=== PATIENT | female | born 1945 | race Caucasian/White ===

== ENCOUNTER → 2018-03-17 13:16 | Outpatient (CLI) | payer MEDICARE, SELFPAY ==
[2018-03-17 13:38] LABS: Add Manual Diff / Slide Review NO; Basophils Percent Auto 0.8 % (0-2); Eosinophils Percent Auto 1.5 % (2-4); Hematocrit 30.3 % (36-46); Hemoglobin 10.9 g/dL (12.0-16.0); Lymphocytes Percent Auto 19.7 % (25-40); Mean Corpuscular HGB Conc 35.9 % (30-36); Mean Corpuscular Hemoglobin 35.4 PG (26-34); Mean Corpuscular Volume 98.7 fL (80-100); Neutrophils Absolute Auto 3300 /uL (3000-5900); Platelet Count 453 X10^3/uL (150-400); Red Blood Cell Count 3.07 X10^6/uL (4.0-5.2); Red Cell Distribution Width 13.2 % (11.6-14.8); White Blood Cell Count 4.9 X10^3/uL (4.5-11.0)
[2018-03-17 13:53] LABS: Alanine Aminotransferase 30 IU/L (9-52); Albumin 4.1 g/dL (3.5-5.0); Albumin Globulin Ratio 1.7 (1.0-2.8); Alkaline Phosphatase 68 U/L (38-126); Aspartate Aminotransferase 33 IU/L (14-36); Bilirubin Total 0.3 mg/dL (0.2-1.3); Estimated Glomerular Filt Rate > 60.0 mL/min (>60); Globulin 2.4 g/dL (1.7-4.1); Glucose 75 mg/dL (80-110); HEMOLYSIS < 15 (0-50); Potassium 5.1 mmol/L (3.4-5.1); Sodium 120 mmol/L (137-145); Total Protein 6.5 g/dL (6.3-8.2)
== END ==
PROVIDERS: Family Provider Family Medicine; PCP Family Medicine; Visit Provider Nurse Practitioner Gerontology
DX: D47.3 Essential (hemorrhagic) thrombocythemia (principal)
CPT/HCPCS: 36415; 80053; 85025

== ENCOUNTER → 2018-04-14 12:32 | Outpatient (CLI) | payer MEDICARE, SELFPAY ==
[2018-04-14 12:54] LABS: Add Manual Diff / Slide Review NO; Basophils Percent Auto 0.6 % (0-2); Eosinophils Percent Auto 1.1 % (2-4); Hematocrit 31.7 % (36-46); Hemoglobin 11.3 g/dL (12.0-16.0); Lymphocytes Percent Auto 23.6 % (25-40); Mean Corpuscular HGB Conc 35.7 % (30-36); Neutrophils Absolute Auto 2500 /uL (3000-5900); Neutrophils Percent Auto 62.7 % (50-75); Platelet Count 426 X10^3/uL (150-400); Red Blood Cell Count 3.14 X10^6/uL (4.0-5.2); Red Cell Distribution Width 13.7 % (11.6-14.8)
[2018-04-14 13:02] LABS: Alanine Aminotransferase 36 IU/L (9-52); Albumin 4.3 g/dL (3.5-5.0); Albumin Globulin Ratio 1.8 (1.0-2.8); Alkaline Phosphatase 60 U/L (38-126); Aspartate Aminotransferase 31 IU/L (14-36); Bilirubin Total 0.4 mg/dL (0.2-1.3); Blood Urea Nitrogen 12 mg/dL (7-17); Calcium 9.1 mg/dL (8.4-10.2); Carbon Dioxide 26 mmol/L (22-32); Chloride 89 mmol/L (98-107); Estimated Glomerular Filt Rate > 60.0 mL/min (>60); Globulin 2.4 g/dL (1.7-4.1); Glucose 66 mg/dL (80-110); HEMOLYSIS < 15 (0-50); Potassium 4.9 mmol/L (3.4-5.1); Sodium 124 mmol/L (137-145); Total Protein 6.7 g/dL (6.3-8.2)
== END ==
PROVIDERS: Family Provider Family Medicine; PCP Family Medicine; Visit Provider Nurse Practitioner Gerontology
DX: D47.3 Essential (hemorrhagic) thrombocythemia (principal)
CPT/HCPCS: 36415; 80053; 85025

== ENCOUNTER → 2018-06-04 14:31 | Outpatient (CLI) | payer MEDICARE, SELFPAY ==
[2018-06-04 14:56] LABS: Add Manual Diff / Slide Review NO; Basophils Percent Auto 0.5 % (0-2); Eosinophils Percent Auto 0.8 % (2-4); Hematocrit 31.5 % (36-46); Mean Corpuscular HGB Conc 34.9 % (30-36); Mean Corpuscular Hemoglobin 35.5 PG (26-34); Mean Corpuscular Volume 101.7 fL (80-100); Monocytes Percent Auto 9.3 % (3-14); Neutrophils Absolute Auto 3700 /uL (3000-5900); Neutrophils Percent Auto 70.4 % (50-75); Platelet Count 367 X10^3/uL (150-400); Red Cell Distribution Width 13.2 % (11.6-14.8); White Blood Cell Count 5.2 X10^3/uL (4.5-11.0)
[2018-06-04 15:31] LABS: Alanine Aminotransferase 35 IU/L (9-52); Albumin 4.1 g/dL (3.5-5.0); Albumin Globulin Ratio 1.8 (1.0-2.8); Alkaline Phosphatase 62 U/L (38-126); Aspartate Aminotransferase 33 IU/L (14-36); Bilirubin Total 0.3 mg/dL (0.2-1.3); Blood Urea Nitrogen 15 mg/dL (7-17); Calcium 8.9 mg/dL (8.4-10.2); Carbon Dioxide 28 mmol/L (22-32); Chloride 86 mmol/L (98-107); Estimated Glomerular Filt Rate > 60.0 mL/min (>60); Globulin 2.3 g/dL (1.7-4.1); Glucose 80 mg/dL (80-110); HEMOLYSIS < 15 (0-50); Potassium 4.9 mmol/L (3.4-5.1); Sodium 123 mmol/L (137-145); Total Protein 6.4 g/dL (6.3-8.2)
== END ==
PROVIDERS: Family Provider Family Medicine; PCP Family Medicine; Visit Provider Nurse Practitioner Gerontology
DX: D47.3 Essential (hemorrhagic) thrombocythemia (principal)
CPT/HCPCS: 36415; 80053; 85025

== ENCOUNTER → 2018-07-01 10:58 | Outpatient (CLI) | payer MEDICARE, SELFPAY ==
[2018-07-01 11:19] LABS: Add Manual Diff / Slide Review NO; Basophils Percent Auto 0.3 % (0-2); Eosinophils Percent Auto 0.7 % (2-4); Hematocrit 31.7 % (36-46); Hemoglobin 11.1 g/dL (12.0-16.0); Lymphocytes Percent Auto 18.6 % (25-40); Mean Corpuscular Hemoglobin 35.2 PG (26-34); Mean Corpuscular Volume 100.7 fL (80-100); Monocytes Percent Auto 9.6 % (3-14); Neutrophils Absolute Auto 4100 /uL (3000-5900); Neutrophils Percent Auto 70.8 % (50-75); Platelet Count 430 X10^3/uL (150-400); Red Blood Cell Count 3.15 X10^6/uL (4.0-5.2); Red Cell Distribution Width 13.2 % (11.6-14.8); White Blood Cell Count 5.8 X10^3/uL (4.5-11.0)
--- NOTE | 2018-07-01 15:16 | PC.NURSE ---
Called pt with todays CBC results. All values are stable with the exception of her platelets which are 430. Pt is on hydrea 500mg QD for 6 days. This is being managed by Dr Cummings at this point due to the recent loss of Dr Campuzano. She said that her passed on Friday and that stress can cause a rise in her platelets. Dr Cummings will receive results and adjust accordingly.
== END ==
PROVIDERS: Family Provider Family Medicine; PCP Family Medicine; Visit Provider Nurse Practitioner Gerontology
DX: D47.3 Essential (hemorrhagic) thrombocythemia (principal)
CPT/HCPCS: 36415; 85025

== ENCOUNTER → 2018-07-03 08:34 | Outpatient (CLI) | payer MEDICARE, SELFPAY ==
[2018-07-03 08:41] LABS: Bacteria Urine None Seen; RBC Urine None Seen (0-5/HPF); WBC Urine None Seen (0-5/HPF)
[2018-07-03 09:19] LABS: Appearance Urine UA CLEAR; Bilirubin Urine UA NEGATIVE (NEGATIVE); Color Urine UA YELLOW; Glucose Urine UA NEGATIVE (Normal); Ketones Urine UA NEGATIVE (NEGATIVE); Leukocyte Esterase Urine UA NEGATIVE (NEGATIVE); Nitrite Urine UA Negative (Negative); Occult Blood Urine UA NEGATIVE (Negative); Protein Urine UA 1+ (Negative); Urobilinogen Urine UA 0.2 E.U./dL (0.2)
[2018-07-03 09:31] LABS: Reticulocyte Count, Percent 1.4 % (1.06-2.63)
[2018-07-03 09:32] LABS: Add Manual Diff / Slide Review NO; Amorphous Sediment Urine 1+; Basophils Percent Auto 0.4 % (0-2); Culture Indicated Urine Cult Not Indicated; Eosinophils Percent Auto 1.6 % (2-4); Hematocrit 32.1 % (36-46); Hemoglobin 11.2 g/dL (12.0-16.0); Lymphocytes Percent Auto 21.5 % (25-40); Mean Corpuscular HGB Conc 34.9 % (30-36); Mean Corpuscular Hemoglobin 35.2 PG (26-34); Mean Corpuscular Volume 100.9 fL (80-100); Monocytes Percent Auto 9.8 % (3-14); Neutrophils Absolute Auto 2700 /uL (3000-5900); Neutrophils Percent Auto 66.7 % (50-75); Platelet Count 441 X10^3/uL (150-400); Red Blood Cell Count 3.18 X10^6/uL (4.0-5.2); Red Cell Distribution Width 12.7 % (11.6-14.8)
[2018-07-03 10:09] LABS: HEMOLYSIS < 15 (0-50); Iron 76 ug/dL (37-170)
[2018-07-03 10:12] LABS: B Type Natriuretic Peptide 97.5 (<100)
[2018-07-03 10:15] LABS: Creatinine Urine Random 84.1 mg/dL
[2018-07-03 10:19] LABS: Alanine Aminotransferase 38 IU/L (9-52); Albumin 4.2 g/dL (3.5-5.0); Albumin Globulin Ratio 1.9 (1.0-2.8); Alkaline Phosphatase 67 U/L (38-126); Aspartate Aminotransferase 41 IU/L (14-36); Bilirubin Total 0.4 mg/dL (0.2-1.3); Blood Urea Nitrogen 12 mg/dL (7-17); Calcium 9.1 mg/dL (8.4-10.2); Carbon Dioxide 30 mmol/L (22-32); Chloride 93 mmol/L (98-107); Estimated Glomerular Filt Rate > 60.0 mL/min (>60); Globulin 2.2 g/dL (1.7-4.1); Glucose 91 mg/dL (80-110); HEMOLYSIS < 15 (0-50); Potassium 4.3 mmol/L (3.4-5.1); Sodium 130 mmol/L (137-145); Total Protein 6.4 g/dL (6.3-8.2)
[2018-07-03 10:25] LABS: Percent Iron Saturation 25 % (15-50); Total Iron Binding Capacity 304 ug/dL (265-497); Transferrin 253 mg/dL (206-381)
[2018-07-03 10:33] LABS: Microalbumi Creatinin Ratio Ur 425.6 ug/mg CR (<30); Microalbumin Urine Random 35.8 mg/dL (0-1.6)
[2018-07-03 10:44] LABS: Cortisol AM (Before 10AM) 15.7 ug/dL (4.46-22.7)
[2018-07-03 11:18] LABS: Folate > 20.0 ng/mL (2.76-20.0); Vitamin B12 889 pg/mL (239-931)
[2018-07-06 16:52] LABS: Osmolality, Serum 269 mosm/kg (260-310)
[2018-07-06 16:53] LABS: Osmolality Urine 443 mosm/kg (220-1300)
== END ==
PROVIDERS: PCP Family Medicine; Visit Provider Internal Medicine
DX: E87.1 Hypo-osmolality and hyponatremia (principal); R60.0 Localized edema; R03.0 Elevated blood-pressure reading, without diagnosis of hypertension; D47.3 Essential (hemorrhagic) thrombocythemia
CPT/HCPCS: 36415; 80053; 81001; 82043; 82533; 82570; 82607; 82746; 83540; 83550; 83880; 83930; 83935; 84443; 85025; 85045

== ENCOUNTER → 2018-07-30 15:01 | Outpatient (CLI) | payer MEDICARE, SELFPAY ==
[2018-07-30 15:16] LABS: Add Manual Diff / Slide Review NO; Basophils Percent Auto 0.3 % (0-2); Eosinophils Percent Auto 0.5 % (2-4); Hematocrit 32.2 % (36-46); Hemoglobin 11.2 g/dL (12.0-16.0); Lymphocytes Percent Auto 17.1 % (25-40); Mean Corpuscular HGB Conc 34.8 % (30-36); Mean Corpuscular Volume 100.6 fL (80-100); Monocytes Percent Auto 7.1 % (3-14); Neutrophils Absolute Auto 4500 /uL (3000-5900); Platelet Count 403 X10^3/uL (150-400); Red Cell Distribution Width 13.1 % (11.6-14.8)
== END ==
PROVIDERS: Nurse Practitioner Gerontology; Family Provider Family Medicine; PCP Family Medicine
DX: D47.3 Essential (hemorrhagic) thrombocythemia (principal)
CPT/HCPCS: 36415; 85025

== ENCOUNTER 2018-08-04 14:00 | Oncology outpatient (ONC) | payer MEDICARE, SELFPAY ==
--- NOTE | 2018-04-16 08:57 | ONC.APRN.PN ---
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 She has been well managed on Hydrea 500 mg x6 days/3000mg per week. On exam today she has no signs or symptoms of thrombus. Additionally, CBC demonstrates stability with a platelet count of 426,000. Continue Hydrea 3000 mg per week. CMP demonstrates hyponatremia with a sodium of 124. She carries a diagnosis of chronic hypontremia for which her PCP manages. No clear etiology. I have reviewed her medication list no obvious offenders. at 124 I am somewhat concerned for cardiac arrhythmia surprisingly she is not symptomatic with result of 124 and she is adamant this is normal and Dr Cummings follows closely. I reviewed her last several results and they were 124, 125, 126, 124. Also she has chronic bradycardia quite alarming today her rate is 38 however in review of records upper 30's low 40's seems to be normal for her. Either way this is concerning however, again, Megha is adamant this is also normal for her. She absolutely denies any CP, lightheadedness, dizziness. In review of these records as well she is correct her last several visits her heart rate has been in the upper 30s to low 40s. RTC in 2 months for provider visit cbc cmp On exam today 04/16/18 12:37 - Time Spent with Patient 35 mins PN -Subjective Interval history: Darron is a 73-year-old female who is being seen in the clinic April 16, 2018 for JAK2 positive essential thrombocytosis currently taking Hydrea 500 mg x6 days/3000mg per week. She presents today for 6 month clinical evaluation. Past Medical History The patient's past medical history is significant for: 2. History of a TIA with hospitalization for aphasia and ataxia, largely resolved; that was in 04/2014. 3. history of hypothyroidism 4. Partial seizure. Evaluated by Dr. Ramos. 5. chronic hyponatremia Results - Imaging Additional studies: Procedures CATARAC PHACOEMULS/ASPIR (05/08/10) Colonoscopy (09/02/12) INSERT LENS AT CATAR EXT (05/08/10) Other and open repair of indirect inguinal hernia with graft or prosthesis (03/28/15) Other unilateral femoral herniorrhaphy (05/19/15) Home Medications and Allergies Home Medications Medication Instructions Recorded Confirmed Type B.ANI/L.ACI/L.SCARLET/L.PLAN/L.TRISHA 1 cap PO Q DAY #0 09/02/11 History (Probiotic Formula Capsule) CA PANTOTHENATE/FOLIC ACID/VIT 1 tab PO QDAY #0 09/02/11 History (MULTIVITAMIN) VITAMIN E (#E400) 400 iu PO Q DAY #0 09/02/11 History levothyroxine [Synthroid] 0.075 mg PO QAM #90 tab 09/02/17 Rx alendronate 70 mg PO QWEEK #12 tab 09/09/17 Rx hydroxyurea [Hydrea] 500 mg PO QDAY #100 tab 09/18/17 Rx cholecalciferol (vitamin D3) 1,000 iu PO QDAY #0 11/20/17 History [Vitamin D3] [TURBINAFINE] #0 02/13/18 History gabapentin [Neurontin] 0 PO BID #180 tab 02/25/18 Rx Allergies Allergy/AdvReac Type Severity Reaction Status Date / Time codeine Allergy Mild NAUSEA Unverified 02/18/18 11:48 Sulfa (Sulfonamide Allergy Mild NAUSEA Unverified 02/18/18 11:48 Antibiotics) morphine AdvReac Mild NAUSEA Unverified 02/18/18 11:48
[2018-04-16 12:49] VITALS: BP 199/76; PULSE 39; RESP 16; TEMP 36.4
[2018-06-05 13:24] VITALS: BP 174/70; PULSE 36; RESP 20; TEMP 36.8; O2SAT 100
--- NOTE | 2018-06-05 13:45 | ONC.APRN.PN ---
Assessment and Plan (1) Thrombocythemia Onset Date: 06/07/14 Current visit: No Status: None 06/05/18 13:51 Darron is a 73-year-old female who is being seen in the clinic 06/05/2018 for JAK2 positive essential thrombocytosis currently taking Hydrea 500 mg x6 days/3000mg per week. She presents today for 6 month clinical evaluation. Platelets are very good today at 367,000. Patient is overall feeling quite well. We will continue Hydrea 500 mg x6 days. I am going to refer the patient to Cardiology for further evaluation of chronic asymptomatic bradycardia. In review of the patient's previous visits dating back at least 2 years she has chronic bradycardia with heart rate in the 30s to 40s. Additionally, she seems to have chronic hyponatremia with sodiums generally in the low 120. Patient is adamant she remains asymptomatic to both which is rather surprising. Patient is agreeable to meeting with Cardiology. We will go ahead and schedule for her. Return to clinic in 1 months time for CBC. Two months for provider visit, CBC. - Time Spent with Patient 35 mins PN -Subjective Interval history: Darron is a 73-year-old female who is being seen in the clinic 06/05/2018 for JAK2 positive essential thrombocytosis currently taking Hydrea 500 mg x6 days/3000mg per week. She presents today for 6 month clinical evaluation. She has nothing new to report on exam today. Overall feeling ?excellent?. She and her are enjoying the summer season. Specifically no unexplained bleeding or bruising. She remains quite active, activity tolerance remains very good. No chest pain, shortness of breath. No headaches. She does have chronic swelling of her lower extremities. Appetite is stable, weight is stable. Bowel movements are normal. At time of intake the patient has a heart rate of 36 with a blood pressure of 174/70. I am quite familiar with this patient she does have chronic bradycardia previous visit April 16 heart rate was 39, visit February 13 heart rate was 45, visit January 02 heart rate was 36. Patient reports ?it has always been like this, Dr Cummings is not alarmed. She takes her blood pressure at home reports systolic pressures generally in the 120s. She also has chronic severe hyponatremia today her sodium is 123. Specifically the patient denies any dizziness, lightheadedness. No nausea. As noted above activity tolerance is very good. Past Medical History The patient's past medical history is significant for: 2. History of a TIA with hospitalization for aphasia and ataxia, largely resolved; that was in 04/2014. 3. history of hypothyroidism 4. Partial seizure. Evaluated by Dr. Ramos. 5. chronic hyponatremia Results - Imaging Additional studies: Procedures CATARAC PHACOEMULS/ASPIR (05/08/10) Colonoscopy (09/02/12) INSERT LENS AT CATAR EXT (05/08/10) Other and open repair of indirect inguinal hernia with graft or prosthesis (03/28/15) Other unilateral femoral herniorrhaphy (03/28/15) Home Medications and Allergies Home Medications Medication Instructions Recorded Confirmed Type B.ANI/L.ACI/L.SCARLET/L.PLAN/L.TRISHA 1 cap PO Q DAY #0 09/02/11 History (Probiotic Formula Capsule) CA PANTOTHENATE/FOLIC ACID/VIT 1 tab PO QDAY #0 09/02/11 History (MULTIVITAMIN) VITAMIN E (#E400) 400 iu PO Q DAY #0 09/02/11 History levothyroxine [Synthroid] 0.075 mg PO QAM #90 tab 09/02/17 Rx alendronate 70 mg PO QWEEK #12 tab 09/09/17 Rx hydroxyurea [Hydrea] 500 mg PO QDAY #100 tab 09/18/17 Rx cholecalciferol (vitamin D3) 1,000 iu PO QDAY #0 11/20/17 History [Vitamin D3] gabapentin [Neurontin] 0 PO BID #180 tab 02/25/18 Rx Allergies Allergy/AdvReac Type Severity Reaction Status Date / Time codeine Allergy Mild NAUSEA Unverified 02/18/18 11:48 Sulfa (Sulfonamide Allergy Mild NAUSEA Unverified 02/18/18 11:48 Antibiotics) morphine AdvReac Mild NAUSEA Unverified 02/18/18 11:48 Exam Vital signs: Last Vital Signs Temp 98.2 F 06/05/18 13:24 Pulse 36 L 06/05/18 13:24 Resp 20 06/05/18 13:24 BP 174/70 H 06/05/18 13:24 Pulse Ox 100 06/05/18 13:24 Narrative: Nontoxic-appearing - Constitutional positive no acute distress, positive thin - Routine HEENT Exam Eye: Present: conjunctivae pink. Absent: conjunctival icterus, scleral injection ENT: Present: mucous membranes moist, oropharynx clear - Routine Neck Exam Present: supple. Absent: lymphadenopathy - Routine Respiratory Exam Present: Clear to auscultation bilaterally. Absent: rales, rhonchi, wheezes - Routine Cardiovascular Exam Present: S1, S2, bradycardia. Absent: murmur, gallop, rubs, JVD Comments: Heart rate today in the upper 30s. Per patient report this is chronic. In review of her chart she does in fact have documented heart rate in the 30s and 40s her previous visits going back the last few years. - Routine Abdominal Exam Present: soft, normoactive bowel sounds. Absent: tenderness, distended, organomegaly, mass - Routine Extremities Exam Present: edema. Absent: calf tenderness Comments: 2+ symmetric bilateral pretibial edema - Routine Skin Exam Present: intact, normal turgor. Absent: petechiae, rash - Routine Neurological Exam Present: alert, oriented X3, CN II-XII intact - Routine Psychiatric Exam Present: normal affect
--- NOTE | 2018-08-04 14:32 | ONC.PN ---
PN -Subjective Interval history: Darron is a 73-year-old female who is being seen in the clinic for JAK2 positive essential thrombocytosis currently taking Hydrea 500 mg x6 days/3000mg per week. Since her last visit here, she has been feeling generally well. She denies any bleeding or but blood clotting complications. No fevers chills or sweats. Her appetite and energy level have been stable. She has not had any GI complaints. She continues to tolerate her Hydrea without any significant difficulty. She was referred to Cardiology for bradycardia and has an appointment coming up but has not seen them yet. She is not having any chest pain or dizziness or lightheadedness. Past Medical History The patient's past medical history is significant for: 2. History of a TIA with hospitalization for aphasia and ataxia, largely resolved; that was in 04/2014. 3. history of hypothyroidism 4. Partial seizure. Evaluated by Dr. Ramos. 5. chronic hyponatremia Social history: She was recently . Her about a month ago. She does not smoke. She has occasional alcohol use. Home Medications and Allergies Home Medications Medication Instructions Recorded Confirmed Type B.ANI/L.ACI/L.SCARLET/L.PLAN/L.TRISHA 1 cap PO Q DAY #0 09/02/11 07/02/18 History (Probiotic Formula Capsule) CA PANTOTHENATE/FOLIC ACID/VIT 1 tab PO QDAY #0 09/02/11 07/02/18 History (MULTIVITAMIN) VITAMIN E (#E400) 400 iu PO Q DAY #0 09/02/11 07/02/18 History levothyroxine [Synthroid] 0.075 mg PO QAM #90 tab 09/02/17 07/02/18 Rx alendronate 70 mg PO QWEEK #12 tab 09/09/17 07/02/18 Rx hydroxyurea [Hydrea] 500 mg PO QDAY #100 tab 09/18/17 07/02/18 Rx cholecalciferol (vitamin D3) 1,000 iu PO QDAY #0 11/20/17 07/02/18 History [Vitamin D3] gabapentin [Neurontin] 0 PO BID #180 tab 02/25/18 07/02/18 Rx Allergies Allergy/AdvReac Type Severity Reaction Status Date / Time codeine Allergy Mild NAUSEA Unverified 07/02/18 14:04 Sulfa (Sulfonamide Allergy Mild NAUSEA Unverified 07/02/18 14:04 Antibiotics) morphine AdvReac Mild NAUSEA Unverified 07/02/18 14:04 Exam Vital signs: Last Vital Signs Temp 98.2 F 06/05/18 13:24 Pulse 36 L 06/05/18 13:24 Resp 20 06/05/18 13:24 BP 174/70 H 06/05/18 13:24 Pulse Ox 100 06/05/18 13:24 - Constitutional positive no acute distress, positive average body habitus - Routine HEENT Exam Head: Present: normocephalic, atraumatic Eye: Present: EOMI, PERRL. Absent: conjunctival icterus, scleral injection ENT: Present: mucous membranes moist, oropharynx clear - Routine Neck Exam Present: supple. Absent: lymphadenopathy, thyromegaly - Routine Respiratory Exam Present: Clear to auscultation bilaterally. Absent: rales, wheezes - Routine Cardiovascular Exam Present: RRR, S1, S2. Absent: murmur - Routine Abdominal Exam Present: soft, normoactive bowel sounds. Absent: tenderness, organomegaly Palpation/Percussion: Absent: splenomegaly - Routine Extremities Exam Absent: cyanosis, clubbing, edema - Routine Back/Spine Exam Back/Spine: Absent: paraspinal tenderness, vertebral tenderness - Routine Skin Exam Present: intact. Absent: petechiae, rash - Routine Neurological Exam Present: alert, oriented X3 - Routine Psychiatric Exam Present: normal affect, normal thought process Results - Labs On July 30 her white count was 6000 hemoglobin 11.2 hematocrit 32.2 platelets [id number]. - Imaging Additional studies: Procedures CATARAC PHACOEMULS/ASPIR (05/08/10) INSERT LENS AT CATAR EXT (05/08/10) Other and open repair of indirect inguinal hernia with graft or prosthesis (03/28/15) Other unilateral femoral herniorrhaphy (03/28/15) Assessment and Plan (1) Thrombocythemia Onset Date: 06/07/14 Problem details: A 73-year-old woman with a history of essential thrombocytosis. She has had good control of her platelet count. She is tolerating Hydrea well. She will continue on her current regimen. She will check a monthly CBC and return to clinic in about 4 months for follow-up. Current visit: No Status: None
[2018-08-04 16:10] VITALS: BP 153/76; PULSE 45; RESP 18; TEMP 36.4
== END 2018-08-05 12:00 ==
PROVIDERS: Family Provider Family Medicine; PCP Family Medicine; Visit Provider Nurse Practitioner Gerontology
DX: D47.3 Essential (hemorrhagic) thrombocythemia (principal)
CPT/HCPCS: 99214

== ENCOUNTER → 2018-08-19 09:41 | Outpatient (CLI) | payer MEDICARE, SELFPAY ==
[2018-08-19 10:54] LABS: Add Manual Diff / Slide Review NO; Basophils Percent Auto 0.5 % (0-2); Eosinophils Percent Auto 1.1 % (2-4); Hematocrit 34.6 % (36-46); Lymphocytes Percent Auto 22.1 % (25-40); Mean Corpuscular HGB Conc 34.8 % (30-36); Mean Corpuscular Hemoglobin 35.7 PG (26-34); Mean Corpuscular Volume 102.5 fL (80-100); Monocytes Percent Auto 10.1 % (3-14); Neutrophils Absolute Auto 2800 /uL (3000-5900); Neutrophils Percent Auto 66.2 % (50-75); Platelet Count 425 X10^3/uL (150-400); Red Blood Cell Count 3.37 X10^6/uL (4.0-5.2); Red Cell Distribution Width 13.4 % (11.6-14.8); White Blood Cell Count 4.3 X10^3/uL (4.5-11.0)
[2018-08-19 11:04] LABS: Alanine Aminotransferase 30 IU/L (9-52); Albumin 4.5 g/dL (3.5-5.0); Albumin Globulin Ratio 1.8 (1.0-2.8); Alkaline Phosphatase 67 U/L (38-126); Aspartate Aminotransferase 33 IU/L (14-36); BUN Creatinine Ratio 21.4 (6-22); Bilirubin Total 0.5 mg/dL (0.2-1.3); Blood Urea Nitrogen 15 mg/dL (7-17); Calcium 9.4 mg/dL (8.4-10.2); Carbon Dioxide 31 mmol/L (22-32); Chloride 93 mmol/L (98-107); Cholesterol 195 mg/dL (140-199); Estimated Glomerular Filt Rate > 60.0 mL/min (>60); Globulin 2.5 g/dL (1.7-4.1); Glucose 93 mg/dL (80-110); HEMOLYSIS < 15 (0-50); Potassium 4.4 mmol/L (3.4-5.1); Sodium 133 mmol/L (137-145); Triglycerides 74 mg/dL (35-150)
[2018-08-19 11:26] LABS: HDL Cholesterol 124 mg/dL (40-60); LDL Cholesterol Calculated 56 mg/dL (<100)
[2018-08-19 12:21] LABS: Thyroid Stimulating Hormone 2.12 uIU/mL (0.47-4.68)
== END ==
PROVIDERS: Family Provider Family Medicine; PCP Family Medicine; Visit Provider Hospitalist
DX: D47.3 Essential (hemorrhagic) thrombocythemia (principal); E03.9 Hypothyroidism, unspecified; R60.0 Localized edema; D64.9 Anemia, unspecified; E87.1 Hypo-osmolality and hyponatremia; G62.9 Polyneuropathy, unspecified
CPT/HCPCS: 36415; 80053; 80061; 84156; 84166; 84443; 85025

== ENCOUNTER → 2018-08-21 12:41 | Outpatient (CLI) | payer MEDICARE, SELFPAY ==
--- NOTE | 2018-08-21 13:05 | DI.ECHO.S_ITS ---
Echocardiogram Report + + :Name: GABRIELA MARINA Date: 08/21/2018 Height: 64 in : :[employer] Weight: 106 lb : : Gender: Female BSA: 1.5 m2 : :: 1945 Age: 73 yrs BP: 150/74 mmHg: :Reason For Study: Edema : :Ordering Physician: Faheem : :Mesfin Edwards Performed By: Idania Shahid : :Referring: Dr. Felipe Cummings : + + Interpretation Summary The left ventricle is normal in size, wall thickness, and systolic function without any focal wall motion abnormalities. There is pseudonormalization of the E/A, indicating normal filling pressures. However the tissue velocities of the septal and lateral mitral annulus are severely reduced and the left atrial is significantly dilated. The right ventricle grossly appears normal in size with probable normal systolic function. The left atrium is severely dilated. The right ventricular systolic pressure is estimated to be at least 35 mmHg based on an estimated right atrial pressure of 3 mm Hg. The IVC is of normal diameter and collapses greater than 50% with a sniff. This suggests a low right atrial pressure of 3 mm Hg. Procedure: A two-dimensional transthoracic echocardiogram with color flow and Doppler was performed. The study quality was technically good. Comparison is made with the echocardiogram of 03-15-14. The patient was in normal sinus rhythm during the exam. Left Ventricle: The left ventricle is normal in size, wall thickness, and systolic function without any focal wall motion abnormalities. The ejection fraction is estimated to be 60-65%. Diastolic function could not be accurately assessed due to contradictory data. There is pseudonormalization of the E/A, indicating normal filling pressures. However the tissue velocities of the septal and lateral mitral annulus are severely reduced and the left atrial is significantly dilated. Right Ventricle: The right ventricle grossly appears normal in size with probable normal systolic function. Atria: The left atrium is severely dilated. The right atrium is mildly dilated. The interatrial septum is intact with no evidence for an atrial septal defect. Mitral Valve: The mitral valve is grossly normal. There is mild to moderate mitral regurgitation. Aortic Valve: The aortic valve is trileaflet. The aortic valve opens well. There is mild aortic valve sclerosis. There is no aortic valve stenosis. There is trace aortic regurgitation. Tricuspid Valve: The tricuspid valve is normal in structure and function. There is trace tricuspid regurgitation. The right ventricular systolic pressure is estimated to be at least 35 mmHg based on an estimated right atrial pressure of 3 mm Hg. Pulmonic Valve: The pulmonic valve is normal in structure and function. There is trace pulmonic regurgitation. Great Vessels: The aortic root is normal size. The dimensions of the ascending aorta are normal. The IVC is of normal diameter and collapses greater than 50% with a sniff. This suggests a low right atrial pressure of 3 mm Hg. Pericardium/ Pleura There is no pericardial effusion. There is no pleural effusion. MMode/2D Measurements & Calculations LVIDd: 4.8 cm Ao root diam: 3.2 cm LVIDs: 2.7 cm Aortic Jxn: 2.6 cm FS: 43.0 % asc Aorta Diam: 2.4 cm IVSd: 0.76 cm Ao Arch Diam (Prox Trans): 2.5 cm LVPWd: 0.91 cm LV yanes. diameter/BSA (cm/m^2): 3.2 LV sys. diameter/BSA (cm/m^2): 1.8 LA A2 area: 26.5 cm2 RA long axis: 5.1 cm LA A4 area: 27.2 cm2 RA area: 18.7 cm2 LA length (vol): 5.9 cm RA vol: 58.7 ml LA vol: 103.7 ml RA : 39.3 ml/m2 LA vol index: 69.5 ml/m2 IVC diam: 1.5 cm RVDd major: 6.0 cm RVD1 (basal): 4.0 cm RVD2 (mid): 2.6 cm Doppler Measurements & Calculations Ao V2 max: 128.4 cm/sec MV E max carlos: 60.0 cm/sec Ao V2 mean: 79.0 cm/sec MV A max carlos: 56.5 cm/sec Ao max P.6 mmHg MV E/A: 1.1 Ao mean P.0 mmHg Med Peak E' Carlos: 4.5 cm/sec Ao V2 VTI: 34.6 cm E/E' med: 13.4 Lat Peak E' Carlos: 5.5 cm/sec E/E' lat: 11.0 E/e' average: 12.2 MV dec time: 0.56 sec MV P1/2t: 163.8 msec MR ERO: 0.12 cm2 TR max carlos: 283.5 cm/sec MV P1/2t max carlos: 59.6 cm/sec TR max P.2 mmHg MVA(P1/2t): 1.3 cm2 PA V2 max: 81.2 cm/sec PA V2 mean: 53.7 cm/sec PA mean P.3 mmHg PA Accel Time: 0.19 sec MR flow rate: 76.5 cm3/sec MR PISA radius: 0.57 cm _ Electronically signed by: Faheem Toure M.D. on Reading Physician:08/21/2018 07:32 PM
== END ==
PROVIDERS: Family Provider Family Medicine; PCP Family Medicine; Visit Provider Hospitalist
DX: I34.0 Nonrheumatic mitral (valve) insufficiency (principal); R60.9 Edema, unspecified
CPT/HCPCS: 93306

== ENCOUNTER → 2018-08-31 14:30 | Outpatient (CLI) | payer MEDICARE, SELFPAY ==
[2018-08-31 14:53] LABS: Add Manual Diff / Slide Review NO; Basophils Percent Auto 0.8 % (0-2); Eosinophils Percent Auto 0.6 % (2-4); Hematocrit 31.8 % (36-46); Lymphocytes Percent Auto 22.2 % (25-40); Mean Corpuscular HGB Conc 34.6 % (30-36); Mean Corpuscular Hemoglobin 35.1 PG (26-34); Mean Corpuscular Volume 101.4 fL (80-100); Neutrophils Absolute Auto 3200 /uL (3000-5900); Neutrophils Percent Auto 67.4 % (50-75); Platelet Count 436 X10^3/uL (150-400); Red Blood Cell Count 3.14 X10^6/uL (4.0-5.2); Red Cell Distribution Width 13.4 % (11.6-14.8); White Blood Cell Count 4.8 X10^3/uL (4.5-11.0)
--- NOTE | 2018-09-01 11:51 | PC.NURSE ---
Spoke with pt regarding recent lab results. Platelets are elevated but outside the 500 range given by provider. Pt is on hydrea and no dose adjust is currently needed.
== END ==
PROVIDERS: Family Provider Family Medicine; PCP Family Medicine
DX: R60.9 Edema, unspecified (principal); D47.3 Essential (hemorrhagic) thrombocythemia
CPT/HCPCS: 36415; 81003; 84156; 84166; 85025

== ENCOUNTER → 2018-08-31 14:46 | Outpatient (CLI) | payer MEDICARE, SELFPAY ==
[2018-08-31 15:55] LABS: Appearance Urine UA CLEAR; Bilirubin Urine UA NEGATIVE (NEGATIVE); Color Urine UA YELLOW; Glucose Urine UA NEGATIVE (Normal); Ketones Urine UA NEGATIVE (NEGATIVE); Leukocyte Esterase Urine UA NEGATIVE (NEGATIVE); Nitrite Urine UA NEGATIVE (Negative); Occult Blood Urine UA NEGATIVE (Negative); Protein Urine UA TRACE (Negative); Urobilinogen Urine UA 0.2 E.U./dL (0.2); pH Urine UA 7.5 (4.5-8.0)
== END ==
PROVIDERS: Family Provider Family Medicine; PCP Family Medicine; Visit Provider Hospitalist
DX: R60.9 Edema, unspecified (principal)
CPT/HCPCS: 81003; 84156; 84166

== ENCOUNTER → 2018-09-15 15:17 | Outpatient (CLI) | payer MEDICARE, SELFPAY ==
--- NOTE | 2018-09-15 | DI.MG.S_ITS ---
BILATERAL DIGITAL SCREENING MAMMOGRAM 3D/2D WITH CAD: 09/15/2018 CLINICAL: Routine screening. Family history of breast cancer. Comparison is made to exams dated: 08/13/2017 mammogram, 08/12/2016 mammogram, and 08/10/2015 mammogram - [facility]. The tissue of both breasts is heterogeneously dense. This may lower the sensitivity of mammography. Current study was also evaluated with a Computer Aided Detection (CAD) system. No significant masses, calcifications, or other findings are seen in either breast. There has been no significant interval change. IMPRESSION: NEGATIVE There is no mammographic evidence of malignancy. A 1 year screening mammogram is recommended. This exam was interpreted at Station ID: [id number]. NOTE: For mammograms, a report in lay terms will be sent to the patient. Approximately 15% of breast malignancies will not be visualized mammographically. In the management of a palpable breast mass, a negative mammogram must not discourage biopsy of a clinically suspicious lesion. Electronically Signed By: Lencho palmer/alfonso:09/16/2018 07:20:03 letter sent: Normal Exam ACR BI-RADS Category 1: Negative [id number]
== END ==
PROVIDERS: PCP Family Medicine; Visit Provider Family Medicine
DX: Z12.31 Encounter for screening mammogram for malignant neoplasm of breast (principal); Z80.3 Family history of malignant neoplasm of breast
CPT/HCPCS: 77063; 77067

== ENCOUNTER → 2018-10-13 15:08 | Outpatient (CLI) | payer MEDICARE, SELFPAY ==
[2018-10-13 15:49] LABS: Add Manual Diff / Slide Review NO; Basophils Percent Auto 0.3 % (0-2); Eosinophils Percent Auto 0.5 % (2-4); Hematocrit 32.4 % (36-46); Hemoglobin 11.3 g/dL (12.0-16.0); Lymphocytes Percent Auto 14.8 % (25-40); Mean Corpuscular HGB Conc 34.8 % (30-36); Mean Corpuscular Hemoglobin 35.6 PG (26-34); Mean Corpuscular Volume 102.3 fL (80-100); Monocytes Percent Auto 7.5 % (3-14); Neutrophils Absolute Auto 3600 /uL (3000-5900); Neutrophils Percent Auto 76.9 % (50-75); Platelet Count 399 X10^3/uL (150-400); Red Blood Cell Count 3.16 X10^6/uL (4.0-5.2); Red Cell Distribution Width 12.8 % (11.6-14.8); White Blood Cell Count 4.7 X10^3/uL (4.5-11.0)
== END ==
PROVIDERS: Family Provider Family Medicine; PCP Family Medicine
DX: D47.3 Essential (hemorrhagic) thrombocythemia (principal)
CPT/HCPCS: 36415; 85025

== ENCOUNTER → 2018-11-11 12:56 | Outpatient (CLI) | payer MEDICARE, SELFPAY ==
[2018-11-11 13:15] LABS: Add Manual Diff / Slide Review NO; Basophils Percent Auto 0.6 % (0-2); Eosinophils Percent Auto 0.5 % (2-4); Hematocrit 33.7 % (36-46); Hemoglobin 11.6 g/dL (12.0-16.0); Lymphocytes Percent Auto 15.5 % (25-40); Mean Corpuscular HGB Conc 34.4 % (30-36); Mean Corpuscular Hemoglobin 35.3 PG (26-34); Mean Corpuscular Volume 102.7 fL (80-100); Monocytes Percent Auto 9.5 % (3-14); Neutrophils Absolute Auto 3600 /uL (1500-7000); Neutrophils Percent Auto 73.9 % (50-75); Platelet Count 407 X10^3/uL (150-400); Red Blood Cell Count 3.28 X10^6/uL (4.0-5.2); Red Cell Distribution Width 12.4 % (11.6-14.8); White Blood Cell Count 4.9 X10^3/uL (4.5-11.0)
== END ==
PROVIDERS: Family Provider Family Medicine; PCP Family Medicine
DX: D47.3 Essential (hemorrhagic) thrombocythemia (principal)
CPT/HCPCS: 36415; 85025

== ENCOUNTER → 2019-03-18 14:41 | Outpatient (CLI) | payer MEDICARE, SELFPAY ==
[2019-03-18 15:05] LABS: Bacteria Urine None Seen; RBC Urine None Seen (0-5/HPF); WBC Urine None Seen (0-5/HPF)
[2019-03-18 15:52] LABS: Add Manual Diff / Slide Review NO; Basophils Absolute Auto 0 /uL (0-100); Basophils Percent Auto 0.3 % (0-2); Eosinophils Absolute Auto 0 /uL (0-450); Eosinophils Percent Auto 0.6 % (2-4); Hematocrit 29.6 % (36-46); Hemoglobin 9.9 g/dL (12.0-16.0); Lymphocytes Absolute Auto 600 /uL (1100-4500); Lymphocytes Percent Auto 17.3 % (25-40); Mean Corpuscular HGB Conc 33.5 % (30-36); Mean Corpuscular Hemoglobin 34.6 PG (26-34); Mean Corpuscular Volume 103.4 fL (80-100); Monocytes Absolute Auto 400 /uL (0-900); Neutrophils Absolute Auto 2600 /uL (1500-7000); Neutrophils Percent Auto 71.8 % (50-75); Platelet Count 319 X10^3/uL (150-400); Red Blood Cell Count 2.87 X10^6/uL (4.0-5.2); Red Cell Distribution Width 13.8 % (11.6-14.8); White Blood Cell Count 3.6 X10^3/uL (4.5-11.0)
[2019-03-18 15:59] LABS: Appearance Urine UA CLEAR; Bilirubin Urine UA NEGATIVE (NEGATIVE); Color Urine UA YELLOW; Glucose Urine UA NEGATIVE (Negative); Ketones Urine UA NEGATIVE (NEGATIVE); Leukocyte Esterase Urine UA NEGATIVE (NEGATIVE); Nitrite Urine UA NEGATIVE (Negative); Occult Blood Urine UA NEGATIVE (Negative); Protein Urine UA 2+ (Negative); Specific Gravity Urine UA 1.015 (1.000-1.035); Urobilinogen Urine UA 0.2 E.U./dL (0.2); pH Urine UA 7.5 (4.5-8.0)
== END ==
PROVIDERS: Family Provider Family Medicine; PCP Family Medicine; Visit Provider Internal Medicine Cardiovascular Disease
DX: R60.9 Edema, unspecified (principal); D47.3 Essential (hemorrhagic) thrombocythemia
CPT/HCPCS: 36415; 81001; 84156; 84166; 85025

== ENCOUNTER → 2019-03-29 15:24 | Outpatient (CLI) | payer MEDICARE, SELFPAY ==
[2019-04-04 02:36] LABS: Albumin 69 %; Protein/ Creatinine Ratio 1914 mg/g creat (21-161); Total Urine Protein 71 mg/dL (5-24); Urine Creatinine, Random 37 mg/dL (20-275)
== END ==
PROVIDERS: Family Provider Family Medicine; PCP Family Medicine
DX: D47.3 Essential (hemorrhagic) thrombocythemia (principal)
CPT/HCPCS: 84156; 84166; 86335

== ENCOUNTER → 2019-05-19 14:31 | Outpatient (CLI) | payer MEDICARE, SELFPAY ==
[2019-05-19 15:13] LABS: Add Manual Diff / Slide Review NO; Basophils Absolute Auto 0 /uL (0-100); Basophils Percent Auto 0.3 % (0-2); Eosinophils Absolute Auto 0 /uL (0-450); Eosinophils Percent Auto 0.3 % (2-4); Hematocrit 30.4 % (36-46); Hemoglobin 10.6 g/dL (12.0-16.0); Lymphocytes Absolute Auto 600 /uL (1100-4500); Lymphocytes Percent Auto 13.4 % (25-40); Mean Corpuscular Hemoglobin 35.6 PG (26-34); Monocytes Absolute Auto 300 /uL (0-900); Monocytes Percent Auto 6.8 % (3-14); Neutrophils Absolute Auto 3700 /uL (1500-7000); Neutrophils Percent Auto 79.2 % (50-75); Platelet Count 275 X10^3/uL (150-400); Red Blood Cell Count 2.98 X10^6/uL (4.0-5.2); Red Cell Distribution Width 13.6 % (11.6-14.8); White Blood Cell Count 4.7 X10^3/uL (4.5-11.0)
== END ==
PROVIDERS: PCP Family Medicine
DX: D47.3 Essential (hemorrhagic) thrombocythemia (principal)
CPT/HCPCS: 36415; 85025

== ENCOUNTER → 2019-06-02 15:13 | Outpatient (CLI) | payer MEDICARE, SELFPAY ==
[2019-06-02 15:54] LABS: Add Manual Diff / Slide Review NO; Basophils Absolute Auto 0 /uL (0-100); Basophils Percent Auto 0.1 % (0-2); Eosinophils Absolute Auto 0 /uL (0-450); Eosinophils Percent Auto 0.3 % (2-4); Hematocrit 28.8 % (36-46); Lymphocytes Absolute Auto 600 /uL (1100-4500); Lymphocytes Percent Auto 9.1 % (25-40); Mean Corpuscular HGB Conc 34.8 % (30-36); Mean Corpuscular Hemoglobin 35.5 PG (26-34); Mean Corpuscular Volume 101.9 fL (80-100); Monocytes Absolute Auto 400 /uL (0-900); Monocytes Percent Auto 5.3 % (3-14); Neutrophils Absolute Auto 5800 /uL (1500-7000); Neutrophils Percent Auto 85.2 % (50-75); Platelet Count 317 X10^3/uL (150-400); Red Blood Cell Count 2.83 X10^6/uL (4.0-5.2); Red Cell Distribution Width 13.7 % (11.6-14.8); White Blood Cell Count 6.8 X10^3/uL (4.5-11.0)
[2019-06-02 16:36] LABS: Erythrocyte Sedimentation Rate 19 MM/HR (0-20)
[2019-06-02 17:42] LABS: Alanine Aminotransferase 32 IU/L (9-52); Albumin 4.1 g/dL (3.5-5.0); Albumin Globulin Ratio 1.7 (1.0-2.8); Alkaline Phosphatase 80 U/L (38-126); Aspartate Aminotransferase 30 IU/L (14-36); Bilirubin Total 0.3 mg/dL (0.2-1.3); Blood Urea Nitrogen 12 mg/dL (7-17); C-Reactive Protein Quant 0.6 mg/dL (<1.0); Calcium 8.9 mg/dL (8.4-10.2); Carbon Dioxide 28 mmol/L (22-32); Chloride 85 mmol/L (98-107); Estimated Glomerular Filt Rate > 60.0 mL/min (>60); Globulin 2.4 g/dL (1.7-4.1); Glucose 69 mg/dL (80-110); HEMOLYSIS < 15 (0-50); Potassium 4.7 mmol/L (3.4-5.1); Sodium 123 mmol/L (137-145); Total Protein 6.5 g/dL (6.3-8.2)
[2019-06-02 18:41] LABS: Thyroid Stimulating Hormone 1.47 uIU/mL (0.47-4.68)
== END ==
PROVIDERS: PCP Family Medicine; Visit Provider Family Medicine
DX: G62.9 Polyneuropathy, unspecified (principal)
CPT/HCPCS: 36415; 80053; 84443; 85025; 85651; 86140

== ENCOUNTER → 2019-06-11 09:47 | Outpatient (CLI) | payer MEDICARE, SELFPAY ==
--- NOTE | 2019-06-11 09:51 | DI.MRI.S_ITS ---
PROCEDURE: MR HEAD/BRAIN WO CON INDICATIONS: Memory impairment TECHNIQUE: Non-contrast axial T1 spin echo, axial T2 fast spin echo, sagittal and axial FLAIR, coronal T2 fast spin echo, axial gradient echo, axial diffusion and ADC through the brain. COMPARISON: [facility], MR, BRAIN WITHOUT CONTRAST, 05/04/2014, 8:43. FINDINGS: Image quality: Excellent. CSF spaces: Ventricles appear symmetric in size and shape. Basal cisterns are patent. No extra-axial fluid collections. Brain: No intracranial bleeds or mass effects. There is cerebral volume loss for age. There are periventricular and deep white matter chronic small vessel ischemic changes. Brainstem appears normal. Diffusion-weighted images show no acute ischemic insults. No chronic ischemic insults. Normal intravascular flow voids are present. Skull and face: Calvarial bone marrow is normal in signal. Orbits are normal. Sinuses: Small left maxillary sinus retention cyst. Sinuses and mastoids are otherwise clear. IMPRESSION: 1. Volume loss and small vessel ischemic disease. 2. No acute process. No recent infarct. Dictated by: Nydia Anderson M.D. on 06/11/2019 at 13:42 Approved by: Nydia Anderson M.D. on 06/11/2019 at 13:43
== END ==
PROVIDERS: PCP Family Medicine; Visit Provider Family Medicine
DX: R41.3 Other amnesia (principal); J34.1 Cyst and mucocele of nose and nasal sinus; M85.852 Other specified disorders of bone density and structure, left thigh; Z78.0 Asymptomatic menopausal state; E07.9 Disorder of thyroid, unspecified; Z90.722 Acquired absence of ovaries, bilateral; Z87.891 Personal history of nicotine dependence
CPT/HCPCS: 70551; 77080

== ENCOUNTER 2019-09-08 15:19 | Emergency (ER) | payer MEDICARE, SELFPAY ==
[2019-09-08 15:28] VITALS: BP 168/70; PULSE 45; RESP 18; TEMP 36.1; O2SAT 99
--- NOTE | 2019-09-08 15:32 | DI.RAD.S_ITS ---
PROCEDURE: XR ELBOW LT MIN 3V INDICATIONS: glf, lt elbow pain/abrasions TECHNIQUE: 4 views of the elbow were acquired. COMPARISON: None. FINDINGS: Bones: No definite acute fracture or dislocation is appreciated involving the osseous structures of the left elbow. No significant degenerative changes are appreciated. Soft tissues: No definite elbow joint effusion. No suspicious soft tissue calcifications. IMPRESSION: No acute osseous abnormality of the left elbow is appreciated. Dictated by: August Thomas M.D. on 09/08/2019 at 14:56 Approved by: August Thomas M.D. on 09/08/2019 at 14:58
--- NOTE | 2019-09-08 15:40 | ED_ITS ---
HPI - Wound/Laceration <PARRIS Luevano - Last Filed: 09/08/19 21:24> General Chief Complaint: Wound/Laceration Stated Complaint: fall, multiple abrasions Time Seen by Provider: 09/08/19 15:36 Source: patient Mode of arrival: Ambulatory Limitations: no limitations History of Present Illness HPI narrative: The patient is a 74-year-old female former smoker with history of thrombocytosis who presents with a chief complaint of elbow pain after ground level fall. She states she tripped and fell, landed on her hands. She denies hitting her head, does signs any neck or back pain. She states that she was evaluated by EMS and was sent to the emergency department for an x-ray of her elbow. She complains of abrasions on bilateral upper extremities. She does not know when her last tetanus was. She denies any loss of consciousness. She denies any other pain. She states she washed out her cuts with Neosporin. Related Data Home Medications Medication Instructions Recorded Confirmed bacillus coagulans-inulin 1 cap PO DAILY #0 09/02/11 09/10/19 [Probiotic Formula (inulin)] multivitamin 1 tab PO DAILY #0 09/02/11 09/10/19 vitamin E 400 unit PO DAILY #0 09/02/11 09/10/19 cholecalciferol (vitamin D3) 1,000 iu PO DAILY #0 11/20/17 09/10/19 [Vitamin D3] hydroxyurea 500 mg capsule 500 mg PO 5XW tab 06/02/19 09/10/19 Previous Rx's Medication Instructions Recorded alendronate 70 mg tablet 70 mg PO QWEEK #12 tab 05/24/19 gabapentin 600 mg tablet 600 mg PO BID #180 tab 05/24/19 levothyroxine 75 mcg tablet 75 mcg PO QAM #90 tab 05/24/19 losartan 25 mg tablet 25 mg PO DAILY #30 tab 09/10/19 Allergies Allergy/AdvReac Type Severity Reaction Status Date / Time codeine Allergy Mild NAUSEA Verified 09/10/19 15:31 Sulfa (Sulfonamide Allergy Mild NAUSEA Verified 09/10/19 15:31 Antibiotics) morphine AdvReac Mild NAUSEA Verified 09/10/19 15:31 Review of Systems <PARRIS Luevano - Last Filed: 09/08/19 21:24> Review of Systems Narrative: GENERAL: Denies chills, fatigue, malaise, fever, sweats. HEENT: Denies sinus pain, ear pain, sore throat, difficulty swallowing, dizziness. RESPIRATORY: Denies dyspnea, cough, wheezing, hemoptysis, sputum. CARDIOVASCULAR: Denies chest pain, palpitations, orthopnea, edema, GASTROINTESTINAL: Denies nausea, vomiting, abdominal pain, diarrhea, const ipation, melena. : Denies dysuria, frequency, incontinence, hematuria, urinary retention. MUSCULOSKELETAL: See HPI SKIN: See HPI NEUROLOGIC: Denies weakness, headache, numbness, change in speech, confusion, seizures, incoordination. PSYCHIATRIC: No concerning psychosocial issues. 12 point review of systems is negative except for those stated above Patient History <PARRIS Luevano - Last Filed: 09/08/19 21:24> Medical History Actinic keratosis (Resolved) Anemia (Chronic) BCC (basal cell carcinoma of skin) (Resolved) Bilateral cataracts (Resolved) Chicken pox (Resolved ~1946) Epilepsy (Chronic 1959) Essential thrombocytosis (Chronic) Fibroids (Resolved ~1989) History of heavy periods (Resolved ~1989) History of SCC (squamous cell carcinoma) of skin (Resolved) Hypothyroidism (Chronic) Measles (Resolved ~1946) Mumps (Resolved 1946) Ovarian cyst (Resolved ~1987) Peripheral neuropathy (Chronic 2012) Rosacea (Chronic ~1999) Seizures (Chronic 2013) Skin cancer (Resolved ~1989) TIA (transient ischemic attack) (Chronic) Surgical History Anesthesia (Resolved) History of cataract removal with insertion of prosthetic lens (Resolved 2009) Status post hernia repair (Resolved 2014) Status post hysterectomy (Resolved 1988) Family History Father Heart disease High cholesterol Brother Drug overdose Family/Other Gunshot wound Drug overdose Grandfather Asthma Emphysema of lung Grandmother No problems noted. Mother Lung cancer Bone cancer Grandfather No problems noted. Grandmother No problems noted. Social History Smoking Status: Former smoker alcohol intake frequency: 0-2 drinks per day Exam <PARRIS Luevano - Last Filed: 09/08/19 21:24> Narrative Exam Narrative: GENERAL: This is a well-nourished, well-developed patient, in no acute distress HEAD: Atraumatic. Normocephalic. No temporal or scalp tenderness. EYES: Pupils equal round and reactive. Extraocular motions intact. No scleral icterus. No injection or drainage. ENT: Nose without bleeding, purulent drainage or septal hematoma. Throat without erythema, tonsillar hypertrophy or exudate. Uvula midline. Airway patent. NECK: Trachea midline. No JVD or lymphadenopathy. Supple, nontender, no meningeal signs. CARDIOVASCULAR: Regular rate and rhythm without murmurs, gallops, or rubs. RESPIRATORY: Clear to auscultation. Breath sounds equal bilaterally. No wheezes, rales, or rhonchi. GASTROINTESTINAL: Abdomen soft, non-tender, nondistended. No hepato- splenomegaly, or palpable masses. No guarding. EXTREMITIES: Full range of motion noted bilateral upper extremities. Able to flex and extend bilateral elbows. Positive radial pulses bilaterally. BACK: Nontender without deformity or crepitance. No flank tenderness. No pain to CT or L-spine palpation. NEURO: AOx3. Stable gait. Strength is equal upper lower extremities bilaterally. Clear speech. Cranial nerves grossly intact. SKIN: 6 x 6 cm abrasion/skin tear noted on left elbow with missing tissue noted. Through dermis. No obvious muscle or tendon involvement. No active bleeding. 3 0.25 cm abrasions noted on left hand palm, 0.2 abrasion noted on right hand palm Initial Vital Signs Initial Vital Signs: Vital Signs Temperature 96.9 F L 09/08/19 15:28 Pulse Rate 45 L 09/08/19 15:28 Respiratory Rate 18 09/08/19 15:28 Blood Pressure 168/70 H 09/08/19 15:28 Pulse Oximetry 99 09/08/19 15:28 <Mae Palm MD - Last Filed: 09/12/19 07:15> Initial Vital Signs Initial Vital Signs: Vital Signs Temperature 96.9 F L 09/08/19 15:28 Pulse Rate 45 L 09/08/19 15:28 Respiratory Rate 18 10/30/19 15:28 Blood Pressure 168/70 H 09/08/19 15:28 Pulse Oximetry 99 09/08/19 15:28 Scores <PARRIS Luevano - Last Filed: 09/08/19 21:24> GCS Serena coma scale eye opening: Spontaneous [place] coma scale verbal response: Orientated [place] coma scale motor response: Obey commands Serena coma scale total score: 15 Nexus Score for C-Spine Focal Neurologic deficit present: No Midline spinal tenderness present: No Altered level of conciousness present: No Intoxication present: No Distracting Injury Present: No Nexus Criteria for C-spine: 0 Course <PARRIS Luevano - Last Filed: 09/08/19 21:24> Orders Ordered: Discontinued Medications Bacitracin (Bacitracin) 1 applic TOP NOW ONE Stop: 09/08/19 16:19 Last Admin: 09/08/19 16:26 Dose: 1 applic Documented by: JUANA Diphtheria/Tetanus/Acell Pertussis (Adacel) 0.5 ml IM .ONCE ONE Stop: 09/08/19 16:00 Last Admin: 09/08/19 16:26 Dose: 0.5 ml Documented by: JUANA Vital Signs Vital signs: Vital Signs - 8 hr 09/08/19 15:28 09/08/19 17:35 Temperature 96.9 F L Pulse Rate 45 L 80 Respiratory Rate 18 18 Blood Pressure 168/70 H Blood Pressure [Right Arm] 150/78 H Pulse Oximetry 99 98 <Mae Palm MD - Last Filed: 09/12/19 07:15> Orders Ordered: Discontinued Medications Bacitracin (Bacitracin) 1 applic TOP NOW ONE Stop: 09/08/19 16:19 Last Admin: 09/08/19 16:26 Dose: 1 applic Documented by: JUANA Diphtheria/Tetanus/Acell Pertussis (Adacel) 0.5 ml IM .ONCE ONE Stop: 09/08/19 16:00 Last Admin: 09/08/19 16:26 Dose: 0.5 ml Documented by: JUANA Vital Signs Vital signs: Vital Signs - 8 hr 09/08/19 15:28 09/08/19 17:35 Temperature 96.9 F L Pulse Rate 45 L 80 Respiratory Rate 18 18 Blood Pressure 168/70 H Blood Pressure [Right Arm] 150/78 H Pulse Oximetry 99 98 [facility] - Wound/Laceration <ANA LUISA LuevanoBC - Last Filed: 09/08/19 21:24> Imaging Data Elbow x-ray: Radiologist's impression: Megha Parks 74 F [address] [address] XRay Report Signed Patient: Megha Parks [facility]#: [id number] : [id number] Age/Sex: 74 / FDate of Service: 09/08/19 Loc: ED Accession Number: [id number] Procedure: XR elbow LT min 3V Ordering Provider: Mae Palm MD PROCEDURE: XR ELBOW LT MIN 3V INDICATIONS: glf, lt elbow pain/abrasions TECHNIQUE: 4 views of the elbow were acquired. COMPARISON: None. FINDINGS: Bones: No definite acute fracture or dislocation is appreciated involving the osseous structures of the left elbow. No significant degenerative changes are appreciated. Soft tissues: No definite elbow joint effusion. No suspicious soft tissue calcifications. IMPRESSION: No acute osseous abnormality of the left elbow is appreciated. Dictated by: August Thomas M.D. on 09/08/2019 at 14:56 Approved by: August Thomas M.D. on 09/08/2019 at 14:58 [facility] Narrative Medical decision making narrative: The patient is a 74-year-old female who presents after ground level fall not on blood thinners without hitting her head and denies any neck or back pain. She presents for chief complaint of elbow pain as she was told to, get an x-ray of it. She has skin tears noted on her exam. Her x-ray comes back with no acute fracture and she has full range of motion. Her GCS was 15, her neck was cleared by nexus criteria. I discussed at length the importance of monitoring her abrasions for signs and symptoms of infection such as redness pus and fever. Discussed following up with PCP in a few days. Patient has no questions or concerns upon discharge and states understanding of return precautions as well as follow-up care. Discharge Plan Departure Patient Disposition: Home Clinical Impression: Fall from ground level, Abrasion, Skin tear Elbow pain Qualifiers: Laterality: left Qualified Code(s): M25.522 - Pain in left elbow Discharge Date/Time: 09/08/19 17:37 Instructions: How To Perform RICE (Rest, Ice, Compress, Elevate), DI for Abrasion, DI for Elbow Pain Activity Restrictions/Additional Instructions: As I discussed, your x-ray shows no acute fracture. This does not rule out a soft tissue injury such as a ligament or tendon injury. I highly doubt that you have a ligament or tendon injury given that you have good range of motion. It is important that you follow up with primary care provider, especially if worsening or no improvement. There can be fractures that did not show up on initial x-ray. Please monitor your abrasions for signs and symptoms of infection such as redness pus and swelling. Please follow up with these occur. Please come back to the emergency department for any acute concerns. Please follow up with your primary care provider in the next few days. Prescriptions: No Action multivitamin Tablet 1 tab PO DAILY Qty: 0 RF: 0 Probiotic Formula (inulin) 1 billion-250 cell-mg Capsule 1 cap PO DAILY Qty: 0 RF: 0 vitamin E 400 unit Capsule 400 unit PO DAILY Qty: 0 RF: 0 cholecalciferol (vitamin D3) [Vitamin D3] 1,000 UNIT tablet 1,000 iu PO DAILY Qty: 0 RF: 0 gabapentin [Neurontin] 600 mg tablet 600 mg PO BID Qty: 180 RF: 2 levothyroxine [Synthroid] 75 mcg tablet 75 mcg PO QAM Qty: 90 RF: 3 alendronate 70 mg tablet 70 mg PO QWEEK Qty: 12 RF: 1 hydroxyurea [Hydrea] 500 mg capsule 500 mg PO 5XW RF: 0 losartan 25 mg tablet 25 mg PO DAILY Qty: 30 RF: 0 Referrals: Felipe Cummings MD [Primary Care Provider] -
[2019-09-08] MEDS: BACITRACIN OINT 0.9 GM PCKT 1 APPLIC TOP (16:26)
[2019-09-08] MEDS: TET,DIPH,PERTUSS(ACELL),VAC/PF 0.5 ML SYRINGE IM (16:26)
[2019-09-08 17:35] VITALS: BP 150/78; PULSE 80; RESP 18; O2SAT 98
== END 2019-09-08 17:37 | disposition home or self-care (01) ==
PROVIDERS: Emergency Provider Nurse Practitioner Family; PCP Family Medicine
DX: S50.312A Abrasion of left elbow, initial encounter (principal); S60.512A Abrasion of left hand, initial encounter; S60.511A Abrasion of right hand, initial encounter; M25.522 Pain in left elbow; W01.0XXA Fall on same level from slipping, tripping and stumbling without subsequent striking against object, initial encounter; Z23 Encounter for immunization
CPT/HCPCS: 73080; 90471; 99283; 90715

== ENCOUNTER 2019-09-13 20:57 | Observation (INO) | payer MEDICARE, SELFPAY ==
[2019-09-13 20:59] VITALS: BP 156/66; PULSE 65; RESP 14; TEMP 36.4; O2SAT 100; BMI 18.3
--- NOTE | 2019-09-13 21:01 | DI.CT.S_ITS ---
PROCEDURE: CT HEAD/BRAIN WO CON INDICATIONS: Right-sided numbness TECHNIQUE: Noncontrast 4.5 mm thick angled axial sections acquired from the foramen magnum to the vertex, with coronal and sagittal reformats. For radiation dose reduction, the following was used: automated exposure control, adjustment of mA and/or kV according to patient size. COMPARISON: [facility], CR, XR ELBOW LT MIN 3V, 09/08/2019, 15:33. [facility], CT, HEAD WITHOUT CONTRAST, 07/18/2014, 8:24. FINDINGS: Image quality: Excellent. CSF spaces: Basal cisterns are patent. No extra-axial fluid collections. The ventricles are symmetric in size and shape. Brain: No intracranial bleeds or masses. There is cerebral volume loss for age, with resultant ventricular and sulcal prominence. There are periventricular and deep white matter chronic small vessel ischemic changes. There is intracranial internal carotid artery atherosclerosis. Skull and face: Calvarium and visualized facial bones appear intact, without suspicious lesions. Sinuses: Visualized sinuses and mastoids are clear. IMPRESSION: 1. No acute intracranial findings. Dictated by: Antonia Whalen M.D. on 09/13/2019 at 21:36 Approved by: Antonia Whalen M.D. on 09/13/2019 at 21:37
[2019-09-13 21:08] VITALS: BP 204/61; PULSE 67; RESP 12; O2SAT 100
--- NOTE | 2019-09-13 21:08 | PC.NURSE ---
Pressure increased to on scene levels, she reports she is now having a hard time swallowing, provider notified and went directly to bedside.
--- NOTE | 2019-09-13 21:15 | ED.NEUROSD ---
HPI - Neuro Symptoms/Deficit General Chief Complaint: Neuro Symptoms/Deficit Stated Complaint: Tingling in the left side Time Seen by Provider: 09/13/19 21:00 Source: patient Mode of arrival: EMS Limitations: no limitations History of Present Illness HPI Narrative: 74-year-old female brought in by EMS for concerns of left-sided weakness and tingling. Patient states she was at her normal state health when she was standing at the sink washing dishes when she had a sudden onset of tingling/weakness/paresthesias in her left upper extremity and left lower extremity. She is unsure exactly how long the symptoms lasted but she thought it was approximately 15 minutes or so. She states that the symptoms then completely resolved. She then had flashes in her left eye/visual field. These lasted seconds and then resolved. She had no chest pain or palpitations or headache during that time. She called EMS for the symptoms concerned about a stroke or a TIA. She has had a TIA in the past this was several years ago. At the time my evaluation patient was symptom free. On Anticoagulants: No Related Data Home Medications Medication Instructions Recorded Confirmed bacillus coagulans-inulin 1 cap PO DAILY #0 09/02/11 09/13/19 [Probiotic Formula (inulin)] multivitamin 1 tab PO DAILY #0 09/02/11 09/13/19 vitamin E 400 unit PO DAILY #0 09/02/11 09/13/19 cholecalciferol (vitamin D3) 1,000 iu PO DAILY #0 11/20/17 09/13/19 [Vitamin D3] hydroxyurea 500 mg capsule 500 mg PO 5XW tab 06/02/19 09/13/19 Previous Rx's Medication Instructions Recorded alendronate 70 mg tablet 70 mg PO QWEEK #12 tab 05/24/19 gabapentin 600 mg tablet 600 mg PO BID #180 tab 05/24/19 levothyroxine 75 mcg tablet 75 mcg PO QAM #90 tab 05/24/19 losartan 25 mg tablet 25 mg PO DAILY #30 tab 09/10/19 Allergies Allergy/AdvReac Type Severity Reaction Status Date / Time codeine Allergy Mild NAUSEA Verified 09/13/19 21:07 Sulfa (Sulfonamide Allergy Mild NAUSEA Verified 09/13/19 21:07 Antibiotics) morphine AdvReac Mild NAUSEA Verified 09/13/19 21:07 Review of Systems Constitutional Constitutional: Denies fever(s), Denies frequent falls, Denies headache(s) and Denies weakness Eyes Comments: Flashes the left eye ENT Ears, Nose, Mouth, and Throat: Denies vertigo, Denies dizziness, Denies headache(s), Denies tinnitus and Denies sinus pressure Cardiovascular Cardiovascular: Denies chest pain, Denies palpitations and Denies dyspnea Respiratory Respiratory: Denies cough and Denies dyspnea Gastrointestinal Gastrointestinal: Denies abdominal pain, Denies nausea and Denies vomiting Musculoskeletal Musculoskeletal: Denies myalgias, Denies arthralgias and Reports tingling Integumentary/Breasts Comments: Skin tear to the left elbow from a fall within the past week Neurologic Neurologic: Denies behavioral changes, Denies vertigo, Denies dizziness, Denies frequent falls, Denies headache(s), Reports tingling, Reports paresthesias and Denies weakness Psychiatric Psychiatric: Denies behavioral changes Endocrine Endocrine: Denies palpitations Hematologic/Lymphatic Hematologic/Lymphatic: Denies easy bleeding and Denies easy bruising Patient History Medical History Actinic keratosis (Resolved) Anemia (Chronic) BCC (basal cell carcinoma of skin) (Resolved) Bilateral cataracts (Resolved) Chicken pox (Resolved ~1946) Epilepsy (Chronic 1959) Essential thrombocytosis (Chronic) Fibroids (Resolved ~1989) History of heavy periods (Resolved ~1989) History of SCC (squamous cell carcinoma) of skin (Resolved) Hypothyroidism (Chronic) Measles (Resolved ~1946) Mumps (Resolved 1946) Ovarian cyst (Resolved ~1987) Peripheral neuropathy (Chronic 2012) Rosacea (Chronic ~1999) Seizures (Chronic 2013) Skin cancer (Resolved ~1989) TIA (transient ischemic attack) (Chronic) Surgical History Anesthesia (Resolved) History of cataract removal with insertion of prosthetic lens (Resolved 2009) Status post hernia repair (Resolved 2014) Status post hysterectomy (Resolved 1988) Family History Father Heart disease High cholesterol Brother Drug overdose Family/Other Gunshot wound Drug overdose Grandfather Asthma Emphysema of lung Grandmother No problems noted. Mother Lung cancer Bone cancer Grandfather No problems noted. Grandmother No problems noted. Social History household members: none Smoking Status: Former smoker alcohol intake: current alcohol intake frequency: 0-2 drinks per day Exam Initial Vital Signs Initial Vital Signs: Vital Signs Temperature 97.6 F 09/13/19 20:59 Pulse Rate 65 09/13/19 20:59 Respiratory Rate 14 09/13/19 20:59 Blood Pressure 156/66 H 09/13/19 20:59 Pulse Oximetry 100 09/13/19 20:59 Const General: cooperative, comfortable, well developed and well groomed Orientation: alert, awake and oriented x3 HENMT Head: normal to inspection and normocephalic Ears: TM's normal bilaterally Nose: external nose normal Face and sinus: normal facial exam Mouth: oral mucosae normal Eyes Pupils: PERRL EOM: EOM intact bilaterally Chest Chest: normal inspection of the chest Resp Effort & Inspection: normal respiratory effort Auscultation: clear to auscultation bilaterally Cardio Rate: regular rate Rhythm: regular rhythm Pulses: radial pulses present GI Inspection: non-distended Palpation: soft Skin Other: Skin tear to the left elbow consistent with her prior history of fall Hyper erythema of the hands and the feet Neuro General: alert, awake and oriented x3 Cranial Nerves: CN's II-XI intact bilaterally Cognition: normal cognition Speech: speech normal Sensory Exam: no sensory deficits noted Extrem General: normal to inspection and capillary refill normal Psych Appearance: grossly normal and well kempt Scores GCS Mulberry coma scale eye opening: Spontaneous Serena coma scale verbal response: Orientated Serena coma scale motor response: Obey commands Mulberry coma scale total score: 15 NIH Stroke Scale Level of Conciousness: Alert, keenly responsive Ask month/age: Answers both questions correctly. Open/close eyes, close hand: Performs both tasks correctly Best gaze horizontal: Normal Visual baugh: No visual loss Facial palsy: Normal symetrical movement Left arm drift: No drift for full 10 sec Right arm drift: No drift for full 10 sec Left leg drift: No drift for full 10 sec Right leg drift: No drift for full 10 sec Limb ataxia: Absent Sensory on face/arms/legs: Normal, no sensory loss Best language: No aphasia, normal Dysarthria: Normal Extinction or inattention: No abnormality Total NIH Stroke scale score: 0 Course Orders Ordered: ED Orders 09/13/19 21:01 CT head/brain wo con Stat 09/13/19 21:05 EKG-12 Lead Stat 09/13/19 21:09 Basic Metabolic Panel Stat Complete Blood Count AUTO DIFF Stat Partial Thromboplastin Time Stat Prothrombin Time INR Stat Thyroid Stimulating Hormone Stat Troponin I Stat 09/13/19 23:30 Consult to Physician Routine 09/14/19 06:00 EC echo doppler complete Stat MR stroke Stat US carotid doppler BI Stat Basic Metabolic Panel Stat Complete Blood Count AUTO DIFF Stat Discontinued Medications Aspirin (Aspirin Chew) 324 mg PO NOW ONE Stop: 09/13/19 23:31 Last Admin: 09/13/19 23:37 Dose: 324 mg Documented by: HUANG Vital Signs Vital signs: Vital Signs - 8 hr 09/13/19 20:59 09/13/19 21:08 09/13/19 22:36 Temperature 97.6 F Pulse Rate 65 67 61 Respiratory Rate 14 12 13 Blood Pressure 156/66 H Blood Pressure [Left Arm] 204/61 H 168/71 H Pulse Oximetry 100 100 100 09/13/19 23:34 Temperature Pulse Rate 66 Respiratory Rate 10 L Blood Pressure Blood Pressure [Left Arm] 189/73 H Pulse Oximetry 100 MDM - Neuro Symptoms/Deficit Medical Records Attestation: I reviewed the patient's medical records. Lab Data Attestation: I reviewed the patient's lab results. Result diagrams: 09/13/19 21:09 09/13/19 21:09 Labs: Lab Results 09/13/19 09/13/19 09/13/19 Range/Units 21:09 21:09 21:09 WBC 5.8 (4.5-11.0) X10^3/uL RBC 3.12 L (4.0-5.2) X10^6/uL Hgb 11.0 L (12.0-16.0) g/dL Hct 31.9 L (36-46) % MCV 102.2 H (80-100) fL MCH 35.3 H (26-34) PG MCHC 34.5 (30-36) % RDW 12.8 (11.6-14.8) % Plt Count 417 H (150-400) X10^3/uL Neut % (Auto) 68.9 (50-75) % Lymph % (Auto) 20.3 L (25-40) % [place] % (Auto) 9.1 (3-14) % Eos % (Auto) 1.3 L (2-4) % Baso % (Auto) 0.4 (0-2) % Neut # (Auto) 4000 (2467-1580) /uL Lymph # (Auto) 1200 (5156-6963) /uL [place] # (Auto) 500 (0-900) /uL Eos # (Auto) 100 (0-450) /uL Baso # (Auto) 0 (0-100) /uL PT 10.6 (10.1-12.7) SECONDS INR 0.9 (0.9-1.3) APTT 35 (26.4-36.2) SECONDS Sodium 129 L (137-145) mmol/L Potassium 4.6 (3.4-5.1) mmol/L Chloride 91 L (98-107) mmol/L Carbon Dioxide 32 (22-32) mmol/L BUN 16 (7-17) mg/dL Creatinine 0.60 (0.52-1.04) mg/dL Estimated GFR > 60.0 (>60) mL/min BUN/Creatinine Ratio 26.7 H (6-22) Glucose 106 (80-110) mg/dL Calcium 9.4 (8.4-10.2) mg/dL Troponin I (0.01-0.034) ng/mL TSH (0.47-4.68) uIU/mL 09/13/19 09/13/19 Range/Units 21:09 21:09 WBC (4.5-11.0) X10^3/uL RBC (4.0-5.2) X10^6/uL Hgb (12.0-16.0) g/dL Hct (36-46) % MCV (80-100) fL MCH (26-34) PG MCHC (30-36) % RDW (11.6-14.8) % Plt Count (150-400) X10^3/uL Neut % (Auto) (50-75) % Lymph % (Auto) (25-40) % Mer[place] % (Auto) (3-14) % Eos % (Auto) (2-4) % Baso % (Auto) (0-2) % Neut # (Auto) (8938-6884) /uL Lymph # (Auto) (0303-1473) /uL Mer[place] # (Auto) (0-900) /uL Eos # (Auto) (0-450) /uL Baso # (Auto) (0-100) /uL PT (10.1-12.7) SECONDS INR (0.9-1.3) APTT (26.4-36.2) SECONDS Sodium (137-145) mmol/L Potassium (3.4-5.1) mmol/L Chloride (98-107) mmol/L Carbon Dioxide (22-32) mmol/L BUN (7-17) mg/dL Creatinine (0.52-1.04) mg/dL Estimated GFR (>60) mL/min BUN/Creatinine Ratio (6-22) Glucose (80-110) mg/dL Calcium (8.4-10.2) mg/dL Troponin I < 0.012 (0.01-0.034) ng/mL TSH 0.80 (0.47-4.68) uIU/mL Imaging Data CT scan - head: Radiologist's impression: [place] [address] CT Scan Report Signed Patient: Megha Parks [facility]#: [id number] : 3Acct:[id number] Age/Sex: 74 / FDate of Service: 09/13/19 Loc: ED Accession Number: [id number] Procedure: CT head/brain wo con Ordering Provider: Silvino Covarrubias D.O. PROCEDURE: CT HEAD/BRAIN WO CON INDICATIONS: Right-sided numbness TECHNIQUE: Noncontrast 4.5 mm thick angled axial sections acquired from the foramen magnum to the vertex, with coronal and sagittal reformats. For radiation dose reduction, the following was used: automated exposure control, adjustment of mA and/or kV according to patient size. COMPARISON: [facility], CR, XR ELBOW LT MIN 3V, 09/08/2019, 15:33. [facility], CT, HEAD WITHOUT CONTRAST, 07/18/2014, 8:24. FINDINGS: Image quality: Excellent. CSF spaces: Basal cisterns are patent. No extra-axial fluid collections. The ventricles are symmetric in size and shape. Brain: No intracranial bleeds or masses. There is cerebral volume loss for age, with resultant ventricular and sulcal prominence. There are periventricular and deep white matter chronic small vessel ischemic changes. There is intracranial internal carotid artery atherosclerosis. Skull and face: Calvarium and visualized facial bones appear intact, without suspicious lesions. Sinuses: Visualized sinuses and mastoids are clear. IMPRESSION: 1. No acute intracranial findings. Dictated by: Antonia Whalen M.D. on 09/13/2019 at 21:36 Approved by: Antonia Whalen M.D. on 09/13/2019 at 21:37 ECG Data Attestation: I personally reviewed and interpreted this ECG as follows: Prior ECG tracings: not available for review Interpretation: Sinus rhythm Ventricular rate is 65 Normal axis Normal QRS Normal QTC No ST T wave changes MDM Narrative Medical decision making narrative: Patient did have left-sided weakness/tingling and flashes in her left eye/left visual field. All the symptoms have resolved by the time she arrived here in the ER. Head CT is unremarkable. NIH score 0. EKG is unremarkable. Patient has had a TIA in the past. States this was back in 2013. Initially patient's blood pressure was elevated however this improved with no particular intervention other than rest and calm and quiet here in the emergency department. Do have concern about a TIA given her symptoms. I did discuss the case with Dr. Cummings who is the patient's primary doctor is also on-call who will admit the patient for further evaluation and treatment. Discussed the admission with the patient who expressed understanding and agreement. Discharge Plan Departure Patient Disposition: Admitted as Observation Clinical Impression: Transient cerebral ischemia Qualifiers: Transient cerebral ischemia type: unspecified Qualified Code(s): G45.9 - Transient cerebral ischemic attack, unspecified Discharge Date/Time: 09/14/19 00:45 Admit Date/Time: 09/13/19 23:38 Admit Provider: Felipe Cummings
[2019-09-13 21:19] LABS: Hematocrit 31.9 % (36-46)
[2019-09-13 21:26] LABS: INR 0.9 (0.9-1.3); Prothrombin Time 10.6 SECONDS (10.1-12.7)
[2019-09-13 21:28] LABS: PTT Partial Thromboplastin Tim 35 SECONDS (26.4-36.2)
[2019-09-13 21:37] LABS: Mean Corpuscular HGB Conc 34.5 % (30-36); Mean Corpuscular Hemoglobin 35.3 PG (26-34); Mean Corpuscular Volume 102.2 fL (80-100); Platelet Count 417 X10^3/uL (150-400); Red Blood Cell Count 3.12 X10^6/uL (4.0-5.2); Red Cell Distribution Width 12.8 % (11.6-14.8); White Blood Cell Count 5.8 X10^3/uL (4.5-11.0)
[2019-09-13 21:38] LABS: Add Manual Diff / Slide Review NO; Basophils Absolute Auto 0 /uL (0-100); Basophils Percent Auto 0.4 % (0-2); Eosinophils Absolute Auto 100 /uL (0-450); Eosinophils Percent Auto 1.3 % (2-4); Lymphocytes Absolute Auto 1200 /uL (1100-4500); Lymphocytes Percent Auto 20.3 % (25-40); Monocytes Absolute Auto 500 /uL (0-900); Monocytes Percent Auto 9.1 % (3-14); Neutrophils Absolute Auto 4000 /uL (1500-7000); Neutrophils Percent Auto 68.9 % (50-75)
[2019-09-13 21:57] LABS: BUN Creatinine Ratio 26.7 (6-22); Blood Urea Nitrogen 16 mg/dL (7-17); Calcium 9.4 mg/dL (8.4-10.2); Carbon Dioxide 32 mmol/L (22-32); Chloride 91 mmol/L (98-107); Estimated Glomerular Filt Rate > 60.0 mL/min (>60); Glucose 106 mg/dL (80-110); HEMOLYSIS < 15 (0-50); Potassium 4.6 mmol/L (3.4-5.1); Sodium 129 mmol/L (137-145)
[2019-09-13 22:22] LABS: Troponin I < 0.012 ng/mL (0.01-0.034)
[2019-09-13 22:36] VITALS: BP 168/71; PULSE 61; RESP 13; O2SAT 100
[2019-09-13 23:34] VITALS: BP 189/73; PULSE 66; RESP 10; O2SAT 100
[2019-09-13] MEDS: ASPIRIN 81 MG CHEW TAB 324 MG PO (23:37)
[2019-09-14] VITALS (10 sets, daily range): BP systolic 100–198; BP diastolic 71–96; PULSE 46–92; RESP 11–20; TEMP 36.1–36.6; O2SAT 98–100; BMI 18.3
--- NOTE | 2019-09-14 02:31 | PC.NURSE ---
0057 Admitted from ER, diagnosed with TIA, per pt. report my left arm, shoulder, side & left leg & toe feels numb & tingly, but when I got to the ER it was resolved. Denies any headache, CP & other discomfort. Oriented to her room showed how to use her call light, TV & bed controls. Encouraged to call for assistance if she needed to get OOB, Call light with in reach, had a fall recently, bed alarm activated. All her valuables are secured in hospital safe & given to coordinator Kaila Pratt RN. Will cont. POC & monitor.
[2019-09-14 05:46] LABS: Add Manual Diff / Slide Review NO; Basophils Absolute Auto 0 /uL (0-100); Basophils Percent Auto 0.3 % (0-2); Eosinophils Absolute Auto 100 /uL (0-450); Eosinophils Percent Auto 1.3 % (2-4); Hematocrit 27.7 % (36-46); Hemoglobin 9.7 g/dL (12.0-16.0); Lymphocytes Absolute Auto 1100 /uL (1100-4500); Lymphocytes Percent Auto 20.3 % (25-40); Mean Corpuscular HGB Conc 34.9 % (30-36); Mean Corpuscular Hemoglobin 35.6 PG (26-34); Mean Corpuscular Volume 101.9 fL (80-100); Monocytes Absolute Auto 500 /uL (0-900); Monocytes Percent Auto 9.2 % (3-14); Neutrophils Absolute Auto 3800 /uL (1500-7000); Neutrophils Percent Auto 68.9 % (50-75); Platelet Count 356 X10^3/uL (150-400); Red Blood Cell Count 2.72 X10^6/uL (4.0-5.2); Red Cell Distribution Width 12.6 % (11.6-14.8); White Blood Cell Count 5.4 X10^3/uL (4.5-11.0)
[2019-09-14 05:47] LABS: Blood Urea Nitrogen 16 mg/dL (7-17); Calcium 8.7 mg/dL (8.4-10.2); Carbon Dioxide 27 mmol/L (22-32); Chloride 96 mmol/L (98-107); Estimated Glomerular Filt Rate > 60.0 mL/min (>60); Glucose 80 mg/dL (80-110); HEMOLYSIS < 15 (0-50); Potassium 4.2 mmol/L (3.4-5.1); Sodium 129 mmol/L (137-145)
--- NOTE | 2019-09-14 06:00 | DI.ECHO.S_ITS ---
[facility] +---------+ [facility] +---------+ : : [address] : : : : [id number] : : : : Phone: [phone] Echocardiogram Report + + :Name: GABRIELA MARINA Study Date: 09/14/2019 Height: 64 in : :[facility] Weight: 107 lb : : Gender: Female BSA: 1.5 m2 : :: 1945 Age: 74 yrs BP: 162/71 mmHg: :Reason For Study: TIA : :Ordering Physician: Micheal : :Hospitalist Performed By: Erika Gutierrez : :Referring: SHYAM PHAM : + + Interpretation Summary The left ventricle is normal in size. Left ventricular systolic function is normal without focal wall motion abnormalities. The ejection fraction is estimated to be 60-65%. There has been no significant change since the previous study. Diastolic parameters suggest a pseudonormalization pattern, consistent with probable elevated filling pressures. The right ventricle is normal in size and function. The right ventricular systolic pressure is estimated to be at least 36 mmHg based on an estimated right atrial pressure of 3 mm Hg. The left atrium is severely dilated. The right atrium is mild to moderately dilated. There is mild mitral regurgitation. There is no other significant valvular heart disease. The aortic root is normal size. Procedure: A two-dimensional transthoracic echocardiogram with color flow and Doppler was performed. The study quality was technically good. Comparison is made with the echocardiogram of 08/21/2018. The patient was in normal sinus rhythm during the exam. The heart rate ranged between 46-69 bpm during the study. Left Ventricle: The left ventricle is normal in size. Left ventricular wall thickness is mildly increased. There is no ventricular septal defect visualized. Left ventricular systolic function is normal without focal wall motion abnormalities. The ejection fraction is estimated to be 60-65%. There has been no significant change since the previous study. Diastolic parameters suggest a pseudonormalization pattern, consistent with probable elevated filling pressures. Right Ventricle: The right ventricle is normal in size and function. Atria: The left atrium is severely dilated. The right atrium is mild to moderately dilated. There is no Doppler evidence for an interatrial shunt. Mitral Valve: The mitral valve is normal in structure and function. There is mild mitral regurgitation. Aortic Valve: The aortic valve is trileaflet. The aortic valve opens well. There is mild aortic valve sclerosis. There is trace aortic regurgitation. Tricuspid Valve: The tricuspid valve is normal in structure and function. There is mild tricuspid regurgitation. The right ventricular systolic pressure is estimated to be at least 36 mmHg based on an estimated right atrial pressure of 3 mm Hg. Pulmonic Valve: The pulmonic valve is not well visualized. There is a trace or physiologic amount of pulmonic regurgitation. There is no other significant valvular heart disease. Great Vessels: The aortic root is normal size. The ascending aorta is normal in size. The aortic arch could not be visualized. The IVC is of normal diameter and collapses greater than 50% with a sniff. This suggests a low right atrial pressure of 3 mm Hg. Pericardium/ Pleura There is no pericardial effusion. MMode/2D Measurements & Calculations LVIDd: 4.2 cm LVOT diam: 1.8 cm LVIDs: 2.7 cm Ao root diam: 2.7 cm FS: 36.3 % Aortic Jxn: 2.2 cm EPSS: 0.45 cm asc Aorta Diam: 2.9 cm IVSd: 1.1 cm LVPWd: 1.2 cm LV yanes. diameter/BSA (cm/m^2): 2.8 LV sys. diameter/BSA (cm/m^2): 1.8 LA A2 area: 21.1 cm2 RA long axis: 5.3 cm LA A4 area: 24.9 cm2 RA area: 19.0 cm2 LA length (vol): 5.4 cm RA vol: 58.0 ml LA vol: 83.2 ml RA : 38.7 ml/m2 LA vol index: 55.5 ml/m2 IVC diam: 1.6 cm RVD1 (basal): 3.5 cm RVD2 (mid): 2.7 cm TAPSE: 3.0 cm Doppler Measurements & Calculations Ao V2 max: 125.3 cm/sec LVOT Max Carlos: 104.7 cm/sec Ao V2 mean: 84.9 cm/sec LV V1 max P.4 mmHg Ao max P.3 mmHg LV V1 VTI: 26.5 cm Ao mean P.3 mmHg CHIOMA(I,D): 2.1 cm2 Ao V2 VTI: 32.6 cm CHIOMA(V,D): 2.1 cm2 sev ratio: 0.81 CHIOMA indexed to BSA (cm^2/m^2): 1.4 AI P1/2t: 772.3 msec AI dec slope: 132.2 cm/sec2 MV E max carlos: 86.8 cm/sec TR max carlos: 285.5 cm/sec MV A max carlos: 51.4 cm/sec TR max P.6 mmHg MV E/A: 1.7 PA V2 max: 78.6 cm/sec Med Peak E' Carlos: 5.3 cm/sec PA V2 mean: 48.5 cm/sec E/E' med: 16.5 PA mean P.1 mmHg Lat Peak E' Carlos: 5.3 cm/sec PA Accel Time: 0.10 sec E/E' lat: 16.5 E/e' average: 16.5 MV dec time: 0.17 sec MV P1/2t: 51.1 msec MV P1/2t max carlos: 86.8 cm/sec SV(LVOT): 67.6 ml MVA(P1/2t): 4.3 cm2 Reading Physician:02:02 PM
--- NOTE | 2019-09-14 06:00 | DI.US.S_ITS ---
PROCEDURE: US CAROTID DOPPLER BI INDICATIONS: TIA TECHNIQUE: Color and pulse Doppler interrogation was performed of both carotid systems, with image documentation and velocity measurements. COMPARISON: [facility], , CAROTID ARTERY DOPPLER BILAT, 03/31/2014, 13:31. FINDINGS: Stenosis calculations are based on SRU (Society of Radiologists in Ultrasound) criteria. Right side: Brachial blood pressure: 187/70 mm Hg. Common carotid artery peak systolic velocity: 83 cm/sec. Internal carotid artery peak systolic velocity: 66 cm/sec. Internal carotid artery end diastolic velocity: 15 cm/sec. External carotid artery peak systolic velocity: 56 cm/sec. ICA/CCA peak systolic ratio: 0.8. Cade scale imaging description: Calcified plaque Percent internal carotid artery stenosis: Less than 50%. Vertebral artery: Flow direction is antegrade. Left side: Brachial blood pressure: 189/70 mm Hg. Common carotid artery peak systolic velocity: 95 cm/sec. Internal carotid artery peak systolic velocity: 55 cm/sec. Internal carotid artery end diastolic velocity: 12 cm/sec. External carotid artery peak systolic velocity: 81 cm/sec. ICA/CCA peak systolic ratio: 0.7. Cade scale imaging description: Calcified plaque Percent internal carotid artery stenosis: Less than 50%. Vertebral artery: Flow direction is antegrade. IMPRESSION: 1. Less than 50% stenosis of the origins of the internal carotid arteries bilaterally. 2. Hypertension at the time of imaging. Dictated by: Jocelyn Armstrong MD, PhD on 09/14/2019 at 11:41 Approved by: Jocelyn Armstrong MD, PhD on 09/14/2019 at 11:43
--- NOTE | 2019-09-14 06:00 | DI.MRI.S_ITS ---
PROCEDURE: MR STROKE Pre- and post-contrast brain MRI, non-contrast brain MR angiogram, pre- and postcontrast neck MR angiogram INDICATIONS: TIA work up TECHNIQUE: Brain: Noncontrast axial T1 spin echo, axial T2 fast spin echo, sagittal and axial FLAIR, coronal T2 fast spin echo, axial gradient echo, axial diffusion and ADC through the brain. After the administration of contrast, axial 3D VIBE of the cranial vasculature and brain. Brain MRA: Non-contrast 3-D time of flight MR angiogram, with multiple krpjrsx-ceqidiirc-dnkxjvswma (MIP) reformats performed. Neck MRA: Axial and sagittal TruFISP through the neck. Coronal dynamic MR angiogram during administration of contrast in the arterial and venous phases, with 3-dimenstional qduaahi-deynjegju-btsxywufbp (MIP) reformats constructed from subtraction images. COMPARISON: [facility], , STROKE PROTOCOL, 05/03/2014, 11:29. FINDINGS: Image quality: Excellent. BRAIN: CSF spaces: Ventricles are normal in size and shape. Basal cisterns are patent. No extra-axial fluid collections. Brain: No intracranial bleeds or mass effects. Mild diffuse cerebral volume loss is present. There is a mild degree of patchy high FLAIR signal within the periventricular and subcortical white matter, consistent with small vessel ischemic disease. Cade-white matter interface is normal. Diffusion weighted images show no acute ischemic insults. Brainstem appears normal. Normal intravascular flow voids are present. No abnormal intracranial enhancement. Skull and face: Calvarial marrow signal is normal. Orbits appear normal. Sinuses: Sinuses and mastoids are clear. BRAIN MR ANGIOGRAM: Anterior circulation: Intracranial internal carotid arteries are normal in size and enhancement. The flow within the paired anterior cerebral arteries is normal and symmetric. The flow within the middle cerebral arteries is normal and symmetric. The anterior communicating artery is seen. No stenoses, occlusions, or aneurysms. Posterior circulation: The visualized portions of the vertebral arteries demonstrate normal caliber, and join to form a normal appearing basilar artery. The flow within the posterior cerebral arteries is normal and symmetric. No stenoses, occlusions, or aneurysms. NECK MR ANGIOGRAM: Carotids: Great vessels demonstrate a conventional anatomy as they arise from the aortic arch. The origins of the common carotid arteries appear patent. The calibers and courses of both common carotid arteries are normal. The bifurcation regions appear normal bilaterally. The internal carotid arteries demonstrate normal course and caliber. Posterior circulation: The origins of the vertebral arteries appear patent. More superior portions of both vertebral arteries demonstrate normal course and caliber, and join to form a normal appearing basilar artery. Miscellaneous: Subclavian arteries appear patent. Pre-contrast images through the neck show no soft tissue abnormalities. Small bilateral pleural effusions. IMPRESSION: BRAIN MRI: 1. No acute process. No recent infarct. 2. Mild volume loss and small vessel ischemic disease. BRAIN MR ANGIOGRAM: Negative cerebral MR angiography. NECK MR ANGIOGRAM: 1. No internal carotid artery stenosis bilaterally. 2. Patent bilateral vertebral arteries. Dictated by: Nydia Anderson M.D. on 09/14/2019 at 11:23 Approved by: Nydia Anderson M.D. on 09/14/2019 at 11:27
--- NOTE | 2019-09-14 08:32 | P.HP_ITS ---
History of Present Illness History of Present Illness Date Patient Seen: 09/14/19 Time Patient Seen: 08:32 Chief complaint: Tingling in the left side Narrative: TIA. Patient with a admitted with diagnosis of TIA. Patient was standing by the sink doing some dishes and she noticed done numbness and tingling of her left hand the numbness and tingling seemed to progress upper arm up to her shoulder. Soon thereafter she developed numbness and tingling down the left side of her body down to her hip and that eventuality down her left leg down to her toes. She got concerned about having a stroke and paramedics were called. She has had no headache no visual changes no neurologic effects on her face no drooling no speech disorder and no confusion or any mental FX. She has not had anything like this in the past She has a recent diagnosis of hypertension and has been recently started on losartan 25 mg daily. She fell approximately a week ago as she stumbled on a irregular part of the concrete. He scraped her left elbow had a CT of head and neck done that was unremarkable. Her other medical problems include thrombocytosis being monitored by Hematology. Additionally has persistent hyponatremia and is currently being evaluated by sheet layer in [place]. Patient History Medical History Actinic keratosis (Resolved) Anemia (Chronic) BCC (basal cell carcinoma of skin) (Resolved) Bilateral cataracts (Resolved) Chicken pox (Resolved ~1946) Epilepsy (Chronic 1959) Essential thrombocytosis (Chronic) Fibroids (Resolved ~1989) History of heavy periods (Resolved ~1989) History of SCC (squamous cell carcinoma) of skin (Resolved) Hypothyroidism (Chronic) Measles (Resolved ~1946) Mumps (Resolved 194) Ovarian cyst (Resolved ~1987) Peripheral neuropathy (Chronic 2012) Rosacea (Chronic ~1999) Seizures (Chronic 2013) Skin cancer (Resolved ~1989) TIA (transient ischemic attack) (Chronic) Surgical History Anesthesia (Resolved) History of cataract removal with insertion of prosthetic lens (Resolved 2009) Status post hernia repair (Resolved 2014) Status post hysterectomy (Resolved 1988) Family & Social History Family History Father Heart disease High cholesterol Brother Drug overdose Family/Other Gunshot wound Drug overdose Grandfather Asthma Emphysema of lung Grandmother No problems noted. Mother Lung cancer Bone cancer Grandfather No problems noted. Grandmother No problems noted. Social History: household members none Prior Living Arrangements Apartment/Condo Safety & Behavioral: Feels Safe in Current Yes Environment Been Physically Hurt or No Threatened By a Person Suicidal Ideation Description None Suicide Plan Description No Plan Tobacco & Substance use: Smoking Status Former smoker alcohol intake current alcohol intake frequency 0-2 drinks per day Substance Use Type does not use Meds Home Medications and Allergies Home Medications Medication Instructions Recorded Confirmed Type bacillus coagulans-inulin 1 cap PO DAILY #0 09/02/11 09/14/19 History [Probiotic Formula (inulin)] multivitamin 1 tab PO DAILY #0 09/02/11 09/14/19 History vitamin E 400 unit PO DAILY #0 09/02/11 09/14/19 History cholecalciferol (vitamin D3) 1,000 iu PO DAILY #0 11/20/17 09/14/19 History [Vitamin D3] alendronate 70 mg tablet 70 mg PO QWEEK #12 tab 05/24/19 09/14/19 Rx gabapentin 600 mg tablet 600 mg PO BID #180 tab 05/24/19 09/14/19 Rx levothyroxine 75 mcg tablet 75 mcg PO QAM #90 tab 05/24/19 09/14/19 Rx hydroxyurea 500 mg capsule 500 mg PO 5XW tab 06/02/19 09/14/19 History losartan 25 mg tablet 25 mg PO DAILY #30 tab 09/10/19 09/14/19 Rx gabapentin 300 mg PO DAILY 09/14/19 09/14/19 History Allergies Allergy/AdvReac Type Severity Reaction Status Date / Time codeine Allergy Mild NAUSEA Verified 09/13/19 21:07 Sulfa (Sulfonamide Allergy Mild NAUSEA Verified 09/13/19 21:07 Antibiotics) morphine AdvReac Mild NAUSEA Verified 09/13/19 21:07 Review of Systems Review of Systems ROS Unobtainable: All systems reviewed & are unremarkable except as noted in HPI and below Exam Vital Signs (past 8 hours): - 09/14/19 01:02 09/14/19 08:00 Temperature 97.6 F 97.6 F Pulse Rate 61 51 L Respiratory Rate 20 16 Blood Pressure 165/92 H 162/71 H Pulse Oximetry 100 99 Oxygen Delivery Method Room Air Oxygen Flow Rate 0 Narrative Exam Narrative: Gen.: [] Patient examined hospital bed she is resting quietly appears in no distress Skin: [Warm well perfused. No prominent lesions. Nonicteric]. HEENT: PERRL., [normal EOM, external ears canals TMs normal, nasal mucosa normal and midline septum, oropharynx without lesions.] Neck: [Trachea midline. Thyroid nontender and not enlarged. Carotids without bruits. No lymphadenopathy] Back: [No obvious deformity or tenderness]. Chest: [Clear to P&A. Symmetric]. CV: [RRR no murmur or gallop. No JVD]. Abdomen: [No masses bruits tenderness or visceromegaly]. Neuro: [Cranial nerves II through XII grossly intact. Sensory and motor exams intact. Gait normal.] Mental status: [Intact for screening] Extremities: [No cyanosis clubbing or edema] Musculoskeletal: [No gross deformities] Lymphatics: [Negative for lymphadenopathy, supraclavicular axillary or inguinal]. Left elbow round the lateral at epicondyle she has a dressing on for her prior abrasion. Her neurologic exam is otherwise normal equal strength equal sensation of upper lower extremities cranial nerves intact Objective Labs Result Diagrams: 09/14/19 05:17 09/14/19 05:17 Labs: Laboratory Results - last 24 hr 09/13/19 09/13/19 09/13/19 21:09 21:09 21:09 WBC 5.8 RBC 3.12 L Hgb 11.0 L Hct 31.9 L MCV 102.2 H MCH 35.3 H MCHC 34.5 RDW 12.8 Plt Count 417 H Neut % (Auto) 68.9 Lymph % (Auto) 20.3 L [place] % (Auto) 9.1 Eos % (Auto) 1.3 L Baso % (Auto) 0.4 Neut # (Auto) 4000 Lymph # (Auto) 1200 [place] # (Auto) 500 Eos # (Auto) 100 Baso # (Auto) 0 PT 10.6 INR 0.9 APTT 35 Sodium 129 L Potassium 4.6 Chloride 91 L Carbon Dioxide 32 BUN 16 Creatinine 0.60 Estimated GFR > 60.0 BUN/Creatinine Ratio 26.7 H Glucose 106 Calcium 9.4 Troponin I TSH 11/02/2609/13/19 09/14/19 21:09 21:09 05:17 WBC 5.4 RBC 2.72 L Hgb 9.7 L Hct 27.7 L MCV 101.9 H MCH 35.6 H MCHC 34.9 RDW 12.6 Plt Count 356 Neut % (Auto) 68.9 Lymph % (Auto) 20.3 L [place] % (Auto) 9.2 Eos % (Auto) 1.3 L Baso % (Auto) 0.3 Neut # (Auto) 3800 Lymph # (Auto) 1100 [place] # (Auto) 500 Eos # (Auto) 100 Baso # (Auto) 0 PT INR APTT Sodium Potassium Chloride Carbon Dioxide BUN Creatinine Estimated GFR BUN/Creatinine Ratio Glucose Calcium Troponin I < 0.012 TSH 0.80 09/14/19 05:17 WBC RBC Hgb Hct MCV MCH MCHC RDW Plt Count Neut % (Auto) Lymph % (Auto) [place] % (Auto) Eos % (Auto) Baso % (Auto) Neut # (Auto) Lymph # (Auto) Scre[place] # (Auto) Eos # (Auto) Baso # (Auto) PT INR APTT Sodium 129 L Potassium 4.2 Chloride 96 L Carbon Dioxide 27 BUN 16 Creatinine 0.50 L Estimated GFR > 60.0 BUN/Creatinine Ratio 32.0 H Glucose 80 Calcium 8.7 Troponin I TSH labs reviewed from the emergency room. Of significance she had hyponatremia sodium 129 which is typical over. A new issue is a decrease in her hemoglobin down to 9.7 Assessment & Plan Assessment & Plan narrative: 1. Patient with a neurologic event numbness and tingling of left arm and leg totally resolved emergency room. Consistent with a ?TIA?. May well be related to hypertension. We are doing a a stroke workup with MRI carotids and echo. Of all these are normal then will assume is from her blood pressure and be more aggressive in treating her blood pressure meanwhile will keep on current dose pending the above studies if she has some sort of hemorrhaged diathesis B1 lot. 2. Hyponatremia is being evaluated and is stable. 3. New diagnosis is is her decrease in hemoglobin this may well be related to her hydroxy urea as it has decreased her white count in the past. Nothing about this will be done at this hospitalization well we may want to get some updated anemia workup. 4. Other medical problems were stable which include peripheral neuropathy hypothyroidism. Anticipate patient being here probably 2 days Quality VTE Deep Vein Thrombosis/Pulmonary Embolism Present on Admission: No
--- NOTE | 2019-09-14 08:59 | CM.DANOTE ---
DCP: Case received, EMR reviewed and met with patient. Introduced self and role. Was able to meet with patient in her room and obtain baseline health and activity information. DCP assessment/template completed with information currently available. Patient is a 74 year old female who admitted yesterday evening to the care of the hospitalist team. PCP: Dr. Cummings. Payer[facility] Patient came to the hospital via ambulance secondary to symptoms of tingling and weakness in her left upper extremities. She was also having some flashes in her left eye. According to note, patient had been in her kitchen washing dishes when these symptoms occurred. At this time, current diagnosis is TIA', but she is having further testing here in the hospital. Met with patient in her room. She is alert and oriented, independent. She is a , her in June of 2018. Patient has a daughter, Yenifer, who lives in [place], and a step-daughter, Megha, who resides in [place]. She mentioned that she also has a supportive neighbor who has been out of town, but should be back any day. P: DCP to continue to follow closely for any needs. She will undergo testing here in hospital. She should be able to return home when she is medically stable. Sophie Bragg RN/Post Acute Care Nurse
[2019-09-14] MEDS: LEVOTHYROXINE 75 MCG TABLET PO (10:02)
[2019-09-14] MEDS: ENOXAPARIN 40 MG/0.4 ML SYRINGE SUBCUT (10:02)
[2019-09-14] MEDS: HYDROXYUREA 500 MG CAPSULE PO (10:03)
[2019-09-14] MEDS: SODIUM CHLORIDE 0.9% FLUSH 10 ML IV ×2 (10:03→20:54)
[2019-09-14] MEDS: GABAPENTIN 300 MG CAPSULE PO (10:03)
[2019-09-14] MEDS: LOSARTAN 25 MG TABLET PO ×2 (10:03→20:52)
--- NOTE | 2019-09-14 13:50 | PC.NURSE ---
Addendum entered by Ramonita Barker R.N. 09/14/19 14:38: CARDIAC - informed pt had recent HR 44-45 per tele, no new orders. Original Note: AM NOTE - pt easily awakens, speech is clear, responses appropriate, nih o, reports numbness that started l shoulder, extended to feet resolved approx midnight and no numbness or tingling now, denies discomfort, pt fell on uneven concrete last week and has scattered abraisons and bruising, skin tear to l elbow, dsg removed, skin tear w/shallow pink wound bed, some slight serosang drainage when cleaned with normal saline, replaced with allevyn dsg, mri, carotid US and echo completed this am.
[2019-09-14] MEDS: GABAPENTIN 600 MG TABLET PO (20:53)
--- NOTE | 2019-09-14 23:37 | PC.NURSE ---
A&OX3. NIH: 0. no numbness or tingling. denied pain, nausea or sob. SBA to the BR. call light in reach. bed alarm active.
[2019-09-15 06:01] VITALS: BP 155/67; PULSE 86; RESP 16; TEMP 36.5; O2SAT 98
[2019-09-15] MEDS: LEVOTHYROXINE 75 MCG TABLET PO (06:55)
[2019-09-15 07:40] VITALS: BP 146/68; PULSE 50; RESP 16; O2SAT 96
--- NOTE | 2019-09-15 08:03 | PM.DS.1 ---
History of Present Illness History of Present Illness Chief complaint: Tingling in the left side Narrative: TIA. Patient with a admitted with diagnosis of TIA. Patient was standing by the sink doing some dishes and she noticed done numbness and tingling of her left hand the numbness and tingling seemed to progress upper arm up to her shoulder. Soon thereafter she developed numbness and tingling down the left side of her body down to her hip and that eventuality down her left leg down to her toes. She got concerned about having a stroke and paramedics were called. She has had no headache no visual changes no neurologic effects on her face no drooling no speech disorder and no confusion or any mental FX. She has not had anything like this in the past She has a recent diagnosis of hypertension and has been recently started on losartan 25 mg daily. She fell approximately a week ago as she stumbled on a irregular part of the concrete. He scraped her left elbow had a CT of head and neck done that was unremarkable. Her other medical problems include thrombocytosis being monitored by Hematology. Additionally has persistent hyponatremia and is currently being evaluated by patient transition specialist in [place]. Discharge Providers Provider Date of admission: 09/13/19 23:38 Discharge Date: 09/15/19 Primary care physician: Felipe Cummings MD Consults: 09/13/19 23:30 Consult to Physician Routine Comment: Consulting Provider: Felipe Cummings Reason for consultation: admission Has provider been notified: Yes Discharge provider: Felipe Cummings MD Summary Hospital Course Discharge Diagnosis: Transient ischemic attack. Hypertension. Pre-existing thrombocytosis stable. Pre-existing hypothyroidism stable. Hospital Course: Patient admitted with symptoms of of transient ischemic attack with numbness tingling of the left arm and leg. The symptoms resolved over several minutes. He 0 8 evaluation emergency room was unremarkable she had a persistent hyponatremia which is chronic. Head CT was unremarkable. Following day she had further workup including echocardiogram, carotid Doppler, and MRI stroke protocol all of which were normal. Patient developed hypertension during stay here and required increasing dose of her losartan to 25 mg twice a day discharge blood pressure was approximately 155/70. Additionally she had persistent bradycardia that was monitored overnight was but was basic sinus bradycardia of no concern. Patient's left elbow abrasion was daily dressed it improved significantly over time she states she with will be followed up as an outpatient. Status at Discharge Cognitive/behavioral status at discharge: oriented and at baseline, oriented Functional status at discharge: independent ambulation Overall status at discharge: patient is back to baseline Exam Vital Signs (past 8 hours): - 09/15/19 06:01 Temperature 97.7 F Pulse Rate 86 Respiratory Rate 16 Blood Pressure 155/67 H Pulse Oximetry 98 Oxygen Delivery Method Room Air Oxygen Flow Rate 0 Objective Labs Result Diagrams: 09/14/19 05:17 09/14/19 05:17 Discharge Plan Discharge Plan Patient Disposition: Home Discharge comment: appt w ritesh already made cbc, bmp moRNING OF APPT Discharge Med Rec/Prescriptions Prescriptions: New losartan 25 mg Tablet 25 mg PO BID Qty: 180 RF: 0 Continued multivitamin Tablet 1 tab PO DAILY Qty: 0 RF: 0 Probiotic Formula (inulin) 1 billion-250 cell-mg Capsule 1 cap PO DAILY Qty: 0 RF: 0 vitamin E 400 unit Capsule 400 unit PO DAILY Qty: 0 RF: 0 cholecalciferol (vitamin D3) [Vitamin D3] 1,000 UNIT tablet 1,000 iu PO DAILY Qty: 0 RF: 0 gabapentin [Neurontin] 600 mg tablet 600 mg PO BID Qty: 180 RF: 2 levothyroxine [Synthroid] 75 mcg tablet 75 mcg PO QAM Qty: 90 RF: 3 alendronate 70 mg tablet 70 mg PO QWEEK Qty: 12 RF: 1 hydroxyurea [Hydrea] 500 mg capsule 500 mg PO 5XW RF: 0 gabapentin 300 mg Capsule 300 mg PO DAILY RF: 0 Discontinued losartan 25 mg tablet 25 mg PO DAILY Qty: 30 RF: 0 Follow up/Referrals: Felipe Cummings MD [Primary Care Provider] - Provider Discharge Instructions Diet: Diet as Tolerated Discharge Data Primary Care Provider: Felipe Cummings Attending Provider: Felipe Cummings Admit Date/Time: 09/13/19 23:38 Quality VTE Deep Vein Thrombosis/Pulmonary Embolism Present on Admission: No
[2019-09-15 10:50] VITALS: O2SAT 96
[2019-09-15] MEDS: GABAPENTIN 300 MG CAPSULE PO (11:00)
[2019-09-15] MEDS: LOSARTAN 25 MG TABLET PO (11:00)
[2019-09-15] MEDS: HYDROXYUREA 500 MG CAPSULE PO (11:00)
--- NOTE | 2019-09-15 11:30 | PC.NURSE ---
Discharge PIV and tele removed prior to d/c. D/c instructions provided to pt Aware of f/u apt with MD and to contact him with any additional questions or concerns. Pt received belongings from [facility], stated all was present. Left in w/c with [employer] escort. Cab called to take pt home per her request.
== END 2019-09-15 11:32 | disposition home or self-care (01) ==
LOC: ED 21:42 → AC 23:39
PROVIDERS: Admitting Provider Family Medicine; Emergency Provider Emergency Medicine; PCP Family Medicine; Visit Provider Family Medicine
DX: R29.818 Other symptoms and signs involving the nervous system (principal); R53.1 Weakness; G45.9 Transient cerebral ischemic attack, unspecified; I10 Essential (primary) hypertension; D47.3 Essential (hemorrhagic) thrombocythemia; E03.9 Hypothyroidism, unspecified
CPT/HCPCS: 36415; 70450; 70548; 70553; 80048; 84443; 84484; 85025; 85610; 85730; 93005; 93010; 93306; 93880; 99217; 99220; 99283; 99285; G0378; J1650

== ENCOUNTER → 2019-09-20 11:00 | Outpatient (CLI) | payer MEDICARE, SELFPAY ==
[2019-09-14 01:02] VITALS: BMI 18.3
[2019-09-20 11:23] LABS: Add Manual Diff / Slide Review NO; Basophils Absolute Auto 0 /uL (0-100); Basophils Percent Auto 0.6 % (0-2); Eosinophils Absolute Auto 100 /uL (0-450); Eosinophils Percent Auto 0.9 % (2-4); Hematocrit 29.8 % (36-46); Hemoglobin 10.4 g/dL (12.0-16.0); Lymphocytes Absolute Auto 1000 /uL (1100-4500); Lymphocytes Percent Auto 16.7 % (25-40); Mean Corpuscular Hemoglobin 35.4 PG (26-34); Monocytes Absolute Auto 500 /uL (0-900); Monocytes Percent Auto 9.3 % (3-14); Neutrophils Absolute Auto 4300 /uL (1500-7000); Neutrophils Percent Auto 72.5 % (50-75); Platelet Count 388 X10^3/uL (150-400); Red Blood Cell Count 2.95 X10^6/uL (4.0-5.2); Red Cell Distribution Width 12.6 % (11.6-14.8); White Blood Cell Count 5.9 X10^3/uL (4.5-11.0)
[2019-09-20 11:34] LABS: BUN Creatinine Ratio 27.1 (6-22); Blood Urea Nitrogen 19 mg/dL (7-17); Calcium 9.5 mg/dL (8.4-10.2); Carbon Dioxide 28 mmol/L (22-32); Chloride 88 mmol/L (98-107); Estimated Glomerular Filt Rate > 60.0 mL/min (>60); Glucose 57 mg/dL (80-110); HEMOLYSIS < 15 (0-50); Potassium 5.2 mmol/L (3.4-5.1); Sodium 127 mmol/L (137-145)
== END ==
PROVIDERS: PCP Family Medicine; Visit Provider Family Medicine
DX: D47.3 Essential (hemorrhagic) thrombocythemia (principal)
CPT/HCPCS: 36415; 80048; 85025

== ENCOUNTER → 2019-09-30 13:58 | Outpatient (CLI) | payer MEDICARE, SELFPAY ==
[2019-09-14 01:02] VITALS: BMI 18.3
--- NOTE | 2019-10-22 16:07 | P.HOLT.S_ITS ---
[employer] Pipe [employer]der Report Referral & Results Date Patient Seen: 09/30/19 Requesting provider: Felipe Cummings Indication: Bradycardia Duration of monitoring (days): 13 Diary information: There was 1 patient diary entry and 3 patient triggered events These events were associated with sinus rhythm, supraventricular ectopic beats and junctional rhythm Data: Minimum heart rate identified was 27 beats per minute at 15:00 on 10/13/2019 Maximum sinus heart rate was 90 beats per minute at 20:42 on 10/06/2019 Maximum overall heart rate was 167 beats per minute at 18:56 on 09/30/2019 during a 16 beat run of SVT/atrial tachycardia Less than 1% of identified beats rather ventricular supraventricular ectopic in origin Patient 45 different runs of a supraventricular tachycardia/atrial tachycardia Patient had 2 pauses of 3 seconds or longer the longest being 3.8 seconds. Junctional rhythm was present as well. Impression: Patient with significant pauses as above as well as evidence of some junctional rhythm and overall quite bradycardic. These findings were discussed with Dr. Cummings in person
== END ==
PROVIDERS: PCP Family Medicine; Visit Provider Family Medicine
DX: R00.1 Bradycardia, unspecified (principal)
CPT/HCPCS: 0296T; 0298T

== ENCOUNTER → 2019-10-01 09:16 | Outpatient (CLI) | payer MEDICARE, SELFPAY ==
[2019-09-14 01:02] VITALS: BMI 18.3
== END ==
PROVIDERS: PCP Family Medicine; Visit Provider Family Medicine
DX: S51.002A Unspecified open wound of left elbow, initial encounter (principal); Z79.899 Other long term (current) drug therapy
CPT/HCPCS: 11042; 99203; 99212

== ENCOUNTER → 2019-10-14 14:27 | Outpatient (CLI) | payer MEDICARE, SELFPAY ==
[2019-09-14 01:02] VITALS: BMI 18.3
== END ==
PROVIDERS: PCP Family Medicine; Visit Provider Family Medicine
DX: S51.002D Unspecified open wound of left elbow, subsequent encounter (principal); Z79.899 Other long term (current) drug therapy
CPT/HCPCS: 99212; 99213

== ENCOUNTER 2019-10-18 12:45 | Outpatient (RCR) | payer MEDICARE, SELFPAY ==
[2019-09-14 01:02] VITALS: BMI 18.3
--- NOTE | 2019-09-21 16:38 | PT.OIE ---
Current Diagnoses Other abnormalities of gait and mobility (09/21/19) Fall on same level, unspecified, initial encounter (09/21/19) Past Medical History (Last Reviewed 09/14/19 @ 08:34 by Felipe Cummings MD) Actinic keratosis (Resolved) Anemia (Chronic) BCC (basal cell carcinoma of skin) (Resolved) Bilateral cataracts (Resolved) Chicken pox (Resolved ~1946) Epilepsy (Chronic 1959) Essential thrombocytosis (Chronic) Fibroids (Resolved ~1989) History of heavy periods (Resolved ~1989) History of SCC (squamous cell carcinoma) of skin (Resolved) Hypothyroidism (Chronic) Measles (Resolved ~1946) Mumps (Resolved 1946) Ovarian cyst (Resolved ~1987) Peripheral neuropathy (Chronic 2012) Rosacea (Chronic ~1999) Seizures (Chronic 2013) Skin cancer (Resolved ~1989) TIA (transient ischemic attack) (Chronic) Past Surgical History (Last Reviewed 09/14/19 @ 08:34 by Felipe Cummings MD) Anesthesia (Resolved) History of cataract removal with insertion of prosthetic lens (Resolved 2009) Status post hernia repair (Resolved 2014) Status post hysterectomy (Resolved 1988) Visit Care Team Role Provider Type Felipe Cummings MD Attending Provider Physician Primary Care Provider Specialty: [facility] Address: [address] [place] [address] Email: [email or web address] Physical Therapy Initial Evaluation PT-OP-A Visit Information Start: 09/20/19 18:14 Freq: Status: Active Protocol: Document 09/21/19 15:04 LRN (Rec: 09/21/19 16:34 LRN [id number]) Out-Patient Physical Therapy Visit Information Visit Information Visit Type Initial Evaluation Visit Start Time 15:04 Visit Stop Time 15:47 Total Visit Minutes 43 Visit Number 1 Number of BLUE PRINTS TRIMMER Visits 0 Evaluation Information Evaluation Date 09/21/19 Precautions Precautions Peripheral neuropathy Transient crebral ischemia Elevated BP w/o diagnosis of HTN TIA last week, thinks 09/13/19 Osteoporosis PT-OP-B Current Condition Start: 09/20/19 18:14 Freq: Status: Active Protocol: Document 09/21/19 15:04 LRN (Rec: 09/21/19 16:34 LRN [id number]) Current Condition History of Current Condition Onset Date 09/13/19 Current Complaints Don't have balance used to, but not all the time. History of Current Condition Week before TIA had fallen while stepping up onto a curb. L hand, arm, and hip to feet went numb and tingled. Went to ER Friday night and was kept for observation overnight . Did CT and MRI in ER and when admitted under observation. Discharged on Fri. Doesn't feel use of an assistive device would help with her confidence. Since being home has had episodes of LOB without fall, but typically no. Lives home alone with daughter in [place], [place]. Future Testing and Treatments Planned Denies need of Occupational therapy for hands and no trouble swallowing. Treatment Goals Patient/Caregiver Goals Pt goal is to strengthen the balance and hopefully make her more confident with transfers , standing and walking. Prior Functional Status Baseline Function- ADL's Independent Baseline Function- Mobility Independent Baseline Function- Gait Fast walker, when she did she walked 2-3x/week for 45 minutes 2 miles. 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 Current Functional Impairments (Reported) Functional Limitations- ADL's Slow and cautious with transfers, standing, walking. No assistive device. Functional Limitations- Recreation/ Volunteering 2x/month. Hobbies Functional Limitations- Other Drives self, no loss of confidence in driving. Personal Factors Other Personal Factors That May Effect Lives alone. Therapy/Recovery PT-OP-C Subjective Start: 09/20/19 18:14 Freq: Status: Active Protocol: Document 09/21/19 15:04 LRN (Rec: 09/21/19 16:34 LRN [id number]) Patient Questionnaires ABC- Activity Specific Balance Confidence Scale ABC Score 58.75 ABC Functional Impairment 40 to <60% Impaired (Score 41- 60) PT-OP-D Balance Start: 09/20/19 18:14 Freq: Status: Active Protocol: Document 09/21/19 15:04 LRN (Rec: 09/21/19 16:34 LRN [id number]) Balance Tests Lovell Balance Test Lovell Balance Test Score 49 Lovell Impairment Rating 1 to 19% Impaired (Score 45-55 ) Single Limb Standing Single Limb- Right 10 Single Limb- Left 11 Tandem Tandem Standing 1 Lovell Balance Assessment Evaluation Sitting to Standing Ability Independent w/out Hands Unsupported Stance Safely- 2 minutes Sitting Unsupported, Feet on Floor Safely- 2 minutes Standing to Sitting Ability Safely, Minimal Hand Use Transfer Ability Safely, Minimal Hand Use Unsupported Stance- Eyes Closed Safely, 10 seconds Unsupported Stance- Eyes Open Supervision to maintain Reaching Forward Standing Confidently, 10 inches Pick- Up Object From Floor Independent/Safe Look Behind Shoulder - Standing Shifts Weight Well Turning 360 Degrees Turns , < 4 secs Unsupported Stance, Alternating Feet on 4 Steps w/Supervision Stair Unsupported Tandem Stance Balance Lost- Step/Stand Unilateral Leg Stance Lifts Leg/Holds 10 secs Total Score Lovell Total Score (out of 56 points) 48 Tinetti Balance Assessment Sitting Balance Sitting Balance Steady, safe Arising from Chair Ability to Arise Able, w/o using arms Turning Step Pattern Turning 360 Degrees Continuous steps Sitting Down Sitting Down Safe, steady Scoring and Interpretation Tinetti Composite Score (points) 6 PT-OP-E Functional Tests Start: 09/20/19 18:14 Freq: Status: Active Protocol: Document 09/21/19 15:04 LRN (Rec: 09/21/19 16:34 LRN [id number]) Functional Tests Timed Up and Go (TUG) Score 12 TUG Impairment Rating 20 to <40% Impaired (Score 12- 13) PT-OP-J Posture/Palpation/Skin Start: 09/20/19 18:14 Freq: Status: Active Protocol: Document 09/21/19 15:04 LRN (Rec: 09/21/19 16:34 LRN [id number]) Posture Evaluation Comments Posture Comments Stands forward bent at hips 10 deg's PT-OP-K Range of Motion Start: 09/20/19 18:14 Freq: Status: Active Protocol: Document 09/21/19 15:04 LRN (Rec: 09/21/19 16:34 LRN [id number]) Hip Goniometric Range of Motion Hip Right Active Hip ROM WFL Yes Left Active Hip ROM WFL Yes Knee Goniometric Range of Motion Knee Right Knee ROM WFL Yes Left Knee ROM WFL Yes Ankle and Foot Goniometric Range of Motion Ankle and Foot Right Active Ankle/Foot ROM WFL Yes Left Active Ankle/Foot ROM WFL Yes PT-OP-M Strength Start: 09/20/19 18:14 Freq: Status: Active Protocol: Document 09/21/19 15:04 LRN (Rec: 09/21/19 16:34 LRN [id number]) Hip Strength Hip Manual Muscle Testing Right Reason Not Measured WFL Left Reason Not Measured WFL Knee Strength Knee Manual Muscle Testing Right Reason Not Measured WFL Left Reason Not Measured WFL Ankle/Foot Strength Ankle and Foot Manual Muscle Testing Right Reason Not Measured WFL Left Reason Not Measured WFL PT-OP-Q Treatments Start: 09/20/19 18:14 Freq: Status: Active Protocol: Document 09/21/19 15:04 LRN (Rec: 09/21/19 16:34 LRN [id number]) Neuro Re-Education Treatment Balance Activities Step touch Details Alternate step touches Comments Increased sway posteriorly during step touches, requires supervision. Stepping over hurdles Details Stepping over green hurdles Surface level Reps/Duration 2' Tandem stance Details Tandem stance Surface level Reps/Duration 4' Comments Arms by side and across chest with both left behind and right behind SLS Details SLS Surface level Reps/Duration 3' Comments Arms by side and arms across the chest PT-OP-T Assessment and Plan Start: 09/20/19 18:14 Freq: Status: Active Protocol: Document 09/21/19 15:04 LRN (Rec: 09/21/19 16:34 LRN [id number]) Physical Therapy Assessment Rehab Potential Rehabilitation Potential Excellent Evaluation Complexity Number of Personal Factors/Comorbidities 1-2 Number of Body Systems Impaired 3 Clinical Presentation at Evaluation Stable Impairments Impairments Activity Tolerance,Balance, Posture Other Concerns Fall Risk Minimal Barriers to Rehabilitation Lives alone Recent TIA, mild difficulty following directions Goals Three Impairment Decreased confidence in walking ability with pt walking 1/2 mile walks Long-Term Goal (LTG) Pt will improve her aerobic endurance in order to improve her confidence in walking up to 1.5 miles. LTG Duration 12/10/19 Two Impairment Decreased balance (tandem 1-3 secs & supervision needed for step taps) Long-Term Goal (LTG) Pt will be able to improve her confidence in balance with tandem stance 30 sec's or greater and ability to step touch without increased sway. One Impairment Lacks a self care HEP Ointment Mill Tender Goal (LTG) Pt will be independent on a self care HEP. LTG Duration 12/10/19 Assessment Summary Assessment Pt presents with mild standing balance deficits, most notable with single leg stance activities (walking, stair ambulation, stepping over objects). She appeared to have the most trouble with stair stepping. She tends to walk very fast to prevent having to stand single leg for very long. She had some difficulty following 2 step commands or greater, and in the future may benefit from speech therapy for cognitive training if she continues to have difficulty. the pt will benefit from skilled physical therapy for dynamic standing balance training and general conditioning to help progress the pt to her prior level of walking ability. Physical Therapy Plan Frequency and Duration Frequency of Treatment 2x/Week Plan of Care Start Date 09/21/19 Plan of Care End Date 12/10/19 Therapeutic Interventions Therapeutic Interventions Balance Training,Gait Training ,Home Exercise Program,Patient /Caregiver Education,Self-Care /Home Management,Therapeutic Exercises Next Visit Focus/Plan Next Note Type Treatment Note Next Visit Plan Aerobic conditioning, Balance training for SLS activities.
--- NOTE | 2019-09-27 11:33 | PT.OTN ---
Current Diagnoses Other abnormalities of gait and mobility (09/27/19) Fall on same level, unspecified, initial encounter (09/27/19) Physical Therapy Treatment Note PT-OP-A Visit Information Start: 09/20/19 18:14 Freq: Status: Active Protocol: Document 09/27/19 10:35 LRN (Rec: 09/27/19 11:33 LRN [id number]) Out-Patient Physical Therapy Visit Information Visit Information Visit Type Treatment Note Visit Start Time 10:35 Visit Stop Time 11:22 Total Visit Minutes 47 Visit Number 2 Number of NET PROGRAMMER Visits 0 Evaluation Information Evaluation Date 09/21/19 Precautions Precautions Peripheral neuropathy Transient crebral ischemia Elevated BP w/o diagnosis of HTN TIA last week, thinks 09/13/19 Osteoporosis PT-OP-B Current Condition Start: 09/20/19 18:14 Freq: Status: Active Protocol: Document 09/21/19 15:04 LRN (Rec: 09/21/19 16:34 LRN [id number]) Current Condition History of Current Condition Onset Date 09/13/19 Current Complaints Don't have balance used to, but not all the time. History of Current Condition Week before TIA had fallen while stepping up onto a curb. L hand, arm, and hip to feet went numb and tingled. Went to ER Friday night and was kept for observation overnight . Did CT and MRI in ER and when admitted under observation. Discharged on Fri. Doesn't feel use of an assistive device would help with her confidence. Since being home has had episodes of LOB without fall, but typically no. Lives home alone with daughter in [place], [place]. Future Testing and Treatments Planned Denies need of Occupational therapy for hands and no trouble swallowing. Treatment Goals Patient/Caregiver Goals Pt goal is to strengthen the balance and hopefully make her more confident with transfers , standing and walking. Prior Functional Status Baseline Function- ADL's Independent Baseline Function- Mobility Independent Baseline Function- Gait Fast walker, when she did she walked 2-3x/week for 45 minutes 2 miles. 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 Current Functional Impairments (Reported) Functional Limitations- ADL's Slow and cautious with transfers, standing, walking. No assistive device. Functional Limitations- Recreation/ Volunteering 2x/month. Hobbies Functional Limitations- Other Drives self, no loss of confidence in driving. Personal Factors Other Personal Factors That May Effect Lives alone. Therapy/Recovery PT-OP-C Subjective Start: 09/20/19 18:14 Freq: Status: Active Protocol: Document 09/21/19 15:04 LRN (Rec: 09/21/19 16:34 LRN [id number]) Patient Questionnaires ABC- Activity Specific Balance Confidence Scale ABC Score 58.75 ABC Functional Impairment 40 to <60% Impaired (Score 41- 60) PT-OP-D Balance Start: 09/20/19 18:14 Freq: Status: Active Protocol: Document 09/21/19 15:04 LRN (Rec: 09/21/19 16:34 LRN [id number]) Balance Tests Lovell Balance Test Lovell Balance Test Score 49 Lovell Impairment Rating 1 to 19% Impaired (Score 45-55 ) Single Limb Standing Single Limb- Right 10 Single Limb- Left 11 Tandem Tandem Standing 1 Lovell Balance Assessment Evaluation Sitting to Standing Ability Independent w/out Hands Unsupported Stance Safely- 2 minutes Sitting Unsupported, Feet on Floor Safely- 2 minutes Standing to Sitting Ability Safely, Minimal Hand Use Transfer Ability Safely, Minimal Hand Use Unsupported Stance- Eyes Closed Safely, 10 seconds Unsupported Stance- Eyes Open Supervision to maintain Reaching Forward Standing Confidently, 10 inches Pick- Up Object From Floor Independent/Safe Look Behind Shoulder - Standing Shifts Weight Well Turning 360 Degrees Turns , < 4 secs Unsupported Stance, Alternating Feet on 4 Steps w/Supervision Stair Unsupported Tandem Stance Balance Lost- Step/Stand Unilateral Leg Stance Lifts Leg/Holds 10 secs Total Score Lovell Total Score (out of 56 points) 48 Tinetti Balance Assessment Sitting Balance Sitting Balance Steady, safe Arising from Chair Ability to Arise Able, w/o using arms Turning Step Pattern Turning 360 Degrees Continuous steps Sitting Down Sitting Down Safe, steady Scoring and Interpretation Tinetti Composite Score (points) 6 PT-OP-E Functional Tests Start: 09/20/19 18:14 Freq: Status: Active Protocol: Document 09/21/19 15:04 LRN (Rec: 09/21/19 16:34 LRN [id number]) Functional Tests Timed Up and Go (TUG) Score 12 TUG Impairment Rating 20 to <40% Impaired (Score 12- 13) PT-OP-J Posture/Palpation/Skin Start: 09/20/19 18:14 Freq: Status: Active Protocol: Document 09/21/19 15:04 LRN (Rec: 09/21/19 16:34 LRN [id number]) Posture Evaluation Comments Posture Comments Stands forward bent at hips 10 deg's PT-OP-K Range of Motion Start: 09/20/19 18:14 Freq: Status: Active Protocol: Document 09/21/19 15:04 LRN (Rec: 09/21/19 16:34 LRN [id number]) Hip Goniometric Range of Motion Hip Right Active Hip ROM WFL Yes Left Active Hip ROM WFL Yes Knee Goniometric Range of Motion Knee Right Knee ROM WFL Yes Left Knee ROM WFL Yes Ankle and Foot Goniometric Range of Motion Ankle and Foot Right Active Ankle/Foot ROM WFL Yes Left Active Ankle/Foot ROM WFL Yes PT-OP-M Strength Start: 09/20/19 18:14 Freq: Status: Active Protocol: Document 09/21/19 15:04 LRN (Rec: 09/21/19 16:34 LRN [id number]) Hip Strength Hip Manual Muscle Testing Right Reason Not Measured WFL Left Reason Not Measured WFL Knee Strength Knee Manual Muscle Testing Right Reason Not Measured WFL Left Reason Not Measured WFL Ankle/Foot Strength Ankle and Foot Manual Muscle Testing Right Reason Not Measured WFL Left Reason Not Measured WFL PT-OP-Q Treatments Start: 09/20/19 18:14 Freq: Status: Active Protocol: Document 09/27/19 10:35 LRN (Rec: 09/27/19 11:33 LRN [id number]) Cardio Equipment Bicycle (Upright) Duration (Minutes) 5 Resistance 4 Seat Position 4 Other 55-60 rpm Therapeutic Exercises Sitting Exercises Ankle IV Sitting Exercise Name Ankle IV strengthening Side bilateral Resistance Lev 1 T-Band Reps/Minutes 15x 1 Ankle EV Sitting Exercise Name Ankle EV strengthening Side bilateral Resistance Lev 1 T-Band Reps/Minutes 15x 1 Standing Exercises Ankle PF Standing Exercise Name Ankle PF Reps/Minutes 15x 2 Ankle DF Standing Exercise Name Ankle DF stretch f/b active strengthening Equipment Used BENJI Reps/Minutes 10x 3 Comments 10x Isometric on BENJI, 10x2 freestand w/SBA Neuro Re-Education Treatment Balance Activities Tandem stance Details Tandem stance Surface level Reps/Duration 4' Comments Arms across chest with both left behind and right behind. Cuing for core stab & upright posture SLS Details SLS Surface level Reps/Duration 3' Comments Arms by side and arms across the chest Self-Care/Home Management Treatment Education Patient Education Home Exercise Program Activities Self-Care/Home Management Activities Issued & reviewed HEP: Ankle PF/DF & IV/EV, issued Lev 2 T- Band. PT-OP-T Assessment and Plan Start: 09/20/19 18:14 Freq: Status: Active Protocol: Document 09/27/19 10:35 LRN (Rec: 09/27/19 11:33 LRN [id number]) Physical Therapy Assessment Goals Three Impairment Decreased confidence in walking ability with pt walking 1/2 mile walks Planetarium Technician Goal (LTG) Pt will improve her aerobic endurance in order to improve her confidence in walking up to 1.5 miles. LTG Duration 12/10/19 Two Impairment Decreased balance (tandem 1-3 secs & supervision needed for step taps) Planetarium Technician Goal (LTG) Pt will be able to improve her confidence in balance with tandem stance 30 sec's or greater and ability to step touch without increased sway. One Impairment Lacks a self care HEP Planetarium Technician Goal (LTG) Pt will be independent on a self care HEP. LTG Duration 12/10/19 Assessment Summary Assessment Pt weak with ankle DF/PF with very little lift of heel or forefoot. Fair understanding of ankle IV/EV ex. Physical Therapy Plan Frequency and Duration Frequency of Treatment 2x/Week Plan of Care Start Date 09/21/19 Plan of Care End Date 12/10/19 Next Visit Focus/Plan Next Note Type Treatment Note Next Visit Plan Progress Aerobic conditioning, Balance training for SLS activities.
--- NOTE | 2019-10-12 13:45 | PT.OTN ---
Current Diagnoses Other abnormalities of gait and mobility (10/12/19) Fall on same level, unspecified, initial encounter (10/12/19) Physical Therapy Treatment Note PT-OP-A Visit Information Start: 09/20/19 18:14 Freq: Status: Active Protocol: Document 10/12/19 13:00 SP (Rec: 10/12/19 13:49 SP [id number]) Out-Patient Physical Therapy Visit Information Visit Information Visit Type Treatment Note Visit Start Time 13:00 Visit Stop Time 13:45 Total Visit Minutes 45 Visit Number 3 Number of PROCESS CONTROL PROGRAMMER Visits 1 PT-OP-B Current Condition Start: 09/20/19 18:14 Freq: Status: Active Protocol: Document 09/21/19 15:04 LRN (Rec: 09/21/19 16:34 LRN [id number]) Current Condition History of Current Condition Onset Date 09/13/19 Current Complaints Don't have balance used to, but not all the time. History of Current Condition Week before TIA had fallen while stepping up onto a curb. L hand, arm, and hip to feet went numb and tingled. Went to ER Friday night and was kept for observation overnight . Did CT and MRI in ER and when admitted under observation. Discharged on Fri. Doesn't feel use of an assistive device would help with her confidence. Since being home has had episodes of LOB without fall, but typically no. Lives home alone with daughter in [place], [place]. Future Testing and Treatments Planned Denies need of Occupational therapy for hands and no trouble swallowing. Treatment Goals Patient/Caregiver Goals Pt goal is to strengthen the balance and hopefully make her more confident with transfers , standing and walking. Prior Functional Status Baseline Function- ADL's Independent Baseline Function- Mobility Independent Baseline Function- Gait Fast walker, when she did she walked 2-3x/week for 45 minutes 2 miles. 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 Current Functional Impairments (Reported) Functional Limitations- ADL's Slow and cautious with transfers, standing, walking. No assistive device. Functional Limitations- Recreation/ Volunteering 2x/month. Hobbies Functional Limitations- Other Drives self, no loss of confidence in driving. Personal Factors Other Personal Factors That May Effect Lives alone. Therapy/Recovery PT-OP-C Subjective Start: 09/20/19 18:14 Freq: Status: Active Protocol: Document 10/12/19 13:00 SP (Rec: 10/12/19 13:49 SP [id number]) OP-PT Subjective Patient Comments Patient Comments Pt stated no changes or concerns since last tx. She reported didn't try any of the exercises since last tx that practiced due to out of town over the holiday but would like to review today. PT-OP-D Balance Start: 09/20/19 18:14 Freq: Status: Active Protocol: Document 09/21/19 15:04 LRN (Rec: 09/21/19 16:34 LRN [id number]) Balance Tests Lovell Balance Test Lovell Balance Test Score 49 Lovell Impairment Rating 1 to 19% Impaired (Score 45-55 ) Single Limb Standing Single Limb- Right 10 Single Limb- Left 11 Tandem Tandem Standing 1 Lovell Balance Assessment Evaluation Sitting to Standing Ability Independent w/out Hands Unsupported Stance Safely- 2 minutes Sitting Unsupported, Feet on Floor Safely- 2 minutes Standing to Sitting Ability Safely, Minimal Hand Use Transfer Ability Safely, Minimal Hand Use Unsupported Stance- Eyes Closed Safely, 10 seconds Unsupported Stance- Eyes Open Supervision to maintain Reaching Forward Standing Confidently, 10 inches Pick- Up Object From Floor Independent/Safe Look Behind Shoulder - Standing Shifts Weight Well Turning 360 Degrees Turns , < 4 secs Unsupported Stance, Alternating Feet on 4 Steps w/Supervision Stair Unsupported Tandem Stance Balance Lost- Step/Stand Unilateral Leg Stance Lifts Leg/Holds 10 secs Total Score Lovell Total Score (out of 56 points) 48 Tinetti Balance Assessment Sitting Balance Sitting Balance Steady, safe Arising from Chair Ability to Arise Able, w/o using arms Turning Step Pattern Turning 360 Degrees Continuous steps Sitting Down Sitting Down Safe, steady Scoring and Interpretation Tinetti Composite Score (points) 6 PT-OP-E Functional Tests Start: 09/20/19 18:14 Freq: Status: Active Protocol: Document 09/21/19 15:04 LRN (Rec: 09/21/19 16:34 LRN [id number]) Functional Tests Timed Up and Go (TUG) Score 12 TUG Impairment Rating 20 to <40% Impaired (Score 12- 13) PT-OP-J Posture/Palpation/Skin Start: 09/20/19 18:14 Freq: Status: Active Protocol: Document 09/21/19 15:04 LRN (Rec: 09/21/19 16:34 LRN [id number]) Posture Evaluation Comments Posture Comments Stands forward bent at hips 10 deg's PT-OP-K Range of Motion Start: 09/20/19 18:14 Freq: Status: Active Protocol: Document 09/21/19 15:04 LRN (Rec: 09/21/19 16:34 LRN [id number]) Hip Goniometric Range of Motion Hip Right Active Hip ROM WFL Yes Left Active Hip ROM WFL Yes Knee Goniometric Range of Motion Knee Right Knee ROM WFL Yes Left Knee ROM WFL Yes Ankle and Foot Goniometric Range of Motion Ankle and Foot Right Active Ankle/Foot ROM WFL Yes Left Active Ankle/Foot ROM WFL Yes PT-OP-M Strength Start: 09/20/19 18:14 Freq: Status: Active Protocol: Document 09/21/19 15:04 LRN (Rec: 09/21/19 16:34 LRN [id number]) Hip Strength Hip Manual Muscle Testing Right Reason Not Measured WFL Left Reason Not Measured WFL Knee Strength Knee Manual Muscle Testing Right Reason Not Measured WFL Left Reason Not Measured WFL Ankle/Foot Strength Ankle and Foot Manual Muscle Testing Right Reason Not Measured WFL Left Reason Not Measured WFL PT-OP-Q Treatments Start: 09/20/19 18:14 Freq: Status: Active Protocol: Document 10/12/19 13:00 SP (Rec: 10/12/19 13:49 SP [id number]) Cardio Equipment Bicycle (Upright) Duration (Minutes) 8 Resistance 6 Seat Position 4 Other 48-60 rpm Therapeutic Exercises Sitting Exercises ankle DF/PF Resistance TB L1 Reps/Minutes 15 each Ankle IV Sitting Exercise Name Ankle IV strengthening Side bilateral Resistance Lev 1 T-Band Reps/Minutes 10x3 Ankle EV Sitting Exercise Name Ankle EV strengthening Side bilateral Resistance Lev 1 T-Band Reps/Minutes 10x3 Neuro Re-Education Treatment Balance Activities Step touch Details Alternate step touches Reps/Duration 2x10 Comments Initially sway posteriorly during step touches but improved as reps progressed, requires supervision. Stepping over hurdles Details Stepping over green hurdles Surface level Reps/Duration 2' Comments 5 x2 laps SLS Details SLS Surface level Reps/Duration 3' Comments Arms by side and arms across the chest PT-OP-T Assessment and Plan Start: 09/20/19 18:14 Freq: Status: Active Protocol: Document 10/12/19 13:00 SP (Rec: 10/12/19 13:49 SP [id number]) Physical Therapy Assessment Goals Three Impairment Decreased confidence in walking ability with pt walking 1/2 mile walks Correction Goal (LTG) Pt will improve her aerobic endurance in order to improve her confidence in walking up to 1.5 miles. LTG Duration 12/10/19 Two Impairment Decreased balance (tandem 1-3 secs & supervision needed for step taps) Element Winding Machine Tender Goal (LTG) Pt will be able to improve her confidence in balance with tandem stance 30 sec's or greater and ability to step touch without increased sway. One Impairment Lacks a self care HEP Element Winding Machine Tender Goal (LTG) Pt will be independent on a self care HEP. LTG Duration 12/10/19 Assessment Summary Assessment Pt demonstrated retro lean initially during standing step taps requiring SBA and karin stepping, LOB x1 but self recovery, cued slower pacing. Reviewed HEP ankle TB, required hand outs and cuing for proper form. Added sit to stands today without arms across chest with cuing for parallel knees to decrease adduction compensations. Pt was able to tolerate increase time and resistance of warm up on bike today. Physical Therapy Plan Frequency and Duration Frequency of Treatment 2x/Week Plan of Care Start Date 09/21/19 Plan of Care End Date 12/10/19 Therapeutic Interventions Therapeutic Interventions Balance Training,Gait Training ,Home Exercise Program,Patient /Caregiver Education,Self-Care /Home Management,Therapeutic Exercises Next Visit Focus/Plan Next Note Type Treatment Note Next Visit Plan Assess HEP ankle with TB again , progress balance. Progress Aerobic conditioning, Balance training for SLS activities.
--- NOTE | 2019-10-15 12:47 | PT.OTN ---
Current Diagnoses Other abnormalities of gait and mobility (10/15/19) Fall on same level, unspecified, initial encounter (10/15/19) Physical Therapy Treatment Note PT-OP-A Visit Information Start: 09/20/19 18:14 Freq: Status: Active Protocol: Document 10/15/19 10:27 LRN (Rec: 10/15/19 11:20 LRN [id number]) Out-Patient Physical Therapy Visit Information Visit Information Visit Type Treatment Note Visit Start Time 10:30 Visit Stop Time 11:18 Total Visit Minutes 48 Visit Number 4 Number of CUSTOMER SUCCESS INTERN Visits 0 Evaluation Information Evaluation Date 09/21/19 Precautions Precautions Peripheral neuropathy Transient crebral ischemia Elevated BP w/o diagnosis of HTN TIA last week, thinks 09/13/19 Osteoporosis PT-OP-B Current Condition Start: 09/20/19 18:14 Freq: Status: Active Protocol: Document 09/21/19 15:04 LRN (Rec: 09/21/19 16:34 LRN [id number]) Current Condition History of Current Condition Onset Date 09/13/19 Current Complaints Don't have balance used to, but not all the time. History of Current Condition Week before TIA had fallen while stepping up onto a curb. L hand, arm, and hip to feet went numb and tingled. Went to ER Friday night and was kept for observation overnight . Did CT and MRI in ER and when admitted under observation. Discharged on Fri. Doesn't feel use of an assistive device would help with her confidence. Since being home has had episodes of LOB without fall, but typically no. Lives home alone with daughter in [place], [place]. Future Testing and Treatments Planned Denies need of Occupational therapy for hands and no trouble swallowing. Treatment Goals Patient/Caregiver Goals Pt goal is to strengthen the balance and hopefully make her more confident with transfers , standing and walking. Prior Functional Status Baseline Function- ADL's Independent Baseline Function- Mobility Independent Baseline Function- Gait Fast walker, when she did she walked 2-3x/week for 45 minutes 2 miles. 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 Current Functional Impairments (Reported) Functional Limitations- ADL's Slow and cautious with transfers, standing, walking. No assistive device. Functional Limitations- Recreation/ Volunteering 2x/month. Hobbies Functional Limitations- Other Drives self, no loss of confidence in driving. Personal Factors Other Personal Factors That May Effect Lives alone. Therapy/Recovery PT-OP-C Subjective Start: 09/20/19 18:14 Freq: Status: Active Protocol: Document 10/15/19 10:27 LRN (Rec: 10/15/19 11:20 LRN [id number]) OP-PT Subjective Patient Comments Patient Comments Feels like she is walking better. PT-OP-D Balance Start: 09/20/19 18:14 Freq: Status: Active Protocol: Document 09/21/19 15:04 LRN (Rec: 09/21/19 16:34 LRN [id number]) Balance Tests Lovell Balance Test Lovell Balance Test Score 49 Lovell Impairment Rating 1 to 19% Impaired (Score 45-55 ) Single Limb Standing Single Limb- Right 10 Single Limb- Left 11 Tandem Tandem Standing 1 Lovell Balance Assessment Evaluation Sitting to Standing Ability Independent w/out Hands Unsupported Stance Safely- 2 minutes Sitting Unsupported, Feet on Floor Safely- 2 minutes Standing to Sitting Ability Safely, Minimal Hand Use Transfer Ability Safely, Minimal Hand Use Unsupported Stance- Eyes Closed Safely, 10 seconds Unsupported Stance- Eyes Open Supervision to maintain Reaching Forward Standing Confidently, 10 inches Pick- Up Object From Floor Independent/Safe Look Behind Shoulder - Standing Shifts Weight Well Turning 360 Degrees Turns , < 4 secs Unsupported Stance, Alternating Feet on 4 Steps w/Supervision Stair Unsupported Tandem Stance Balance Lost- Step/Stand Unilateral Leg Stance Lifts Leg/Holds 10 secs Total Score Lovell Total Score (out of 56 points) 48 Tinetti Balance Assessment Sitting Balance Sitting Balance Steady, safe Arising from Chair Ability to Arise Able, w/o using arms Turning Step Pattern Turning 360 Degrees Continuous steps Sitting Down Sitting Down Safe, steady Scoring and Interpretation Tinetti Composite Score (points) 6 PT-OP-E Functional Tests Start: 09/20/19 18:14 Freq: Status: Active Protocol: Document 09/21/19 15:04 LRN (Rec: 09/21/19 16:34 LRN [id number]) Functional Tests Timed Up and Go (TUG) Score 12 TUG Impairment Rating 20 to <40% Impaired (Score 12- 13) PT-OP-J Posture/Palpation/Skin Start: 09/20/19 18:14 Freq: Status: Active Protocol: Document 09/21/19 15:04 LRN (Rec: 09/21/19 16:34 LRN [id number]) Posture Evaluation Comments Posture Comments Stands forward bent at hips 10 deg's PT-OP-K Range of Motion Start: 09/20/19 18:14 Freq: Status: Active Protocol: Document 09/21/19 15:04 LRN (Rec: 09/21/19 16:34 LRN [id number]) Hip Goniometric Range of Motion Hip Right Active Hip ROM WFL Yes Left Active Hip ROM WFL Yes Knee Goniometric Range of Motion Knee Right Knee ROM WFL Yes Left Knee ROM WFL Yes Ankle and Foot Goniometric Range of Motion Ankle and Foot Right Active Ankle/Foot ROM WFL Yes Left Active Ankle/Foot ROM WFL Yes PT-OP-M Strength Start: 09/20/19 18:14 Freq: Status: Active Protocol: Document 09/21/19 15:04 LRN (Rec: 09/21/19 16:34 LRN [id number]) Hip Strength Hip Manual Muscle Testing Right Reason Not Measured WFL Left Reason Not Measured WFL Knee Strength Knee Manual Muscle Testing Right Reason Not Measured WFL Left Reason Not Measured WFL Ankle/Foot Strength Ankle and Foot Manual Muscle Testing Right Reason Not Measured WFL Left Reason Not Measured WFL PT-OP-Q Treatments Start: 09/20/19 18:14 Freq: Status: Active Protocol: Document 10/15/19 10:27 LRN (Rec: 10/15/19 11:20 LRN [id number]) Cardio Equipment Bicycle (Upright) Duration (Minutes) 10 Resistance 4 Seat Position 3 Other 40-67 rpm Therapeutic Exercises Sitting Exercises Ankle IV Sitting Exercise Name Ankle IV strengthening Side bilateral Resistance Lev 2 T-Band Reps/Minutes 15x2 Ankle EV Sitting Exercise Name Ankle EV strengthening Side bilateral Resistance Lev 2 T-Band Reps/Minutes 15x2 Standing Exercises Sit to Stand Standing Exercise Name Sit to Stand w/sm ball & T- Band @ knees Reps/Minutes 12x Ankle PF Standing Exercise Name Ankle PF Reps/Minutes 15x 2 Ankle DF Standing Exercise Name Ankle DF stretch f/b active strengthening Equipment Used BENJI Reps/Minutes 10x 2 Comments 10x Isometric on BENJI, 10x2 freestand w/SBA Neuro Re-Education Treatment Balance Activities Wide stepping Details Walking with 1' wide MAYKEL gait Surface level Reps/Duration 5' Stepping over hurdles Details Stepping over green hurdles Surface level Reps/Duration 5' PT-OP-T Assessment and Plan Start: 09/20/19 18:14 Freq: Status: Active Protocol: Document 10/15/19 10:27 LRN (Rec: 10/15/19 11:20 LRN [id number]) Physical Therapy Assessment Goals Three Impairment Decreased confidence in walking ability with pt walking 1/2 mile walks Traveling Sales Representative Goal (LTG) Pt will improve her aerobic endurance in order to improve her confidence in walking up to 1.5 miles. LTG Duration 12/10/19 Two Impairment Decreased balance (tandem 1-3 secs & supervision needed for step taps) Traveling Sales Representative Goal (LTG) Pt will be able to improve her confidence in balance with tandem stance 30 sec's or greater and ability to step touch without increased sway. LTG Duration 12/10/19 One Impairment Lacks a self care HEP Traveling Sales Representative Goal (LTG) Pt will be independent on a self care HEP. LTG Duration 12/10/19 Assessment Summary Assessment Tolerated increased time on bike without SOB. Pt appears to have some confusion with T- Band ankle ex's; therefore further review is needed. No LOB noted, pt balance appears improved, especially with a greater MAYKEL. Weak hip AB's. Physical Therapy Plan Frequency and Duration Frequency of Treatment 2x/Week Plan of Care Start Date 09/21/19 Plan of Care End Date 12/10/19 Next Visit Focus/Plan Next Note Type Treatment Note Next Visit Plan Review T-Band Ankle ex's. Add hip AB, Glut med ex's. Progress balance. Progress Aerobic conditioning, Balance training for SLS activities.
--- NOTE | 2019-10-18 14:45 | PT.OTN ---
Current Diagnoses Other abnormalities of gait and mobility (10/18/19) Fall on same level, unspecified, initial encounter (10/18/19) Physical Therapy Treatment Note PT-OP-A Visit Information Start: 09/20/19 18:14 Freq: Status: Active Protocol: Document 10/18/19 12:47 LRN (Rec: 10/18/19 13:30 LRN [id number]) Out-Patient Physical Therapy Visit Information Visit Information Visit Type Treatment Note Visit Start Time 12:47 Visit Stop Time 13:30 Total Visit Minutes 43 Visit Number 5 Number of SAND FILLER Visits 0 Evaluation Information Evaluation Date 09/21/19 Precautions Precautions Peripheral neuropathy Transient crebral ischemia Elevated BP w/o diagnosis of HTN TIA last week, thinks 09/13/19 Osteoporosis PT-OP-B Current Condition Start: 09/20/19 18:14 Freq: Status: Active Protocol: Document 09/21/19 15:04 LRN (Rec: 09/21/19 16:34 LRN [id number]) Current Condition History of Current Condition Onset Date 09/13/19 Current Complaints Don't have balance used to, but not all the time. History of Current Condition Week before TIA had fallen while stepping up onto a curb. L hand, arm, and hip to feet went numb and tingled. Went to ER Friday night and was kept for observation overnight . Did CT and MRI in ER and when admitted under observation. Discharged on Fri. Doesn't feel use of an assistive device would help with her confidence. Since being home has had episodes of LOB without fall, but typically no. Lives home alone with daughter in [place], [place]. Future Testing and Treatments Planned Denies need of Occupational therapy for hands and no trouble swallowing. Treatment Goals Patient/Caregiver Goals Pt goal is to strengthen the balance and hopefully make her more confident with transfers , standing and walking. Prior Functional Status Baseline Function- ADL's Independent Baseline Function- Mobility Independent Baseline Function- Gait Fast walker, when she did she walked 2-3x/week for 45 minutes 2 miles. 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 Current Functional Impairments (Reported) Functional Limitations- ADL's Slow and cautious with transfers, standing, walking. No assistive device. Functional Limitations- Recreation/ Volunteering 2x/month. Hobbies Functional Limitations- Other Drives self, no loss of confidence in driving. Personal Factors Other Personal Factors That May Effect Lives alone. Therapy/Recovery PT-OP-C Subjective Start: 09/20/19 18:14 Freq: Status: Active Protocol: Document 10/18/19 12:47 LRN (Rec: 10/18/19 13:30 LRN [id number]) OP-PT Subjective Patient Comments Patient Comments Has done a little exercise Not as much as should PT-OP-D Balance Start: 09/20/19 18:14 Freq: Status: Active Protocol: Document 09/21/19 15:04 LRN (Rec: 09/21/19 16:34 LRN [id number]) Balance Tests Lovell Balance Test Lovell Balance Test Score 49 Lovell Impairment Rating 1 to 19% Impaired (Score 45-55 ) Single Limb Standing Single Limb- Right 10 Single Limb- Left 11 Tandem Tandem Standing 1 Lovell Balance Assessment Evaluation Sitting to Standing Ability Independent w/out Hands Unsupported Stance Safely- 2 minutes Sitting Unsupported, Feet on Floor Safely- 2 minutes Standing to Sitting Ability Safely, Minimal Hand Use Transfer Ability Safely, Minimal Hand Use Unsupported Stance- Eyes Closed Safely, 10 seconds Unsupported Stance- Eyes Open Supervision to maintain Reaching Forward Standing Confidently, 10 inches Pick- Up Object From Floor Independent/Safe Look Behind Shoulder - Standing Shifts Weight Well Turning 360 Degrees Turns , < 4 secs Unsupported Stance, Alternating Feet on 4 Steps w/Supervision Stair Unsupported Tandem Stance Balance Lost- Step/Stand Unilateral Leg Stance Lifts Leg/Holds 10 secs Total Score Lovell Total Score (out of 56 points) 48 Tinetti Balance Assessment Sitting Balance Sitting Balance Steady, safe Arising from Chair Ability to Arise Able, w/o using arms Turning Step Pattern Turning 360 Degrees Continuous steps Sitting Down Sitting Down Safe, steady Scoring and Interpretation Tinetti Composite Score (points) 6 PT-OP-E Functional Tests Start: 09/20/19 18:14 Freq: Status: Active Protocol: Document 09/21/19 15:04 LRN (Rec: 09/21/19 16:34 LRN [id number]) Functional Tests Timed Up and Go (TUG) Score 12 TUG Impairment Rating 20 to <40% Impaired (Score 12- 13) PT-OP-J Posture/Palpation/Skin Start: 09/20/19 18:14 Freq: Status: Active Protocol: Document 09/21/19 15:04 LRN (Rec: 09/21/19 16:34 LRN [id number]) Posture Evaluation Comments Posture Comments Stands forward bent at hips 10 deg's PT-OP-K Range of Motion Start: 09/20/19 18:14 Freq: Status: Active Protocol: Document 09/21/19 15:04 LRN (Rec: 09/21/19 16:34 LRN [id number]) Hip Goniometric Range of Motion Hip Right Active Hip ROM WFL Yes Left Active Hip ROM WFL Yes Knee Goniometric Range of Motion Knee Right Knee ROM WFL Yes Left Knee ROM WFL Yes Ankle and Foot Goniometric Range of Motion Ankle and Foot Right Active Ankle/Foot ROM WFL Yes Left Active Ankle/Foot ROM WFL Yes PT-OP-M Strength Start: 09/20/19 18:14 Freq: Status: Active Protocol: Document 09/21/19 15:04 LRN (Rec: 09/21/19 16:34 LRN [id number]) Hip Strength Hip Manual Muscle Testing Right Reason Not Measured WFL Left Reason Not Measured WFL Knee Strength Knee Manual Muscle Testing Right Reason Not Measured WFL Left Reason Not Measured WFL Ankle/Foot Strength Ankle and Foot Manual Muscle Testing Right Reason Not Measured WFL Left Reason Not Measured WFL PT-OP-Q Treatments Start: 09/20/19 18:14 Freq: Status: Active Protocol: Document 10/18/19 12:47 LRN (Rec: 10/18/19 13:30 LRN [id number]) Cardio Equipment Bicycle (Upright) Duration (Minutes) 10 Resistance 4 Seat Position 3 Other 57-70 rpm Therapeutic Exercises Sitting Exercises Ankle IV Sitting Exercise Name Ankle IV strengthening Side bilateral Resistance Lev 2 T-Band Reps/Minutes 15x3 Ankle EV Sitting Exercise Name Ankle EV strengthening Side bilateral Resistance Lev 2 T-Band Reps/Minutes 15x3 Standing Exercises Glut Med strengthening Standing Exercise Name Squat Walk Comments One pass Hip AB Standing Exercise Name Straight leg Hip AB Reps/Minutes 10x Sit to Stand Standing Exercise Name Sit to Stand w/sm ball & T- Band @ knees Resistance Lev 2 T-Band, towel layed across T-Band Reps/Minutes 12x Ankle PF Standing Exercise Name Ankle PF Reps/Minutes 15x 2 Comments Off step, 10 sec gastroc stretch between sets. Ankle DF Standing Exercise Name Ankle DF stretch f/b active strengthening Equipment Used BENJI Reps/Minutes 15x 3 Comments 10x Isometric on BENJI, 15x2 freestand w/SBA PT-OP-T Assessment and Plan Start: 09/20/19 18:14 Freq: Status: Active Protocol: Document 10/18/19 12:47 LRN (Rec: 10/18/19 13:30 LRN [id number]) Physical Therapy Assessment Goals Three Impairment Decreased confidence in walking ability with pt walking 1/2 mile walks Fdc Goal (LTG) Pt will improve her aerobic endurance in order to improve her confidence in walking up to 1.5 miles. LTG Duration 12/10/19 Two Impairment Decreased balance (tandem 1-3 secs & supervision needed for step taps) Strip Catcher Goal (LTG) Pt will be able to improve her confidence in balance with tandem stance 30 sec's or greater and ability to step touch without increased sway. LTG Duration 12/10/19 One Impairment Lacks a self care HEP Strip Catcher Goal (LTG) Pt will be independent on a self care HEP. LTG Duration 12/10/19 Assessment Summary Assessment Pt had fair recall of ankle ex 's, needs more review. Pt able to bike @ 70 rpm for ~ 5- 6', and stopped due to fatigue with 2 left of her 10' aerobic exercise. Pt gets frustrated because of repositioning on the seat of ex bike. Physical Therapy Plan Frequency and Duration Frequency of Treatment 2x/Week Plan of Care Start Date 09/21/19 Plan of Care End Date 12/10/19 Next Visit Focus/Plan Next Note Type Treatment Note Next Visit Plan Review again T-Band Ankle ex's , and hip AB, Glut med ex's. Progress balance. Progress tolerance to aerobic ex @ 70 rpm, Balance training for SLS activities.
--- NOTE | 2019-11-04 14:22 | PT-OP ANOTE ---
Pt cancelled 10/26/19 and all remaining appointments due to pacemaker being replaced. Pt will need new referral to return for rehabilitation.
--- NOTE | 2019-11-04 14:30 | PT.OPDS ---
Current Diagnoses Other abnormalities of gait and mobility (10/18/19) Fall on same level, unspecified, initial encounter (10/18/19) Visit Care Team Role Provider Type Felipe Cummings MD Attending Provider Physician Primary Care Provider Specialty: [facility] Address: [address] [place] [address], [id number] Email: [email or web address] Visit Number Visit Number 5 Discharge Summary PT-OP-B Current Condition Start: 09/20/19 18:14 Freq: Status: Active Protocol: Document 09/21/19 15:04 LRN (Rec: 09/21/19 16:34 LRN [id number]) Current Condition History of Current Condition Onset Date 09/13/19 Current Complaints Don't have balance used to, but not all the time. History of Current Condition Week before TIA had fallen while stepping up onto a curb. L hand, arm, and hip to feet went numb and tingled. Went to ER Friday night and was kept for observation overnight . Did CT and MRI in ER and when admitted under observation. Discharged on Fri. Doesn't feel use of an assistive device would help with her confidence. Since being home has had episodes of LOB without fall, but typically no. Lives home alone with daughter in [place], [place]. Future Testing and Treatments Planned Denies need of Occupational therapy for hands and no trouble swallowing. Treatment Goals Patient/Caregiver Goals Pt goal is to strengthen the balance and hopefully make her more confident with transfers , standing and walking. Prior Functional Status Baseline Function- ADL's Independent Baseline Function- Mobility Independent Baseline Function- Gait Fast walker, when she did she walked 2-3x/week for 45 minutes 2 miles. 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 Current Functional Impairments (Reported) Functional Limitations- ADL's Slow and cautious with transfers, standing, walking. No assistive device. Functional Limitations- Recreation/ Volunteering 2x/month. Hobbies Functional Limitations- Other Drives self, no loss of confidence in driving. Personal Factors Other Personal Factors That May Effect Lives alone. Therapy/Recovery PT-OP-C Subjective Start: 09/20/19 18:14 Freq: Status: Active Protocol: Document 10/18/19 12:47 LRN (Rec: 10/18/19 13:30 LRN [id number]) OP-PT Subjective Patient Comments Patient Comments Has done a little exercise Not as much as should PT-OP-D Balance Start: 09/20/19 18:14 Freq: Status: Active Protocol: Document 09/21/19 15:04 LRN (Rec: 09/21/19 16:34 LRN [id number]) Balance Tests Lovell Balance Test Lovell Balance Test Score 49 Lovell Impairment Rating 1 to 19% Impaired (Score 45-55 ) Single Limb Standing Single Limb- Right 10 Single Limb- Left 11 Tandem Tandem Standing 1 Lovell Balance Assessment Evaluation Sitting to Standing Ability Independent w/out Hands Unsupported Stance Safely- 2 minutes Sitting Unsupported, Feet on Floor Safely- 2 minutes Standing to Sitting Ability Safely, Minimal Hand Use Transfer Ability Safely, Minimal Hand Use Unsupported Stance- Eyes Closed Safely, 10 seconds Unsupported Stance- Eyes Open Supervision to maintain Reaching Forward Standing Confidently, 10 inches Pick- Up Object From Floor Independent/Safe Look Behind Shoulder - Standing Shifts Weight Well Turning 360 Degrees Turns , < 4 secs Unsupported Stance, Alternating Feet on 4 Steps w/Supervision Stair Unsupported Tandem Stance Balance Lost- Step/Stand Unilateral Leg Stance Lifts Leg/Holds 10 secs Total Score Lovell Total Score (out of 56 points) 48 Tinetti Balance Assessment Sitting Balance Sitting Balance Steady, safe Arising from Chair Ability to Arise Able, w/o using arms Turning Step Pattern Turning 360 Degrees Continuous steps Sitting Down Sitting Down Safe, steady Scoring and Interpretation Tinetti Composite Score (points) 6 PT-OP-E Functional Tests Start: 09/20/19 18:14 Freq: Status: Active Protocol: Document 09/21/19 15:04 LRN (Rec: 09/21/19 16:34 LRN [id number]) Functional Tests Timed Up and Go (TUG) Score 12 TUG Impairment Rating 20 to <40% Impaired (Score 12- 13) PT-OP-J Posture/Palpation/Skin Start: 09/20/19 18:14 Freq: Status: Active Protocol: Document 09/21/19 15:04 LRN (Rec: 09/21/19 16:34 LRN [id number]) Posture Evaluation Comments Posture Comments Stands forward bent at hips 10 deg's PT-OP-K Range of Motion Start: 09/20/19 18:14 Freq: Status: Active Protocol: Document 09/21/19 15:04 LRN (Rec: 09/21/19 16:34 LRN [id number]) Hip Goniometric Range of Motion Hip Right Active Hip ROM WFL Yes Left Active Hip ROM WFL Yes Knee Goniometric Range of Motion Knee Right Knee ROM WFL Yes Left Knee ROM WFL Yes Ankle and Foot Goniometric Range of Motion Ankle and Foot Right Active Ankle/Foot ROM WFL Yes Left Active Ankle/Foot ROM WFL Yes PT-OP-M Strength Start: 09/20/19 18:14 Freq: Status: Active Protocol: Document 09/21/19 15:04 LRN (Rec: 09/21/19 16:34 LRN [id number]) Hip Strength Hip Manual Muscle Testing Right Reason Not Measured WFL Left Reason Not Measured WFL Knee Strength Knee Manual Muscle Testing Right Reason Not Measured WFL Left Reason Not Measured WFL Ankle/Foot Strength Ankle and Foot Manual Muscle Testing Right Reason Not Measured WFL Left Reason Not Measured WFL PT-OP-T Assessment and Plan Start: 09/20/19 18:14 Freq: Status: Active Protocol: Document 11/04/19 14:24 LRN (Rec: 11/04/19 14:29 LRN [id number]) Physical Therapy Assessment Goals Three Impairment Decreased confidence in walking ability with pt walking 1/2 mile walks Senior Clinical Research Scientist Goal (LTG) Pt will improve her aerobic endurance in order to improve her confidence in walking up to 1.5 miles. LTG Duration 12/10/19 (:GOAL NOT MET, CHANGE IN PT MEDICAL STATUS) Two Impairment Decreased balance (tandem 1-3 secs & supervision needed for step taps) Senior Clinical Research Scientist Goal (LTG) Pt will be able to improve her confidence in balance with tandem stance 30 sec's or greater and ability to step touch without increased sway. LTG Duration 12/10/19 (:GOAL NOT MET, CHANGE IN PT MEDICAL STATUS) One Impairment Lacks a self care HEP Intermediate Goal (LTG) Pt will be independent on a self care HEP. LTG Duration 12/10/19 (:GOAL NOT MET, CHANGE IN PT MEDICAL STATUS) Assessment Summary Assessment Pt was last seen 10/18/19. She called to cancel 10/26/19 appt and all remaining appts due to to having her pacemaker replaced. Pt will need a new referral upon return to therapy. Pt goals not met due to early discharge from her other medical condition. The pt would benefit from physical therapy in the future when she is appropriate for therapy . Physical Therapy Plan Discharge Physical Therapy Discharge Reasons Change in Medical Status Discharge Comments Further therapy would be appropriate in the future when the pt is medically stable and if therapy is still needed . Thank you for your referral .
== END 2019-10-18 13:45 ==
LOC: PHYS 12:45
PROVIDERS: PCP Family Medicine; Visit Provider Family Medicine
DX: R26.89 Other abnormalities of gait and mobility (principal); W18.30XA Fall on same level, unspecified, initial encounter
CPT/HCPCS: 97110; 97112; 97161

== ENCOUNTER → 2019-11-29 13:12 | Outpatient (CLI) | payer MEDICARE, SELFPAY ==
[2019-09-14 01:02] VITALS: BMI 18.3
[2019-11-29 14:24] LABS: Add Manual Diff / Slide Review NO; Basophils Absolute Auto 0 /uL (0-100); Basophils Percent Auto 0.3 % (0-2); Eosinophils Absolute Auto 0 /uL (0-450); Eosinophils Percent Auto 0.9 % (2-4); Hematocrit 30.3 % (36-46); Hemoglobin 10.7 g/dL (12.0-16.0); Lymphocytes Absolute Auto 800 /uL (1100-4500); Lymphocytes Percent Auto 21.9 % (25-40); Mean Corpuscular HGB Conc 35.3 % (30-36); Mean Corpuscular Hemoglobin 35.6 PG (26-34); Mean Corpuscular Volume 100.9 fL (80-100); Monocytes Absolute Auto 500 /uL (0-900); Neutrophils Absolute Auto 2500 /uL (1500-7000); Neutrophils Percent Auto 64.9 % (50-75); Platelet Count 318 X10^3/uL (150-400); Red Cell Distribution Width 13.4 % (11.6-14.8); White Blood Cell Count 3.9 X10^3/uL (4.5-11.0)
== END ==
PROVIDERS: PCP Family Medicine
DX: D47.3 Essential (hemorrhagic) thrombocythemia (principal)
CPT/HCPCS: 36415; 85025

== ENCOUNTER → 2020-03-15 13:10 | Outpatient (CLI) | payer MEDICARE, SELFPAY ==
[2019-09-14 01:02] VITALS: BMI 18.3
[2020-03-15 13:25] LABS: Bacteria Urine None Seen; RBC Urine None Seen (0-5/HPF)
[2020-03-15 14:00] LABS: Appearance Urine UA CLEAR; Bilirubin Urine UA NEGATIVE (NEGATIVE); Color Urine UA YELLOW; Glucose Urine UA NEGATIVE (Negative); Ketones Urine UA NEGATIVE (NEGATIVE); Leukocyte Esterase Urine UA NEGATIVE (NEGATIVE); Nitrite Urine UA NEGATIVE (Negative); Occult Blood Urine UA NEGATIVE (Negative); Protein Urine UA NEGATIVE (Negative); Urobilinogen Urine UA 0.2 E.U./dL (0.2)
[2020-03-15 14:15] LABS: Culture Indicated Urine Cult Not Indicated; Squamous Epithelial Cell Urine 0-1 /HPF (0-5/HPF); WBC Urine 0-1/HPF (0-5/HPF)
[2020-03-15 15:34] LABS: Albumin 4.2 g/dL (3.5-5.0); BUN Creatinine Ratio 24.1 (6-22); Blood Urea Nitrogen 13 mg/dL (7-17); Calcium 9.5 mg/dL (8.4-10.2); Carbon Dioxide 28 mmol/L (22-32); Chloride 92 mmol/L (98-107); Estimated Glomerular Filt Rate > 60.0 mL/min (>60); Glucose 60 mg/dL (80-110); HEMOLYSIS < 15 (0-50); Phosphorous 4.3 mg/dL (2.8-4.1); Sodium 125 mmol/L (137-145)
[2020-03-15 15:36] LABS: Creatinine Urine Random 18.1 mg/dL; Protein (Total) Urine Random 19 mg/dL (0-12); Protein Creatinine Ratio Urine 1.04 GRAM/24H; Sodium Urine Random 12 mmol/L (30-90)
[2020-03-15 15:37] LABS: Potassium 5.5 mmol/L (3.4-5.1)
[2020-03-16 13:10] LABS: Osmolality Urine 225 mOsmol/kg (.)
[2020-05-21 13:55] LABS: Free Kappa Lt Chains, Serum 16.2; Free Lambda Lt Chains,Serum 12.1
== END ==
PROVIDERS: PCP Family Medicine; Referring Provider Internal Medicine Nephrology; Visit Provider Internal Medicine Nephrology
DX: R80.1 Persistent proteinuria, unspecified (principal); E87.1 Hypo-osmolality and hyponatremia
CPT/HCPCS: 36415; 80069; 81001; 82570; 83883; 83935; 84156; 84300

== ENCOUNTER 2020-06-28 14:03 | Emergency (ER) | payer MEDICARE, SELFPAY ==
[2019-09-14 01:02] VITALS: BMI 18.3
[2020-06-28 14:18] VITALS: BP 198/80; PULSE 60; RESP 18; O2SAT 100
--- NOTE | 2020-06-28 15:35 | DI.CT.S_ITS ---
PROCEDURE: CT PEL WO CON INDICATIONS: right groin pain, hx of osteoporosis TECHNIQUE: Noncontrast 3 mm axial sections acquired through the bony pelvis, with coronal and sagittal reformatting. COMPARISON: None. FINDINGS: Image quality: Suboptimal due to diffuse osteopenia. Bones: No fracture. Degenerative sclerosis and spurring at the sacroiliac joints. Sacroiliac joint alignment appears anatomic. Alignment at the hip joints and pubis symphysis appears anatomic. Mild bilateral hip joint degeneration. Lowers lumbar spondylosis lateral curvature of the spine. Soft tissues: Intrapelvic contents grossly unremarkable. Large amount of stool present in the colon. IMPRESSION: No definite or displaced fracture identified. Chronic degenerative changes in the lower lumbar spine and hip joints as above. If the patient's pain or other symptoms persist, consider further evaluation with MRI Diffuse osteopenia. Dictated by: Akshat Morales M.D. on 06/28/2020 at 15:56 Approved by: Akshat Morales M.D. on 06/28/2020 at 16:01
[2020-06-28 16:28] VITALS: BP 121/80; PULSE 77; RESP 16; O2SAT 99
--- NOTE | 2020-06-28 16:32 | ED.LOWEXIN ---
HPI - Extremity Injury (Lower) <CORIE Saab - Last Filed: 06/28/20 16:43> General Chief Complaint: Extremity Injury, Lower Stated Complaint: Right hip and groin pain since last night Time Seen by Provider: 06/28/20 14:54 Source: patient Mode of arrival: Ambulatory Limitations: no limitations History of Present Illness HPI Narrative: This is a 75-year-old female, former smoker, who has history of osteoporosis, pacemaker and takes warfarin daily presents to ED with nontraumatic right groin/pelvis pain since yesterday evening. Patient reports she was late on couch and stood up to get a glass of water at 8:30 p.m. last night when she 1st noticed discomfort. Patient states she is able to ambulate but slow to move due to pain. Reports pain increases with sitting motion. Patient reports intact sensation. She had an appointment with Dr. Cummings office today at 4:30 a.m. with [employer] but was recommended to come to ED for an evaluation due to my medical conditions. Patient reports drove herself here without difficulty. Related Data Home Medications Medication Instructions Recorded Confirmed Probiotic Formula (inulin) 1 cap PO DAILY #0 09/02/11 04/13/20 multivitamin 1 tab PO DAILY #0 09/02/11 04/13/20 vitamin E 400 unit PO DAILY #0 09/02/11 04/13/20 cholecalciferol (vitamin D3) 1,000 iu PO DAILY #0 11/20/17 04/13/20 [Vitamin D3] gabapentin 300 mg PO DAILY 09/14/19 04/13/20 metoprolol tartrate 25 mg tablet 12.5 mg PO DAILY tab 04/05/20 04/05/20 Previous Rx's Medication Instructions Recorded gabapentin 600 mg tablet 600 mg PO BID #180 tab 05/24/19 losartan 25 mg tablet See Rx Instructions .ROUTE 01/04/20 .COMPLEX #180 tablet hydroxyurea [Hydrea] 500 mg PO 3XW #40 cap 04/13/20 warfarin 7.5 mg tablet 7.5 mg PO DAILY #90 tab 04/26/20 levothyroxine 75 mcg tablet 75 mcg PO QAM #90 tab 06/27/20 Allergies Allergy/AdvReac Type Severity Reaction Status Date / Time codeine Allergy Mild NAUSEA Verified 04/05/20 15:29 Sulfa (Sulfonamide Allergy Mild NAUSEA Verified 04/05/20 15:29 Antibiotics) morphine AdvReac Mild NAUSEA Verified 04/05/20 15:29 Review of Systems <CORIE Saab - Last Filed: 06/28/20 16:43> Review of Systems Narrative: General: Denies fever, chills, fatigue, malaise, sweats. HEENT: Denies sinus pain, ear pain, sore throat, difficulty swallowing, dizziness. Respiratory: Denies dyspnea, cough, wheezing, hemoptysis, sputum. Cardiovascular: Denies chest pain, palpitations, orthopnea, edema. Gastrointestinal: Denies nausea, vomiting, abdominal pain, diarrhea, constipation, melena. : Denies dysuria, frequency, incontinence, hematuria, urinary retention. Musculoskeletal: See HPI Skin: Denies rash, skin lesions, or other. Neurologic: Denies weakness, headache, numbness, change in speech, confusion, seizures, incoordination. Psychiatric: No concerning psychosocial issues. 12-point review of systems is negative except for those stated above. Patient History <CORIE Saab - Last Filed: 06/28/20 16:43> Medical History Actinic keratosis (Resolved) Anemia (Chronic) Atrial fibrillation (Acute) BCC (basal cell carcinoma of skin) (Resolved) Bilateral cataracts (Resolved) Chicken pox (Resolved ~1946) Epilepsy (Chronic 1959) Essential thrombocytosis (Chronic) Fibroids (Resolved ~1989) History of heavy periods (Resolved ~1989) History of SCC (squamous cell carcinoma) of skin (Resolved) Hypothyroidism (Chronic) Measles (Resolved ~1946) Mumps (Resolved 194) Ovarian cyst (Resolved ~1987) Peripheral neuropathy (Chronic 2012) Rosacea (Chronic ~1999) Seizures (Chronic 2013) Skin cancer (Resolved ~1989) TIA (transient ischemic attack) (Chronic) Surgical History Anesthesia (Resolved) History of cataract removal with insertion of prosthetic lens (Resolved 2009) Status post hernia repair (Resolved 2014) Status post hysterectomy (Resolved 1988) Family History Father Heart disease High cholesterol Brother Drug overdose Family/Other Gunshot wound Drug overdose Grandfather Asthma Emphysema of lung Grandmother No problems noted. Mother Lung cancer Bone cancer Grandfather No problems noted. Grandmother No problems noted. Social History household members: none Smoking Status: Former smoker alcohol intake: current Smoking Status: Former smoker alcohol intake frequency: 0-2 drinks per day Substance Use Type: does not use Exam <CORIE Saab - Last Filed: 06/28/20 16:43> Narrative Exam Narrative: GEN: Alert, oriented x 3, well appearing and nourished, and in no acute distress. Head: Normal cephalic, atraumatic. No scalp or temporal tenderness, palpable mass or rash. EYES: Pupils are equal, round, and reactive to light and accommodation. Extraocular muscles are intact bilaterally. There is no subconjunctival hemorrhage, exudate and sclera non-icteric. ENT: Hearing grossly intact. Nose without bleeding, purulent discharge or deviation. Mucous membrane moist, no mucosal lesion. Throat without erythema, tonsillar hypertrophy or exudate. Uvula in midline, airway patent. Neck: Trachea in midline. No JVD, non-tender without lymphadenopathy. No masses or thyroid megaly. Supple, non-tender and no meningeal signs. CARDIAC: Normal regular rate and rhythm without murmurs, gallops, or rubs. No chest wall tenderness. No peripheral edema, cyanosis or pallor. Capillary refill is less than 2 seconds. RESPIRATORY: Lungs are clear to auscultate bilaterally. No cough, wheezes, rales, or rhonchi. No stridor, respiratory distress, increase work of breathing, or accessary muscle used. ABD: Abdomen soft, nontender and non-distended. No guarding or rebound tenderness to palpate. Bowel sounds are normal in all 4 quadrants. There is no palpable masses or organomegaly. SKIN: Warm, dry, normal color for patient. No erythema, lesions or rash over visible areas. BACK: Nontender without deformity or crepitance. No flank tenderness. NEUROLOGICAL: Alert and oriented to place, time and person. Sensation and motor function intact bilaterally. No facial droops, dysphasia. PSYCHIATRIC: Good judgement and reason, without hallucinations, abnormal affect or abnormal behaviors during the examination. Patient is not suicidal. Initial Vital Signs Initial Vital Signs: Vital Signs Pulse Rate 60 06/28/20 14:18 Respiratory Rate 18 06/28/20 14:18 Blood Pressure 198/80 H 06/28/20 14:18 Pulse Oximetry 100 06/28/20 14:18 Extrem Right lower extremity: normal to inspection, full ROM, no joint enlargement, hip/thigh Details: normal to inspection, tenderness (right groin pain) and abnormal ROM Details: pain with passive ROM during Details: to internal rotation; no swelling, no crepitus, no deformity and no unusual warmth, knee Details: normal to inspection; no tenderness, lower leg Details: normal to inspection; no erythema and no tenderness and foot Details: normal capillary refill, toes with normal ROM and vascular exam Details: dorsalis pedis pulse present; no unusual warmth; no cyanosis and no edema Left lower extremity: hip/thigh Details: normal ROM; no tenderness and no swelling <Darrick Washburn MD - Last Filed: 06/28/20 17:43> Initial Vital Signs Initial Vital Signs: Vital Signs Pulse Rate 60 06/28/20 14:18 Respiratory Rate 18 06/28/20 14:18 Blood Pressure 198/80 H 06/28/20 14:18 Pulse Oximetry 100 06/28/20 14:18 Scores <CORIE Saab - Last Filed: 06/28/20 16:43> GCS Timbo coma scale eye opening: Spontaneous Serena coma scale verbal response: Orientated Timbo coma scale motor response: Obey commands Timbo coma scale total score: 15 Course <CORIE Saab - Last Filed: 06/28/20 16:43> Orders Ordered: ED Orders 06/28/20 15:35 CT pelvis wo con Stat Vital Signs Vital signs: Vital Signs - 8 hr 06/28/20 14:18 06/28/20 16:28 Pulse Rate 60 77 Respiratory Rate 18 16 Blood Pressure 198/80 H 121/80 Pulse Oximetry 100 99 <Darrick Washburn MD - Last Filed: 06/28/20 17:43> Orders Ordered: ED Orders 06/28/20 15:35 CT pelvis wo con Stat Vital Signs Vital signs: Vital Signs - 8 hr 06/28/20 14:18 06/28/20 16:28 Pulse Rate 60 77 Respiratory Rate 18 16 Blood Pressure 198/80 H 121/80 Pulse Oximetry 100 99 [facility] - Extremity Injury (Lower) <CORIE Saab - Last Filed: 06/28/20 16:43> Differential Diagnosis Differential diagnosis: Likely fracture of hip and other (fracture of pelvis, strain of groin muscle) Medical Records Attestation: I reviewed the patient's medical records. Imaging Data CT-Pelvis: Radiologist's Impression: Megha Parks 75 F [address] [address] [address] Scan Report Signed Patient: Megha Parks [facility]#: [id number] : [id number] Age/Sex: 75 / FDate of Service: 06/28/20 Loc: ED Accession Number: [id number] Procedure: CT pelvis wo con Ordering Provider: Omar Amado PROCEDURE: CT PEL WO CON INDICATIONS: right groin pain, hx of osteoporosis TECHNIQUE: Noncontrast 3 mm axial sections acquired through the bony pelvis, with coronal and sagittal reformatting. COMPARISON: None. FINDINGS: Image quality: Suboptimal due to diffuse osteopenia. Bones: No fracture. Degenerative sclerosis and spurring at the sacroiliac joints. Sacroiliac joint alignment appears anatomic. Alignment at the hip joints and pubis symphysis appears anatomic. Mild bilateral hip joint degeneration. Lowers lumbar spondylosis lateral curvature of the spine. Soft tissues: Intrapelvic contents grossly unremarkable. Large amount of stool present in the colon. IMPRESSION: No definite or displaced fracture identified. Chronic degenerative changes in the lower lumbar spine and hip joints as above. If the patient's pain or other symptoms persist, consider further evaluation with MRI Diffuse osteopenia. Dictated by: Akshat Morales M.D. on 06/28/2020 at 15:56 Approved by: Akshat Morales M.D. on 06/28/2020 at 16:01 [facility] Narrative Medical decision making narrative: This is 75-year-old female presents to ED with nontraumatic right groin pain since yesterday evening. Patient strength bilaterally intact. Distal pulse is intact on right lower extremity with intact sensation. Patient was able to ambulate in stable gait but slowly. Patient has history of osteoporosis and takes daily calcium/magnesium/vitamin-D supplements. CT test was obtained to find fine abnoralities and it shows no definite or displaced fracture. There was bilateral chronic degenerate changes in bilateral hip joint with lower lumbar spondylosis lateral culture of the spine. Patient declined Tylenol or other pain medications while in ED. findings were discussed with patient and she was able to dress herself before leaving ED. patient advised to take [id number] Tylenol and avoid strenuous exercises or prolonged walking if pain persists. 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 Return precautions were discussed with patient and patient verbalized understanding and agreement with the treatment plan. Discharge Plan Departure Patient Disposition: Home Clinical Impression: Left groin pain Discharge Date/Time: 06/28/20 16:51 Instructions: DI for Hip Pain Activity Restrictions/Additional Instructions: You have been diagnosed with [nontraumatic right groin and pelvic pain. CT test of pelvis without evidence of definite or displaced fracture. There is degenerative changes in hip joints bilaterally.]. What to do: *Take your medications as directed. Please take Tylenol/acetaminophen for pain. You can take 650-1000 mg up to 3 to 4 times a day as needed for pain. You have declined walker or cane at this time for ambulation. *Follow up with your primary care provider in 2-3 days, call for an appointment. Let them know you were seen in the ED and that we asked you to be seen in follow up. *Return to ED if you have any new, worsening, or concerning symptoms, such as [chest pain, breathing difficulty, unable to tolerate fluids, worsening pain, weakness/numbness/tingling to affected leg, swelling to lower extremities, fever or any acute concerns]. Prescriptions: No Action multivitamin Tablet 1 tab PO DAILY Qty: 0 RF: 0 Probiotic Formula (inulin) 1 billion-250 cell-mg Capsule 1 cap PO DAILY Qty: 0 RF: 0 vitamin E 400 unit Capsule 400 unit PO DAILY Qty: 0 RF: 0 cholecalciferol (vitamin D3) [Vitamin D3] 1,000 UNIT tablet 1,000 iu PO DAILY Qty: 0 RF: 0 gabapentin [Neurontin] 600 mg tablet 600 mg PO BID Qty: 180 RF: 2 losartan 25 mg tablet See Rx Instructions .ROUTE .COMPLEX Qty: 180 RF: 1 levothyroxine [Synthroid] 75 mcg tablet 75 mcg PO QAM Qty: 90 RF: 2 metoprolol tartrate 25 mg tablet 12.5 mg PO DAILY RF: 0 warfarin 7.5 mg tablet 7.5 mg PO DAILY Qty: 90 RF: 0 gabapentin 300 mg Capsule 300 mg PO DAILY RF: 0 hydroxyurea [Hydrea] 500 mg capsule 500 mg PO 3XW Qty: 40 RF: 3 Referrals: Felipe Cummings MD [Primary Care Provider] - <Darrick Washburn MD - Last Filed: 06/28/20 17:43> Cosign ED Attending Cosignature Attestation: I was immediately available in the department for consultation. This documentation has been reviewed and I agree with assessment and plan. Supervised by Darrick Washburn MD
== END 2020-06-28 16:51 | disposition home or self-care (01) ==
PROVIDERS: Emergency Provider Nurse Practitioner Family; PCP Family Medicine
DX: R10.32 Left lower quadrant pain (principal); M25.551 Pain in right hip; Z79.01 Long term (current) use of anticoagulants; Z95.0 Presence of cardiac pacemaker
CPT/HCPCS: 72192; 99281; 99284

== ENCOUNTER → 2020-07-18 14:23 | Outpatient (CLI) | payer MEDICARE, SELFPAY ==
[2019-09-14 01:02] VITALS: BMI 18.3
[2020-07-18 19:57] LABS: Occult Blood 1 Positive (Negative); Occult Blood 2 Negative (Negative); Occult Blood 3 Negative (Negative)
== END ==
PROVIDERS: PCP Family Medicine; Referring Provider Family Medicine; Visit Provider Family Medicine
DX: K92.1 Melena (principal)
CPT/HCPCS: 82270

== ENCOUNTER → 2020-09-01 15:40 | Outpatient (CLI) | payer MEDICARE, SELFPAY ==
[2019-09-14 01:02] VITALS: BMI 18.3
--- NOTE | 2020-09-01 | DI.MG.S_ITS ---
BILATERAL DIGITAL SCREENING MAMMOGRAM 3D/2D WITH CAD: 09/01/2020 CLINICAL: Routine screening. Family history of breast cancer. Comparison is made to exams dated: 09/15/2018 mammogram, 08/13/2017 mammogram, and 08/12/2016 mammogram - [facility]. The tissue of both breasts is heterogeneously dense. This may lower the sensitivity of mammography. Current study was also evaluated with a Computer Aided Detection (CAD) system. No significant masses, calcifications, or other findings are seen in either breast. There has been no significant interval change. IMPRESSION: NEGATIVE There is no mammographic evidence of malignancy. A 1 year screening mammogram is recommended. This exam was interpreted at Station ID: [id number]. NOTE: For mammograms, a report in lay terms will be sent to the patient. Approximately 15% of breast malignancies will not be visualized mammographically. In the management of a palpable breast mass, a negative mammogram must not discourage biopsy of a clinically suspicious lesion. Electronically Signed By: Alvarez vanessa/alfonso:09/01/2020 16:10:47 letter sent: Normal Exam ACR BI-RADS Category 1: Negative [id number]
== END ==
PROVIDERS: PCP Family Medicine; Referring Provider Family Medicine; Visit Provider Family Medicine
DX: Z12.31 Encounter for screening mammogram for malignant neoplasm of breast (principal); Z80.3 Family history of malignant neoplasm of breast
CPT/HCPCS: 77063; 77067

== ENCOUNTER → 2021-01-18 15:04 | Outpatient (CLI) | payer MEDICARE, SELFPAY ==
[2020-10-17 14:24] VITALS: BMI 18.3
[2021-01-18 18:40] LABS: Appearance Urine UA CLEAR; Bilirubin Urine UA NEGATIVE (NEGATIVE); Color Urine UA YELLOW; Glucose Urine UA NEGATIVE (Negative); Ketones Urine UA NEGATIVE (NEGATIVE); Leukocyte Esterase Urine UA NEGATIVE (NEGATIVE); Nitrite Urine UA NEGATIVE (Negative); Occult Blood Urine UA NEGATIVE (Negative); Protein Urine UA NEGATIVE (Negative); Urobilinogen Urine UA 0.2 E.U./dL (0.2)
[2021-01-18 18:45] LABS: Bacteria Urine Few (2-10); Culture Indicated Urine Cult Not Indicated; RBC Urine 0-1/HPF (0-5/HPF); Squamous Epithelial Cell Urine 1-5 /HPF (0-5/HPF); WBC Urine 0-1/HPF (0-5/HPF)
== END ==
PROVIDERS: PCP Family Medicine; Visit Provider Nurse Practitioner Family
DX: R30.0 Dysuria (principal); R10.9 Unspecified abdominal pain
CPT/HCPCS: 81001

== ENCOUNTER → 2021-01-18 15:36 | Outpatient (CLI) | payer MEDICARE, SELFPAY ==
[2020-10-17 14:24] VITALS: BMI 18.3
[2021-01-18 16:02] LABS: Hematocrit 31.4 % (36-46); Hemoglobin 10.6 g/dL (12.0-16.0); Mean Corpuscular HGB Conc 33.7 % (30-36); Mean Corpuscular Hemoglobin 32.9 PG (26-34); Mean Corpuscular Volume 97.6 fL (80-100); Platelet Count 480 X10^3/uL (150-400); Red Blood Cell Count 3.22 X10^6/uL (4.0-5.2); White Blood Cell Count 6.9 X10^3/uL (4.5-11.0)
[2021-01-18 16:26] LABS: BUN Creatinine Ratio 31.8 (6-22); Blood Urea Nitrogen 21 mg/dL (7-17); Calcium 9.5 mg/dL (8.4-10.2); Carbon Dioxide 29 mmol/L (22-32); Chloride 94 mmol/L (98-107); Estimated Glomerular Filt Rate > 60.0 mL/min (>60); Glucose 87 mg/dL (80-110); HEMOLYSIS < 15 (0-50); Potassium 5.1 mmol/L (3.4-5.1); Sodium 126 mmol/L (137-145)
== END ==
PROVIDERS: PCP Family Medicine; Referring Provider Nurse Practitioner Family; Visit Provider Nurse Practitioner Family
DX: R10.9 Unspecified abdominal pain (principal); R30.0 Dysuria
CPT/HCPCS: 36415; 80048; 81001; 85027

== ENCOUNTER → 2021-01-26 09:00 | Outpatient (CLI) | payer MEDICARE, SELFPAY ==
[2020-10-17 14:24] VITALS: BMI 18.3
--- NOTE | 2021-01-26 09:02 | DI.US.S_ITS ---
PROCEDURE: US ABDOMEN COMPLETE INDICATIONS: GROSS HEMATURIA AND ABDOMIAL DISCOMFORT. EVALUATE BLADDER. TECHNIQUE: Real-time scanning was performed of the abdominal and retroperitoneal organs, with image documentation. COMPARISON: [facility], CT, ABDOMEN/PELVIS WITH CONTRAST, 02/25/2012, 11:46. [facility], CT, CT PEL WO CON, 06/28/2020, 15:39. FINDINGS: Liver: Liver is normal in size and homogeneous in echotexture. Gallbladder: Gallbladder is unremarkable. Wall thickness is within normal limits measuring 1.8 mm. Biliary ducts: Intrahepatic bile ducts are non-dilated. Extrahepatic bile duct caliber measures 5.6 mm. Normal is 6-7 mm or less in diameter, or 10 mm or less post-cholecystectomy. Pancreas: Visualized portions of the pancreas are sonographically normal. Spleen: Spleen is normal in size and homogeneous in echotexture. Kidneys: Kidneys are normal in size and echotexture. Right kidney measures 9.1 cm long; left kidney measures 11.8 cm long. . No solid masses. The proximal right ureter is prominent. There is a poorly visualized echogenic focus measuring approximately 6 mm. Left kidney demonstrates trace pill via caliectasis. Aorta: Visualized aorta is normal in caliber at less than 3 cm. Iliacs: Proximal common iliac arteries are normal in caliber at less than 2.5 cm. IVC: Intrahepatic inferior vena cava is patent. Miscellaneous: No free abdominal fluid. IMPRESSION: 1. Mild prominence of the right proximal ureter with ill-defined focus of increased echogenicity suggestive of stone. Dictated by: Agnes Nixon M.D. on 01/26/2021 at 10:38 Approved by: Agnes Nixon M.D. on 01/26/2021 at 10:41
== END ==
PROVIDERS: PCP Family Medicine; Referring Provider Nurse Practitioner Family; Visit Provider Nurse Practitioner Family
DX: R31.0 Gross hematuria (principal); R10.9 Unspecified abdominal pain
CPT/HCPCS: 76700

== ENCOUNTER → 2021-02-09 14:00 | Outpatient (CLI) | payer MEDICARE, SELFPAY ==
[2020-10-17 14:24] VITALS: BMI 18.3
--- NOTE | 2021-02-09 14:04 | DI.CT.S_ITS ---
PROCEDURE: CT KIDNEY URETER BLADDER (KUB) INDICATIONS: Calculus of kidney TECHNIQUE: Noncontrast 5 mm thick sections acquired from the diaphragms to the symphysis. 5 mm thick coronal and sagittal reformats were then performed. For radiation dose reduction, the following was used: automated exposure control, adjustment of mA and/or kV according to patient size. COMPARISON: None. FINDINGS: Image quality: Excellent. Lung bases: Lung bases are clear. Heart size is normal. Solid organs: Liver: The liver has no mass or intrahepatic biliary ductal dilatation. Biliary: The gallbladder has no gallstones, pericholecystic fluid, gallbladder wall thickening, or surrounding inflammatory change. Pancreas: The pancreas is not well visualized. There is no surrounding inflammation. No pancreatic mass is identified. Spleen: Normal size. There are no masses. Adrenals: No hypertrophy or nodules. Kidneys: No obstructive calculus or hydronephrosis. No solid mass. No cystic mass. Peritoneum and bowel: The distal esophagus and stomach are normal. The small bowel has a normal caliber and appearance. The terminal ileum is normal. The large bowel has increased stool throughout consistent with constipation.. The appendix is not definitively visualized; however there are no secondary CT findings to suggest acute appendicitis. No free fluid or air. Nodes and vessels: No retroperitoneal or mesenteric adenopathy by size criteria. Aorta and inferior vena cava are normal in size. Miscellaneous: No abdominal wall mass or hernia. PELVIS: Genitourinary: The bladder has no wall thickening or mass. No bladder calcifications. Miscellaneous: No inguinal hernias or adenopathy. Bones: No suspicious bony lesions. No vertebral body compression fractures. Degenerative disc disease at L2-3, L3-4, and L5-S1. There is dextroscoliosis of the lumbar spine. IMPRESSION: 1. No acute abdominal or pelvic abnormality. 2. No kidney stones identified. Dictated by: Armando Finnegan M.D. on 02/09/2021 at 15:00 Approved by: Armando Finnegan M.D. on 02/09/2021 at 15:08
== END ==
PROVIDERS: PCP Family Medicine; Referring Provider Internal Medicine Nephrology; Visit Provider Internal Medicine Nephrology
DX: N20.0 Calculus of kidney (principal)
CPT/HCPCS: 74176

== ENCOUNTER → 2021-03-30 13:47 | Outpatient (CLI) | payer MEDICARE, SELFPAY ==
[2021-02-22 14:13] VITALS: BMI 18.3
[2021-03-30 14:33] LABS: BUN Creatinine Ratio 40.4 (6-22); Blood Urea Nitrogen 23 mg/dL (7-17); Calcium 9.3 mg/dL (8.4-10.2); Carbon Dioxide 25 mmol/L (22-32); Chloride 96 mmol/L (98-107); Estimated Glomerular Filt Rate > 60.0 mL/min (>60); Glucose 99 mg/dL (80-110); HEMOLYSIS 18 (0-50); Potassium 5.6 mmol/L (3.4-5.1); Sodium 126 mmol/L (137-145)
[2021-03-30 15:22] LABS: Thyroid Stimulating Hormone 0.028 uIU/mL (0.47-4.68)
== END ==
PROVIDERS: PCP Family Medicine; Referring Provider Internal Medicine Nephrology; Visit Provider Internal Medicine Nephrology
DX: E03.9 Hypothyroidism, unspecified (principal); R80.1 Persistent proteinuria, unspecified
CPT/HCPCS: 36415; 80048; 84439; 84443

== ENCOUNTER → 2021-05-03 13:00 | Outpatient (CLI) | payer MEDICARE, SELFPAY ==
[2021-02-22 14:13] VITALS: BMI 18.3
[2021-05-03 13:50] LABS: Alanine Aminotransferase 22 IU/L (<35); Albumin 4.5 g/dL (3.5-5.0); Albumin Globulin Ratio 1.7 (1.0-2.8); Alkaline Phosphatase 68 U/L (38-126); Aspartate Aminotransferase 31 IU/L (14-36); BUN Creatinine Ratio 36.4 (6-22); Bilirubin Total 0.3 mg/dL (0.2-1.3); Blood Urea Nitrogen 20 mg/dL (7-17); Calcium 9.4 mg/dL (8.4-10.2); Carbon Dioxide 27 mmol/L (22-32); Chloride 95 mmol/L (98-107); Estimated Glomerular Filt Rate > 60.0 mL/min (>60); Globulin 2.7 g/dL (1.7-4.1); Glucose 106 mg/dL (80-110); HEMOLYSIS < 15 (0-50); Potassium 5.1 mmol/L (3.4-5.1); Sodium 129 mmol/L (137-145); Total Protein 7.2 g/dL (6.3-8.2)
[2021-05-03 14:28] LABS: TSH w/ Reflex to FT4 0.02 uIU/mL (0.47-4.68)
[2021-05-03 14:56] LABS: Free T4, Direct Thyroxine 1.33 ng/dL (0.78-2.19)
[2021-05-04 06:08] LABS: Triiodothyronine T3 Total 65 ng/dL (71-180)
== END ==
PROVIDERS: PCP Family Medicine; Referring Provider Internal Medicine Nephrology; Visit Provider Internal Medicine Nephrology
DX: E03.9 Hypothyroidism, unspecified (principal); R80.1 Persistent proteinuria, unspecified
CPT/HCPCS: 36415; 80053; 84439; 84443; 84480

== ENCOUNTER → 2021-05-21 14:35 | Outpatient (CLI) | payer MEDICARE, SELFPAY ==
[2021-02-22 14:13] VITALS: BMI 18.3
[2021-05-21 15:54] LABS: INR 3.1 (0.9-1.3); Prothrombin Time 36.1 SECONDS (10.1-12.7)
== END ==
PROVIDERS: PCP Family Medicine; Referring Provider Family Medicine; Visit Provider Family Medicine
DX: Z79.01 Long term (current) use of anticoagulants (principal)
CPT/HCPCS: 36415; 85610

== ENCOUNTER → 2021-07-04 14:17 | Outpatient (CLI) | payer MEDICARE, SELFPAY ==
[2021-05-22 12:04] VITALS: BMI 18.3
[2021-07-04 18:14] LABS: Free T3, Triiodothyronine Free 9.13 pg/mL (2.77-5.27); Free T4, Direct Thyroxine 4.92 ng/dL (0.78-2.19)
[2021-07-04 18:38] LABS: Thyroid Stimulating Hormone < 0.015 uIU/mL (0.47-4.68)
== END ==
PROVIDERS: PCP Family Medicine; Referring Provider Family Medicine; Visit Provider Family Medicine
DX: E03.9 Hypothyroidism, unspecified (principal)
CPT/HCPCS: 36415; 84439; 84443; 84481

== ENCOUNTER → 2021-08-15 11:41 | Outpatient (CLI) | payer MEDICARE, SELFPAY ==
[2021-05-22 12:04] VITALS: BMI 18.3
[2021-08-15 13:28] LABS: Free T3, Triiodothyronine Free 4.59 pg/mL (2.77-5.27); Free T4, Direct Thyroxine 2.96 ng/dL (0.78-2.19)
[2021-08-15 13:44] LABS: Thyroid Stimulating Hormone < 0.015 uIU/mL (0.47-4.68)
== END ==
PROVIDERS: PCP Family Medicine; Referring Provider Family Medicine; Visit Provider Family Medicine
DX: E03.9 Hypothyroidism, unspecified (principal)
CPT/HCPCS: 36415; 84439; 84443; 84481

== ENCOUNTER → 2021-10-12 10:40 | Outpatient (CLI) | payer MEDICARE, SELFPAY ==
[2021-09-24 14:48] VITALS: BMI 18.3
[2021-10-12 12:19] LABS: Free T3, Triiodothyronine Free 3.76 pg/mL (2.77-5.27); Free T4, Direct Thyroxine 2.43 ng/dL (0.78-2.19)
[2021-10-12 12:35] LABS: Thyroid Stimulating Hormone < 0.015 uIU/mL (0.47-4.68)
== END ==
PROVIDERS: PCP Family Medicine; Referring Provider Family Medicine; Visit Provider Family Medicine
DX: E03.9 Hypothyroidism, unspecified (principal)
CPT/HCPCS: 36415; 84439; 84443; 84481

== ENCOUNTER → 2021-10-23 12:42 | Outpatient (CLI) | payer MEDICARE, SELFPAY ==
[2021-09-24 14:48] VITALS: BMI 18.3
[2021-10-23 13:43] LABS: Add Manual Diff / Slide Review NO; Basophils Absolute Auto 0 /uL (0-100); Basophils Percent Auto 0.3 % (0-2); Eosinophils Absolute Auto 100 /uL (0-450); Eosinophils Percent Auto 1.1 % (2-4); Hematocrit 32.7 % (36-46); Hemoglobin 11.1 g/dL (12.0-16.0); Lymphocytes Absolute Auto 800 /uL (1100-4500); Lymphocytes Percent Auto 12.6 % (25-40); Mean Corpuscular Volume 94.2 fL (80-100); Monocytes Absolute Auto 500 /uL (0-900); Monocytes Percent Auto 7.4 % (3-14); Neutrophils Absolute Auto 4800 /uL (1500-7000); Neutrophils Percent Auto 78.6 % (50-75); Platelet Count 417 X10^3/uL (150-400); Red Blood Cell Count 3.48 X10^6/uL (4.0-5.2); Red Cell Distribution Width 14.1 % (11.6-14.8); White Blood Cell Count 6.1 X10^3/uL (4.5-11.0)
[2021-10-23 13:52] LABS: Albumin 4.3 g/dL (3.5-5.0); BUN Creatinine Ratio 34.6 (6-22); Blood Urea Nitrogen 18 mg/dL (7-17); Calcium 9.5 mg/dL (8.4-10.2); Carbon Dioxide 27 mmol/L (22-32); Chloride 95 mmol/L (98-107); Estimated Glomerular Filt Rate > 60.0 mL/min (>60); Glucose 94 mg/dL (80-110); HEMOLYSIS < 15 (0-50); Phosphorous 4.5 mg/dL (2.8-4.1); Sodium 127 mmol/L (137-145)
[2021-10-23 14:16] LABS: Potassium 5.6 mmol/L (3.4-5.1)
[2021-10-23 15:26] LABS: Protein (Total) Urine Random 16 mg/dL (0-12); Protein Creatinine Ratio Urine 0.64 GRAM/24H
[2021-10-23 17:01] LABS: Microalbumin Urine Random 3.1 mg/dL (0-1.6)
== END ==
PROVIDERS: PCP Family Medicine; Referring Provider Internal Medicine Nephrology; Visit Provider Internal Medicine Nephrology
DX: R80.1 Persistent proteinuria, unspecified (principal); E87.1 Hypo-osmolality and hyponatremia; N20.0 Calculus of kidney
CPT/HCPCS: 36415; 80069; 82043; 82570; 84156; 85025

== ENCOUNTER → 2021-10-29 14:46 | Outpatient (CLI) | payer MEDICARE, SELFPAY ==
[2021-09-24 14:48] VITALS: BMI 18.3
[2021-10-29 15:35] LABS: INR 3.2 (0.9-1.3); Prothrombin Time 37.7 SECONDS (10.1-12.7)
== END ==
PROVIDERS: PCP Family Medicine; Referring Provider Family Medicine; Visit Provider Family Medicine
DX: Z79.01 Long term (current) use of anticoagulants (principal)
CPT/HCPCS: 36415; 85610

== ENCOUNTER → 2021-11-28 14:29 | Outpatient (CLI) | payer MEDICARE, SELFPAY ==
[2021-09-24 14:48] VITALS: BMI 18.3
[2021-11-28 15:17] LABS: Add Manual Diff / Slide Review NO; Basophils Absolute Auto 0 /uL (0-100); Basophils Percent Auto 0.4 % (0-2); Eosinophils Absolute Auto 100 /uL (0-450); Eosinophils Percent Auto 1.6 % (2-4); Hematocrit 33.7 % (36-46); Lymphocytes Absolute Auto 1100 /uL (1100-4500); Lymphocytes Percent Auto 19.7 % (25-40); Mean Corpuscular HGB Conc 32.7 % (30-36); Mean Corpuscular Hemoglobin 31.2 PG (26-34); Mean Corpuscular Volume 95.2 fL (80-100); Monocytes Absolute Auto 500 /uL (0-900); Monocytes Percent Auto 8.7 % (3-14); Neutrophils Absolute Auto 4000 /uL (1500-7000); Neutrophils Percent Auto 69.6 % (50-75); Platelet Count 390 X10^3/uL (150-400); Red Blood Cell Count 3.54 X10^6/uL (4.0-5.2); Red Cell Distribution Width 13.8 % (11.6-14.8); White Blood Cell Count 5.7 X10^3/uL (4.5-11.0)
[2021-11-28 15:49] LABS: Albumin 4.2 g/dL (3.5-5.0); BUN Creatinine Ratio 34.5 (6-22); Blood Urea Nitrogen 20 mg/dL (7-17); Calcium 9.1 mg/dL (8.4-10.2); Carbon Dioxide 28 mmol/L (22-32); Chloride 96 mmol/L (98-107); Estimated Glomerular Filt Rate > 60.0 mL/min (>60); Glucose 77 mg/dL (80-110); HEMOLYSIS < 15 (0-50); Phosphorous 4.4 mg/dL (2.8-4.1); Sodium 130 mmol/L (137-145)
[2021-11-28 16:33] LABS: Creatinine Urine Random 23.1 mg/dL; Protein (Total) Urine Random 10 mg/dL (0-12); Protein Creatinine Ratio Urine 0.43 GRAM/24H
[2021-11-28 16:38] LABS: Microalbumi Creatinin Ratio Ur 64.9 ug/mg CR (<30); Microalbumin Urine Random 1.5 mg/dL (0-1.6)
== END ==
PROVIDERS: PCP Family Medicine; Referring Provider Internal Medicine Nephrology; Visit Provider Internal Medicine Nephrology
DX: R80.1 Persistent proteinuria, unspecified (principal); E87.1 Hypo-osmolality and hyponatremia; N20.0 Calculus of kidney
CPT/HCPCS: 80069; 82043; 82570; 84156; 85025

== ENCOUNTER → 2021-12-17 13:05 | Outpatient (CLI) | payer MEDICARE, SELFPAY ==
[2021-09-24 14:48] VITALS: BMI 18.3
[2021-12-17 13:59] LABS: INR 1.6 (0.9-1.3); Prothrombin Time 17.9 SECONDS (10.1-12.7)
== END ==
PROVIDERS: PCP Family Medicine; Referring Provider Family Medicine; Visit Provider Family Medicine
DX: Z79.01 Long term (current) use of anticoagulants (principal)
CPT/HCPCS: 36415; 85610

== ENCOUNTER → 2022-04-30 14:38 | Outpatient (CLI) | payer MEDICARE, SELFPAY ==
[2021-09-24 14:48] VITALS: BMI 18.3
[2022-04-30 15:37] LABS: BUN Creatinine Ratio 33.3 (6-22); Blood Urea Nitrogen 20 mg/dL (7-17); Calcium 9.3 mg/dL (8.4-10.2); Carbon Dioxide 30 mmol/L (22-32); Chloride 92 mmol/L (98-107); Estimated Glomerular Filt Rate > 60 mL/min (>60); Glucose 106 mg/dL (80-110); HEMOLYSIS < 15 (0-50); Sodium 127 mmol/L (137-145)
[2022-04-30 15:47] LABS: Potassium 5.4 mmol/L (3.4-5.1)
== END ==
PROVIDERS: PCP Family Medicine; Referring Provider Internal Medicine Nephrology; Visit Provider Internal Medicine Nephrology
DX: E87.1 Hypo-osmolality and hyponatremia (principal)
CPT/HCPCS: 36415; 80048

== ENCOUNTER → 2022-06-03 13:50 | Outpatient (CLI) | payer MEDICARE, SELFPAY ==
[2021-09-24 14:48] VITALS: BMI 18.3
[2022-06-03 15:08] LABS: Blood Urea Nitrogen 24 mg/dL (7-17); Carbon Dioxide 29 mmol/L (22-32); Chloride 94 mmol/L (98-107); Estimated Glomerular Filt Rate > 60 mL/min (>60); Glucose 91 mg/dL (80-110); HEMOLYSIS < 15 (0-50); Potassium 5.2 mmol/L (3.4-5.1); Sodium 128 mmol/L (137-145)
== END ==
PROVIDERS: PCP Family Medicine; Referring Provider Internal Medicine Nephrology; Visit Provider Internal Medicine Nephrology
DX: E87.1 Hypo-osmolality and hyponatremia (principal)
CPT/HCPCS: 36415; 80048

== ENCOUNTER → 2022-06-10 15:39 | Outpatient (CLI) | payer MEDICARE, SELFPAY ==
[2021-09-24 14:48] VITALS: BMI 18.3
[2022-06-10 16:45] LABS: INR 2.8 (0.9-1.3); Prothrombin Time 32.1 SECONDS (10.1-12.7)
== END ==
PROVIDERS: PCP Family Medicine; Referring Provider Family Medicine; Visit Provider Family Medicine
DX: Z79.01 Long term (current) use of anticoagulants (principal)
CPT/HCPCS: 36415; 85610

== ENCOUNTER → 2022-08-27 08:58 | Outpatient (CLI) | payer MEDICARE, SELFPAY ==
[2021-09-24 14:48] VITALS: BMI 18.3
== END ==
PROVIDERS: PCP Family Medicine; Referring Provider Family Medicine; Visit Provider Family Medicine
DX: I48.0 Paroxysmal atrial fibrillation (principal); Z79.01 Long term (current) use of anticoagulants
CPT/HCPCS: 36415; 85610

== ENCOUNTER → 2022-10-11 10:56 | Outpatient (CLI) | payer MEDICARE, SELFPAY ==
[2021-09-24 14:48] VITALS: BMI 18.3
[2022-10-11 12:10] LABS: INR 2.3 (0.9-1.3); Prothrombin Time 27.1 SECONDS (10.1-12.7)
== END ==
PROVIDERS: PCP Family Medicine; Referring Provider Family Medicine; Visit Provider Family Medicine
DX: I48.0 Paroxysmal atrial fibrillation (principal); Z79.01 Long term (current) use of anticoagulants
CPT/HCPCS: 36415; 85610

== ENCOUNTER → 2022-10-23 10:44 | Outpatient (CLI) | payer MEDICARE, SELFPAY ==
[2021-09-24 14:48] VITALS: BMI 18.3
[2022-10-29 17:11] LABS: Fecal Immunochemical Test Negative (Negative)
== END ==
PROVIDERS: PCP Family Medicine; Referring Provider Family Medicine; Visit Provider Family Medicine
DX: Z12.11 Encounter for screening for malignant neoplasm of colon (principal)
CPT/HCPCS: 82274

== ENCOUNTER → 2022-11-06 16:00 | Outpatient (CLI) | payer MEDICARE, SELFPAY ==
[2021-09-24 14:48] VITALS: BMI 18.3
[2022-11-06 16:46] LABS: BUN Creatinine Ratio 34.5 (6-22); Blood Urea Nitrogen 19 mg/dL (7-17); Calcium 8.9 mg/dL (8.4-10.2); Carbon Dioxide 28 mmol/L (22-32); Chloride 91 mmol/L (98-107); Estimated Glomerular Filt Rate > 60 mL/min (>60); Glucose 91 mg/dL (80-110); HEMOLYSIS < 15 (0-50); Potassium 5.1 mmol/L (3.4-5.1); Sodium 127 mmol/L (137-145)
== END ==
PROVIDERS: PCP Family Medicine; Referring Provider Internal Medicine Nephrology; Visit Provider Internal Medicine Nephrology
DX: E87.1 Hypo-osmolality and hyponatremia (principal)
CPT/HCPCS: 36415; 80048

== ENCOUNTER → 2023-03-11 13:40 | Outpatient (CLI) | payer MEDICARE, SELFPAY ==
[2021-09-24 14:48] VITALS: BMI 18.3
--- NOTE | 2023-03-11 13:43 | DI.CT.S_ITS ---
PROCEDURE: CT SINUS SCREEN WO CON INDICATIONS: Chronic maxillary sinusitis TECHNIQUE: Noncontrast 3.0 mm axial images acquired from the frontal sinuses to the mid-sella, with coronal and sagittal reformats. For radiation dose reduction, the following was used: automated exposure control, adjustment of mA and/or kV according to patient size. COMPARISON: [facility], CT, CT HEAD/BRAIN WO CON, 09/13/2019, 21:15. Outside Film, CT, CT FACIAL BONES WITHOUT CONTRAST, 12/03/2022, 14:50. (Images only, no report). FINDINGS: Image quality: Excellent. Maxillary Sinuses: There is again seen near complete opacification of the left maxillary sinus. There is demineralization of portions of the medial aaron of the left maxillary sinus. Ethmoid Air Cells: There is moderate to prominent mucosal thickening within the anterior left ethmoid air cells. The right ethmoid air cells appear clear. There is demineralization of several of the left ethmoid air cell septations Sphenoid Sinuses: No bony remodeling or destruction. Sinuses are clear. Frontal Sinuses: Moderate mucosal thickening is seen within the left frontal sinus. No significant bony changes are seen. Ostiomeatal Complexes: The left ostiomeatal complex is completely opacified and demineralized. The right ostiomeatal complex is constitutionally narrowed, with a Flores cell seen. Miscellaneous: Visualized intra-orbital contents are normal. 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 There is opacification seen within the left violeta bullosa. Mild rightward nasal septal deviation can be seen. IMPRESSION: Left maxillary sinus disease is seen, which is centered along the left ostiomeatal complex. The left ostiomeatal complex is completely opacified and demineralized. There is again seen near complete opacification of the left maxillary sinus. Areas of bony demineralization are seen, which are consistent with chronic sinusitis. Dictated by: Kang Che M.D. on 03/11/2023 at 14:42 Approved by: Kang Che M.D. on 03/11/2023 at 14:46
== END ==
PROVIDERS: PCP Family Medicine; Referring Provider Otolaryngology; Visit Provider Otolaryngology
DX: J32.0 Chronic maxillary sinusitis (principal)
CPT/HCPCS: 70486

== ENCOUNTER → 2023-05-22 15:27 | Outpatient (CLI) | payer MEDICARE, SELFPAY ==
[2021-09-24 14:48] VITALS: BMI 18.3
[2023-05-22 17:44] LABS: TSH w/ Reflex to FT4 < 0.02 uIU/mL (0.47-4.68)
[2023-05-22 18:16] LABS: Free T4, Direct Thyroxine 2.14 ng/dL (0.78-2.19)
== END ==
PROVIDERS: PCP Family Medicine; Referring Provider Family Medicine; Visit Provider Family Medicine
DX: E03.9 Hypothyroidism, unspecified (principal)
CPT/HCPCS: 36415; 84439; 84443

== ENCOUNTER → 2023-06-25 14:44 | Outpatient (CLI) | payer MEDICARE, SELFPAY ==
[2021-09-24 14:48] VITALS: BMI 18.3
[2023-06-25 16:49] LABS: TSH w/ Reflex to FT4 < 0.02 uIU/mL (0.47-4.68)
[2023-06-25 17:19] LABS: Free T4, Direct Thyroxine 2.12 ng/dL (0.78-2.19)
== END ==
PROVIDERS: PCP Family Medicine; Referring Provider Family Medicine; Visit Provider Family Medicine
DX: E03.9 Hypothyroidism, unspecified (principal)
CPT/HCPCS: 36415; 84439; 84443

== ENCOUNTER → 2023-08-04 13:38 | Outpatient (CLI) | payer MEDICARE, SELFPAY ==
[2021-09-24 14:48] VITALS: BMI 18.3
--- NOTE | 2023-08-04 | DI.ECHO.S_ITS ---
[facility] +---------+ : : [address] : [address] [address] : : : : [id number] : : : : Phone: [phone]---------+ Echocardiogram Report + + :Name: GABRIELA MARINA Study Date: 08/04/2023 Height: 65 in : :[facility] ReadingLocation: Weight: 107 lb : : Gender: Female BSA: 1.5 m2 : :: 1945 Age: 78 yrs BP: 199/83 mmHg: :Reason For Study: Other Forms of Dyspnea : :Ordering Physician: ROGER, : :SERENE Performed By: Wen Thomas : :Referring: SERENE DURAN : + + Interpretation Summary The left ventricle is normal in size. The left ventricular ejection fraction is normal. The ejection fraction is estimated to be 60-65%. There has been no significant change in LVEF since the previous exam. Diastolic parameters suggest a relaxation abnormality of the left ventricle, consistent with probable normal filling pressures. Previously pseudonormalization type of diastolic dysfunction. The right ventricle is normal in size and function. There is a pacemaker lead in the right ventricle. Pacemaker lead is new finding. Mild MR, AI and mild TR without any significant change. The IVC is of normal diameter and collapses greater than 50% with a sniff. This suggests a low right atrial pressure of 3 mm Hg. BP: 199/83 mmHg Procedure: A two-dimensional transthoracic echocardiogram with color flow and Doppler was performed. The study quality was technically adequate. Comparison is made with the echocardiogram of 09/14/2019. The patient was in normal sinus rhythm during the exam. The patient was in first degree heart block during the exam. Left Ventricle: The left ventricle is normal in size. Proximal septal thickening is noted. There is no echo evidence for significant left ventricular outflow tract obstruction. There is no thrombus. A false chord is noted (normal variant). The ejection fraction is estimated to be 60-65%. The left ventricular ejection fraction is normal. There has been no significant change since the previous exam. Septal motion is consistent with conduction abnormality. Diastolic parameters suggest a relaxation abnormality of the left ventricle, consistent with probable normal filling pressures. Right Ventricle: The right ventricle is normal in size and function. There is a pacemaker lead in the right ventricle. Atria: The left atrial size is normal. The left atrium has significantly decreased in size since the prior echo exam. Right atrial size is normal. There is no Doppler evidence for an interatrial shunt. Mitral Valve: There is mild mitral annular calcification. The mitral valve leaflets are mildly calcified. There is no mitral valve stenosis. There is mild mitral regurgitation. Compared to the prior echo study, there has been no change in the severity of mitral regurgitation. Aortic Valve: The aortic valve is trileaflet. The aortic valve opens well. There is mild aortic valve sclerosis. There is no aortic valve stenosis. There is mild aortic regurgitation. Tricuspid Valve: The tricuspid valve is normal. There is no tricuspid stenosis. There is mild tricuspid regurgitation. Compared to the prior echo exam, there has been no change in TR severity. Pulmonary artery pressures cannot be estimated because of the lack of a measurable TR jet velocity. Pulmonic Valve: The pulmonic valve is not well visualized. There is no pulmonic valvular stenosis. There is no pulmonic valvular regurgitation. Great Vessels: The aortic root is normal size. The ascending aorta is normal in size. The pulmonary artery is normal size. The IVC is of normal diameter and collapses greater than 50% with a sniff. This suggests a low right atrial pressure of 3 mm Hg. Pericardium/ Pleura There is no pericardial effusion. There is no pleural effusion. MMode/2D Measurements & Calculations LVIDd: 4.0 cm LVOT diam: 1.8 cm LVIDs: 2.6 cm Ao root diam: 2.9 cm FS: 35.0 % asc Aorta Diam: 2.6 cm EPSS: 0.40 cm IVSd: 1.0 cm LVPWd: 0.80 cm LV yanes. diameter/BSA (cm/m^2): 2.6 LV sys. diameter/BSA (cm/m^2): 1.7 LA A2 area: 15.2 cm2 RA long axis: 4.8 cm LA A4 area: 11.6 cm2 RA area: 11.8 cm2 RA vol: 24.7 ml RA : 16.3 ml/m2 RVD1 (basal): 3.1 cm LVLs ap4: 6.2 cm LVLd ap2: 6.7 cm TAPSE_phl: 2.7 cm LVLs ap2: 6.0 cm Doppler Measurements & Calculations Ao V2 max: 114.7 cm/sec LVOT Max Carlos: 93.2 cm/sec Ao V2 mean: 78.0 cm/sec LV V1 max P.5 mmHg Ao max P.0 mmHg LV V1 VTI: 22.9 cm Ao mean P.0 mmHg CHIOMA(I,D): 2.1 cm2 Ao V2 VTI: 28.1 cm CHIOMA(V,D): 2.1 cm2 sev ratio: 0.81 CHIOMA indexed to BSA (cm^2/m^2): 1.4 MV E max carlos: 60.3 cm/sec PA V2 max: 83.5 cm/sec MV A max carlos: 84.3 cm/sec PA V2 mean: 60.3 cm/sec MV E/A: 0.72 PA mean P.0 mmHg Med Peak E' Carlos: 5.7 cm/sec PA pr(Accel): 39.8 mmHg E/E' med: 10.6 Lat Peak E' Carlos: 6.5 cm/sec E/E' lat: 9.3 E/e' average: 9.9 MV dec time: 0.28 sec SV(LVOT): 58.2 ml AV VR_phl: 0.81 CHIOMA(VTI)/BSA_phl: 1.4 Reading Physician:10:48 AM
== END ==
PROVIDERS: PCP Family Medicine; Referring Provider Physician Assistant Medical; Visit Provider Physician Assistant Medical
DX: I08.3 Combined rheumatic disorders of mitral, aortic and tricuspid valves (principal); R06.09 Other forms of dyspnea
CPT/HCPCS: 93306

== ENCOUNTER 2023-08-16 17:07 | Emergency (ER) | payer MEDICARE, SELFPAY ==
[2021-09-24 14:48] VITALS: BMI 18.3
[2023-08-16] VITALS (27 sets, daily range): BP systolic 155–213; BP diastolic 67–129; PULSE 60–66; RESP 9–33; O2SAT 97–100; BMI 18.9
--- NOTE | 2023-08-16 17:08 | DI.CT.S_ITS ---
PROCEDURE: CT HEAD/BRAIN WO CON INDICATIONS: weakness TECHNIQUE: Noncontrast 4.5 mm thick angled axial sections acquired from the foramen magnum to the vertex, with coronal and sagittal reformats. For radiation dose reduction, the following was used: automated exposure control, adjustment of mA and/or kV according to patient size. COMPARISON: [facility], CT, CT FACIAL BONES WITHOUT CONTRAST, 12/03/2022, 14:50. [facility], CT, CT HEAD/BRAIN WO CON, 09/13/2019, 21:15. FINDINGS: CSF spaces: Basal cisterns are patent. No extra-axial fluid collections. The ventricles are symmetric in size and shape. Brain: No intracranial bleeds or masses. There is cerebral volume loss for age, with resultant ventricular and sulcal prominence. There are periventricular and deep white matter chronic small vessel ischemic changes. There is intracranial internal carotid artery atherosclerosis. Skull and face: Calvarium and visualized facial bones appear intact, without suspicious lesions. Sinuses: Opacification of the imaged left maxillary sinus as seen previously. Few IMPRESSION: No intracranial hemorrhage or other acute intracranial abnormality. Dictated by: Cesario Yanez M.D. on 08/16/2023 at 17:38 Approved by: Cesario Yanez M.D. on 08/16/2023 at 17:41
--- NOTE | 2023-08-16 17:09 | DI.CT.S_ITS ---
PROCEDURE: CT ANGIO HEAD AND NECK INDICATIONS: kleber, LKW [id number] TECHNIQUE: After the administration of intravenous contrast, 1 mm thick sections acquired from the aortic arch through the [place]. 3-dimensional hmxwobm-slajifqhn-jwzuyhzylq (MIP) and/or volume rendering reformats were acquired of the central intracranial vasculature and neck separately. For radiation dose reduction, the following was used: automated exposure control, adjustment of mA and/or kV according to patient size. COMPARISON: [facility], CT, CT HEAD/BRAIN WO [facility], 08/16/2023, 17:12. FINDINGS: Image quality: Diagnostic. BRAIN: CSF spaces: Ventricles are normal in size and shape. Basal cisterns are patent. No extra-axial fluid collections. Brain: No significant abnormality of the brain can be seen. Skull and face: Calvarium and facial bones appear intact, without suspicious lesions. Orbits appear normal. Sinuses: Left maxillary sinus opacification as before HEAD CT ANGIOGRAPHY: Anterior circulation: Intracranial internal carotid arteries are normal in size and flow. The flow within the paired anterior cerebral arteries is normal and symmetric. The flow within the middle cerebral arteries is normal and symmetric. The anterior communicating artery is seen. No aneurysms are seen. Posterior circulation: Visualized portions of the vertebral arteries demonstrate normal caliber, and join to form a normal appearing basilar artery. Flow within the posterior cerebral arteries is normal and symmetric. No aneurysms are seen. NECK CT ANGIOGRAPHY: Carotid system: The great vessels demonstrate a conventional anatomy as they arise from the aortic arch. The origins of the common carotid arteries appear patent. The common carotid arteries demonstrate normal caliber and courses. Approximately 50% narrowing of the proximal right internal carotid artery. The internal carotid arteries demonstrate normal calibers and courses. Posterior circulation: The origins of the vertebral arteries both appear widely patent. The more superior extracranial portions of both vertebral arteries also demonstrate normal courses and calibers. They join to form a normal appearing basilar artery. IMPRESSION: No large vessel occlusion or high-grade carotid stenosis identified. Any quantitative measurements of stenosis were performed using NASCET criteria. Dictated by: Cesario Yanez M.D. on 08/16/2023 at 17:41 Approved by: Cesario Yanez M.D. on 08/16/2023 at 17:48
[2023-08-16 17:26] LABS: Add Manual Diff / Slide Review NO; Basophils Absolute Auto 0 /uL (0-100); Basophils Percent Auto 0.4 % (0-2); Eosinophils Absolute Auto 100 /uL (0-450); Eosinophils Percent Auto 0.8 % (2-4); Hematocrit 32.9 % (36-46); Hemoglobin 11.6 g/dL (12.0-16.0); Lymphocytes Absolute Auto 1600 /uL (1100-4500); Lymphocytes Percent Auto 24.1 % (25-40); Mean Corpuscular HGB Conc 35.2 % (30-36); Mean Corpuscular Hemoglobin 32.5 PG (26-34); Mean Corpuscular Volume 92.4 fL (80-100); Monocytes Absolute Auto 700 /uL (0-900); Monocytes Percent Auto 10.1 % (3-14); Neutrophils Absolute Auto 4300 /uL (1500-7000); Neutrophils Percent Auto 64.6 % (50-75); Platelet Count 397 X10^3/uL (150-400); Red Blood Cell Count 3.56 X10^6/uL (4.0-5.2); Red Cell Distribution Width 13.9 % (11.6-14.8); White Blood Cell Count 6.6 X10^3/uL (4.5-11.0)
[2023-08-16 17:31] LABS: INR 3.8 (0.9-1.3); Prothrombin Time 44.4 SECONDS (10.1-12.7)
[2023-08-16 17:34] LABS: PTT Partial Thromboplastin Tim 48 SECONDS (26-36)
[2023-08-16 17:43] LABS: Alanine Aminotransferase 34 IU/L (<35); Albumin 4.1 g/dL (3.5-5.0); Albumin Globulin Ratio 1.6 (1.0-2.8); Alkaline Phosphatase 93 U/L (38-126); Aspartate Aminotransferase 38 IU/L (14-36); BUN Creatinine Ratio 37.7 (6-22); Bilirubin Total 0.5 mg/dL (0.2-1.3); Blood Urea Nitrogen 20 mg/dL (7-17); Calcium 9.5 mg/dL (8.4-10.2); Carbon Dioxide 23 mmol/L (22-32); Chloride 91 mmol/L (98-107); Creatine Kinase 137 U/L (30-135); Estimated Glomerular Filt Rate > 60 mL/min (>60); Ethanol (ETOH) < 10 mg/dL; Globulin 2.6 g/dL (1.7-4.1); Glucose 73 mg/dL (80-110); HEMOLYSIS < 15 (0-50); Potassium 4.7 mmol/L (3.4-5.1); Sodium 122 mmol/L (137-145); Total Protein 6.7 g/dL (6.3-8.2)
[2023-08-16 17:54] LABS: Troponin I < 0.012 ng/mL (0.01-0.034)
[2023-08-16 18:03] LABS: COVID19 -Nasal RAPID Negative (Negative)
--- NOTE | 2023-08-16 18:04 | ED_ITS ---
HPI - Neuro Symptoms/Deficit General Chief Complaint: Neuro Symptoms/Deficit Stated Complaint: Code Stroke Time Seen by Provider: 08/16/23 17:14 Source: patient and EMS Mode of arrival: EMS History of Present Illness HPI Narrative: She is an active 78-year-old female history of atrial fibrillation on warfarin with pacemaker for sick sinus syndrome, hypothyroid, history of CVA chronic hyponatremia presenting today with sudden onset of weakness and numbness left greater than right side. She reports that she was out on her daily walk she did not feel quite right she got home and collapsed. She felt like her left arm and left leg or numb and weak but then she started feeling it on her right side to. That is when she pushed her life Alert button. Last known well 1614 On Anticoagulants: Yes (Warfarin) Related Data Home Medications Medication Instructions Recorded Confirmed Bacillus coagulans-inulin 1 1 cap PO DAILY ##0 09/02/11 08/11/23 billion cell-250 mg capsule (Probiotic Formula (inulin)) cholecalciferol (vitamin D3) 25 1,000 iu PO DAILY ##0 11/20/17 08/11/23 mcg (1,000 unit) tablet (Vitamin D3) Calcium Magnesium Citrate 2 tbsp PO DAILY 11/22/20 08/11/23 Sodium 1 g PO BID 11/22/20 08/11/23 Previous Rx's Medication Instructions Recorded metoprolol tartrate 25 mg tablet 12.5 mg (1/2 x 25 mg) PO DAILY #90 11/02/20 tabs gabapentin 600 mg tablet 600 mg PO .PM #180 tabs 09/05/22 (Neurontin) hydroxyurea 500 mg capsule (Hydrea) 500 mg PO 4XW #53 caps 10/08/22 warfarin 6 mg tablet See Rx Instructions .Route 05/14/23 .COMPLEX #90 tabs warfarin 2 mg tablet See Rx Instructions PO DAILY #60 05/15/23 tabs levothyroxine 112 mcg tablet 112 mcg PO DAILY #30 tabs 08/01/23 losartan 50 mg tablet 50 mg PO BID #180 tabs 08/12/23 Allergies Allergy/AdvReac Type Severity Reaction Status Date / Time codeine Allergy Mild NAUSEA Verified 08/16/23 17:22 Sulfa (Sulfonamide Allergy Mild NAUSEA Verified 08/16/23 17:22 Antibiotics) morphine AdvReac Mild NAUSEA Verified 08/16/23 17:22 Review of Systems Review of Systems ROS Unobtainable: All systems reviewed & are unremarkable except as noted in HPI and below Hematologic/Lymphatic On Anticoagulants: Yes (Warfarin) Patient History Medical History External hemorrhoids Memory change Abnormal urine odor Rectal mass Raynauds syndrome Elevated blood pressure reading without diagnosis of hypertension Anxiety about health Blood pressure check Right leg paresthesias Atrial fibrillation Epilepsy (1959) TIA (transient ischemic attack) Seizures (2013) Peripheral neuropathy (2012) History of SCC (squamous cell carcinoma) of skin BCC (basal cell carcinoma of skin) Actinic keratosis Essential thrombocytosis Bilateral cataracts Fibroids (~1989) History of heavy periods (~1989) Ovarian cyst (~1987) Anemia Chicken pox (~1946) Measles (~1946) Mumps (1946) Rosacea (~1999) Hypothyroidism Skin cancer (~1989) Surgical History Anesthesia History of cataract removal with insertion of prosthetic lens (2009) Status post hernia repair (2014) Status post hysterectomy (1988) Family History Father Heart disease High cholesterol Brother Drug overdose Family/Other Gunshot wound Drug overdose Grandfather Asthma Emphysema of lung Grandmother No problems noted. Mother Lung cancer Bone cancer Grandfather No problems noted. Grandmother No problems noted. Social History marital status: household members: none occupational status: previously employed Smoking Status: Former smoker alcohol intake: current substance use type: does not use Smoking Status: Former smoker alcohol intake frequency: 0-2 drinks per day Substance Use Type: does not use Exam Initial Vital Signs Initial Vital Signs: Vital Signs Pulse Rate 62 08/16/23 17:22 Respiratory Rate 10 L 08/16/23 17:22 Blood Pressure 172/75 H 08/16/23 17:22 Pulse Oximetry 100 08/16/23 17:22 Oxygen Delivery Method Room Air 08/16/23 17:22 Scores NIH Stroke Scale Level of Conciousness: Alert, keenly responsive Ask month/age: Answers both questions correctly. Open/close eyes, close hand: Performs both tasks correctly Best gaze horizontal: Normal Visual baugh: No visual loss Facial palsy: Normal symetrical movement Left arm drift: Some effort against gravity, cannot maintain, drifts down to bed Right arm drift: Drifts down, not to bed Left leg drift: Some effort against gravity, cannot maintain, drifts down to bed Right leg drift: Drifts down, not to bed Limb ataxia: Absent Sensory on face/arms/legs: Mild to moderate sensory loss, can tell touch Best language: No aphasia, normal Dysarthria: Normal Extinction or inattention: No abnormality Total NIH Stroke scale score: 7 Course Orders Ordered: Discontinued Medications Aspirin (Aspirin 81 Mg Chew Tab) 324 mg PO NOW ONE Stop: 08/16/23 19:16 Last Admin: 08/16/23 20:26 Dose: 324 mg Documented By: CAITLYN Ceftriaxone Sodium 1,000 mg/ (Sodium Chloride) 100 mls @ 200 mls/hr IV NOW ONE Stop: 08/17/23 04:04 Last Admin: 08/17/23 04:20 Dose: 200 mls/hr Documented By: PAULIE Labetalol HCl (Labetalol 20 Mg/4 Ml Syringe) 5 mg IV NOW ONE Stop: 08/16/23 20:51 Last Admin: 08/16/23 20:54 Dose: 5 mg Documented By: CAITLYN Vital Signs Vital signs: Vital Signs - 8 hr 08/16/23 21:00 08/16/23 21:01 08/16/23 21:01 Pulse Rate 60 60 Respiratory Rate 20 27 H Blood Pressure 178/73 H Pulse Oximetry 98 97 Oxygen Delivery Method Room Air 08/16/23 21:30 08/16/23 21:31 08/16/23 21:31 Pulse Rate 60 60 Respiratory Rate 31 H 33 H Blood Pressure 161/71 H Pulse Oximetry 98 98 Oxygen Delivery Method 08/16/23 22:00 08/16/23 22:01 08/16/23 22:01 Pulse Rate 60 60 Respiratory Rate 18 20 Blood Pressure 164/129 H Pulse Oximetry 99 98 Oxygen Delivery Method 08/16/23 22:30 08/16/23 22:31 08/16/23 22:31 Pulse Rate 60 60 Respiratory Rate 14 11 L Blood Pressure 194/74 H Pulse Oximetry 98 98 Oxygen Delivery Method 08/16/23 23:00 08/16/23 23:01 08/16/23 23:01 Pulse Rate 60 60 Respiratory Rate 14 12 Blood Pressure 171/70 H Pulse Oximetry 98 98 Oxygen Delivery Method 08/16/23 23:30 08/16/23 23:31 08/16/23 23:31 Pulse Rate 60 60 Respiratory Rate 26 H 23 Blood Pressure 155/67 H Pulse Oximetry 98 98 Oxygen Delivery Method 08/17/23 00:00 08/17/23 00:01 08/17/23 00:01 Pulse Rate 60 60 Respiratory Rate 18 20 Blood Pressure 163/66 H Pulse Oximetry 98 98 Oxygen Delivery Method 08/17/23 00:30 08/17/23 00:31 08/17/23 00:31 Pulse Rate 60 60 Respiratory Rate 19 19 Blood Pressure 120/56 L Pulse Oximetry 97 97 Oxygen Delivery Method 08/17/23 01:04 08/17/23 01:07 08/17/23 01:07 Pulse Rate 60 60 Respiratory Rate 14 Blood Pressure 159/70 H Pulse Oximetry 100 100 Oxygen Delivery Method 08/17/23 01:13 08/17/23 01:30 08/17/23 02:00 Pulse Rate 62 60 Respiratory Rate 12 Blood Pressure 159/70 H 168/74 H Pulse Oximetry 100 Oxygen Delivery Method 08/17/23 02:00 08/17/23 02:30 08/17/23 03:00 Pulse Rate 59 L 59 L 60 Respiratory Rate 9 L 20 14 Blood Pressure Pulse Oximetry 98 97 98 Oxygen Delivery Method 08/17/23 03:30 08/17/23 04:00 08/17/23 04:00 Pulse Rate 60 60 Respiratory Rate 13 29 H Blood Pressure 163/73 H Pulse Oximetry 98 98 Oxygen Delivery Method MDM - Neuro Symptoms/Deficit Lab Data 08/16/23 17:11 08/16/23 17:11 Labs: Lab Results 08/16/23 08/16/23 08/16/23 Range/Units 17:11 17:40 19:17 WBC 6.6 (4.5-11.0) X10^3/uL RBC 3.56 L (4.0-5.2) X10^6/uL Hgb 11.6 L (12.0-16.0) g/dL Hct 32.9 L (36-46) % MCV 92.4 (80-100) fL MCH 32.5 (26-34) PG MCHC 35.2 (30-36) % RDW 13.9 (11.6-14.8) % Plt Count 397 (150-400) X10^3/uL Neut % (Auto) 64.6 (50-75) % Lymph % (Auto) 24.1 L (25-40) % [place] % (Auto) 10.1 (3-14) % Eos % (Auto) 0.8 L (2-4) % Baso % (Auto) 0.4 (0-2) % Neut # (Auto) 4300 (6700-2673) /uL Lymph # (Auto) 1600 (5711-9305) /uL [place] # (Auto) 700 (0-900) /uL Eos # (Auto) 100 (0-450) /uL Baso # (Auto) 0 (0-100) /uL PT 44.4 H (10.1-12.7) SECONDS INR 3.8 H (0.9-1.3) APTT 48 H (26-36) SECONDS Sodium 122 L (137-145) mmol/L Potassium 4.7 (3.4-5.1) mmol/L Chloride 91 L (98-107) mmol/L Carbon Dioxide 23 (22-32) mmol/L BUN 20 H (7-17) mg/dL Creatinine 0.53 (0.52-1.04) mg/dL Estimated GFR > 60 (>60) mL/min BUN/Creatinine Ratio 37.7 H (6-22) Glucose 73 L (80-110) mg/dL Calcium 9.5 (8.4-10.2) mg/dL Total Bilirubin 0.5 (0.2-1.3) mg/dL AST 38 H (14-36) IU/L ALT 34 (<35) IU/L Alkaline Phosphatase 93 (38-126) U/L Total Creatine Kinase 137 H (30-135) U/L Troponin I < 0.012 (0.01-0.034) ng/mL Total Protein 6.7 (6.3-8.2) g/dL Albumin 4.1 (3.5-5.0) g/dL Globulin 2.6 (1.7-4.1) g/dL Albumin/Globulin Ratio 1.6 (1.0-2.8) Urine Color Yellow Urine Appearance Clear Urine pH 7.5 (4.5-8.0) Ur Specific [place] 1.010 (1.000-1.035) Urine Protein Negative (Negative) Urine Glucose (UA) Negative (Negative) g/dL Urine Ketones Negative (NEGATIVE) Urine Occult Blood Negative (Negative) Urine Nitrate Positive H (Negative) Urine Bilirubin Negative (NEGATIVE) Urine Urobilinogen 0.2 (0.2) E.U./dL Ur Leukocyte Esterase 1+ H (NEGATIVE) Urine RBC None seen (0-5/HPF) Urine WBC 0-1/hpf (0-5/HPF) Ur Squamous Epith Cells None seen (0-5/HPF) Urine Bacteria Many (>30) H (None) Ur Culture Indicated? Specimen cultured U Opiates 300ng/mL cut Negative (Negative) Ur Oxycodone Screen Negative (Negative) Urine Methadone Screen Negative (Negative) Ur Barbiturates Screen Negative (Negative) U Tricyclic Antidepress Negative (Negative) Ur Phencyclidine Scrn Negative (Negative) Ur Amphetamines Screen Negative (Negative) U Methamphetamines Scrn Negative (Negative) Ur MDMA Scrn (Ecstasy) Negative (Negative) U Benzodiazepines Scrn Negative (Negative) Urine Cocaine Screen Negative (Negative) U Marijuana (THC) Screen Negative (Negative) Ethyl Alcohol < 10 ( - 10) mg/dL SARS-CoV-2 (PCR) Negative (Negative) Point of Care Testing Glucose POC [address] scan - head: Radiologist's Impression: PROCEDURE: CT HEAD/BRAIN WO CON INDICATIONS: weakness TECHNIQUE: Noncontrast 4.5 mm thick angled axial sections acquired from the foramen magnum to the vertex, with coronal and sagittal reformats. For radiation dose reduction, the following was used: automated exposure control, adjustment of mA and/or kV according to patient size. COMPARISON: [facility], CT, CT FACIAL BONES WITHOUT CONTRAST, 12/03/2022, 14:50. [facility], CT, CT HEAD/BRAIN WO CON, 09/13/2019, 21:15. FINDINGS: CSF spaces: Basal cisterns are patent. No extra-axial fluid collections. The ventricles are symmetric in size and shape. Brain: No intracranial bleeds or masses. There is cerebral volume loss for age, with resultant ventricular and sulcal prominence. There are periventricular and deep white matter chronic small vessel ischemic changes. There is intracranial internal carotid artery atherosclerosis. Skull and face: Calvarium and visualized facial bones appear intact, without suspicious lesions. Sinuses: Opacification of the imaged left maxillary sinus as seen previously. Few IMPRESSION: No intracranial hemorrhage or other acute intracranial abnormality. Dictated by: Cesario Yanez M.D. on 08/16/2023 at 17:38 CTA - brain/neck: Radiologist's Impression: PROCEDURE: CT ANGIO HEAD AND NECK INDICATIONS: weakness, LKW 1650 TECHNIQUE: After the administration of intravenous contrast, 1 mm thick sections acquired from the aortic arch through the [place]. 3-dimensional xmrlwdi-jlwaweyts-igsyytdfsa (MIP) and/or volume rendering reformats were acquired of the central intracranial vasculature and neck separately. For radiation dose reduction, the following was used: automated exposure control, adjustment of mA and/or kV according to patient size. COMPARISON: [facility], CT, CT HEAD/BRAIN WO CON, 08/16/2023, 17:12. FINDINGS: Image quality: Diagnostic. BRAIN: CSF spaces: Ventricles are normal in size and shape. Basal cisterns are patent. No extra-axial fluid collections. Brain: No significant abnormality of the brain can be seen. Skull and face: Calvarium and facial bones appear intact, without suspicious lesions. Orbits appear normal. Sinuses: Left maxillary sinus opacification as before HEAD CT ANGIOGRAPHY: Anterior circulation: Intracranial internal carotid arteries are normal in size and flow. The flow within the paired anterior cerebral arteries is normal and symmetric. The flow within the middle cerebral arteries is normal and symmetric. The anterior communicating artery is seen. No aneurysms are seen. Posterior circulation: Visualized portions of the vertebral arteries demonstrate normal caliber, and join to form a normal appearing basilar artery. Flow within the posterior cerebral arteries is normal and symmetric. No aneurysms are seen. NECK CT ANGIOGRAPHY: Carotid system: The great vessels demonstrate a conventional anatomy as they arise from the aortic arch. The origins of the common carotid arteries appear patent. The common carotid arteries demonstrate normal caliber and courses. Approximately 50% narrowing of the proximal right internal carotid artery. The internal carotid arteries demonstrate normal calibers and courses. Posterior circulation: The origins of the vertebral arteries both appear widely patent. The more superior extracranial portions of both vertebral arteries also demonstrate normal courses and calibers. They join to form a normal appearing basilar artery. IMPRESSION: No large vessel occlusion or high-grade carotid stenosis identified. Any quantitative measurements of stenosis were performed using NASCET criteria. Dictated by: Cesario Yanez M.D. on 08/16/2023 at 17:41 Approved by: Cesario Yanez M.D. on 08/16/2023 at 17:48 CT scan - chest: Radiologist's Impression: PROCEDURE: CT ANGIO CHEST ABDOMEN PELVIS INDICATIONS: HTN left >right sided weakness TECHNIQUE: Precontrast 5 mm thick sections acquired from the lung apices to the iliac crests. After the administration of intravenous contrast, 2.5 mm thick sections again acquired from the lung apices to the iliac crests. Maximum intensity projection (MIP) oblique sagittal and coronal reformats were then acquired. For radiation dose reduction, the following was used: automated exposure control. COMPARISON: [facility], CT, CT KIDNEY URETER BLADDER (KUB), 02/09/2021, 14:10. [facility], CT, ABDOMEN/PELVIS WITH CONTRAST, 02/25/2012, 11:46. [facility], CT, CT ANGIO HEAD AND NECK, 08/16/2023, 17:12. [facility], CT, CT HEAD/BRAIN WO CON, 08/16/2023, 17:12. FINDINGS: Image quality: Excellent. AORTA: On precontrast imaging, no hyperdense mural hematomas can be seen. On postcontrast imaging, the aorta demonstrates normal caliber, without findings of aneurysm or dissection. No aortic stenosis is seen. The visualized great vessels demonstrate an unremarkable appearance, without dissection or significant stenosis. Atherosclerotic calcification is noted. CHEST: Lungs and pleura: No acute airspace opacities. No pleural effusions or pneumothorax. Central and peripheral airways are patent and normal in caliber. Mediastinum: A pacer device is seen. Heart size is normal. No pericardial effusion. No mediastinal or hilar adenopathy by size criteria. Central pulmonary arteries are normal in size. Esophagus is normal in caliber. No hiatal hernias. Bones and chest wall: No axillary adenopathy by size criteria. Thyroid gland demonstrates no significant abnormality. No suspicious bony lesions. No vertebral body compression fractures. 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 However, normal appearing flow seen within the splenic artery and the up attic artery. The SMA is widely patent. The ANGEL is within normal limits. Renal arteries are also patent. Solid organs: Liver is normal in size and enhancement. Gallbladder wall is not thickened. Biliary system is non dilated. Pancreas enhances normally. Spleen is normal in size and enhancement. No adrenal nodules. Both kidneys are normal in size and enhancement, without hydronephrosis. Excreting contrast can be seen within the renal collecting systems, from the prior contrast administration. Peritoneum and bowel: No free fluid or air. Bowel loops are normal in caliber and wall thickness. Nodes and vessels: No retroperitoneal or mesenteric adenopathy by size criteria. Inferior vena cava is normal in morphology. Miscellaneous: No ventral hernias. PELVIS: Genitourinary: Bladder wall thickness is normal. There is contrast seen within the bladder from the prior contrast administration. This patient is status post hysterectomy. No adnexal masses are seen. Miscellaneous: No inguinal hernias or adenopathy. No ventral hernias. Bones: No suspicious bony lesions. No vertebral body compression fractures. Moderate dextroconvex lumbar scoliosis is seen. Degenerative changes are seen throughout, which are worst involving the lumbar spine. IMPRESSION: Normal aorta, without findings of aneurysm or dissection. 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 Contrast noted within the renal collecting systems and within the bladder from the prior contrast administration. Additional findings: Dextroconvex scoliotic curvature Lumbar spine degenerative change Hysterectomy Dictated by: Kang Che M.D. on 08/16/2023 at 17:40 ECG Data Interpretation: Paste rhythm rate 60 LA interval 180 QRS [address] changes MDM Narrative Medical decision making narrative: Patient 78-year-old female presents as a code stroke on warfarin history of stroke with sudden onset of left-sided weakness. Upon exam she has profound left upper and left lower extremity weakness however right side is also weak but stronger than the left. She was out on a walk when this happened. Head CT CT angio do Not show evidence of stroke. Unusual presentation with bilateral weakness. He is noted to be extremely hypertensive. She is absolutely no chest pain or back pain however with neuro deficits possible dissection. CT chest abdomen pelvis ordered a negative for dissection no evidence of significant bony deformity 18:19 [facility] stroke team consulted they have reviewed images dated on symptoms which are bilateral. She recommended giving aspirin 325 holding warfarin repeating head CT in 24 hours. He does not appreciate a basilar artery occlusion on the CT angio. She did recommend an MRI however with pacemaker she is aware we can not do that at this facility. At this time she is had no need to transfer Patient's symptoms actually started improving. She is able to lift her left arm is still weak she is able to move both lower extremities. Blood pressure noted to be extremely elevated, she is given 5 mg of labetalol. Blood pressure improve and remained stable throughout stay Dr. Casas, hospitalist on recommended transferring. Agreed that this is an atypical presentation we do not have Neurology MRI would be beneficial. Dr. Gregg, neurology at [facility] updated patient's symptoms test results agrees that patient definitely needs MRI agrees to transfer accept to Medicine Dr. Wiseman internal medicine [facility] updated patient's symptoms test results Neurology recommendations. He was able to find pacemaker within where it was inserted it is MRI compatible. He agrees to accept patient Patient very cooperative continues to improve. She is found to have nitrates in her urine this is unlikely the cause of any of her symptoms today she is given a dose of Rocephin. She is absolutely no evidence of sepsis. Discharge Plan Departure Patient Disposition: [facility] Clinical Impression: CVA (cerebral infarction) Prescriptions: No Action Probiotic Formula (inulin) 1 billion-250 cell-mg Capsule 1 cap PO DAILY Qty: 0 cholecalciferol (vitamin D3) [Vitamin D3] 1,000 UNIT tablet 1,000 iu PO DAILY Qty: 0 metoprolol tartrate 25 mg tablet 12.5 mg PO DAILY Qty: 90 0RF gabapentin [Neurontin] 600 mg tablet 600 mg PO .PM Qty: 180 2RF Patient Comments: PATIENT REPORTS TAKING 300MG IN THE A.M, 600MG IN THE PM hydroxyurea [Hydrea] 500 mg capsule 500 mg PO 4XW Qty: 53 3RF Rx Instructions: on Friday, Friday, Friday and Friday warfarin 6 mg tablet See Rx Instructions .ROUTE .COMPLEX Qty: 90 12RF Dose Instruction: TAKE 7MG DAILY, OR DIRECTED. Rx Instructions: TAKE 7MG DAILY, OR DIRECTED. warfarin 2 mg tablet See Rx Instructions PO DAILY Qty: 60 2RF Rx Instructions: Take 1/2 tablet (1mg) with 6mg tablet on , , , Fri, Sun. Take 1 tablet (2mg) with 6mg tablet on , or as directed. levothyroxine 112 mcg tablet 112 mcg PO DAILY Qty: 30 0RF losartan 50 mg tablet 50 mg PO BID Qty: 180 0RF Calcium Magnesium Citrate 2 tbsp PO DAILY Sodium 1 g PO BID Referrals: Rashid Brennan DO [Primary Care Provider] -
--- NOTE | 2023-08-16 18:07 | DI.CT.S_ITS ---
PROCEDURE: CT ANGIO CHEST ABDOMEN PELVIS INDICATIONS: HTN left >right sided weakness TECHNIQUE: Precontrast 5 mm thick sections acquired from the lung apices to the iliac crests. After the administration of intravenous contrast, 2.5 mm thick sections again acquired from the lung apices to the iliac crests. Maximum intensity projection (MIP) oblique sagittal and coronal reformats were then acquired. For radiation dose reduction, the following was used: automated exposure control. COMPARISON: [facility], CT, CT KIDNEY URETER BLADDER (KUB), 02/09/2021, 14:10. [facility], CT, ABDOMEN/PELVIS WITH CONTRAST, 02/25/2012, 11:46. [facility], CT, CT ANGIO HEAD AND NECK, 08/16/2023, 17:12. [facility], CT, CT HEAD/BRAIN WO CON, 08/16/2023, 17:12. FINDINGS: Image quality: Excellent. AORTA: On precontrast imaging, no hyperdense mural hematomas can be seen. On postcontrast imaging, the aorta demonstrates normal caliber, without findings of aneurysm or dissection. No aortic stenosis is seen. The visualized great vessels demonstrate an unremarkable appearance, without dissection or significant stenosis. Atherosclerotic calcification is noted. CHEST: Lungs and pleura: No acute airspace opacities. No pleural effusions or pneumothorax. Central and peripheral airways are patent and normal in caliber. Mediastinum: A pacer device is seen. Heart size is normal. No pericardial effusion. No mediastinal or hilar adenopathy by size criteria. Central pulmonary arteries are normal in size. Esophagus is normal in caliber. No hiatal hernias. Bones and chest wall: No axillary adenopathy by size criteria. Thyroid gland demonstrates no significant abnormality. No suspicious bony lesions. No vertebral body compression fractures. 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 However, normal appearing flow seen within the splenic artery and the up attic artery. The SMA is widely patent. The ANGEL is within normal limits. Renal arteries are also patent. Solid organs: Liver is normal in size and enhancement. Gallbladder wall is not thickened. Biliary system is non dilated. Pancreas enhances normally. Spleen is normal in size and enhancement. No adrenal nodules. Both kidneys are normal in size and enhancement, without hydronephrosis. Excreting contrast can be seen within the renal collecting systems, from the prior contrast administration. Peritoneum and bowel: No free fluid or air. Bowel loops are normal in caliber and wall thickness. Nodes and vessels: No retroperitoneal or mesenteric adenopathy by size criteria. Inferior vena cava is normal in morphology. Miscellaneous: No ventral hernias. PELVIS: Genitourinary: Bladder wall thickness is normal. There is contrast seen within the bladder from the prior contrast administration. This patient is status post hysterectomy. No adnexal masses are seen. Miscellaneous: No inguinal hernias or adenopathy. No ventral hernias. Bones: No suspicious bony lesions. No vertebral body compression fractures. Moderate dextroconvex lumbar scoliosis is seen. Degenerative changes are seen throughout, which are worst involving the lumbar spine. IMPRESSION: Normal aorta, without findings of aneurysm or dissection. 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 Contrast noted within the renal collecting systems and within the bladder from the prior contrast administration. Additional findings: Dextroconvex scoliotic curvature Lumbar spine degenerative change Hysterectomy Dictated by: Kang Che M.D. on 08/16/2023 at 17:40 Approved by: Kang Che M.D. on 08/16/2023 at 17:49
[2023-08-16 19:27] LABS: UR Morphine/Opiate cutoff 300 Negative (Negative); Ur Creatinine Normal (Normal); Ur Specific Gravity Normal (Normal); Urine Amphetamines Negative (Negative); Urine Barbiturates Negative (Negative); Urine Benzodiazepines Negative (Negative); Urine Cocaine Negative (Negative); Urine MDMA Negative (Negative); Urine Methadone Negative (Negative); Urine Methamphetamines Negative (Negative); Urine Oxycodone Negative (Negative); Urine Phencyclidine Negative (Negative); Urine Tetrahydrocannabinol Negative (Negative); Urine Tricyclic Antidepressant Negative (Negative); Urine pH Normal (Normal)
[2023-08-16 19:47] LABS: Appearance Urine UA CLEAR; Bilirubin Urine UA NEGATIVE (NEGATIVE); Color Urine UA YELLOW; Glucose Urine UA NEGATIVE (Negative); Ketones Urine UA NEGATIVE (NEGATIVE); Leukocyte Esterase Urine UA 1+ (NEGATIVE); Nitrite Urine UA POSITIVE (Negative); Occult Blood Urine UA NEGATIVE (Negative); Protein Urine UA NEGATIVE (Negative); Urobilinogen Urine UA 0.2 E.U./dL (0.2)
[2023-08-16 19:49] LABS: pH Urine UA 7.5 (4.5-8.0)
[2023-08-16 20:01] LABS: Bacteria Urine Many (>30); Culture Indicated Urine Specimen Cultured; RBC Urine None Seen (0-5/HPF); Squamous Epithelial Cell Urine None Seen (0-5/HPF); WBC Urine 0-1/HPF (0-5/HPF)
[2023-08-16] MEDS: ASPIRIN 81 MG CHEW TAB 324 MG PO (20:26)
[2023-08-16] MEDS: LABETALOL 20 MG/4 ML SYRINGE 5 MG IV (20:54)
--- NOTE | 2023-08-16 21:11 | PC.NURSE ---
ANESTHESIA TECH note: Patient's neighbor gave me number to call her if patient needs anything: [place]: [phone]
[2023-08-17] VITALS (14 sets, daily range): BP systolic 120–168; BP diastolic 56–74; PULSE 59–62; RESP 9–29; O2SAT 97–100
--- NOTE | 2023-08-17 03:13 | PC.NURSE ---
Pt 2hr neuro assessment deferred as pt is sleeping.
[2023-08-17] MEDS: cefTRIAXone 1,000 MG in SODIUM CHLORIDE 0.9% 100 ML 200 MG IV (04:20)
== END 2023-08-17 05:05 | disposition short-term general hospital (02) ==
PROVIDERS: Emergency Medicine; Emergency Provider Emergency Medicine; PCP Family Medicine
DX: I63.9 Cerebral infarction, unspecified (principal); R29.707 NIHSS score 7; Z79.01 Long term (current) use of anticoagulants; Z95.0 Presence of cardiac pacemaker; Z20.822 Contact with and (suspected) exposure to COVID-19
CPT/HCPCS: 70450; 70496; 70498; 71275; 74174; 80053; 80305; 80320; 81001; 82550; 82962; 84484; 85025; 85610; 85730; 87077; 87086; 87186; 87635; 93005; 96365; 96375; 99285; C9803; J0696; Q9967

== ENCOUNTER 2023-08-23 18:16 | Emergency (ER) | payer MEDICARE, SELFPAY ==
[2021-09-24 14:48] VITALS: BMI 18.3
[2023-08-23 18:21] VITALS: BP 220/89; PULSE 60; RESP 16; TEMP 36.8; O2SAT 99; BMI 18.3
[2023-08-23 18:35] VITALS: BP 199/79
--- NOTE | 2023-08-23 18:40 | ED.WOUNDLAC ---
HPI - Wound/Laceration General Chief Complaint: Wound/Laceration Stated Complaint: Post Op bleed T-12 Time Seen by Provider: 08/23/23 18:40 Source: patient Mode of arrival: Ambulatory Related Data Home Medications Medication Instructions Recorded Confirmed Bacillus coagulans-inulin 1 1 cap PO DAILY ##0 09/02/11 08/11/23 billion cell-250 mg capsule (Probiotic Formula (inulin)) cholecalciferol (vitamin D3) 25 1,000 iu PO DAILY ##0 11/20/17 08/11/23 mcg (1,000 unit) tablet (Vitamin D3) Calcium Magnesium Citrate 2 tbsp PO DAILY 11/22/20 08/11/23 Sodium 1 g PO BID 11/22/20 08/11/23 Previous Rx's Medication Instructions Recorded metoprolol tartrate 25 mg tablet 12.5 mg (1/2 x 25 mg) PO DAILY #90 11/02/20 tabs gabapentin 600 mg tablet 600 mg PO .PM #180 tabs 09/05/22 (Neurontin) hydroxyurea 500 mg capsule (Hydrea) 500 mg PO 4XW #53 caps 10/08/22 warfarin 6 mg tablet See Rx Instructions .Route 05/14/23 .COMPLEX #90 tabs warfarin 2 mg tablet See Rx Instructions PO DAILY #60 05/15/23 tabs levothyroxine 112 mcg tablet 112 mcg PO DAILY #30 tabs 08/01/23 losartan 50 mg tablet 50 mg PO BID #180 tabs 08/12/23 Allergies Allergy/AdvReac Type Severity Reaction Status Date / Time codeine Allergy Mild NAUSEA Verified 08/16/23 17:22 Sulfa (Sulfonamide Allergy Mild NAUSEA Verified 08/16/23 17:22 Antibiotics) morphine AdvReac Mild NAUSEA Verified 08/16/23 17:22 Patient History Medical History External hemorrhoids Memory change Abnormal urine odor Rectal mass Raynauds syndrome Elevated blood pressure reading without diagnosis of hypertension Anxiety about health Blood pressure check Right leg paresthesias Atrial fibrillation Epilepsy (1959) TIA (transient ischemic attack) Seizures (2013) Peripheral neuropathy (2012) History of SCC (squamous cell carcinoma) of skin BCC (basal cell carcinoma of skin) Actinic keratosis Essential thrombocytosis Bilateral cataracts Fibroids (~1989) History of heavy periods (~1989) Ovarian cyst (~1987) Anemia Chicken pox (~1946) Measles (~194) Mumps (194) Rosacea (~1999) Hypothyroidism Skin cancer (~1989) Surgical History Anesthesia History of cataract removal with insertion of prosthetic lens (2009) Status post hernia repair (2014) Status post hysterectomy (1988) Family History Father Heart disease High cholesterol Brother Drug overdose Family/Other Gunshot wound Drug overdose Grandfather Asthma Emphysema of lung Grandmother No problems noted. Mother Lung cancer Bone cancer Grandfather No problems noted. Grandmother No problems noted. Social History marital status: household members: none occupational status: previously employed Smoking Status: Former smoker alcohol intake: current substance use type: does not use Smoking Status: Former smoker alcohol intake frequency: holidays/special occasions only Substance Use Type: does not use Exam Initial Vital Signs Initial Vital Signs: Vital Signs Temperature 98.2 F 08/23/23 18:21 Pulse Rate 60 08/23/23 18:21 Respiratory Rate 16 08/23/23 18:21 Blood Pressure 220/89 H 08/23/23 18:21 Pulse Oximetry 99 08/23/23 18:21 Oxygen Delivery Method Room Air 08/23/23 18:21 Course Vital Signs Vital signs: Vital Signs - 8 hr 08/23/23 18:21 Temperature 98.2 F Pulse Rate 60 Respiratory Rate 16 Blood Pressure 220/89 H Pulse Oximetry 99 Oxygen Delivery Method Room Air Discharge Plan Departure Prescriptions: No Action Probiotic Formula (inulin) 1 billion-250 cell-mg Capsule 1 cap PO DAILY Qty: 0 cholecalciferol (vitamin D3) [Vitamin D3] 1,000 UNIT tablet 1,000 iu PO DAILY Qty: 0 metoprolol tartrate 25 mg tablet 12.5 mg PO DAILY Qty: 90 0RF gabapentin [Neurontin] 600 mg tablet 600 mg PO .PM Qty: 180 2RF Patient Comments: PATIENT REPORTS TAKING 300MG IN THE A.M, 600MG IN THE PM hydroxyurea [Hydrea] 500 mg capsule 500 mg PO 4XW Qty: 53 3RF Rx Instructions: on Friday, Friday, Friday and Friday warfarin 6 mg tablet See Rx Instructions .ROUTE .COMPLEX Qty: 90 12RF Dose Instruction: TAKE 7MG DAILY, OR DIRECTED. Rx Instructions: TAKE 7MG DAILY, OR DIRECTED. warfarin 2 mg tablet See Rx Instructions PO DAILY Qty: 60 2RF Rx Instructions: Take 1/2 tablet (1mg) with 6mg tablet on , , , Fri, Fri. Take 1 tablet (2mg) with 6mg tablet on , or as directed. levothyroxine 112 mcg tablet 112 mcg PO DAILY Qty: 30 0RF losartan 50 mg tablet 50 mg PO BID Qty: 180 0RF Calcium Magnesium Citrate 2 tbsp PO DAILY Sodium 1 g PO BID Referrals: Rashid Brennan DO [Primary Care Provider] -
[2023-08-23 19:01] VITALS: BP 165/71
[2023-08-23 19:08] LABS: Add Manual Diff / Slide Review NO; Basophils Absolute Auto 0 /uL (0-100); Basophils Percent Auto 0.6 % (0-2); Eosinophils Absolute Auto 0 /uL (0-450); Eosinophils Percent Auto 0.7 % (2-4); Hematocrit 30.3 % (36-46); Hemoglobin 10.4 g/dL (12.0-16.0); Lymphocytes Absolute Auto 800 /uL (1100-4500); Lymphocytes Percent Auto 11.8 % (25-40); Mean Corpuscular HGB Conc 34.5 % (30-36); Mean Corpuscular Hemoglobin 32.4 PG (26-34); Mean Corpuscular Volume 94.1 fL (80-100); Monocytes Absolute Auto 400 /uL (0-900); Monocytes Percent Auto 5.7 % (3-14); Neutrophils Absolute Auto 5800 /uL (1500-7000); Neutrophils Percent Auto 81.2 % (50-75); Platelet Count 430 X10^3/uL (150-400); Red Blood Cell Count 3.22 X10^6/uL (4.0-5.2); Red Cell Distribution Width 13.6 % (11.6-14.8); White Blood Cell Count 7.1 X10^3/uL (4.5-11.0)
[2023-08-23 19:13] LABS: INR 2.1 (0.9-1.3); Prothrombin Time 24.2 SECONDS (10.1-12.7)
[2023-08-23 19:21] LABS: Alanine Aminotransferase 28 IU/L (<35); Albumin 3.8 g/dL (3.5-5.0); Albumin Globulin Ratio 1.6 (1.0-2.8); Alkaline Phosphatase 73 U/L (38-126); Aspartate Aminotransferase 31 IU/L (14-36); BUN Creatinine Ratio 45.7 (6-22); Bilirubin Total 0.3 mg/dL (0.2-1.3); Blood Urea Nitrogen 21 mg/dL (7-17); Carbon Dioxide 26 mmol/L (22-32); Chloride 90 mmol/L (98-107); Estimated Glomerular Filt Rate > 60 mL/min (>60); Globulin 2.4 g/dL (1.7-4.1); Glucose 186 mg/dL (80-110); HEMOLYSIS < 15 (0-50); Potassium 4.4 mmol/L (3.4-5.1); Sodium 123 mmol/L (137-145); Total Protein 6.2 g/dL (6.3-8.2)
[2023-08-23 19:30] VITALS: BP 187/76; RESP 20
--- NOTE | 2023-08-23 19:34 | ED_ITS ---
HPI - Wound/Laceration General Chief Complaint: Wound/Laceration Stated Complaint: Post Op bleed T-12 Time Seen by Provider: 08/23/23 18:40 Source: patient Mode of arrival: Ambulatory History of Present Illness HPI narrative: Patient is an 78-year-old female. She is approximately 10 days status post Mohs procedure to the right side of her nose and also procedure to her right ear. She states she did have some bleeding to her right ear for a couple days after the procedure. She states that today she was trying to clean the ear and it started to bleed. She was able to stop the bleeding but it reoccurred several times throughout the day. She does take warfarin. She is here because of the bleeding. Related Data Home Medications Medication Instructions Recorded Confirmed Bacillus coagulans-inulin 1 1 cap PO DAILY ##0 09/02/11 08/11/23 billion cell-250 mg capsule (Probiotic Formula (inulin)) cholecalciferol (vitamin D3) 25 1,000 iu PO DAILY ##0 11/20/17 08/11/23 mcg (1,000 unit) tablet (Vitamin D3) Calcium Magnesium Citrate 2 tbsp PO DAILY 11/22/20 08/11/23 Sodium 1 g PO BID 11/22/20 08/11/23 Previous Rx's Medication Instructions Recorded metoprolol tartrate 25 mg tablet 12.5 mg (1/2 x 25 mg) PO DAILY #90 11/02/20 tabs gabapentin 600 mg tablet 600 mg PO .PM #180 tabs 09/05/22 (Neurontin) hydroxyurea 500 mg capsule (Hydrea) 500 mg PO 4XW #53 caps 10/08/22 warfarin 6 mg tablet See Rx Instructions .Route 05/14/23 .COMPLEX #90 tabs warfarin 2 mg tablet See Rx Instructions PO DAILY #60 05/15/23 tabs levothyroxine 112 mcg tablet 112 mcg PO DAILY #30 tabs 08/01/23 losartan 50 mg tablet 50 mg PO BID #180 tabs 08/12/23 Allergies Allergy/AdvReac Type Severity Reaction Status Date / Time codeine Allergy Mild NAUSEA Verified 08/16/23 17:22 Sulfa (Sulfonamide Allergy Mild NAUSEA Verified 08/16/23 17:22 Antibiotics) morphine AdvReac Mild NAUSEA Verified 08/16/23 17:22 Review of Systems ENT Ears, Nose, Mouth, and Throat: Reports system reviewed and no additional complaints, except as documented Integumentary/Breasts Skin/Breast: Reports system reviewed and no additional complaints, except as documented Hematologic/Lymphatic On Anticoagulants: Yes Patient History Medical History External hemorrhoids Memory change Abnormal urine odor Rectal mass Raynauds syndrome Elevated blood pressure reading without diagnosis of hypertension Anxiety about health Blood pressure check Right leg paresthesias Atrial fibrillation Epilepsy (1959) TIA (transient ischemic attack) Seizures (2013) Peripheral neuropathy (2012) History of SCC (squamous cell carcinoma) of skin BCC (basal cell carcinoma of skin) Actinic keratosis Essential thrombocytosis Bilateral cataracts Fibroids (~1989) History of heavy periods (~1989) Ovarian cyst (~1987) Anemia Chicken pox (~1946) Measles (~1946) Mumps (1946) Rosacea (~1999) Hypothyroidism Skin cancer (~1989) Surgical History Anesthesia History of cataract removal with insertion of prosthetic lens (2009) Status post hernia repair (2014) Status post hysterectomy (1988) Family History Father Heart disease High cholesterol Brother Drug overdose Family/Other Gunshot wound Drug overdose Grandfather Asthma Emphysema of lung Grandmother No problems noted. Mother Lung cancer Bone cancer Grandfather No problems noted. Grandmother No problems noted. Social History marital status: household members: none occupational status: previously employed Smoking Status: Former smoker alcohol intake: current substance use type: does not use Smoking Status: Former smoker alcohol intake frequency: 0-2 drinks per day Substance Use Type: does not use Exam Initial Vital Signs Initial Vital Signs: Vital Signs Temperature 98.2 F 08/23/23 18:21 Pulse Rate 60 08/23/23 18:21 Respiratory Rate 16 08/23/23 18:21 Blood Pressure 220/89 H 08/23/23 18:21 Pulse Oximetry 99 08/23/23 18:21 Oxygen Delivery Method Room Air 08/23/23 18:21 HENMT Ears: other (Postsurgical appearance to right auricle Clot in place but no active bleed) Nose: other (Bandage over right side of nose that is clean dry and intact) Skin Other: There are postsurgical changes to the work with the right ear. Stitches are intact. There was some clot in place but no active bleeding. Course Orders Ordered: ED Orders 08/23/23 19:00 Complete Blood Count AUTO DIFF Stat Comprehensive Metabolic Panel Stat Prothrombin Time INR Stat Vital Signs Vital signs: Vital Signs - 8 hr 08/23/23 18:21 08/23/23 18:35 08/23/23 19:01 Temperature 98.2 F Pulse Rate 60 Respiratory Rate 16 Blood Pressure 220/89 H 199/79 H 165/71 H Pulse Oximetry 99 Oxygen Delivery Method Room Air 08/23/23 19:30 08/23/23 19:48 Temperature Pulse Rate 64 Respiratory Rate 20 18 Blood Pressure 187/76 H Pulse Oximetry Oxygen Delivery Method MDM - Wound/Laceration Lab Data 08/23/23 19:00 08/23/23 19:00 Labs: Lab Results 08/23/23 Range/Units 19:00 WBC 7.1 (4.5-11.0) X10^3/uL RBC 3.22 L (4.0-5.2) X10^6/uL Hgb 10.4 L (12.0-16.0) g/dL Hct 30.3 L (36-46) % MCV 94.1 (80-100) fL MCH 32.4 (26-34) PG MCHC 34.5 (30-36) % RDW 13.6 (11.6-14.8) % Plt Count 430 H (150-400) X10^3/uL Neut % (Auto) 81.2 H (50-75) % Lymph % (Auto) 11.8 L (25-40) % Pratt % (Auto) 5.7 (3-14) % Eos % (Auto) 0.7 L (2-4) % Baso % (Auto) 0.6 (0-2) % Neut # (Auto) 5800 (3145-7097) /uL Lymph # (Auto) 800 L (4559-1377) /uL Pratt # (Auto) 400 (0-900) /uL Eos # (Auto) 0 (0-450) /uL Baso # (Auto) 0 (0-100) /uL PT 24.2 H D (10.1-12.7) SECONDS INR 2.1 H (0.9-1.3) Sodium 123 L (137-145) mmol/L Potassium 4.4 (3.4-5.1) mmol/L Chloride 90 L (98-107) mmol/L Carbon Dioxide 26 (22-32) mmol/L BUN 21 H (7-17) mg/dL Creatinine 0.46 L (0.52-1.04) mg/dL Estimated GFR > 60 (>60) mL/min BUN/Creatinine Ratio 45.7 H (6-22) Glucose 186 H D (80-110) mg/dL Calcium 9.0 (8.4-10.2) mg/dL Total Bilirubin 0.3 (0.2-1.3) mg/dL AST 31 (14-36) IU/L ALT 28 (<35) IU/L Alkaline Phosphatase 73 (38-126) U/L Total Protein 6.2 L (6.3-8.2) g/dL Albumin 3.8 (3.5-5.0) g/dL Globulin 2.4 (1.7-4.1) g/dL Albumin/Globulin Ratio 1.6 (1.0-2.8) MDM Narrative Medical decision making narrative: Patient states that the appearance of her right ear today is what it has looked like since her procedure. No signs of infection. There is some clot in place around the stitches to the right ear but no active bleeding. Her labs are unremarkable. We did discuss the issues that she may have with bleeding because she is on anticoagulation. I will send her home with some Gelfoam and instructions on how to use it if it were to start bleeding again. She was given return precautions. Will have her continue to take all of her medications as directed. 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 She expressed understanding and agreement with plan. Discharge Plan Departure Patient Disposition: Home Clinical Impression: Post-operative hemorrhage Activity Restrictions/Additional Instructions: I do recommend that you continue to take all of your medications as directed. Do recommend that on Friday you follow-up with the dermatology office. If you start to have bleeding again use the foam gauze that you were given here in the emergency department as directed. Return to the emergency department for new or worsening symptoms. Prescriptions: No Action Probiotic Formula (inulin) 1 billion-250 cell-mg Capsule 1 cap PO DAILY Qty: 0 cholecalciferol (vitamin D3) [Vitamin D3] 1,000 UNIT tablet 1,000 iu PO DAILY Qty: 0 metoprolol tartrate 25 mg tablet 12.5 mg PO DAILY Qty: 90 0RF gabapentin [Neurontin] 600 mg tablet 600 mg PO .PM Qty: 180 2RF Patient Comments: PATIENT REPORTS TAKING 300MG IN THE A.M, 600MG IN THE PM hydroxyurea [Hydrea] 500 mg capsule 500 mg PO 4XW Qty: 53 3RF Rx Instructions: on Friday, Friday, Friday and Friday warfarin 6 mg tablet See Rx Instructions .ROUTE .COMPLEX Qty: 90 12RF Dose Instruction: TAKE 7MG DAILY, OR DIRECTED. Rx Instructions: TAKE 7MG DAILY, OR DIRECTED. warfarin 2 mg tablet See Rx Instructions PO DAILY Qty: 60 2RF Rx Instructions: Take 1/2 tablet (1mg) with 6mg tablet on , , , Fri, Fri. Take 1 tablet (2mg) with 6mg tablet on ,F or as directed. levothyroxine 112 mcg tablet 112 mcg PO DAILY Qty: 30 0RF losartan 50 mg tablet 50 mg PO BID Qty: 180 0RF Calcium Magnesium Citrate 2 tbsp PO DAILY Sodium 1 g PO BID Referrals: Rashid Brennan DO [Primary Care Provider] - Stand Alone Forms: Patient Portal/API
[2023-08-23 19:48] VITALS: PULSE 64; RESP 18
== END 2023-08-23 19:50 | disposition home or self-care (01) ==
PROVIDERS: Emergency Medicine; Emergency Provider Emergency Medicine; PCP Family Medicine
DX: L76.21 Postprocedural hemorrhage of skin and subcutaneous tissue following a dermatologic procedure (principal); Z79.01 Long term (current) use of anticoagulants
CPT/HCPCS: 80053; 85025; 85610; 99281; 99283

== ENCOUNTER → 2023-09-22 14:55 | Outpatient (CLI) | payer MEDICARE, SELFPAY ==
[2021-09-24 14:48] VITALS: BMI 18.3
--- NOTE | 2023-09-22 | DI.CT.S_ITS ---
PROCEDURE: CT SINUS SCREEN WO CON INDICATIONS: CHRONIC PANSINUSITIS TECHNIQUE: Noncontrast 3.0 mm axial images acquired from the frontal sinuses to the mid-sella, with coronal and sagittal reformats. For radiation dose reduction, the following was used: automated exposure control, adjustment of mA and/or kV according to patient size. COMPARISON: [facility], CT, CT SINUS SCREEN WO CON, 03/11/2023, 13:45. FINDINGS: Image quality: Excellent. Maxillary Sinuses: Opacification of the left maxillary sinus with mild bony reactive thickening on the left consistent with chronic sinusitis. Ethmoid Air Cells: Mucosal thickening and opacification of several anterior left ethmoid air cells, improved compared to 03/11/2023. Sphenoid Sinuses: No bony remodeling or destruction. Sinuses are clear. Frontal Sinuses: No bony remodeling or destruction. Sinuses are clear. Ostiomeatal Complexes: The right ostiomeatal complex is patent. The left ostiomeatal complex is opacified. Miscellaneous: Visualized intra-orbital contents are normal. Left violeta bullosa. Nasal septum deviation to the right. IMPRESSION: 1. Chronic left maxillary sinusitis with involvement of the anterior left ethmoid air cells. 2. Occlusion of the left ostiomeatal complex. Dictated by: Armando Finnegan M.D. on 09/22/2023 at 16:12 Approved by: Armando Finnegan M.D. on 09/22/2023 at 16:18
== END ==
PROVIDERS: PCP Family Medicine; Referring Provider Otolaryngology; Visit Provider Otolaryngology
DX: J32.4 Chronic pansinusitis (principal)
CPT/HCPCS: 70486

== ENCOUNTER → 2023-09-26 14:06 | Outpatient (CLI) | payer MEDICARE, SELFPAY ==
[2021-09-24 14:48] VITALS: BMI 18.3
[2023-09-26 15:00] LABS: Prothrombin Time 77.1 SECONDS (10.1-12.7)
[2023-09-26 15:05] LABS: INR 6.6 (0.9-1.3)
== END ==
PROVIDERS: Family Medicine; PCP Family Medicine; Referring Provider Family Medicine; Visit Provider Family Medicine
DX: I82.409 Acute embolism and thrombosis of unspecified deep veins of unspecified lower extremity (principal)
CPT/HCPCS: 36415; 85610

== ENCOUNTER → 2023-10-14 14:15 | Outpatient (CLI) | payer MEDICARE, SELFPAY ==
[2021-09-24 14:48] VITALS: BMI 18.3
[2023-10-14 14:50] LABS: Prothrombin Time 89.2 SECONDS (9.4-12.5)
[2023-10-14 14:55] LABS: INR 7.6 (0.9-1.3)
== END ==
PROVIDERS: PCP Family Medicine; Visit Provider Family Medicine
DX: Z79.01 Long term (current) use of anticoagulants (principal); R79.1 Abnormal coagulation profile
CPT/HCPCS: 85610

== ENCOUNTER 2023-10-17 12:10 | Emergency (ER) | payer MEDICARE, SELFPAY ==
[2021-09-24 14:48] VITALS: BMI 18.3
[2023-10-17] VITALS (10 sets, daily range): BP systolic 156–181; BP diastolic 67–84; PULSE 60–87; RESP 14; TEMP 35.8; O2SAT 94–99; BMI 18.3
--- NOTE | 2023-10-17 15:34 | ED.FALL ---
HPI - Fall General Chief Complaint: Fall Stated Complaint: fell T-2/shaky and imbalanced since Time Seen by Provider: 10/17/23 15:34 Source: patient Mode of arrival: Ambulatory History of Present Illness HPI Narrative: Patient 78-year-old female on Coumadin for atrial fibrillation presents today after a ground level fall. She in fact was kneeling on the ground working on a sweater when she fell backwards. She did not hit her head or lose consciousness. She really does not have any back pain she is having some mild shoulder pain but is moving it okay. No numbness tingling or weakness. She is not had any nausea vomiting. She reports that she is feeling little shaky and off balance. Her INR on the 14 of October was 7.6. She just wanted to be checked out. He is not had any fever and is afebrile. Related Data Home Medications Medication Instructions Recorded Confirmed Bacillus coagulans-inulin 1 1 cap PO DAILY ##0 09/02/11 10/10/23 billion cell-250 mg capsule (Probiotic Formula (inulin)) cholecalciferol (vitamin D3) 25 1,000 iu PO DAILY ##0 11/20/17 10/10/23 mcg (1,000 unit) tablet (Vitamin D3) Calcium Magnesium Citrate 2 tbsp PO DAILY 11/22/20 10/10/23 Sodium 1 g PO BID 11/22/20 10/10/23 Previous Rx's Medication Instructions Recorded metoprolol tartrate 25 mg tablet 12.5 mg (1/2 x 25 mg) PO DAILY #90 11/02/20 tabs hydroxyurea 500 mg capsule (Hydrea) 500 mg PO 4XW #53 caps 10/08/22 warfarin 6 mg tablet See Rx Instructions .Route 05/14/23 .COMPLEX #90 tabs warfarin 2 mg tablet See Rx Instructions PO DAILY #60 05/15/23 tabs losartan 50 mg tablet 50 mg PO BID #180 tabs 08/12/23 gabapentin 600 mg tablet See Rx Instructions PO .COMPLEX 09/15/23 (Neurontin) #135 tabs amlodipine 10 mg tablet 10 mg PO DAILY #90 tabs 10/10/23 levothyroxine 100 mcg tablet 100 mcg PO DAILY #90 tabs 10/10/23 Allergies Allergy/AdvReac Type Severity Reaction Status Date / Time codeine Allergy Mild NAUSEA Verified 10/17/23 12:19 Sulfa (Sulfonamide Allergy Mild NAUSEA Verified 10/17/23 12:19 Antibiotics) morphine AdvReac Mild NAUSEA Verified 10/17/23 12:19 Patient History Medical History External hemorrhoids Memory change Abnormal urine odor Rectal mass Raynauds syndrome Elevated blood pressure reading without diagnosis of hypertension Anxiety about health Blood pressure check Right leg paresthesias Atrial fibrillation Epilepsy (1959) TIA (transient ischemic attack) Seizures (2013) Peripheral neuropathy (2012) History of SCC (squamous cell carcinoma) of skin BCC (basal cell carcinoma of skin) Actinic keratosis Essential thrombocytosis Bilateral cataracts Fibroids (~1989) History of heavy periods (~1989) Ovarian cyst (~1987) Anemia Chicken pox (~1946) Measles (~1946) Mumps (1946) Rosacea (~1999) Hypothyroidism Skin cancer (~1989) Surgical History Anesthesia History of cataract removal with insertion of prosthetic lens (2009) Status post hernia repair (2014) Status post hysterectomy (1988) Family History Father Heart disease High cholesterol Brother Drug overdose Family/Other Gunshot wound Drug overdose Grandfather Asthma Emphysema of lung Grandmother No problems noted. Mother Lung cancer Bone cancer Grandfather No problems noted. Grandmother No problems noted. Social History marital status: household members: none occupational status: previously employed Smoking Status: Former smoker alcohol intake: current substance use type: does not use Smoking Status: Former smoker alcohol intake frequency: 0-2 drinks per day Substance Use Type: does not use Exam Initial Vital Signs Initial Vital Signs: Vital Signs Temperature 96.5 F L 10/17/23 12:19 Pulse Rate 60 10/17/23 12:19 Respiratory Rate 14 10/17/23 12:19 Blood Pressure 177/84 H 10/17/23 12:19 Pulse Oximetry 94 10/17/23 12:19 Oxygen Delivery Method Room Air 10/17/23 12:19 GENERAL: Alert pleasant thin 78-year-old female and in no acute distress. HEENT: Head atraumatic,EOMI, pupils reactive, face symmetric, moist mucous membranes CARDIOVASCULAR: Regular rate and rhythm without murmurs, rubs or gallops. RESPIRATORY: Breath sounds equal bilaterally, no wheezes rales or rhonchi. ABDOMEN: Soft, nontender. Normoactive bowel sounds all 4 quadrants. No guarding or rebound. BACK: No vertebral tenderness no step-off no contusions EXTREMITIES: Normal range of motion, no clubbing or edema. Neurovascularly intact NEUROLOGICAL: Alert and oriented x4.Normal gait and speech. Cranial nerves II through XII grossly intact. Manager Medical Writing strength equal bilaterally SKIN: Warm, dry, no laceration, no petechiae, no rashes or lesions. Course Orders Ordered: ED Orders 10/17/23 16:09 CT head/brain wo con Stat 10/17/23 16:15 CBC Auto Diff [Complete Blood Count AUTO DIFF] Stat CMP [Comprehensive Metabolic Panel] Stat Prothrombin Time INR Stat Vital Signs Vital signs: Vital Signs - 8 hr 10/17/23 12:19 Temperature 96.5 F L Pulse Rate 60 Respiratory Rate 14 Blood Pressure 177/84 H Pulse Oximetry 94 Oxygen Delivery Method Room Air MDM - Fall Lab Data 10/17/23 16:15 10/17/23 16:15 Labs: Lab Results 10/17/23 Range/Units 16:15 WBC 5.4 (4.5-11.0) X10^3/uL RBC 3.31 L (4.0-5.2) X10^6/uL Hgb 10.9 L (12.0-16.0) g/dL Hct 31.2 L (36-46) % MCV 94.4 (80-100) fL MCH 32.8 (26-34) PG MCHC 34.8 (30-36) % RDW 13.6 (11.6-14.8) % Plt Count 330 (150-400) X10^3/uL Neut % (Auto) 79.3 H (50-75) % Lymph % (Auto) 12.2 L (25-40) % Creek % (Auto) 7.9 (3-14) % Eos % (Auto) 0.2 L (2-4) % Baso % (Auto) 0.4 (0-2) % Neut # (Auto) 4300 (4649-6329) /uL Lymph # (Auto) 700 L (9313-0995) /uL Creek # (Auto) 400 (0-900) /uL Eos # (Auto) 0 (0-450) /uL Baso # (Auto) 0 (0-100) /uL PT 16.6 H D (9.4-12.5) SECONDS INR 1.4 H (0.9-1.3) Sodium 123 L (137-145) mmol/L Potassium 4.2 (3.4-5.1) mmol/L Chloride 92 L (98-107) mmol/L Carbon Dioxide 24 (22-32) mmol/L BUN 15 (7-17) mg/dL Creatinine 0.46 L (0.52-1.04) mg/dL Estimated GFR > 60 (>60) mL/min BUN/Creatinine Ratio 32.6 H (6-22) Glucose 90 (80-110) mg/dL Calcium 9.5 (8.4-10.2) mg/dL Total Bilirubin 0.8 (0.2-1.3) mg/dL AST 56 H (14-36) IU/L ALT 47 H (<35) IU/L Alkaline Phosphatase 101 (38-126) U/L Total Protein 6.9 (6.3-8.2) g/dL Albumin 4.3 (3.5-5.0) g/dL Globulin 2.6 (1.7-4.1) g/dL Albumin/Globulin Ratio 1.7 (1.0-2.8) Imaging Data CT scan - head: Radiologist's Impression: PROCEDURE: CT HEAD/BRAIN WO CON INDICATIONS: high INR fall TECHNIQUE: Noncontrast 4.5 mm thick angled axial sections acquired from the foramen magnum to the vertex, with coronal and sagittal reformats. For radiation dose reduction, the following was used: automated exposure control, adjustment of mA and/or kV according to patient size. COMPARISON: [facility], CT, CT HEAD/BRAIN WO CON, 08/16/2023, 17:12. [facility], CT, CT HEAD/BRAIN WO CON, 09/13/2019, 21:15. FINDINGS: Image quality: Excellent. CSF spaces: Basal cisterns are patent. No extra-axial fluid collections. The ventricles are symmetric in size and shape. Brain: No intracranial bleeds or masses. There is cerebral volume loss for age, with resultant ventricular and sulcal prominence. There are periventricular and deep white matter chronic small vessel ischemic changes. There is intracranial internal carotid artery atherosclerosis. Skull and face: Calvarium and visualized facial bones appear intact, without suspicious lesions. Sinuses: Visualized sinuses and mastoids are clear. IMPRESSION: No trauma found, no intracranial hemorrhage suspected. Dictated by: Bautista Arita M.D. on 10/17/2023 at 17:00 [facility] Narrative Medical decision making narrative: Patient 78-year-old female history of atrial fibrillation on warfarin with a supratherapeutic INR couple days ago presents today after very low mechanism fall. She was already on the ground and just leaned back. No head injury but does have some difficulty walking. Head CT is negative. INR today is 0.4. She is afebrile here no leukocytosis or anemia. No electrolyte abnormality. Discharge Plan Departure Patient Disposition: Home Clinical Impression: Acute pain of left shoulder Instructions: Shoulder Sprain Activity Restrictions/Additional Instructions: *You have been diagnosed with left shoulder pain *What to do: INR today is 1.[address] and other blood work are overall reassuring. Please follow-up with your PCP Please have INR rechecked next week *Continue to take medications as directed May resume Coumadin as previously scheduled *Follow up with your primary care provider in 2-3 days or call [phone] *Return to ER if you should have increasing weakness pain dizziness shortness of breath falling or any new, worsening or concerning symptoms Prescriptions: No Action Probiotic Formula (inulin) 1 billion-250 cell-mg Capsule 1 cap PO DAILY Qty: 0 cholecalciferol (vitamin D3) [Vitamin D3] 1,000 UNIT tablet 1,000 iu PO DAILY Qty: 0 metoprolol tartrate 25 mg tablet 12.5 mg PO DAILY Qty: 90 0RF hydroxyurea [Hydrea] 500 mg capsule 500 mg PO 4XW Qty: 53 3RF Rx Instructions: on Friday, Friday, Friday and Friday warfarin 6 mg tablet See Rx Instructions .ROUTE .COMPLEX Qty: 90 12RF Dose Instruction: TAKE 7MG DAILY, OR DIRECTED. Rx Instructions: TAKE 7MG DAILY, OR DIRECTED. warfarin 2 mg tablet See Rx Instructions PO DAILY Qty: 60 2RF Rx Instructions: Take 1/2 tablet (1mg) with 6mg tablet on , , , Fri, Sun. Take 1 tablet (2mg) with 6mg tablet on , or as directed. losartan 50 mg tablet 50 mg PO BID Qty: 180 0RF gabapentin [Neurontin] 600 mg tablet See Rx Instructions PO .COMPLEX Qty: 135 3RF Patient Comments: PATIENT REPORTS TAKING 300MG IN THE A.M, 600MG IN THE PM Rx Instructions: 1/2 tablet in the morning and 1 tablet in the evening, PO, orally; Calcium Magnesium Citrate 2 tbsp PO DAILY Sodium 1 g PO BID amlodipine 10 mg tablet 10 mg PO DAILY Qty: 90 3RF levothyroxine 100 mcg tablet 100 mcg PO DAILY Qty: 90 0RF Referrals: Rashid Brennan DO [Primary Care Provider] - Stand Alone Forms: Patient Portal/API
--- NOTE | 2023-10-17 16:09 | DI.CT.S_ITS ---
PROCEDURE: CT HEAD/BRAIN WO CON INDICATIONS: high INR fall TECHNIQUE: Noncontrast 4.5 mm thick angled axial sections acquired from the foramen magnum to the vertex, with coronal and sagittal reformats. For radiation dose reduction, the following was used: automated exposure control, adjustment of mA and/or kV according to patient size. COMPARISON: [facility], CT, CT HEAD/BRAIN WO CON, 08/16/2023, 17:12. [facility], CT, CT HEAD/BRAIN WO CON, 09/13/2019, 21:15. FINDINGS: Image quality: Excellent. CSF spaces: Basal cisterns are patent. No extra-axial fluid collections. The ventricles are symmetric in size and shape. Brain: No intracranial bleeds or masses. There is cerebral volume loss for age, with resultant ventricular and sulcal prominence. There are periventricular and deep white matter chronic small vessel ischemic changes. There is intracranial internal carotid artery atherosclerosis. Skull and face: Calvarium and visualized facial bones appear intact, without suspicious lesions. Sinuses: Visualized sinuses and mastoids are clear. IMPRESSION: No trauma found, no intracranial hemorrhage suspected. Dictated by: Bautista Arita M.D. on 10/17/2023 at 17:00 Approved by: Bautista Arita M.D. on 10/17/2023 at 17:00
[2023-10-17 16:37] LABS: Add Manual Diff / Slide Review NO; Basophils Absolute Auto 0 /uL (0-100); Basophils Percent Auto 0.4 % (0-2); Eosinophils Absolute Auto 0 /uL (0-450); Eosinophils Percent Auto 0.2 % (2-4); Hematocrit 31.2 % (36-46); Hemoglobin 10.9 g/dL (12.0-16.0); Lymphocytes Absolute Auto 700 /uL (1100-4500); Lymphocytes Percent Auto 12.2 % (25-40); Mean Corpuscular HGB Conc 34.8 % (30-36); Mean Corpuscular Hemoglobin 32.8 PG (26-34); Mean Corpuscular Volume 94.4 fL (80-100); Monocytes Absolute Auto 400 /uL (0-900); Monocytes Percent Auto 7.9 % (3-14); Neutrophils Absolute Auto 4300 /uL (1500-7000); Neutrophils Percent Auto 79.3 % (50-75); Platelet Count 330 X10^3/uL (150-400); Red Blood Cell Count 3.31 X10^6/uL (4.0-5.2); Red Cell Distribution Width 13.6 % (11.6-14.8); White Blood Cell Count 5.4 X10^3/uL (4.5-11.0)
[2023-10-17 16:44] LABS: INR 1.4 (0.9-1.3); Prothrombin Time 16.6 SECONDS (9.4-12.5)
[2023-10-17 16:48] LABS: Alanine Aminotransferase 47 IU/L (<35); Albumin 4.3 g/dL (3.5-5.0); Albumin Globulin Ratio 1.7 (1.0-2.8); Alkaline Phosphatase 101 U/L (38-126); Aspartate Aminotransferase 56 IU/L (14-36); BUN Creatinine Ratio 32.6 (6-22); Bilirubin Total 0.8 mg/dL (0.2-1.3); Blood Urea Nitrogen 15 mg/dL (7-17); Calcium 9.5 mg/dL (8.4-10.2); Carbon Dioxide 24 mmol/L (22-32); Chloride 92 mmol/L (98-107); Estimated Glomerular Filt Rate > 60 mL/min (>60); Globulin 2.6 g/dL (1.7-4.1); Glucose 90 mg/dL (80-110); HEMOLYSIS < 15 (0-50); Potassium 4.2 mmol/L (3.4-5.1); Sodium 123 mmol/L (137-145); Total Protein 6.9 g/dL (6.3-8.2)
== END 2023-10-17 17:25 | disposition home or self-care (01) ==
PROVIDERS: Emergency Provider Emergency Medicine; PCP Family Medicine
DX: M25.512 Pain in left shoulder (principal); I48.91 Unspecified atrial fibrillation; W18.39XA Other fall on same level, initial encounter; Y93.89 Activity, other specified; Z79.01 Long term (current) use of anticoagulants
CPT/HCPCS: 70450; 80053; 85025; 85610; 99281; 99284

== ENCOUNTER 2023-11-07 11:56 | Inpatient (IN) | payer MEDICARE, SELFPAY ==
[2021-09-24 14:48] VITALS: BMI 18.3
[2023-11-07] VITALS (24 sets, daily range): BP systolic 108–150; BP diastolic 37–65; PULSE 60–85; RESP 8–30; TEMP 36.3–36.8; O2SAT 87–100; BMI 18.3; BMI 19.3
--- NOTE | 2023-11-07 | DI.ECHO.S_ITS ---
[facility] +---------+ : : [address] [address] : : : : [id number] : : : : Phone: [phone]+ Echocardiogram Report + + :Name: GABRIELA MARINA Study Date: 11/07/2023 Height: 64 in : :[facility] ReadingLocation: Weight: 107 lb : : Gender: Female BSA: 1.5 m2 : :: 1945 Age: 78 yrs BP: 127/58 mmHg: :Reason For Study: POSSIBLE CVA : :Ordering Physician: KIM, : :ALAYNA Ureña Performed By: Yissel Palma : :Referring: ALAYNA ALVAREZ : + + Interpretation Summary Limited Echo: 1) Normal left ventricular thickness, size, wall motion, and systolic function (EF 60-65%). 2) Normal right ventricular size and function. There is a pacemaker lead in the right ventricle. 3) Compared to the Echo done 08/04/2023, no significant change. Procedure: A two-dimensional transthoracic echocardiogram with color flow Doppler was performed. The study quality was technically adequate. Comparison is made with the echocardiogram of 08/04/2023. The heart rate ranged between 60 bpm during the study. The patient has a paced rhythm. Left Ventricle: The left ventricle is normal in size and wall thickness. There is no thrombus. The ejection fraction is estimated to be 60-65%. Left ventricular systolic function appears normal without focal wall motion abnormalities. Right Ventricle: There is a pacemaker lead in the right ventricle. The right ventricle is normal size. The right ventricular systolic function is normal. Atria: There is a catheter/pacemaker lead seen in the right atrium. There is no Doppler evidence for an interatrial shunt. Tricuspid Valve: There is mild tricuspid regurgitation. The right ventricular systolic pressure is estimated to be at least 21 mmHg based on an estimated right atrial pressure of 3 mm Hg. Great Vessels: The IVC is of normal diameter and collapses greater than 50% with a sniff. This suggests a low right atrial pressure of 3 mm Hg. Pericardium/ Pleura There is no pericardial effusion. There is no pleural effusion. MMode/2D Measurements & Calculations LVIDd: 4.3 cm IVC diam: 1.5 cm LVIDs: 3.0 cm FS: 31.1 % EPSS: 0.26 cm IVSd: 0.74 cm LVPWd: 0.82 cm LV yanes. diameter/BSA (cm/m^2): 2.9 LV sys. diameter/BSA (cm/m^2): 2.0 TAPSE: 2.4 cm Doppler Measurements & Calculations TR max carissa: 214.0 cm/sec TR max P.3 mmHg Reading Physician:05:30 PM
--- NOTE | 2023-11-07 12:14 | DI.CT.S_ITS ---
PROCEDURE: CT HEAD/BRAIN WO CON INDICATIONS: difficulty w/ words since Friday/weak TECHNIQUE: Noncontrast 4.5 mm thick angled axial sections acquired from the foramen magnum to the vertex, with coronal and sagittal reformats. For radiation dose reduction, the following was used: automated exposure control, adjustment of mA and/or kV according to patient size. COMPARISON: [facility], CT, CT ANGIO HEAD AND NECK, 08/16/2023, 17:12. [facility], CT, CT HEAD/BRAIN WO CON, 08/16/2023, 17:12. [facility], CT, CT HEAD/BRAIN WO CON, 10/17/2023, 16:33. FINDINGS: Image quality: Mild streak artifact can be seen through the skull base. CSF spaces: Basal cisterns are patent. No extra-axial fluid collections. The ventricles are symmetric in size and shape. Brain: No intracranial bleeds or masses. There is cerebral volume loss for age, with resultant ventricular and sulcal prominence. There are periventricular and deep white matter chronic small vessel ischemic changes. There is intracranial internal carotid artery atherosclerosis. Skull and face: Calvarium and visualized facial bones appear intact, without suspicious lesions. Sinuses: There is complete opacification of the visualized left maxillary sinus. The paranasal sinuses otherwise appear clear. No abnormal fluid is seen within the mastoid air cells. IMPRESSION: No acute intracranial pathology. If there is strong clinical suspicion for an acute stroke, please consider a brain MRI for further evaluation, as it is more sensitive (assuming that there is no contraindication to MRI). Additional findings: Focal left maxillary sinus disease Dictated by: Kang Che M.D. on 11/07/2023 at 12:07 Approved by: Kang Che M.D. on 11/07/2023 at 12:08
--- NOTE | 2023-11-07 12:14 | DI.RAD.S_ITS ---
PROCEDURE: XR CHEST 1V INDICATIONS: Possible stroke TECHNIQUE: One view of the chest was acquired. COMPARISON: [facility], , XR CHEST 2 VIEWS, 10/27/2019, 6:51. FINDINGS: Surgical changes and devices: Left-sided cardiac pacer leads terminate in expected positions. Lungs and pleura: Lungs are clear. Hyperinflation of the lungs with flattening of the diaphragm suggestive of obstructive pulmonary disease. No pleural effusions or pneumothorax. Mediastinum: Mediastinal contours appear normal. Heart size is normal. Bones and chest wall: No suspicious bony lesions. Overlying soft tissues appear unremarkable. IMPRESSION: No acute cardiopulmonary process. Dictated by: Tony Brown M.D. on 11/07/2023 at 12:47 Approved by: Tony Brown M.D. on 11/07/2023 at 12:49
[2023-11-07 12:51] LABS: Add Manual Diff / Slide Review NO; Basophils Absolute Auto 0 /uL (0-100); Basophils Percent Auto 0.3 % (0-2); Eosinophils Absolute Auto 0 /uL (0-450); Eosinophils Percent Auto 0.6 % (2-4); Hematocrit 26.5 % (36-46); Hemoglobin 9.1 g/dL (12.0-16.0); Lymphocytes Absolute Auto 500 /uL (1100-4500); Lymphocytes Percent Auto 13.7 % (25-40); Mean Corpuscular HGB Conc 34.3 % (30-36); Mean Corpuscular Hemoglobin 32.8 PG (26-34); Mean Corpuscular Volume 95.7 fL (80-100); Monocytes Absolute Auto 200 /uL (0-900); Monocytes Percent Auto 6.5 % (3-14); Neutrophils Absolute Auto 2800 /uL (1500-7000); Neutrophils Percent Auto 78.9 % (50-75); Platelet Count 238 X10^3/uL (150-400); Red Blood Cell Count 2.77 X10^6/uL (4.0-5.2); Red Cell Distribution Width 14.6 % (11.6-14.8); White Blood Cell Count 3.5 X10^3/uL (4.5-11.0)
[2023-11-07 13:00] LABS: PTT Partial Thromboplastin Tim 70 SECONDS (25.1-36.5)
[2023-11-07 13:04] LABS: Prothrombin Time 133.2 SECONDS (9.4-12.5)
[2023-11-07 13:07] LABS: INR 11.3 (0.9-1.3)
[2023-11-07 13:10] LABS: Alanine Aminotransferase 73 IU/L (<35); Albumin 3.7 g/dL (3.5-5.0); Albumin Globulin Ratio 1.4 (1.0-2.8); Alkaline Phosphatase 68 U/L (38-126); Aspartate Aminotransferase 77 IU/L (14-36); BUN Creatinine Ratio 57.6 (6-22); Bilirubin Total 0.4 mg/dL (0.2-1.3); Blood Urea Nitrogen 34 mg/dL (7-17); Calcium 9.3 mg/dL (8.4-10.2); Carbon Dioxide 26 mmol/L (22-32); Chloride 95 mmol/L (98-107); Creatine Kinase 184 U/L (30-135); Estimated Glomerular Filt Rate > 60 mL/min (>60); Globulin 2.6 g/dL (1.7-4.1); Glucose 96 mg/dL (80-110); HEMOLYSIS 38 (0-50); Magnesium 2.1 mg/dL (1.6-2.3); Potassium 5.1 mmol/L (3.4-5.1); Sodium 126 mmol/L (137-145); Total Protein 6.3 g/dL (6.3-8.2)
[2023-11-07 13:22] LABS: Troponin I < 0.012 ng/mL (0.01-0.034)
--- NOTE | 2023-11-07 14:19 | ED_ITS ---
HPI - Neuro Symptoms/Deficit General Chief Complaint: Neuro Symptoms/Deficit Stated Complaint: Stroke like Symptoms Time Seen by Provider: 11/07/23 12:27 Source: patient Mode of arrival: Wheelchair History of Present Illness HPI Narrative: 78-year-old woman with a history of atrial fibrillation and pacemaker currently anticoagulated on warfarin, hypothyroidism, chronic anemia and hyponatremia, prior stroke presents with concerns for stroke that occurred on or about November 02. She apparently was admitted to [facility] about a month ago with concerns for a stroke and diagnosed with a UTI but was told was told that her workup was unremarkable. She went to visit her daughter over [place] and they noticed on the that she had a significant stutter, was having difficulty dressing herself and was unstable. They describe this is an acute change. She declined going to see a doctor while visiting her daughter. She is brought in today with concerns for persistent stuttering and intermittent left- sided weakness with increasing difficulty with activities of daily living. There is no fever, cough, chills, headache. She is had no chest pain, no notable palpitations, no abdominal pain, nausea, vomiting. She complains of no pain. There has been no black or bloody stools no bloody emesis and she does not complain of a blood taste in her mouth. On Anticoagulants: Yes (Warfarin) Related Data Home Medications Medication Instructions Recorded Confirmed Bacillus coagulans-inulin 1 1 cap PO DAILY ##0 09/02/11 11/07/23 billion cell-250 mg capsule (Probiotic Formula (inulin)) cholecalciferol (vitamin D3) 25 1,000 iu PO DAILY ##0 11/20/17 11/07/23 mcg (1,000 unit) tablet (Vitamin D3) Calcium Magnesium Citrate 2 tbsp PO DAILY 11/22/20 11/07/23 aspirin 81 mg capsule 81 mg PO DAILY 11/07/23 11/07/23 biotin 1,000 mcg chewable tablet 1,000 mcg PO DAILY 11/07/23 11/07/23 sodium chloride 1,000 mg soluble 1,000 mg PO BID 11/07/23 11/07/23 tablet vitamin E mixed 400 unit capsule 400 unit PO DAILY 11/07/23 11/07/23 Previous Rx's Medication Instructions Recorded metoprolol tartrate 25 mg tablet 12.5 mg (1/2 x 25 mg) PO DAILY #90 11/02/20 tabs hydroxyurea 500 mg capsule (Hydrea) 500 mg PO 4XW #53 caps 10/08/22 warfarin 6 mg tablet See Rx Instructions .Route 05/14/23 .COMPLEX #90 tabs warfarin 2 mg tablet See Rx Instructions PO DAILY #60 05/15/23 tabs losartan 50 mg tablet 50 mg PO BID #180 tabs 08/12/23 gabapentin 600 mg tablet See Rx Instructions PO .COMPLEX 09/15/23 (Neurontin) #135 tabs levothyroxine 100 mcg tablet 100 mcg PO DAILY #90 tabs 10/10/23 amlodipine 10 mg tablet 10 mg PO DAILY #90 tabs 10/21/23 apixaban 2.5 mg tablet 2.5 mg PO BID #60 tabs 10/23/23 Allergies Allergy/AdvReac Type Severity Reaction Status Date / Time codeine Allergy Mild NAUSEA Verified 10/17/23 12:19 Sulfa (Sulfonamide Allergy Mild NAUSEA Verified 10/17/23 12:19 Antibiotics) morphine AdvReac Mild NAUSEA Verified 10/17/23 12:19 Review of Systems Review of Systems Narrative: Pertinent positive and negative findings as per HPI Hematologic/Lymphatic On Anticoagulants: Yes (Warfarin) Patient History Medical History External hemorrhoids Memory change Abnormal urine odor Rectal mass Raynauds syndrome Elevated blood pressure reading without diagnosis of hypertension Anxiety about health Blood pressure check Right leg paresthesias Atrial fibrillation Epilepsy (1959) TIA (transient ischemic attack) Seizures (2013) Peripheral neuropathy (2012) History of SCC (squamous cell carcinoma) of skin BCC (basal cell carcinoma of skin) Actinic keratosis Essential thrombocytosis Bilateral cataracts Fibroids (~1989) History of heavy periods (~1989) Ovarian cyst (~1987) Anemia Chicken pox (~1947) Measles (~194) Mumps (194) Rosacea (~1999) Hypothyroidism Skin cancer (~1989) Surgical History Anesthesia History of cataract removal with insertion of prosthetic lens (2009) Status post hernia repair (2014) Status post hysterectomy (1988) Family History Father Heart disease High cholesterol Brother Drug overdose Family/Other Gunshot wound Drug overdose Grandfather Asthma Emphysema of lung Grandmother No problems noted. Mother Lung cancer Bone cancer Grandfather No problems noted. Grandmother No problems noted. Social History marital status: household members: none occupational status: previously employed Smoking Status: Former smoker alcohol intake: current substance use type: does not use Smoking Status: Former smoker alcohol intake frequency: 0-2 drinks per day Substance Use Type: does not use Exam Initial Vital Signs Initial Vital Signs: Vital Signs Temperature 98.2 F 11/07/23 12:04 Pulse Rate 76 11/07/23 12:04 Respiratory Rate 20 11/07/23 12:04 Blood Pressure 128/58 L 11/07/23 12:04 General: Frail appearing, in no acute distress. Able to cooperate with history. HEENT: Moist mucous membranes, normal sclera with reactive pupils, Neck: No JVD, supple Respiratory: Lungs are clear to auscultation, no wheezing no rales no rhonchi. Full and symmetrical air movement Cardiac: Irregular, no murmurs. Abdomen: Soft, nontender, good bowel tones, no flank pain Skin: Warm and dry, no rashes Neurologic: Significant stutter with occasional word-finding difficulties, moving all extremities, no current paresthesias or weakness Extremities: No trauma, chronic lower extremity edema at her baseline according to her daughter Psych: Cooperative, appropriate insight and affect NIH score NIH Stroke Scale/Score (NIHSS) RESULT SUMMARY: 1 points NIH Stroke Scale INPUTS: 1A: Level of consciousness ?> 0 = Alert; keenly responsive 1B: Ask month and age ?> 0 = Both questions right 1C: 'Blink eyes' & 'squeeze hands' ?> 0 = Performs both tasks 2: Horizontal extraocular movements ?> 0 = Normal 3: Visual baugh ?> 0 = No visual loss 4: Facial palsy ?> 0 = Normal symmetry 5A: Left arm motor drift ?> 0 = No drift for 10 seconds 5B: Right arm motor drift ?> 0 = No drift for 10 seconds 6A: Left leg motor drift ?> 0 = No drift for 5 seconds 6B: Right leg motor drift ?> 0 = No drift for 5 seconds 7: Limb Ataxia ?> 0 = No ataxia 8: Sensation ?> 0 = Normal; no sensory loss 9: Language/aphasia ?> 1 = Mild-moderate aphasia: some obvious changes, without significant limitation 10: Dysarthria ?> 0 = Normal 11: Extinction/inattention ?> 0 = No abnormality Course Orders Ordered: Acetaminophen (Acetaminophen 325 Mg Tablet) 650 mg PO Q6H PRN PRN Reason: Fever/Mild Pain (1-3) Last Admin: 11/08/23 21:22 Dose: 650 mg Documented By: VERITO Aspirin (Aspirin Ec 81 Mg Tablet) 81 mg PO DAILY [facility] Last Admin: 11/08/23 09:30 Dose: 81 mg Documented By: ADAM Gabapentin (Gabapentin 600 Mg Tablet) 600 mg PO BEDTIME [facility] Last Admin: 11/08/23 20:35 Dose: 600 mg Documented By: Admin: 11/07/23 21:07 Dose: 600 mg Documented By: EPI Gabapentin (Gabapentin 300 Mg Capsule) 300 mg PO DAILY [facility] Last Admin: 11/08/23 09:30 Dose: 300 mg Documented By: ADAM Hydroxyurea (Hydroxyurea 500 Mg Capsule) 500 mg PO SuTuThSa@0900 [facility] Melatonin (Melatonin 3 Mg Tablet) 6 mg PO BEDTIME PRN PRN Reason: Insomnia Metoprolol Tartrate (Metoprolol Ir 25 Mg Tablet) 12.5 mg PO DAILY [facility] Last Admin: 11/08/23 09:30 Dose: 12.5 mg Documented By: ADAM Naloxone HCl (Naloxone 0.4 Mg/Ml Vial) 0.2 mg IV Q2MIN PRN PRN Reason: Opiate Reversal Ondansetron HCl (Ondansetron 4 Mg/2 Ml Inj) 4 mg IV NOW PRN PRN Reason: Nausea And Vomiting Ondansetron HCl (Ondansetron 4 Mg Odt) 4 mg SL NOW PRN PRN Reason: Nausea And Vomiting Ondansetron HCl (Ondansetron 4 Mg/2 Ml Inj) 4 mg IV Q4HR PRN PRN Reason: NV Polyethylene Glycol (Polyethylene Glycol 3350 17 Gm Powd.Pack) 17 gm PO DAILY PRN PRN Reason: Constipation Sennosides (Sennosides 8.6 Mg Tablet) 8.6 mg PO BID PRN PRN Reason: Constipation Sodium Chloride (Sodium Chloride 1,000 Mg Tablet) 1,000 mg PO BID [facility] Last Admin: 11/08/23 20:35 Dose: 1,000 mg Documented By: Admin: 11/08/23 09:30 Dose: 1,000 mg Documented By: Admin: 11/07/23 21:07 Dose: 1,000 mg Documented By: EPI Sodium Chloride (Sodium Chloride 0.9% Flush) 10 ml IV PRN PRN PRN Reason: Flush Sodium Chloride (Sodium Chloride 0.9% Flush) 10 ml IV BID DAVID Last Admin: 11/08/23 20:01 Dose: 10 ml Documented By: Admin: 11/08/23 09:31 Dose: 10 ml Documented By: AWF Discontinued Medications Amlodipine Besylate (Amlodipine 5 Mg Tablet) 2.5 mg PO DAILY [facility] Sodium Chloride (Normal Saline 0.9%) 500 mls @ 500 mls/hr IV BOLUS ONE Stop: 11/07/23 19:33 Last Admin: 11/07/23 18:39 Dose: 500 mls/hr Documented By: MICHELLE Levothyroxine Sodium (Levothyroxine 100 Mcg Tablet) 100 mcg PO DAILY@0600 [facility] Losartan Potassium (Losartan 50 Mg Tablet) 50 mg PO BID [facility] Phytonadione (Phytonadione (Vit K1) 5 Mg Tablet) 10 mg PO NOW ONE Stop: 11/07/23 14:41 Last Admin: 11/07/23 15:04 Dose: 10 mg Documented By: NIURKA Vital Signs Vital signs: Vital Signs - 8 hr 11/07/23 12:04 11/07/23 12:34 11/07/23 12:50 Temperature 98.2 F Pulse Rate 76 60 85 Respiratory Rate 20 12 Blood Pressure 128/58 L Pulse Oximetry 100 96 Oxygen Delivery Method Room Air Oxygen Flow Rate 11/07/23 12:51 11/07/23 12:51 11/07/23 13:00 Temperature Pulse Rate 60 60 Respiratory Rate 8 L 23 Blood Pressure 124/59 L Pulse Oximetry 99 92 Oxygen Delivery Method Room Air Oxygen Flow Rate 11/07/23 13:00 11/07/23 13:15 11/07/23 13:28 Temperature Pulse Rate 60 Respiratory Rate 20 Blood Pressure 125/60 Pulse Oximetry 100 87 L Oxygen Delivery Method Room Air Oxygen Flow Rate 11/07/23 13:30 11/07/23 13:30 11/07/23 13:45 Temperature Pulse Rate 60 60 Respiratory Rate 10 L Blood Pressure 124/61 Pulse Oximetry 97 99 Oxygen Delivery Method Nasal Cannula Nasal Cannula Oxygen Flow Rate 1 1 11/07/23 14:00 11/07/23 14:00 11/07/23 14:15 Temperature Pulse Rate 60 60 Respiratory Rate Blood Pressure 128/62 Pulse Oximetry 98 98 Oxygen Delivery Method Oxygen Flow Rate 11/07/23 14:30 11/07/23 14:30 11/07/23 14:45 Temperature Pulse Rate 60 60 Respiratory Rate 14 Blood Pressure 150/65 H Pulse Oximetry 99 98 Oxygen Delivery Method Oxygen Flow Rate MDM - Neuro Symptoms/Deficit Lab Data 11/08/23 04:46 11/08/23 04:46 Labs: Lab Results 11/07/23 Range/Units 12:44 WBC 3.5 L (4.5-11.0) X10^3/uL RBC 2.77 L (4.0-5.2) X10^6/uL Hgb 9.1 L (12.0-16.0) g/dL Hct 26.5 L (36-46) % MCV 95.7 (80-100) fL MCH 32.8 (26-34) PG MCHC 34.3 (30-36) % RDW 14.6 (11.6-14.8) % Plt Count 238 (150-400) X10^3/uL Neut % (Auto) 78.9 H (50-75) % Lymph % (Auto) 13.7 L (25-40) % [place] % (Auto) 6.5 (3-14) % Eos % (Auto) 0.6 L (2-4) % Baso % (Auto) 0.3 (0-2) % Neut # (Auto) 2800 (8189-3280) /uL Lymph # (Auto) 500 L (8487-3757) /uL [place] # (Auto) 200 (0-900) /uL Eos # (Auto) 0 (0-450) /uL Baso # (Auto) 0 (0-100) /uL PT 133.2 H (9.4-12.5) SECONDS INR 11.3 H* (0.9-1.3) APTT 70 H (25.1-36.5) SECONDS Sodium 126 L (137-145) mmol/L Potassium 5.1 (3.4-5.1) mmol/L Chloride 95 L (98-107) mmol/L Carbon Dioxide 26 (22-32) mmol/L BUN 34 H (7-17) mg/dL Creatinine 0.59 (0.52-1.04) mg/dL Estimated GFR > 60 (>60) mL/min BUN/Creatinine Ratio 57.6 H (6-22) Glucose 96 (80-110) mg/dL Hemoglobin A1c 5.3 (4.0-6.0) % Calcium 9.3 (8.4-10.2) mg/dL Magnesium 2.1 (1.6-2.3) mg/dL Total Bilirubin 0.4 (0.2-1.3) mg/dL AST 77 H (14-36) IU/L ALT 73 H (<35) IU/L Alkaline Phosphatase 68 (38-126) U/L Total Creatine Kinase 184 H (30-135) U/L Troponin I < 0.012 (0.01-0.034) ng/mL Total Protein 6.3 (6.3-8.2) g/dL Albumin 3.7 (3.5-5.0) g/dL Globulin 2.6 (1.7-4.1) g/dL Albumin/Globulin Ratio 1.4 (1.0-2.8) Triglycerides 73 (35-150) mg/dL Cholesterol 164 (140-199) mg/dL LDL Cholesterol, Calc 45 (<100) mg/dL HDL Cholesterol 104 H (40-60) mg/dL TSH < 0.02 L (0.47-4.68) uIU/mL Free T4 2.07 (0.78-2.19) ng/dL Blood Type O Negative Antibody Screen Negative [facility] Narrative Medical decision making narrative: CC: Increased stutter Complicating co-morbidities: Anticoagulated on warfarin, atrial fibrillation, hypertension Data collected from: patient, daughter son-in-law and stepdaughter Social determinants of health that may influence the patients condition: Still managing on medications Medical records reviewed: Primary care notes reviewed. There is a discussion on October 21 about switching her warfarin to apixaban. This prescription was never picked up Differential considered: Stroke, intracranial hemorrhage, GI bleeding, spontaneous bleed of additional etiology Exam documented above, pertinent findings include: Patient actually appears quite healthy, she does have an increasing stutter with increasing conversation. NIH score is 1. She is absolutely no pain and no evidence of active or ongoing bleeding. Lab Test results independently reviewed as above. Pertinent findings: CBC shows low white blood cell count is 3.5. H and H has dropped in 20 days from 10.9 and 31.2 down to 9.1 and 26.5. Platelets remain appropriate INR is 11.3 Chemistries show chronically low hyponatremia at 126, slight increased to ALT and AST at 77 and 73 respectively Troponin is undetectable Independently reviewed EKG: Patient is paced at a rate of 60 Imaging studies independently reviewed: Chest x-ray shows no acute abnormality Head CT shows no evidence of intracranial bleed. Incidentally appreciated opacification of left maxillary sinus (she is not having any sinus complaints or abnormalities) Consultations: Care is reviewed with the hospitalist. Will be admitted for stroke presumably crying on November 02 for speech therapy further rehabilitation and help in determining level of care that may be best for her at home. We discussed her elevated INR. In consultation with pharmacy we are continuing to discuss whether or not she meets criteria for Kcentra. At this point there is no evidence of ongoing bleeding, ongoing stroke and she is having absolutely no pain. She is been given oral vitamin K initially. After deliberation with pharmacy and admitting doctor, will plan on FFP and hold Kcentra and lesser signs of active bleeding. Discussion: 78-year-old woman who presents with increasing stutter and neurologic symptoms concerning for a stroke on or about November 02. She has failed her swallow eval in the emergency department. She will not be a tPA candidate because of the length of time and her elevated INR INR is significantly elevated and Coumadin will be held with vitamin K given. With no active ongoing bleeding and no plans for immediate surgical intervention of any type we will discuss need for FFP, Kcentra or expected management, Family is concerned about self medication management. The patient apparently takes her own medications directly out of the bottles daily and they are concerned that she is taking them incorrectly which may be contributing to all of her symptoms. Patient and family are both are amenable to pharmacy bubble packing medications. This will need to be addressed at time of discharge. Patient will be admitted to the hospitalist service Stroke Core Measures Exclusion Criteria TPA in CVA: Symptom Onset >3 or 4.5 Hours Contraindications for TPA in CVA: INR>1.7 Discharge Plan Departure Patient Disposition: Admitted As Inpatient Clinical Impression: Elevated INR CVA (cerebral infarction) Qualifiers: Cerebral infarction mechanism: unspecified mechanism Qualified Code(s): I63.9 - Cerebral infarction, unspecified Admit Date/Time: 11/07/23 15:42 Admit Provider: David Hoffmann
--- NOTE | 2023-11-07 15:03 | P.HP_ITS ---
History of Present Illness History of Present Illness Chief complaint: Stroke like Symptoms Narrative: Megha Parks is an 78yo F with PMH of recent TIA at [facility] in Aug 2023, paroxysmal A-fib on warfarin, SSS s/p pacemaker, HTN, chronic hyponatremia, chronic celiac artery occlusion, essential thrombocytosis, Raynaud's and hypothyroidism who presents with speech difficulty. Patient was in her normal state of health until 5 days ago she developed a new significant stutter. Her family wanted her evaluated but she declined. Her symptoms persisted and also involved intermittent weakness on her left side. She finally presented to the ED where her NIH was 1. She cannot get an MRI due to her pacemaker. Last echo was Jul 2023 and was unremarkable. Patient can understand what is being said to her, but has trouble getting the words out and stutters frequently. Her INR was found to be 11. She says she takes warfarin becasue eliquis was too expensive. She denies CP, SOB, visual changes, abd pain, diarrhea, or any bleeding. [facility] Medical History External hemorrhoids Memory change Abnormal urine odor Rectal mass Raynauds syndrome Elevated blood pressure reading without diagnosis of hypertension Anxiety about health Blood pressure check Right leg paresthesias Atrial fibrillation Epilepsy (1959) TIA (transient ischemic attack) Seizures (2013) Peripheral neuropathy (2012) History of SCC (squamous cell carcinoma) of skin BCC (basal cell carcinoma of skin) Actinic keratosis Essential thrombocytosis Bilateral cataracts Fibroids (~1989) History of heavy periods (~1989) Ovarian cyst (~1987) Anemia Chicken pox (~1946) Measles (~194) Mumps (194) Rosacea (~1999) Hypothyroidism Skin cancer (~1989) Surgical History Anesthesia History of cataract removal with insertion of prosthetic lens (2009) Status post hernia repair (2014) Status post hysterectomy (1988) Family History Father Heart disease High cholesterol Brother Drug overdose Family/Other Gunshot wound Drug overdose Grandfather Asthma Emphysema of lung Grandmother No problems noted. Mother Lung cancer Bone cancer Grandfather No problems noted. Grandmother No problems noted. Social History marital status: household members: none occupational status: previously employed Smoking Status: Former smoker alcohol intake: current substance use type: does not use Meds Home Medications and Allergies Home Medications Medication Instructions Recorded Confirmed Type Bacillus coagulans-inulin 1 1 cap PO DAILY ##0 09/02/11 11/07/23 History billion cell-250 mg capsule (Probiotic Formula (inulin)) cholecalciferol (vitamin D3) 25 1,000 iu PO DAILY ##0 11/20/17 11/07/23 History mcg (1,000 unit) tablet (Vitamin D3) metoprolol tartrate 25 mg tablet 12.5 mg (1/2 x 25 mg) PO DAILY #90 11/02/20 11/07/23 Rx tabs Calcium Magnesium Citrate 2 tbsp PO DAILY 11/22/20 11/07/23 History hydroxyurea 500 mg capsule (Hydrea) 500 mg PO 4XW #53 caps 10/08/22 11/07/23 Rx warfarin 6 mg tablet See Rx Instructions .Route 05/14/23 11/07/23 Rx .COMPLEX #90 tabs warfarin 2 mg tablet See Rx Instructions PO DAILY #60 05/15/23 11/07/23 Rx tabs losartan 50 mg tablet 50 mg PO BID #180 tabs 08/12/23 11/07/23 Rx gabapentin 600 mg tablet See Rx Instructions PO .COMPLEX 09/15/23 11/07/23 Rx (Neurontin) #135 tabs levothyroxine 100 mcg tablet 100 mcg PO DAILY #90 tabs 10/10/23 11/07/23 Rx amlodipine 10 mg tablet 10 mg PO DAILY #90 tabs 10/21/23 11/07/23 Rx apixaban 2.5 mg tablet 2.5 mg PO BID #60 tabs 10/23/23 11/07/23 Rx aspirin 81 mg capsule 81 mg PO DAILY 11/07/23 11/07/23 History biotin 1,000 mcg chewable tablet 1,000 mcg PO DAILY 11/07/23 11/07/23 History sodium chloride 1,000 mg soluble 1,000 mg PO BID 11/07/23 11/07/23 History tablet vitamin E mixed 400 unit capsule 400 unit PO DAILY 11/07/23 11/07/23 History Allergies Allergy/AdvReac Type Severity Reaction Status Date / Time codeine Allergy Mild NAUSEA Verified 10/17/23 12:19 Sulfa (Sulfonamide Allergy Mild NAUSEA Verified 10/17/23 12:19 Antibiotics) morphine AdvReac Mild NAUSEA Verified 10/17/23 12:19 Review of Systems Review of Systems Narrative: All other systems reviewed with the patient and are negative unless otherwise stated. Exam Vital Signs (past 8 hours): - 11/07/23 12:04 11/07/23 12:34 11/07/23 12:50 Temperature 98.2 F Pulse Rate 76 60 85 Respiratory Rate 20 12 Blood Pressure 128/58 L Pulse Oximetry 100 96 Oxygen Delivery Method Room Air Oxygen Flow Rate 11/07/23 12:51 11/07/23 12:51 11/07/23 13:00 Temperature Pulse Rate 60 60 Respiratory Rate 8 L 23 Blood Pressure 124/59 L Pulse Oximetry 99 92 Oxygen Delivery Method Room Air Oxygen Flow Rate 11/07/23 13:00 11/07/23 13:15 11/07/23 13:28 Temperature Pulse Rate 60 Respiratory Rate 20 Blood Pressure 125/60 Pulse Oximetry 100 87 L Oxygen Delivery Method Room Air Oxygen Flow Rate 11/07/23 13:30 11/07/23 13:30 11/07/23 13:45 Temperature Pulse Rate 60 60 Respiratory Rate 10 L Blood Pressure 124/61 Pulse Oximetry 97 99 Oxygen Delivery Method Nasal Cannula Nasal Cannula Oxygen Flow Rate 1 1 11/07/23 14:00 11/07/23 14:00 11/07/23 14:15 Temperature Pulse Rate 60 60 Respiratory Rate Blood Pressure 128/62 Pulse Oximetry 98 98 Oxygen Delivery Method Oxygen Flow Rate 11/07/23 14:30 11/07/23 14:30 11/07/23 14:45 Temperature Pulse Rate 60 60 Respiratory Rate 14 Blood Pressure 150/65 H Pulse Oximetry 99 98 Oxygen Delivery Method Oxygen Flow Rate Oxygen Delivery Method Nasal Cannula Oxygen Flow Rate 1 Narrative Exam Narrative: GEN: no acute distress, at times frustrated because of her stutter HEENT: moist mucous membranes, PERRL NECK: trachea midline, no JVD CV: regular rate and rhythm, no murmurs PULM: clear bilaterally ABD: soft, nontender, nondistended, no organomegaly EXT: warm and well perfused with no edema NEURO: awake, alert, oriented, significant stutter when speaking Objective Labs 11/07/23 12:44 11/07/23 12:44 Labs: Laboratory Results - last 24 hr 11/07/23 12:44 WBC 3.5 L RBC 2.77 L Hgb 9.1 L Hct 26.5 L MCV 95.7 MCH 32.8 MCHC 34.3 RDW 14.6 Plt Count 238 Neut % (Auto) 78.9 H Lymph % (Auto) 13.7 L [place] % (Auto) 6.5 Eos % (Auto) 0.6 L Baso % (Auto) 0.3 Neut # (Auto) 2800 Lymph # (Auto) 500 L [place] # (Auto) 200 Eos # (Auto) 0 Baso # (Auto) 0 PT 133.2 H INR 11.3 H* APTT 70 H Sodium 126 L Potassium 5.1 Chloride 95 L Carbon Dioxide 26 BUN 34 H Creatinine 0.59 Estimated GFR > 60 BUN/Creatinine Ratio 57.6 H Glucose 96 Calcium 9.3 Magnesium 2.1 Total Bilirubin 0.4 AST 77 H ALT 73 H Alkaline Phosphatase 68 Total Creatine Kinase 184 H Troponin I < 0.012 Total Protein 6.3 Albumin 3.7 Globulin 2.6 Albumin/Globulin Ratio 1.4 Assessment & Plan Assessment & Plan narrative: # likely subacute stroke in setting of supratherapeutic INR -patient notes 5 days of new stuttered speech and difficulty with word finding, NIH 1 in ED -INR 11 in ED, recieved vit K and FFP -CT head negative -cannot get MRI brain due to pacemaker -monitor INR -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 Hodgson cardiology Code status is full code. DVT prophylaxis with SCDs. Proxy is daughter Yenifer. I have reviewed home meds and used all available resources to reconcile the home meds. Case discussed with ED physician/APC and patient will be admitted to the hospitalist service for further workup and management. This patient will be admitted as observation and will require less than 2 midnights of hospital time to treat possible stroke.
[2023-11-07] MEDS: PHYTONADIONE (VIT K1) 5 MG TABLET 10 MG PO (15:04)
--- NOTE | 2023-11-07 15:21 | PC.NURSE ---
Pt able to swallow water with no complications. When given PO medications with water she aspirated. Pt states difficulty swallowing medications since her visit to family in [place]. Pt states these problems started 11/02/23 upon waking up that morning.
--- NOTE | 2023-11-07 16:05 | PC.NURSE ---
Pt states she would be unable to provide a urine specimen if someone is in the room with her while on the toilet. Pt was told we could leave her alone in the room on a bedpan, and pt informed it was unsafe to leave her unattended in the room while out of bed. Pt agreed to bedpan and she was able to urinate.
[2023-11-07 16:23] LABS: Ur Creatinine Normal (Normal); Ur Specific Gravity Normal (Normal); Urine pH Normal (Normal)
[2023-11-07 16:24] LABS: UR Morphine/Opiate cutoff 300 Negative (Negative); Urine Amphetamines Negative (Negative); Urine Barbiturates Negative (Negative); Urine Benzodiazepines Negative (Negative); Urine Cocaine Negative (Negative); Urine MDMA Negative (Negative); Urine Methadone Negative (Negative); Urine Methamphetamines Negative (Negative); Urine Oxycodone Negative (Negative); Urine Phencyclidine Negative (Negative); Urine Tetrahydrocannabinol Negative (Negative); Urine Tricyclic Antidepressant Negative (Negative)
[2023-11-07 16:26] LABS: Bacteria Urine None Seen; Culture Indicated Urine Specimen Cultured; RBC Urine None Seen (0-5/HPF); Squamous Epithelial Cell Urine 0-1 /HPF (0-5/HPF); WBC Urine 1-5/HPF (0-5/HPF)
--- NOTE | 2023-11-07 17:38 | OT.IPNOTE ---
Spoke to hospitalist, okay to hold for therapy eval due to high INR.
[2023-11-07 18:00] LABS: Cholesterol 164 mg/dL (140-199); HDL Cholesterol 104 mg/dL (40-60); Hemoglobin A1C% w Est Avg Glu 5.3 % (4.0-6.0); LDL Cholesterol Calculated 45 mg/dL (<100); Triglycerides 73 mg/dL (35-150)
[2023-11-07 18:32] LABS: TSH w/ Reflex to FT4 < 0.02 uIU/mL (0.47-4.68)
[2023-11-07] MEDS: SODIUM CHLORIDE 0.9% 500 ML IV (18:39)
[2023-11-07 19:31] LABS: Free T4, Direct Thyroxine 2.07 ng/dL (0.78-2.19)
--- NOTE | 2023-11-07 19:48 | PC.NURSE ---
500 cc bolus completed rechecked her vital signs. B/P 110/47, HR. 60. Denies any chest pain, headache & other discomfort. Will continue plan of care & monitor.
[2023-11-07] MEDS: SODIUM CHLORIDE 1,000 MG TABLET 1000 MG PO (21:07)
[2023-11-07] MEDS: GABAPENTIN 600 MG TABLET PO (21:07)
[2023-11-08 00:46] VITALS: BP 117/55; PULSE 60; RESP 16; TEMP 36.2; O2SAT 96
[2023-11-08 05:07] LABS: Add Manual Diff / Slide Review NO; Basophils Absolute Auto 0 /uL (0-100); Basophils Percent Auto 0.5 % (0-2); Eosinophils Absolute Auto 0 /uL (0-450); Eosinophils Percent Auto 0.7 % (2-4); Hematocrit 24.6 % (36-46); Hemoglobin 8.5 g/dL (12.0-16.0); Lymphocytes Absolute Auto 700 /uL (1100-4500); Lymphocytes Percent Auto 23.6 % (25-40); Mean Corpuscular HGB Conc 34.5 % (30-36); Mean Corpuscular Hemoglobin 33.1 PG (26-34); Monocytes Absolute Auto 300 /uL (0-900); Monocytes Percent Auto 8.8 % (3-14); Neutrophils Absolute Auto 2100 /uL (1500-7000); Neutrophils Percent Auto 66.4 % (50-75); Platelet Count 199 X10^3/uL (150-400); Red Blood Cell Count 2.56 X10^6/uL (4.0-5.2); Red Cell Distribution Width 14.2 % (11.6-14.8); White Blood Cell Count 3.1 X10^3/uL (4.5-11.0)
[2023-11-08 05:12] LABS: BUN Creatinine Ratio 40.4 (6-22); Blood Urea Nitrogen 21 mg/dL (7-17); Calcium 8.8 mg/dL (8.4-10.2); Carbon Dioxide 25 mmol/L (22-32); Chloride 103 mmol/L (98-107); Estimated Glomerular Filt Rate > 60 mL/min (>60); Glucose 66 mg/dL (80-110); HEMOLYSIS < 15 (0-50); Potassium 4.1 mmol/L (3.4-5.1); Sodium 129 mmol/L (137-145)
[2023-11-08 05:15] LABS: INR 2.9 (0.9-1.3); Prothrombin Time 33.7 SECONDS (9.4-12.5)
[2023-11-08 05:30] VITALS: BP 117/52; PULSE 61; RESP 20; TEMP 36.4; O2SAT 96
[2023-11-08 07:52] LABS: Alanine Aminotransferase 81 IU/L (<35); Albumin 3.1 g/dL (3.5-5.0); Albumin Globulin Ratio 1.2 (1.0-2.8); Alkaline Phosphatase 76 U/L (38-126); Aspartate Aminotransferase 71 IU/L (14-36); Bilirubin Total 0.4 mg/dL (0.2-1.3); Bilirubin Unconjugated 0.3 mg/dL (0.0-1.1); Globulin 2.6 g/dL (1.7-4.1); HEMOLYSIS < 15 (0-50); Total Protein 5.7 g/dL (6.3-8.2)
[2023-11-08 08:02] VITALS: BP 119/54; PULSE 64; RESP 18; TEMP 36; O2SAT 96
[2023-11-08] MEDS: ASPIRIN EC 81 MG TABLET PO (09:30)
[2023-11-08] MEDS: METOPROLOL IR 25 MG TABLET 12.5 MG PO (09:30)
[2023-11-08] MEDS: GABAPENTIN 300 MG CAPSULE PO (09:30)
[2023-11-08] MEDS: SODIUM CHLORIDE 1,000 MG TABLET 1000 MG PO ×2 (09:30→20:35)
[2023-11-08] MEDS: SODIUM CHLORIDE 0.9% FLUSH 10 ML IV ×2 (09:31→20:01)
--- NOTE | 2023-11-08 10:10 | PT.IIE ---
Current Diagnoses Cerebral infarction, unspecified (11/07/23) Surgical History (Last Reviewed 11/07/23 @ 15:06 by Kaylan Alvarez MD) Anesthesia History of cataract removal with insertion of prosthetic lens (2009) Status post hernia repair (2014) Status post hysterectomy (1988) Medical History (Last Reviewed 11/07/23 @ 15:06 by Kaylan Alvarez MD) Abnormal urine odor Actinic keratosis Anemia Anxiety about health Atrial fibrillation BCC (basal cell carcinoma of skin) Bilateral cataracts Blood pressure check Chicken pox (~1946) Elevated blood pressure reading without diagnosis of hypertension Epilepsy (1959) Essential thrombocytosis External hemorrhoids Fibroids (~1989) History of heavy periods (~1989) History of SCC (squamous cell carcinoma) of skin Hypothyroidism Measles (~1946) Memory change Mumps (1946) Ovarian cyst (~1987) Peripheral neuropathy (2012) Raynauds syndrome Rectal mass Right leg paresthesias Rosacea (~1999) Seizures (2013) Skin cancer (~1989) TIA (transient ischemic attack) Physical Therapy Inpatient Evaluation/Re-Eval M1 PT/OT-IP Prior Functional Status Start: 11/08/23 12:13 Freq: NEEDED Status: Active Protocol: Document 11/08/23 10:10 AB (Rec: 11/08/23 12:40 AB [id number]) Medical Review Prior Functional Status Medical History Reviewed Yes Communication able to make needs known but with stuttering Mobility and Gait pt stated that she was modified independent with all mobilities and ambulation without AD but started using a SPC ~ 1 week ago. Daughter stated that they noticed pt having unsteadiness with ambulation and they gave her a SPC to use Social History Household Members none Living Arrangements Apartment/Condo Number of Floors (Floors) One Floor Number of Stairs To Enter/Railing? pt lives on a 2nd floor condo: access to an elevator to get to her floor Home Environment Standard Height Toilet,Tub/ Shower,Elevator Home Equipment Straight Cane,Hand Held Shower ,Grab Bars In Shower M2 PT-IP Current Condition Start: 11/08/23 12:13 Freq: NEEDED Status: Active Protocol: Document 11/08/23 10:10 AB (Rec: 11/08/23 12:40 AB [id number]) Physical Therapy Current Condition Current Condition Evaluation Date 11/08/23 Treatment Diagnosis CVA; difficulty in walking Onset Date 11/07/23 M3 PT-IP Subjective Start: 11/08/23 12:13 Freq: NEEDED Status: Active Protocol: Document 11/08/23 10:10 AB (Rec: 11/08/23 12:40 AB [id number]) Subjective Physical Therapy Visit Type Type Initial Evaluation Visit Start Time 10:10 Visit Stop Time 11:55 Total Visit Minutes 65 Notes pt seen for split visits: 1010 -1020 am and 1100 to 1155am Number of TAR POT MAN Visits 0 Physical Therapy Visit Comments Patient Comments pt is agreeable to do PT Therapy Pain Assessment Pain When Pain Assessed During Mobility Location Lower Back Intensity 10 Scale Used Numeric (0 - 10) Pain Management Techniques Modification of Treatment,Re- positioning M4 PT-IP Mobility and Gait Start: 11/08/23 12:13 Freq: NEEDED Status: Active Protocol: Document 11/08/23 10:10 AB (Rec: 11/08/23 12:40 AB [id number]) PT-Bed Mobility Assessment Rolling Type of Rolling Log Rolling Level of Assist Maximal Assistance,1 Person Assistance Supine to Sit Supine to Sit Moderate Assistance,Maximum Assistance,Bedrails Sit to Supine Sit to Supine Moderate Assistance,Maximum Assistance PT-Transfer Assessment Sit to and From Stand Sit to and from Stand Minimal Assistance,1 Person Assistance,Use of Upper Extremities Equipment Transfer Assistive Device Gait Belt,Front Wheeled Walker Orthotic/Prosthetic Devices or Brace: No Transfers Transfer Destination Toilet Transfer Technique ambulated Transfer Ability Level of Assist Minimal Assistance Comments Mobility Comments pt supine in bed and agreeable to do PT. obtained PLOF and home set up. SPACER TYPE BAR AND SEGMENT arrived and has to work with pt. Checked back on pt after SPACER [employer] SEGMENT session. pt supine in bed. BP: 110/55. pt requested to use the toilet. completed supine to sit mod to max A and max cues. presents with difficulty completing task and requiring increase time to complete. with (+) thoracic kyphosis. completed sit to stand min A x 2 attempts to stand and cues for techniques. pt ambulated towards the toilet using FWW min A and cues. presents with unsteady ambulation with NBOS . pt requiring mod A for controlled descent to the toilet. Brief provided to pt and pt wants to try to put brief on with forward bending and a popped sound heard and pt stated that it's her back and c/o increase pain. assisted pt with hygiene care and brief management. pt ambulated towards the chair using FWW min A. pt stated that she had chronic back pain and uses CBD oil but pain currently is worse 08/19. pt requested to go back to bed. completed sit to stand from the chair min A and ambulated to the bed using FWW min A. instructed pt to do log roll for sit to supine and completed requiring mod to max A and max cues. position pt in 90-90 supine for decrease LBP. call light and table placed within reach. informed pt and family regarding acute rehab recommendation. also informed pt and family regarding LBP occurence and eventually benefiting from outpt PT for core/back strengthening. informed nurse and hospitalist regarding pt's back pain and popping sound during toileting . Gait Assessment Gait Gait Assistance Required: Minimum Assistance Distance (Feet) 15 Able to Maintain Weight Bearing Status Yes During Gait Assistive Devices Assistive Device Gait Belt,Front Wheeled Walker Orthotic/Prosthetic Devices or Brace: No Gait Deviations General Gait Pattern Antalgic,Decreased Stride Length,Decreased Feet Clearance,Narrow Based Gait, Step-to Gait Factors Limiting Gait Function Factors Limiting Gait Function Decreased Activity Tolerance, Decreased Strength,Limited Range of Motion,Pain,Poor Balance,Poor Safety Awareness PT-Balance Assessment Sitting Balance and Reactions Static Sitting Balance Ability Fair Dynamic Sitting Balance Ability Fair Standing Balance and Reactions Static Standing Balance Ability Fair Dynamic Standing Balance Ability Poor Device Used FWW M5 PT-IP Objective Assessments Start: 11/08/23 12:13 Freq: NEEDED Status: Active Protocol: Document 11/08/23 10:10 AB (Rec: 11/08/23 12:40 AB [id number]) Orientation Orientation/Cognition Level of Alertness Alert Orientation Name,Place,Situation Safety Awareness Decreased Safety Awareness Comments pt with stuttering speech but less after SPACER [employer] SEGMENT session this am Gross Range of Motion Lower Extremity ROM Assessment Within Functional Limits Strength Lower Extremity Strength Hip 4-/5 Knee 4-/5 Ankle 4-/5 Sensation Assessment Sensation Gross Sensation WNL Muscle Tone Muscle Tone WNL Yes M6 PT-IP Treatment Start: 11/08/23 12:13 Freq: NEEDED Status: Active Protocol: Document 11/08/23 10:10 AB (Rec: 11/08/23 12:40 AB [id number]) Physical Therapy Treatment Education Education Provided Safety M7 PT-IP Assessment and Plan Start: 11/08/23 12:13 Freq: NEEDED Status: Active Protocol: Document 11/08/23 10:10 AB (Rec: 11/08/23 12:40 AB [id number]) PT Summary Assessment and Plan Potential Rehabilitation Potential Fair Status of Condition at Evaluation Evolving Summary Impairments Pain,ROM,Strength,Balance, Coordination,Sensation,Tone, Cognition,Bed Mobility, Transfers,Gait,Activity Tolerance Assessment Summary pt is an 78 y/o F who presented to the ED due to stuttering speech. pt admitted for CVA but MRI was not completed due to pt's pacemaker. pt requiring mod to max A for bed mobility, min A for transfers and ambulation using FWW. pt was independent with all mobilities without use of AD prior to admission and only started using a SPC a few days /week ago. pt currently will need FWW for ambulation and presents with unsteady gait with narrow MAYKEL. pt will benefit from acute rehab to improve overall strength and mobility independence. Goals Bed Mobility Goal Independent Transfer Goal Independent,Front Wheeled Walker Gait Goal Independent,Front Wheel Walker Gait Distance 200 Other Goals improve transfers and ambulation using LRAD/without AD 300 ft mod I Days to Meet Goals 10 Frequency of Treatment Frequency Of Treatment Once a Day Treatment Plan Physical Therapy Treatment Plan Bed Mobility Training,Transfer Training,Gait Training, Therapeutic Exercise,Balance Retraining,Discharge Planning, Hot or Cold Pack,Neuromuscular Re-ed,Coordination Retraining ,Manual Therapy Precautions Lumbar Precautions Log Roll,No Twisting,Limit Bending,Lifting Restriction of 10 lbs Recommendations To Nursing Amount of Assist Needed 1 Person Assist Discharge Recommendations PT Discharge Recommendations SNF Rehab,Acute Rehab,SNF vs Acute Rehab Equipment Needed for Home Before FWW if pt goes home Discharge Transportation Needs at Discharge Private Vehicle,Wheelchair/ Cabulance
--- NOTE | 2023-11-08 10:56 | PT-IP ANOTE ---
checked with nurse and stated that pt continues to have low BP: 77/39. checked with hospitalist and stated that he will be talkiing to pt and family for possible hospice care but to put pt on hold for today and will d/c when hospice decision is definite. will f/u.
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
--- NOTE | 2023-11-08 12:12 | PC.NURSE ---
Addendum entered by Jasmeet Gastelum R.N. 11/08/23 16:37: family attentive throughout the day. Pt's speech more understandable as day has gone on, better able to make her needs known. Original Note: Pt alert responsive to activities, continues to have word finding/stuttering issues. Offers no overt complaints. Reported by Chastity in PT that Pt was up to BR and sitting on the toilet when Pt states she heard a pop. Was assisted back to bed and positioned to comfort.
[2023-11-08 12:40] VITALS: BP 121/52; PULSE 60; RESP 19; TEMP 36.3; O2SAT 98
--- NOTE | 2023-11-08 13:53 | CM.DANOTE ---
Addendum entered by GISELE King 11/08/23 15:22: BAKER CHEF faxed neg covid test to [facility]. BAKER CHEF lvmx2 to inquire about referral acceptance- no response as of 1514. Plan: pending acceptance, pt will dc to [facility] for acute inpt rehab when medically stable, likely tomorrow. CM team will continue to follow closely. Original Note: DCP Assessment Note Pt is a 78yo F here following likely stroke, cannot confirm with MRI due to pt having a pacemaker. PMH of recent TIA in Aug 2023. P[facility] reviewed EMR. Per speech/PT, rec acute inpt rehab. PT transport rec for wc van or family in POV. No OT available. Per provider, medically stable to dc to acute inpt when bed secured. BAKER CHEF entered room and introduced self and role. Pt resting in bed and accompanied by dtr Yenifer, SARBJIT Stallings, and Dtr Megha ([phone]). Pt was able to make needs and preferences known but speech was slow and stuttered. BAKER CHEF outlined different rehab options available. Pt preference is [facility], [facility], and then [facility] for SNF if not accepted by inpt rehab. Dtr Megha can transport in POV. BAKER CHEF spoke with Ursula at [facility]. report they could likely accept her tomorrow. Willing to review. BAKER CHEF faxed (f [phone]) face sheet, H&P, med list, PT/Speech notes, and recent labs for review. BAKER CHEF placed order for COVID test- will fax results when available. BAKER CHEF updated provider. Plan: pending acceptance, pt will dc to [facility] for acute inpt rehab when medically stable, likely tomorrow. CM team will continue to follow closely. GISELE King Discharge Planning/Care Management CM Discharge Assessment Start: 11/08/23 13:47 Freq: Status: Active Protocol: Document 11/08/23 13:47 SL (Rec: 11/08/23 13:51 SL [id number]) Discharge Planning Assessment Assigned Scaffolding Helper GISELE Mendoza DPOA/Assigned Designee Name Megha ArceoRema (daughter) Contact Information [phone] Advance Directives? Yes Advance Directives on File No History Provided By Patient,Family Member,Medical Record Prior Living Arrangements Apartment/Condo Household Members none DME Already Rented / Owned Cane Comment indep at baseline Comment Inpt acute rehab- Preference [facility] second choice [facility] , third choice [facility] Discharge Plan Inpatient Rehab Unit Transportation Arrangement Friend or family Referrals Initiated Other Additional Comment [facility] reviewing SNF/HH Preference if no accepting acute rehab, SNF preference is [facility] Whiteboard Updated in Patient Room with Yes name and ext. # of Scaffolding Helper Review Status In Process Next Review Type Continued Stay Review
[2023-11-08 14:08] LABS: COVID19 -Nasal RAPID Negative (Negative)
--- NOTE | 2023-11-08 14:32 | PM.PN.1 ---
Subjective Subjective Interval history: Patient worked with DIRECTOR OF ACCOUNTS PAYABLE today and showed improvement in stuttering. Inpatient stroke rehab recommended. SENIOR SHAREPOINT DEVELOPER arranging. Exam Vital Signs (past 8 hours): - 11/08/23 08:02 11/08/23 12:40 Temperature 96.8 F L 97.3 F L Pulse Rate 64 60 Respiratory Rate 18 19 Blood Pressure 119/54 L 121/52 L Pulse Oximetry 96 98 Oxygen Flow Rate 0 0 Oxygen Delivery Method Room Air Oxygen Flow Rate 0 Narrative Exam Narrative: GEN: no acute distress HEENT: moist mucous membranes, PERRL NECK: trachea midline, no JVD CV: regular rate and rhythm, no murmurs PULM: clear bilaterally ABD: soft, nontender, nondistended, no organomegaly EXT: warm and well perfused with no edema NEURO: awake, alert, oriented, significant stutter when speaking Objective Labs 11/08/23 04:46 11/08/23 04:46 Labs: Laboratory Results - last 24 hr 11/07/23 11/07/23 11/08/23 12:44 16:22 04:46 WBC 3.1 L RBC 2.56 L Hgb 8.5 L Hct 24.6 L MCV 96.0 MCH 33.1 MCHC 34.5 RDW 14.2 Plt Count 199 Neut % (Auto) 66.4 Lymph % (Auto) 23.6 L [place] % (Auto) 8.8 Eos % (Auto) 0.7 L Baso % (Auto) 0.5 Neut # (Auto) 2100 Lymph # (Auto) 700 L [place] # (Auto) 300 Eos # (Auto) 0 Baso # (Auto) 0 PT 33.7 H D INR 2.9 H Sodium 129 L Potassium 4.1 Chloride 103 Carbon Dioxide 25 BUN 21 H Creatinine 0.52 Estimated GFR > 60 BUN/Creatinine Ratio 40.4 H Glucose 66 L Hemoglobin A1c 5.3 Calcium 8.8 Total Bilirubin Conjugated Bilirubin Unconjugated Bilirubin AST ALT Alkaline Phosphatase Total Protein Albumin Globulin Albumin/Globulin Ratio Triglycerides 73 Cholesterol 164 LDL Cholesterol, Calc 45 HDL Cholesterol 104 H TSH < 0.02 L Free T4 2.07 Urine RBC None seen Urine WBC 1-5/hpf Ur Squamous Epith Cells 0-1 /hpf Urine Bacteria None seen Ur Culture Indicated? Specimen cultured U Opiates 300ng/mL cut Negative Ur Oxycodone Screen Negative Urine Methadone Screen Negative Ur Barbiturates Screen Negative U Tricyclic Antidepress Negative Ur Phencyclidine Scrn Negative Ur Amphetamines Screen Negative U Methamphetamines Scrn Negative Ur MDMA Scrn (Ecstasy) Negative U Benzodiazepines Scrn Negative Urine Cocaine Screen Negative U Marijuana (THC) Screen Negative Urine pH Normal Urine Specific [place] Normal Ur Creatinine Normal SARS-CoV-2 (PCR) Blood Type O Negative Antibody Screen Negative 11/08/23 11/08/23 07:32 13:45 WBC RBC Hgb Hct MCV MCH MCHC RDW Plt Count Neut % (Auto) Lymph % (Auto) [place] % (Auto) Eos % (Auto) Baso % (Auto) Neut # (Auto) Lymph # (Auto) [place] # (Auto) Eos # (Auto) Baso # (Auto) PT INR Sodium Potassium Chloride Carbon Dioxide BUN Creatinine Estimated GFR BUN/Creatinine Ratio Glucose Hemoglobin A1c Calcium Total Bilirubin 0.4 Conjugated Bilirubin 0.0 Unconjugated Bilirubin 0.3 AST 71 H ALT 81 H Alkaline Phosphatase 76 Total Protein 5.7 L Albumin 3.1 L Globulin 2.6 Albumin/Globulin Ratio 1.2 Triglycerides Cholesterol LDL Cholesterol, Calc HDL Cholesterol TSH Free T4 Urine RBC Urine WBC Ur Squamous Epith Cells Urine Bacteria Ur Culture Indicated? U Opiates 300ng/mL cut Ur Oxycodone Screen Urine Methadone Screen Ur Barbiturates Screen U Tricyclic Antidepress Ur Phencyclidine Scrn Ur Amphetamines Screen U Methamphetamines Scrn Ur MDMA Scrn (Ecstasy) U Benzodiazepines Scrn Urine Cocaine Screen U Marijuana (THC) Screen Urine pH Urine Specific [place] Ur Creatinine SARS-CoV-2 (PCR) Negative Blood Type Antibody Screen [facility] Medical History External hemorrhoids Memory change Abnormal urine odor Rectal mass Raynauds syndrome Elevated blood pressure reading without diagnosis of hypertension Anxiety about health Blood pressure check Right leg paresthesias Atrial fibrillation Epilepsy (1959) TIA (transient ischemic attack) Seizures (2013) Peripheral neuropathy (2012) History of SCC (squamous cell carcinoma) of skin BCC (basal cell carcinoma of skin) Actinic keratosis Essential thrombocytosis Bilateral cataracts Fibroids (~1989) History of heavy periods (~1989) Ovarian cyst (~1987) Anemia Chicken pox (~1946) Measles (~1946) Mumps (1946) Rosacea (~1999) Hypothyroidism Skin cancer (~1989) Surgical History Anesthesia History of cataract removal with insertion of prosthetic lens (2009) Status post hernia repair (2014) Status post hysterectomy (1988) Family History Father Heart disease High cholesterol Brother Drug overdose Family/Other Gunshot wound Drug overdose Grandfather Asthma Emphysema of lung Grandmother No problems noted. Mother Lung cancer Bone cancer Grandfather No problems noted. Grandmother No problems noted. Social History marital status: household members: none occupational status: previously employed Smoking Status: Former smoker alcohol intake: current substance use type: does not use Assessment & Plan Assessment & Plan narrative: # likely subacute stroke in setting of supratherapeutic INR -patient notes 5 days of new stuttered speech and difficulty with word finding, NIH 1 in ED -INR 11 in ED, recieved vit K and FFP -CT head negative -cannot get MRI brain due to pacemaker -monitor INR -PT/OT/DIRECTOR OF ACCOUNTS PAYABLE evals rec inpatient rehab -INR down to 2.9 # chronic hyponatremia, improving -Na 126 on admission -continue home salt tabs 1g BID -now 129 # paroxysmal A-fib -continue metoprolol -holding warfarin due to elevated INR -will look into simmons of xarelto and pradaxa with her insurance given eliquis was $500/mo # HTN -continue amlodipine and losartan given out of permissive HTN window # hypothyroidism -TSH low at <0.02, T4 normal at 2.07 -hold synthroid # essential thrombocytosis -platelets normal on admission -continue hydroxyurea # 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 Hodgson cardiology Code status is full code. DVT prophylaxis with SCDs. Proxy is daughter Yenifer. I have reviewed home meds and used all available resources to reconcile the home meds. Dispo: Pending inpatient rehab placement, likely on 11/09. Quality VTE Deep Vein Thrombosis/Pulmonary Embolism Present on Admission: No
[2023-11-08 16:00] VITALS: BP 134/50; PULSE 60; RESP 19; TEMP 36.2; O2SAT 94
[2023-11-08 19:00] VITALS: BP 125/41; PULSE 60; RESP 16; TEMP 36; O2SAT 98
[2023-11-08] MEDS: GABAPENTIN 600 MG TABLET PO (20:35)
[2023-11-08] MEDS: ACETAMINOPHEN 325 MG TABLET 650 MG PO (21:22)
[2023-11-09] VITALS: BP 129/52; PULSE 61; RESP 17; TEMP 36.1; O2SAT 97
[2023-11-09 04:00] VITALS: BP 115/49; PULSE 60; RESP 18; TEMP 36.1; O2SAT 96
[2023-11-09 05:19] LABS: Add Manual Diff / Slide Review NO; Basophils Absolute Auto 0 /uL (0-100); Basophils Percent Auto 0.4 % (0-2); Eosinophils Absolute Auto 0 /uL (0-450); Eosinophils Percent Auto 1.1 % (2-4); Hematocrit 24.7 % (36-46); Hemoglobin 8.5 g/dL (12.0-16.0); Lymphocytes Absolute Auto 700 /uL (1100-4500); Lymphocytes Percent Auto 22.7 % (25-40); Mean Corpuscular HGB Conc 34.6 % (30-36); Mean Corpuscular Hemoglobin 33.4 PG (26-34); Mean Corpuscular Volume 96.6 fL (80-100); Monocytes Absolute Auto 300 /uL (0-900); Monocytes Percent Auto 9.3 % (3-14); Neutrophils Absolute Auto 2100 /uL (1500-7000); Neutrophils Percent Auto 66.5 % (50-75); Platelet Count 190 X10^3/uL (150-400); Red Blood Cell Count 2.55 X10^6/uL (4.0-5.2); Red Cell Distribution Width 14.4 % (11.6-14.8); White Blood Cell Count 3.2 X10^3/uL (4.5-11.0)
[2023-11-09 05:25] LABS: BUN Creatinine Ratio 34.5 (6-22); Blood Urea Nitrogen 19 mg/dL (7-17); Calcium 8.7 mg/dL (8.4-10.2); Carbon Dioxide 25 mmol/L (22-32); Chloride 101 mmol/L (98-107); Estimated Glomerular Filt Rate > 60 mL/min (>60); Glucose 67 mg/dL (80-110); HEMOLYSIS < 15 (0-50); Potassium 4.4 mmol/L (3.4-5.1); Sodium 129 mmol/L (137-145)
[2023-11-09 05:28] LABS: INR 2.4 (0.9-1.3); Prothrombin Time 27.8 SECONDS (9.4-12.5)
[2023-11-09 08:00] VITALS: BP 131/52; PULSE 63; RESP 16; TEMP 35.7; O2SAT 96
[2023-11-09] MEDS: HYDROXYUREA 500 MG CAPSULE PO (09:43)
[2023-11-09] MEDS: SODIUM CHLORIDE 0.9% FLUSH 10 ML IV ×2 (09:43→20:20)
[2023-11-09] MEDS: SODIUM CHLORIDE 1,000 MG TABLET 1000 MG PO ×2 (09:43→20:20)
[2023-11-09] MEDS: ASPIRIN EC 81 MG TABLET PO (09:43)
--- NOTE | 2023-11-09 10:38 | PM.PN.1 ---
Subjective Subjective Interval history: Patient's speech much improved today, but still with some stuttering. She is requesting a normal diet and not dysphagia. ENROLLMENT MANAGEMENT COORDINATOR arranged acute rehab [facility]. Patient profusely thankful for the staff and good care she has been recieving. Exam Vital Signs (past 8 hours): - 11/09/23 04:00 11/09/23 08:00 Temperature 97.0 F L 96.3 F L Pulse Rate 60 63 Respiratory Rate 18 16 Blood Pressure 115/49 L 131/52 L Pulse Oximetry 96 96 Oxygen Flow Rate 0 Oxygen Delivery Method Room Air Oxygen Flow Rate 0 Narrative Exam Narrative: GEN: no acute distress HEENT: moist mucous membranes, PERRL NECK: trachea midline, no JVD CV: regular rate and rhythm, no murmurs PULM: clear bilaterally ABD: soft, nontender, nondistended, no organomegaly EXT: warm and well perfused with no edema NEURO: awake, alert, oriented, improved stutter when speaking Objective Labs 11/09/23 04:48 11/09/23 04:48 Labs: Laboratory Results - last 24 hr 11/08/23 11/09/23 13:45 04:48 WBC 3.2 L RBC 2.55 L Hgb 8.5 L Hct 24.7 L MCV 96.6 MCH 33.4 MCHC 34.6 RDW 14.4 Plt Count 190 Neut % (Auto) 66.5 Lymph % (Auto) 22.7 L [place] % (Auto) 9.3 Eos % (Auto) 1.1 L Baso % (Auto) 0.4 Neut # (Auto) 2100 Lymph # (Auto) 700 L [place] # (Auto) 300 Eos # (Auto) 0 Baso # (Auto) 0 PT 27.8 H D INR 2.4 H Sodium 129 L Potassium 4.4 Chloride 101 Carbon Dioxide 25 BUN 19 H Creatinine 0.55 Estimated GFR > 60 BUN/Creatinine Ratio 34.5 H Glucose 67 L Calcium 8.7 SARS-CoV-2 (PCR) Negative [facility] Medical History External hemorrhoids Memory change Abnormal urine odor Rectal mass Raynauds syndrome Elevated blood pressure reading without diagnosis of hypertension Anxiety about health Blood pressure check Right leg paresthesias Atrial fibrillation Epilepsy (1959) TIA (transient ischemic attack) Seizures (2014) Peripheral neuropathy (2013) History of SCC (squamous cell carcinoma) of skin BCC (basal cell carcinoma of skin) Actinic keratosis Essential thrombocytosis Bilateral cataracts Fibroids (~1989) History of heavy periods (~1989) Ovarian cyst (~1987) Anemia Chicken pox (~1946) Measles (~1946) Mumps (1946) Rosacea (~1999) Hypothyroidism Skin cancer (~1989) Surgical History Anesthesia History of cataract removal with insertion of prosthetic lens (2009) Status post hernia repair (2014) Status post hysterectomy (1988) Family History Father Heart disease High cholesterol Brother Drug overdose Family/Other Gunshot wound Drug overdose Grandfather Asthma Emphysema of lung Grandmother No problems noted. Mother Lung cancer Bone cancer Grandfather No problems noted. Grandmother No problems noted. Social History marital status: household members: none occupational status: previously employed Smoking Status: Former smoker alcohol intake: current substance use type: does not use Assessment & Plan Assessment & Plan narrative: # likely subacute stroke in setting of supratherapeutic INR -patient notes 5 days of new stuttered speech and difficulty with word finding, NIH 1 in ED -INR 11 in ED, recieved vit K and FFP -CT head negative -cannot get MRI brain due to pacemaker -monitor INR -PT/OT/CHANNEL ROUGHER evals rec inpatient rehab -INR down to 2.4 -restart eliquis # chronic hyponatremia, improving -Na 126 on admission -continue home salt tabs 1g BID -now 129 # paroxysmal A-fib -continue metoprolol -holding warfarin due to elevated INR -sent eliquis to patient's pharmacy and it is $47 copay for a month supply, patient should go back on eliquis and not warfarin -restart eliquis 2.5mg BID # HTN -continue amlodipine and losartan given out of permissive HTN window # hypothyroidism -TSH low at <0.02, T4 normal at 2.07 -hold synthroid # essential thrombocytosis -platelets normal on admission -continue hydroxyurea # 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 Hodgson cardiology Code status is full code. DVT prophylaxis with SCDs. Proxy is daughter Yenifer. I have reviewed home meds and used all available resources to reconcile the home meds. Dispo: Dc to [facility] acute rehab on 11/10. Quality VTE Deep Vein Thrombosis/Pulmonary Embolism Present on Admission: No
--- NOTE | 2023-11-09 11:25 | PT.IPTN ---
Current Diagnoses Cerebral infarction, unspecified (11/07/23) Physical Therapy Treatment Note M2 PT-IP Current Condition Start: 11/08/23 12:13 Freq: NEEDED Status: Active Protocol: Document 11/08/23 10:10 AB (Rec: 11/08/23 12:40 AB [id number]) Physical Therapy Current Condition Current Condition Evaluation Date 11/08/23 Treatment Diagnosis CVA; difficulty in walking Onset Date 11/07/23 M3 PT-IP Subjective Start: 11/08/23 12:13 Freq: NEEDED Status: Active Protocol: Document 11/09/23 10:40 KS (Rec: 11/09/23 12:07 KS [id number]) Subjective Physical Therapy Visit Type Type Treatment Note Visit Start Time 10:40 Visit Stop Time 11:25 Total Visit Minutes 45 Number of SUPPLY CHAIN ENGINEER Visits 1 Physical Therapy Visit Comments Patient Comments pt is eager to participate with PT Therapy Pain Assessment Pain When Pain Assessed During Mobility Location Lower Back Scale Used not quantified Description Aching Pain Behaviors Facial Grimacing Pain Management Techniques Re-positioning M4 PT-IP Mobility and Gait Start: 11/08/23 12:13 Freq: NEEDED Status: Active Protocol: Document 11/09/23 10:40 KS (Rec: 11/09/23 12:07 KS [id number]) PT-Bed Mobility Assessment Supine to Sit Supine to Sit Minimal Assistance,1 Person Assistance,Head of Bed Elevated Sit to Supine Sit to Supine Moderate Assistance,1 Person Assistance Scooting Scooting to Edge of Bed Contact Guard Assistance PT-Transfer Assessment Sit to and From Stand Sit to and from Stand Minimal Assistance,1 Person Assistance,Use of Upper Extremities Equipment Transfer Assistive Device Gait Belt,Front Wheeled Walker Orthotic/Prosthetic Devices or Brace: No Transfers Transfer Destination Bed,Toilet Transfer Technique ambulated w/ FWW Transfer Ability Level of Assist Minimal Assistance,1 Person Assistance,Use of Upper Extremities Comments Mobility Comments Pt in bed upon arrival, eager to work w/ PT. Min A for sup<> sit from bed w/ HOB elevated. Min A and cues for hand placement for sit<>stand w/ FWW. Pt ambulated to bathroom w/ FWW CGA, after voiding performed handwashing and balance exercises before ambulating 400 ft w/ FWW CGA. Pt demonstrated good use of FWW, has NBOS but no scissoring gait and no LOB throughout. Ambulated slow and cautiously w/ good safety awareness. Pt then returned to room, require Mod A for sit<> Sup. Left in bed w/ all needs in reach. Gait Assessment Gait Gait Assistance Required: Contact Guard Assist Distance (Feet) 400 Able to Maintain Weight Bearing Status Yes During Gait Assistive Devices Orthotic/Prosthetic Devices or Brace: No Gait Deviations General Gait Pattern Antalgic,Decreased Stride Length,Decreased Feet Clearance,Narrow Based Gait Factors Limiting Gait Function Factors Limiting Gait Function Decreased Activity Tolerance, Decreased Strength,Limited Range of Motion,Pain,Poor Balance Comments Gait Comments Good use of FWW, required for balance at this time PT-Balance Assessment Sitting Balance and Reactions Static Sitting Balance Ability Good Dynamic Sitting Balance Ability Good Standing Balance and Reactions Static Standing Balance Ability Fair Dynamic Standing Balance Ability Fair Device Used FWW M5 PT-IP Objective Assessments Start: 11/08/23 12:13 Freq: NEEDED Status: Active Protocol: Document 11/08/23 10:10 AB (Rec: 11/08/23 12:40 AB [id number]) Orientation Orientation/Cognition Level of Alertness Alert Orientation Name,Place,Situation Safety Awareness Decreased Safety Awareness Comments pt with stuttering speech but less after BD SPECIAL EDUCATION TEACHER session this am Gross Range of Motion Lower Extremity ROM Assessment Within Functional Limits Strength Lower Extremity Strength Hip 4-/5 Knee 4-/5 Ankle 4-/5 Sensation Assessment Sensation Gross Sensation WNL Muscle Tone Muscle Tone WNL Yes M6 PT-IP Treatment Start: 11/08/23 12:13 Freq: NEEDED Status: Active Protocol: Document 11/09/23 10:40 KS (Rec: 11/09/23 12:07 KS [id number]) Physical Therapy Treatment Education Education Provided Safety Other Treatments Other Treatment Performed Balance, NBOS and tandem w/ head turns. M7 PT-IP Assessment and Plan Start: 11/08/23 12:13 Freq: NEEDED Status: Active Protocol: Document 11/09/23 10:40 KS (Rec: 11/09/23 12:07 KS [id number]) PT Summary Assessment and Plan Potential Rehabilitation Potential Good Summary Impairments Pain,ROM,Strength,Balance, Coordination,Sensation,Tone, Cognition,Bed Mobility, Transfers,Gait,Activity Tolerance Progress Towards Goals Progressing Toward Goals,Slow Progress due to Medical Issues Assessment Summary Pt demonstrated very good tolerance for PT today and was eager to participate. She is requiring Min to Mod A for bed mobility, and Min A for sit<> stand w/ FWW. She ambulated ~ 400 ft w/ FWW CGA w/o LOB however does rely on FWW. She was independent w/o AD up until recent events and is currently requiring a FWW. She is an excellent candidate for acute rehab and will benefit from acute rehab to improve overall strength and mobility independence. Goals Bed Mobility Goal Independent Transfer Goal Independent,Front Wheeled Walker Gait Goal Independent,Front Wheel Walker Gait Distance 200 Other Goals improve transfers and ambulation using LRAD/without AD 300 ft mod I Days to Meet Goals 10 Frequency of Treatment Frequency Of Treatment Once a Day Treatment Plan Physical Therapy Treatment Plan Bed Mobility Training,Transfer Training,Gait Training, Therapeutic Exercise,Balance Retraining,Discharge Planning, Hot or Cold Pack,Neuromuscular Re-ed,Coordination Retraining ,Manual Therapy Precautions Lumbar Precautions Log Roll,No Twisting,Limit Bending,Lifting Restriction of 10 lbs Recommendations To Nursing Amount of Assist Needed 1 Person Assist Discharge Recommendations PT Discharge Recommendations Acute Rehab,SNF vs Acute Rehab Equipment Needed for Home Before FWW if pt goes home Discharge Transportation Needs at Discharge Private Vehicle,Wheelchair/ Cabulance
[2023-11-09 12:00] VITALS: BP 127/49; PULSE 60; RESP 17; TEMP 36.5; O2SAT 96
--- NOTE | 2023-11-09 12:27 | CM.DPNOTE ---
Addendum entered by GISELE King 11/09/23 12:53: MILL OPERATOR spoke with dtr Megha. Megha on board to transport tomorrow, agreeable to overall dcp. Will be in touch tomorrow to coordinate with this MILL OPERATOR ERENDIRA Original Note: DCP Note MILL OPERATOR reviewed EMR. Provider reports pt stable to dc to acute inpt rehab. MILL OPERATOR [place] [facility]- no response. MILL OPERATOR spoke with Ursula at [facility]- cannot accept today due to bed availability but likely to accept tomorrow. Will need more recent COVID test at day of admission. Ursula said their team would call this desk first thing in the morning for updates. MILL OPERATOR spoke with pt. Agreeable to dc tomorrow to [facility]. Report dtr Megha can still transport. MILL OPERATOR updated RN team. MILL OPERATOR lvm with dtr Megha ([phone]) about the current dcp Plan: pending bed availability- dc tomorrow to [facility] with dtr to transport. CM team will continue to follow closely. GISELE King
[2023-11-09 17:58] VITALS: BP 140/45; PULSE 55; RESP 16; TEMP 35.9; O2SAT 100
[2023-11-09 20:00] VITALS: BP 152/78; PULSE 61; RESP 17; TEMP 36.1; O2SAT 98
[2023-11-09] MEDS: APIXABAN 5 MG TABLET 2.5 MG PO (20:20)
[2023-11-09] MEDS: GABAPENTIN 600 MG TABLET PO (20:20)
[2023-11-10] VITALS: BP 141/48; PULSE 63; RESP 17; TEMP 36.1; O2SAT 96
[2023-11-10 05:00] VITALS: BP 154/62; PULSE 61; RESP 17; TEMP 36.1; O2SAT 95
[2023-11-10] MEDS: ACETAMINOPHEN 325 MG TABLET 650 MG PO (05:04)
--- NOTE | 2023-11-10 05:18 | PC.NURSE ---
Patient having difficulty swallowing pills with water without coughing. Patient had less coughing and feeling of pill in back of throat when taken with applesauce. Educated to sit upright and tuck chin when swallowing, needed reminders on this but followed command.
[2023-11-10 05:49] LABS: Add Manual Diff / Slide Review NO; Basophils Absolute Auto 0 /uL (0-100); Basophils Percent Auto 0.3 % (0-2); Eosinophils Absolute Auto 100 /uL (0-450); Eosinophils Percent Auto 1.6 % (2-4); Hematocrit 26.7 % (36-46); Hemoglobin 9.4 g/dL (12.0-16.0); Lymphocytes Absolute Auto 800 /uL (1100-4500); Mean Corpuscular HGB Conc 35.1 % (30-36); Mean Corpuscular Hemoglobin 33.1 PG (26-34); Mean Corpuscular Volume 94.5 fL (80-100); Monocytes Absolute Auto 400 /uL (0-900); Monocytes Percent Auto 11.5 % (3-14); Neutrophils Absolute Auto 2300 /uL (1500-7000); Neutrophils Percent Auto 64.6 % (50-75); Platelet Count 196 X10^3/uL (150-400); Red Blood Cell Count 2.83 X10^6/uL (4.0-5.2); Red Cell Distribution Width 14.1 % (11.6-14.8); White Blood Cell Count 3.6 X10^3/uL (4.5-11.0)
[2023-11-10 06:03] LABS: INR 1.9 (0.9-1.3); Prothrombin Time 22.4 SECONDS (9.4-12.5)
[2023-11-10 06:08] LABS: BUN Creatinine Ratio 27.7 (6-22); Blood Urea Nitrogen 13 mg/dL (7-17); Calcium 8.9 mg/dL (8.4-10.2); Carbon Dioxide 25 mmol/L (22-32); Chloride 100 mmol/L (98-107); Estimated Glomerular Filt Rate > 60 mL/min (>60); Glucose 71 mg/dL (80-110); HEMOLYSIS < 15 (0-50); Potassium 4.6 mmol/L (3.4-5.1); Sodium 130 mmol/L (137-145)
[2023-11-10 08:16] VITALS: BP 149/42; PULSE 60; RESP 18; TEMP 35.9; O2SAT 92
[2023-11-10] MEDS: METOPROLOL IR 25 MG TABLET 12.5 MG PO (09:55)
[2023-11-10] MEDS: SODIUM CHLORIDE 1,000 MG TABLET 1000 MG PO ×2 (09:55→20:15)
[2023-11-10] MEDS: APIXABAN 5 MG TABLET 2.5 MG PO ×2 (09:55→20:15)
--- NOTE | 2023-11-10 10:17 | PM.PN.1 ---
Subjective Subjective Interval history: Has lower back pain (lumbar) since lifting 3 days ago. No arm or leg weakness. Speech somewhat better. No MARTINEZ. Exam Vital Signs (past 8 hours): - 11/10/23 05:00 11/10/23 08:16 Temperature 97.0 F L 96.7 F L Pulse Rate 61 60 Respiratory Rate 17 18 Blood Pressure 154/62 H 149/42 H Pulse Oximetry 95 92 Oxygen Flow Rate 0 Oxygen Delivery Method Room Air Oxygen Flow Rate 0 Narrative Exam Narrative: NAD, speech fairly good. Some stuttering. EOMI Lungs clear CV regular Abdomen Soft and ND No leg edema No extremity weakness Objective Labs 11/10/23 05:03 11/10/23 05:03 Labs: Laboratory Results - last 24 hr 11/10/23 05:03 WBC 3.6 L RBC 2.83 L Hgb 9.4 L Hct 26.7 L MCV 94.5 MCH 33.1 MCHC 35.1 RDW 14.1 Plt Count 196 Neut % (Auto) 64.6 Lymph % (Auto) 22.0 L [place] % (Auto) 11.5 Eos % (Auto) 1.6 L Baso % (Auto) 0.3 Neut # (Auto) 2300 Lymph # (Auto) 800 L [place] # (Auto) 400 Eos # (Auto) 100 Baso # (Auto) 0 PT 22.4 H D INR 1.9 H Sodium 130 L Potassium 4.6 Chloride 100 Carbon Dioxide 25 BUN 13 Creatinine 0.47 L Estimated GFR > 60 BUN/Creatinine Ratio 27.7 H Glucose 71 L Calcium 8.9 PFSH Medical History External hemorrhoids Memory change Abnormal urine odor Rectal mass Raynauds syndrome Elevated blood pressure reading without diagnosis of hypertension Anxiety about health Blood pressure check Right leg paresthesias Atrial fibrillation Epilepsy (1959) TIA (transient ischemic attack) Seizures (2013) Peripheral neuropathy (2012) History of SCC (squamous cell carcinoma) of skin BCC (basal cell carcinoma of skin) Actinic keratosis Essential thrombocytosis Bilateral cataracts Fibroids (~1989) History of heavy periods (~1989) Ovarian cyst (~1987) Anemia Chicken pox (~1946) Measles (~1946) Mumps (194) Rosacea (~1999) Hypothyroidism Skin cancer (~1989) Surgical History Anesthesia History of cataract removal with insertion of prosthetic lens (2009) Status post hernia repair (2014) Status post hysterectomy (1988) Family History Father Heart disease High cholesterol Brother Drug overdose Family/Other Gunshot wound Drug overdose Grandfather Asthma Emphysema of lung Grandmother No problems noted. Mother Lung cancer Bone cancer Grandfather No problems noted. Grandmother No problems noted. Social History marital status: household members: none occupational status: previously employed Smoking Status: Former smoker alcohol intake: current substance use type: does not use Assessment & Plan Assessment & Plan narrative: 1. Subacute stroke with speech abnormalities, POA and improving. -patient notes 5 days of new stuttered speech and difficulty with word finding, NIH 1 in ED -CT head negative -cannot get MRI brain due to pacemaker -PT/OT/SWEATBAND PERFORATOR evals rec inpatient rehab -restart eliquis 2. Supratherapeutic INR, POA and resolved. -INR 11 in ED, recieved vit K and FFP -INR normalized. -restarted eliquis 3. Chronic hyponatremia, POA and improving -Na 126 on admission -continue home salt tabs 1g BID -now 129 4. Paroxysmal A-fib, POA and stable -continue metoprolol -holding warfarin due to elevated INR at admission, going to [facility]. -sent eliquis to patient's pharmacy and it is $47 copay for a month supply, patient should go back on eliquis and not warfarin -restarted eliquis 2.5mg BID 5. HTN, POA and stable. -continue amlodipine and losartan given out of permissive HTN window 6. Hypothyroidism, POA and stable. -TSH low at <0.02, T4 normal at 2.07 -hold synthroid 7. Essential thrombocytosis, POA and stable. -platelets normal on admission -continue hydroxyurea 8. Chronic celiac artery occlusion, POA and stable. -per CTA on 08/16/23 9. SSS s/p pacemaker, POA and stable. -placed in 2019, followed by Dr. Hodgson cardiology 10. Acute lumbar pain, POA and active. -trial lidocaine patch. Code status is full code. DVT prophylaxis with SCDs. Proxy is daughter Yenifer. I have reviewed home meds and used all available resources to reconcile the home meds. DISPO: Discharge to [facility] acute rehab on 11/11. Quality VTE Deep Vein Thrombosis/Pulmonary Embolism Present on Admission: No
--- NOTE | 2023-11-10 10:49 | CM.DPNOTE ---
Addendum entered by GISELE King 11/10/23 10:56: ADJUNCT TEACHER spoke with dtr on the phone to confirm plan. Dtr confirms can transport tomorrow but needs to know sooner rather than later. Dtr and this ADJUNCT TEACHER agreed to touch base tomorrow at 0930 for an update on if [facility] can accept/transport time. SL Original Note: DCP Note ADJUNCT TEACHER reviewed EMR. ADJUNCT TEACHER spoke with Clive at [facility]. Report no beds available today but will have 3 discharges tomorrow and can likely accept tomorrow ADJUNCT TEACHER spoke with Neal(?) admissions at [facility] [place]. Report no beds available today but will likely have 2 beds tomorrow. ADJUNCT TEACHER updated provider and RN. ADJUNCT TEACHER updated pt. Pt agreeable to hold until tomorrow. Pt reports she spoke with dtr and dtr can still transport tomorrow to [facility]. Plan: dc likely tomorrow to [facility] pending bed availability. CM team will continue to follow closely. COVID test needed day of dc. GISELE King
--- NOTE | 2023-11-10 11:03 | OT.IP.EVAL ---
Current Diagnoses Cerebral infarction, unspecified (11/07/23) Past Medical History (Last Reviewed 11/07/23 @ 15:06 by Kaylan Alvarez MD) Abnormal urine odor Actinic keratosis Anemia Anxiety about health Atrial fibrillation BCC (basal cell carcinoma of skin) Bilateral cataracts Blood pressure check Chicken pox (~1946) Elevated blood pressure reading without diagnosis of hypertension Epilepsy (1959) Essential thrombocytosis External hemorrhoids Fibroids (~1989) History of heavy periods (~1989) History of SCC (squamous cell carcinoma) of skin Hypothyroidism Measles (~1946) Memory change Mumps (1946) Ovarian cyst (~1987) Peripheral neuropathy (2012) Raynauds syndrome Rectal mass Right leg paresthesias Rosacea (~1999) Seizures (2013) Skin cancer (~1989) TIA (transient ischemic attack) Surgical History (Last Reviewed 11/07/23 @ 15:06 by Kaylan Alvarez MD) Anesthesia History of cataract removal with insertion of prosthetic lens (2009) Status post hernia repair (2014) Status post hysterectomy (1988) Occupational Therapy Inpatient Evaluation/Re-Eval M1 PT/OT-IP Prior Functional Status Start: 11/08/23 12:13 Freq: NEEDED Status: Active Protocol: Document 11/10/23 10:12 JENNIFER (Rec: 11/10/23 10:58 [facility] [id number]) Medical Review Prior Functional Status Medical History Reviewed Yes Diet/Fluid Consistency Regular Communication Prior to admission pt was able to communicate her needs I'ly . Pt currently stutters at times, but is able to express herself with extra time. Mobility and Gait Pt stated that she was I with all mobilities and ambulation without AD but started using a SPC ~ 1 week ago with new onset of L LE weakness Activities of Daily Living and IADL's Prior to approximately 1 week ago, pt was I with all her ADLs, housework, cooking, and driving. Pt also reports that she would go on walks daily, weather permitting, for about 2 miles. Social History Household Members none Living Arrangements Apartment/Condo Number of Stairs To Enter/Railing? Pt lives on the second story of her condo. Prior to admission, pt would climb the stairs to her condo. She plans to use the elevator as long as is necessary on return to home. Home Environment Standard Height Toilet,Tub/ Shower Home Equipment Front Wheel Walker,Straight Cane,Hand Held Shower,Grab Bars In Shower Employment Status Retired Additional Social History Comment Pt reports that her bathroom is small. She used to have a shower bench, but chose to get rid of it because she would trip on it. M2 OT-IP Current Condition Start: 11/10/23 10:12 Freq: Status: Active Protocol: Document 11/10/23 10:12 JENNIFER (Rec: 11/10/23 10:58 [facility] [id number]) Occupational Therapy Current Condition Current Condition Evaluation Date 11/10/23 Treatment Diagnosis cerebral infarct, unspecified Diagnosis Onset Date 11/07/23 M3 OT- IP Subjective and Pain Start: 11/10/23 10:12 Freq: Status: Active Protocol: Document 11/10/23 10:12 JENNIFER (Rec: 11/10/23 10:58 [facility] [id number] OT- Subjective Occupational Therapy Visit Type Type Initial Evaluation Visit Start Time 09:05 Visit Stop Time 10:05 Total Visit Minutes 60 Notes Pt was pleasant and cooperative with participating in OT evaluation Occupational Therapy Visit Comments Patient Comments Pt reports that she is most concerned about her speech and her low back pain. 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 OT Pain Assessment Pain When Pain Assessed rest/tx Pain Present Pain Present Pain Reported Location Lower Back Intensity 6 Pain Behaviors Guarding M4 OT- IP ADL's Start: 11/10/23 10:12 Freq: Status: Active Protocol: Document 11/10/23 10:12 JENNIFER (Rec: 11/10/23 10:58 [facility] [id number]) OT [id number]-[id number] General Evaluation Self-Feeding Ability Independent OT ADL-Grooming General Evaluation Grooming Ability Standby Assistance Comments OT Grooming Comments Pt stood sink side to perform. Pt able to gather supplies from around the sink area, open, and use them appropriately. Pt would rest one hand on the counter as needed. OT ADL-Oral Care General Eval Oral Care Ability Standby Assistance Comments Oral Care Comments Pt stood sink side to perform, gathering necessary supplies from around the sink area. Pt would rest one had on the counter as needed. Task performed slowly. OT ADL-Dressing General Eval Upper Body Dressing Ability Standby Assistance Lower Body Dressing Ability Standby Assistance Comments OT Dressing Comments Pt doffed and donned hospital gown (with assistance for monitor only) and tank top for sink side ADLs. Pt appears to require increased time to complete. Pt pull down and up pull-up style brief to her knees for sink side ADL. OT ADL-Toileting General Evaluation Toileting Ability Standby Assistance,Contact Guard Assistance Devices Toileting Assistive Devices Grab Bars Comments OT Toileting Comments Pt t/fed to toilet with CGA and increased time to lower herself. Pt requires vcs to align herself correctly before attempting to lower. Pt is able to manage pull-up style brief without assistance and manages toileting hygiene I'ly . Pt stands up from toilet with SBA. OT ADL-Bathing Bathing Type Bathing Type Sponge Bath General Evaluation Bathing Ability Minimal Assistance Areas Needing Assistance Wash/Dry Back Comments OT Bathing Comments Pt performed spongebath sink side (pt declined shower and seated sponge bath). Pt required assistance to manage heart monitor and to wash her back. Pt declined washing her lower legs at this time. Pt performs task slowly and methodically. Pt needed assist once with sequencing. Pt had asked OT to wash her back and stated that she would wash her luca area following. After OT finished washing pt's back pt stated What was I going to do next, pt reminded pt and she state that's right and finished with task. M5 OT- IP IADL's Start: 11/10/23 10:12 Freq: Status: Active Protocol: Document 11/10/23 10:12 JENNIFER (Rec: 11/10/23 10:58 [facility] [id number]) OT-Instrumental Activities of Daily Living Home Safety Awareness Awareness of Need for Assistance at Home Good Awareness Ability to Problem Solve Emergency Able to Problem Solve Situations Home Safety Comments Pt has life alert at home. Medication Management Medication Management No Deficits Identified Medication Management Comments Pt is able to state her normal routine for taking medications at home. Money Management Money Management Caregiver Provides Assistance Money Management Comments Pt reports that her dtr assists with this as needed. M6 OT- IP Functional Cognition Start: 11/10/23 10:12 Freq: Status: Active Protocol: Document 11/10/23 10:12 JENNIFER (Rec: 11/10/23 10:58 [facility] [id number]) Cognitive Factors Limiting Selfcare Function Cognitive Ability Level of Alertness Alert Patient Orientation Name,Age,Date,Place,Situation Attention Span Ability Capable of Focused Attention, Capable of Sustained Attention Ability to Follow Commands Able to Follow Multi-Step Commands Memory Description No Deficits Noted Safety Awareness No Deficits Noted Problem Solving Ability No deficits Noted Executive Function Ability No Deficits Noted Abstract Thinking Ability No Deficits Noted Cognitive Comments Cognitive Assessment Comments Pt needs vcs at time to reach back for surfaces with stand> sit. OT- Vision and Hearing OT- Hearing Assessment OT- Hearing Assessment WFL OT- Vision Assessment Visual Acuity WFL M7 OT- IP Mobility and Balance Start: 11/10/23 10:12 Freq: Status: Active Protocol: Document 11/10/23 10:12 [facility] (Rec: 11/10/23 10:58 [facility] [id number]) OT- Bed Mobility Assessment Supine to Sit Supine to Sit Assist Standby Assistance Scooting Scooting to Edge of Bed Standby Assistance OT-Transfer Assessment Sit to and From Stand Sit to and from Stand Standby Assistance Transfers Transfer Ability Standby Assistance,Contact Guard Assistance Technique Transfer Destination Chair,Toilet Devices Transfer Assistive Devices Gait Belt,Front Wheeled Walker Comments Mobility Comments Pt peforms functional t/fs slowly. Pt requires vcs at times for hand placement and safety awareness. OT- Gait Assessment Gait Gait Assistance Required: Standby Assistance Distance (Feet) 20 Assistive Devices Assistive Device Gait Belt,Front Wheeled Walker Comments Gait Ability Comments Pt ambulated from her bed to the bathroom to perform toielting. Following toileting , pt amb to the sink to perform sink side ADLs before returning to the chair. Pt requires vcs to stay aligned in FWW. OT- Balance Assessment Sitting Balance and Reactions Static Sitting Balance Ability Normal Dynamic Sitting Balance Ability Good Standing Balance and Reactions Static Standing Balance Ability Good Dynamic Standing Balance Ability Fair M8 OT- IP Objective Assessments Start: 11/10/23 10:12 Freq: Status: Active Protocol: Document 11/10/23 10:12 ROBERTNEBEATRICE (Rec: 11/10/23 10:58 [facility] [id number]) OT Gross Range of Motion Upper Extremity Range of Motion Assessment Within Functional Limits ROM Impairments Pt demonstrates functional ROM B UE all planes of mvmt OT Strength Upper Extremity Strength Shoulder 4-/5 Elbow 4-/5 Wrist 4-/5 Hand 4/5 Hand Industrial Relations Commissioner Strength Hand Dominance Right Comments Strength Comments Pt demonstrates equal UE strength WFL B'ly OT- Coordination Assessment Upper Extremity Finger to Nose Test Within Functional Limits Finger Tapping Test Within Functional Limits OT-Muscle Tone Assessment Muscle Tone WNL Yes OT Sensation Assessment Edema Edema Present Edema Comments Pt's right hand has increased edema on dorsal surface. M9 OT- IP Assessment and Plan Start: 11/10/23 10:12 Freq: Status: Active Protocol: Document 11/10/23 10:12 JENNIFER (Rec: 11/10/23 10:58 [facility] [id number]) OT Summary Assessment and Plan Potential Rehabilitation Potential Excellent Summary OT Impairments Pain,Strength,Functional Mobility,Dressing,Toileting, Bathing,Toilet Transfers, Shower Transfers,Activity Tolerance Assessment Summary Pt is 78 yo F who presented to the ED due to stuttering speech and L sided weakness with onset about 5 days prior. Pt was admitted for CVA. An MRI could not be performed due to pt's pacemaker. Pt was I with all her functional mobilities, ADLs, household tasks, and driving prior to recent onset of weakness. At time of eval pt, demonstrates decreased I with her ADLs, needs occasional cues for sequencing and safety, and requires increased time to perform tasks. Pt would benefit from skilled OT services to address deficits and promote safe return to PLOF. Goals Grooming Goal Independent Dressing Goal Independent Toileting Goal Independent Bathing Goal Independent Toilet Transfer Goal Independent Shower Transfer Goal Independent Days to Meet Goals 10 Frequency of Treatment Frequency Of Treatment Once a Day Treatment Plan OT Treatment Plan ADL Training,Functional Mobility,IADL Training, Therapeutic Exercises, Discharge Planning Discharge Recommendations OT Discharge Recommendations Acute Rehab Transportation Needs at Discharge Private Vehicle
[2023-11-10 12:00] VITALS: BP 137/62; PULSE 60; RESP 16; TEMP 35.8; O2SAT 100
[2023-11-10] MEDS: LIDOCAINE 5% PATCH 1 EACH TOP (12:51)
--- NOTE | 2023-11-10 13:38 | PC.NURSE ---
Patient is not going to transferred to [facility] until most likely tomorrow. She is doing well, and ambulating in the halls this morning. Lidocaine patch placed on back, and patient is back to bed.
--- NOTE | 2023-11-10 15:35 | PT.IPTN ---
Current Diagnoses Cerebral infarction, unspecified (11/07/23) Physical Therapy Treatment Note M2 PT-IP Current Condition Start: 11/08/23 12:13 Freq: NEEDED Status: Active Protocol: Document 11/08/23 10:10 AB (Rec: 11/08/23 12:40 AB [id number]) Physical Therapy Current Condition Current Condition Evaluation Date 11/08/23 Treatment Diagnosis CVA; difficulty in walking Onset Date 11/07/23 M3 PT-IP Subjective Start: 11/08/23 12:13 Freq: NEEDED Status: Active Protocol: Document 11/10/23 15:35 AW (Rec: 11/10/23 16:09 AW [id number]) Subjective Physical Therapy Visit Type Type Treatment Note Visit Start Time 15:11 Visit Stop Time 15:40 Total Visit Minutes 29 Number of SCALE AGENT Visits 0 Physical Therapy Visit Comments Patient Comments My back hurts and I think a walk would help. Therapy Pain Assessment Pain When Pain Assessed During Mobility Pain Present Pain Present Pain Reported Location Lower Back Intensity 4 Scale Used Pt has an extension preference M4 PT-IP Mobility and Gait Start: 11/08/23 12:13 Freq: NEEDED Status: Active Protocol: Document 11/10/23 15:35 AW (Rec: 11/10/23 16:09 AW [id number]) PT-Bed Mobility Assessment Rolling Type of Rolling Log Rolling,Roll to Left Level of Assist Standby Assistance Supine to Sit Supine to Sit Standby Assistance,Bedrails PT-Transfer Assessment Sit to and From Stand Sit to and from Stand Contact Guard Assistance,1 Person Assistance,Use of Upper Extremities Equipment Transfer Assistive Device Gait Belt,Straight Cane Orthotic/Prosthetic Devices or Brace: No Transfers Transfer Destination Chair,Car Transfer Technique ambulated w/ FWW Transfer Ability Level of Assist Contact Guard Assistance,Use of Upper Extremities Comments Mobility Comments Pt is found in bed, very willing to work with PT, noting her back feels better when she gets out of bed more frequently. Pt has definite need for environmental support (bed rails) but is able to transition to sitting EOB with SBA and verbal cues for rolling. Pt states preference to use SPC today. She is unsteady in initial standing but progresses to gait. See notes below. On return to the room, she transfers to the chair using FWW. Gait Assessment Gait Gait Assistance Required: Contact Guard Assist Distance (Feet) 400 Assistive Devices Assistive Device Gait Belt,Straight Cane Gait Deviations General Gait Pattern Antalgic,Decreased Stride Length,Festinating,Narrow Based Gait,Step-to Gait Factors Limiting Gait Function Factors Limiting Gait Function Decreased Activity Tolerance, Decreased Strength,Limited Range of Motion,Pain,Poor Balance Comments Gait Comments All gait deviations are amplified while using SPC. Discussed with pt to use only during therapy sessions and to default to FWW when up with nursing. Pt tends to veer laterally and walks with NBOS while using SPC. Stair Climbing Assessment Evaluation Level of Assist On Stairs Contact Guard Assistance Devices Stair Climbing Assistive Devices Straight Cane,Right Railing Technique/Endurance Stair Climbing Direction Ascend and Descend Stair Climbing Technique Step to Step Number of Steps Climbed 3 Stair Climbing Set # Repetitions (reps) 1 PT-Balance Assessment Sitting Balance and Reactions Static Sitting Balance Ability Normal Dynamic Sitting Balance Ability Good Standing Balance and Reactions Static Standing Balance Ability Fair Dynamic Standing Balance Ability Fair Device Used SPC Comments Other Balance Tests/Deviations/Treatment Stands in NBOS x 30 seconds. : Incorporates head turns next rep. Vertical head turns third rep. Needs close CGA for all. M5 PT-IP Objective Assessments Start: 11/08/23 12:13 Freq: NEEDED Status: Active Protocol: Document 11/08/23 10:10 AB (Rec: 11/08/23 12:40 AB [id number]) Orientation Orientation/Cognition Level of Alertness Alert Orientation Name,Place,Situation Safety Awareness Decreased Safety Awareness Comments pt with stuttering speech but less after BLIND LACER session this am Gross Range of Motion Lower Extremity ROM Assessment Within Functional Limits Strength Lower Extremity Strength Hip 4-/5 Knee 4-/5 Ankle 4-/5 Sensation Assessment Sensation Gross Sensation WNL Muscle Tone Muscle Tone WNL Yes M6 PT-IP Treatment Start: 11/08/23 12:13 Freq: NEEDED Status: Active Protocol: Document 11/10/23 15:35 AW (Rec: 11/10/23 16:09 AW [id number]) Physical Therapy Treatment Education Education Provided Safety M7 PT-IP Assessment and Plan Start: 11/08/23 12:13 Freq: NEEDED Status: Active Protocol: Document 11/10/23 15:35 AW (Rec: 11/10/23 16:09 AW [id number]) PT Summary Assessment and Plan Potential Rehabilitation Potential Good Summary Impairments Pain,ROM,Strength,Balance, Coordination,Sensation,Tone, Cognition,Bed Mobility, Transfers,Gait,Activity Tolerance Progress Towards Goals Progressing Toward Goals Assessment Summary Megha continues to progress toward functional goals. Her gait is affected by veering and narrow base of support which increase her risk of falls. Tinetti score today is 14/28. Pt remains a highly motivated candidate for inpatient rehab. She clearly has the endurance for the dose and intensity required. Goals Bed Mobility Goal Independent Transfer Goal Independent,Front Wheeled Walker Gait Goal Independent,Front Wheel Walker Gait Distance 200 Other Goals improve transfers and ambulation using LRAD/without AD 300 ft mod I Days to Meet Goals 10 Frequency of Treatment Frequency Of Treatment Once a Day Treatment Plan Physical Therapy Treatment Plan Bed Mobility Training,Transfer Training,Gait Training, Therapeutic Exercise,Balance Retraining,Discharge Planning, Hot or Cold Pack,Neuromuscular Re-ed,Coordination Retraining ,Manual Therapy Precautions Lumbar Precautions Log Roll,No Twisting,Limit Bending,Lifting Restriction of 10 lbs Recommendations To Nursing Amount of Assist Needed Total Assistance Discharge Recommendations PT Discharge Recommendations Acute Rehab,SNF vs Acute Rehab Equipment Needed for Home Before FWW if pt goes home Discharge Transportation Needs at Discharge Private Vehicle,Wheelchair/ Cabulance
[2023-11-10 16:36] VITALS: BP 153/65; PULSE 60; RESP 18; TEMP 36.1; O2SAT 100
[2023-11-10 20:04] VITALS: BP 157/63; PULSE 60; RESP 16; TEMP 36.6; O2SAT 100
[2023-11-10] MEDS: GABAPENTIN 600 MG TABLET PO (20:15)
[2023-11-10] MEDS: SODIUM CHLORIDE 0.9% FLUSH 10 ML IV (20:16)
[2023-11-11 00:18] VITALS: BP 153/53; PULSE 60; RESP 16; TEMP 36.3; O2SAT 97
[2023-11-11 04:44] VITALS: BP 151/69; PULSE 60; RESP 16; TEMP 35.9; O2SAT 97
[2023-11-11 04:50] LABS: INR 1.6 (0.9-1.3); Prothrombin Time 17.9 SECONDS (9.4-12.5)
[2023-11-11 04:51] LABS: Add Manual Diff / Slide Review NO; Basophils Absolute Auto 0 /uL (0-100); Basophils Percent Auto 0.5 % (0-2); Eosinophils Absolute Auto 100 /uL (0-450); Eosinophils Percent Auto 1.7 % (2-4); Hematocrit 27.8 % (36-46); Hemoglobin 9.7 g/dL (12.0-16.0); Lymphocytes Absolute Auto 800 /uL (1100-4500); Lymphocytes Percent Auto 24.1 % (25-40); Mean Corpuscular HGB Conc 34.7 % (30-36); Mean Corpuscular Hemoglobin 32.8 PG (26-34); Mean Corpuscular Volume 94.3 fL (80-100); Monocytes Absolute Auto 400 /uL (0-900); Monocytes Percent Auto 10.8 % (3-14); Neutrophils Absolute Auto 2000 /uL (1500-7000); Neutrophils Percent Auto 62.9 % (50-75); Platelet Count 184 X10^3/uL (150-400); Red Blood Cell Count 2.95 X10^6/uL (4.0-5.2); White Blood Cell Count 3.2 X10^3/uL (4.5-11.0)
[2023-11-11 04:54] LABS: BUN Creatinine Ratio 31.1 (6-22); Blood Urea Nitrogen 14 mg/dL (7-17); Carbon Dioxide 26 mmol/L (22-32); Chloride 100 mmol/L (98-107); Estimated Glomerular Filt Rate > 60 mL/min (>60); Glucose 66 mg/dL (80-110); HEMOLYSIS < 15 (0-50); Potassium 4.2 mmol/L (3.4-5.1); Sodium 128 mmol/L (137-145)
[2023-11-11 08:00] VITALS: BP 142/65; PULSE 60; RESP 16; TEMP 35.6; O2SAT 99
--- NOTE | 2023-11-11 08:53 | ST.IPTN ---
Visit Care Team Role Provider Type Rashid Brennan DO Primary Care Provider Physician Address: [address] [place] [address], [facility] Kaylan Alvarez MD Emergency Provider Physician Referring Provider Address: [address] [place] [address], [id number] David Hoffmann DO Admit Provider Physician Attending Provider Address: [address] [place] [address], [facility] COURT COLLECTIONS OFFICER Treatment Note COURT COLLECTIONS OFFICER Treatment Note Start: 11/11/23 08:49 Freq: Status: Active Protocol: Document 11/11/23 08:49 MA (Rec: 11/11/23 08:53 MA [id number]) Speech Pathology Treatment Note Session Time Visit Start Time 08:25 Visit Stop Time 08:45 Total Visit Minutes 20 Visit Information Visit Number 2 Visit Type Note Type Treatment Note Next Note Type Next Note Type Treatment Note General Information Patient History Per H&P: Pt is an 78yo F with PMH of recent TIA at [facility] in Aug 2023, paroxysmal A-fib on warfarin, SSS s/p pacemaker, HTN, chronic hyponatremia, chronic celiac artery occlusion, essential thrombocytosis, Raynaud's and hypothyroidism who presents with speech difficulty. Patient was in her normal state of health until 5 days ago she developed a new significant stutter. Her family wanted her evaluated but she declined. Her symptoms persisted and also involved intermittent weakness on her left side. She finally presented to the ED where her NIH was 1. She cannot get an MRI due to her pacemaker. Last echo was Jul 2023 and was unremarkable. Patient can understand what is being said to her, but has trouble getting the words out and stutters frequently. Subjective Observations/Patient Presentation Pt sitting upright in bed eating breakfast. Pt reports significant improvment in speech and reduced stutter this morning. Objective Short Term Goals Pt will utilize communication strategies effectively with 1- 2 verbal reminders and report no to minimal dysfluencies in conversations. Pt and family will participate in education re: stuttering, strategies for stutterers and communication partners, advocating. Assisted Goals Pt will utilize communication strategies effectively with no verbal reminders and report no to minimal dysfluencies in conversations. Pt will report feeling more positive about her communication abilities. Treatment Activities Easy onsets, communication strategies Assessment Assessment of Improvement Pt independently reported communication strategies educated on during initial eval, such as slow rate and easy onsets. Pt able to demonstrate effectively and independently utilzied strategies during conversation when experiencing dysfluency. Pt appeared with reduced stutter and fluent speech about 80% of the time. ST provided Pt easy onset exercise to practice for homework. Pt reports she is discharing to an inpatient facility today where she hopes to continue to work on her speech.
--- NOTE | 2023-11-11 08:58 | OT.IP.TRT ---
Current Diagnoses Cerebral infarction, unspecified (11/07/23) Occupational Therapy Treatment Note M2 OT-IP Current Condition Start: 11/10/23 10:12 Freq: Status: Active Protocol: Document 11/10/23 10:12 JENNIFER (Rec: 11/10/23 10:58 JENNIFER [id number]) Occupational Therapy Current Condition Current Condition Evaluation Date 11/10/23 Treatment Diagnosis cerebral infarct, unspecified Diagnosis Onset Date 11/07/23 M3 OT- IP Subjective and Pain Start: 11/10/23 10:12 Freq: Status: Active Protocol: Document 11/11/23 10:04 [facility] (Rec: 11/11/23 10:18 [facility] [id number]) OT- Subjective Occupational Therapy Visit Type Type Treatment Note Visit Start Time 08:58 Visit Stop Time 09:31 Total Visit Minutes 33 Occupational Therapy Visit Comments Patient Comments Pt too tired to shower at this time but agreed to do cognitive and FMS assessments. Patient/Caregiver Goals TO go to acute rehab. OT Pain Assessment Pain When Pain Assessed At Rest Pain Present Pain Present Pain Reported M4 OT- IP ADL's Start: 11/10/23 10:12 Freq: Status: Active Protocol: Document 11/11/23 10:04 [facility] (Rec: 11/11/23 10:18 [facility] [id number]) OT [id number] General Evaluation Self-Feeding Ability Independent OT ADL-Grooming Comments OT Grooming Comments Not performed. OT ADL-Dressing Comments OT Dressing Comments Not performed. OT ADL-Toileting Comments OT Toileting Comments Pt not having to go at this time. OT ADL-Bathing Comments OT Bathing Comments Pt too tired to do at this time. M6 OT- IP Functional Cognition Start: 11/10/23 10:12 Freq: Status: Active Protocol: Document 11/11/23 10:04 [facility] (Rec: 11/11/23 10:18 [facility] [id number]) Cognitive Factors Limiting Selfcare Function Cognitive Ability Level of Alertness Alert Patient Orientation Name,Age,Date,Place,Situation Attention Span Ability Capable of Focused Attention, Capable of Sustained Attention Ability to Follow Commands Able to Follow One Step Commands Memory Description Working Impaired Executive Function Ability Unable to Organize Plans, Unable to Remember Details Cognitive Comments Cognitive Assessment Comments Pt scored 544 seconds on Rescue Making Part B which implies severe impairments for visual attention, speed of processing , executive functioning, mental flexibility, and task switching. Pt states did not sleep well and is well aware that she is not thinking well. Pt states prior having difficulty at times with her vision on the left eye and needing cues to turn her head to the left at times to see the numbers and letters on Rescue Making Part B . OT- Vision and Hearing OT- Vision Assessment Visual Attentiveness WFL Visual Schafer Impaired Visual Spacial Neglect Left Vision Assessment Comments Pt as she tires, the left eye does track together with the right eye. Decreased peripheral vision to the left on the left eye. M9 OT- IP Assessment and Plan Start: 11/10/23 10:12 Freq: Status: Active Protocol: Document 11/11/23 10:04 [facility] (Rec: 11/11/23 10:18 [facility] [id number]) OT Summary Assessment and Plan Potential Rehabilitation Potential Excellent Analytic Complexity at Evaluation Moderate Summary OT Impairments Pain,Strength,Functional Mobility,Dressing,Toileting, Bathing,Toilet Transfers, Shower Transfers,Activity Tolerance Progress Towards Goals Progressing Toward Goals Assessment Summary Pt Scored 544 seconds on Rescue Making Part B which implies severe deficits for visual attention, speed of processing , task switching, executive functioning, and mental flexibility. ALso note decreased vision for peripheral vision of left eye. Pt admits since her recent TIA 09/01 has been having more difficulty to see with her left eye at times. Pt however states that she has not slept in the past two days and feels that is way she is not thinking very well at this time. Pt's FMS 9 hole peg R hand 28 second which puts her at 10th percentile for her age. Pt is 42seconds with left hand which is way below the 10the percentile for her age. Pt would greatly benefit from acute rehab when medicallly stable. Goals Grooming Goal Independent Dressing Goal Independent Toileting Goal Independent Bathing Goal Independent Toilet Transfer Goal Independent Shower Transfer Goal Independent Days to Meet Goals 15 Frequency of Treatment Frequency Of Treatment Once a Day Treatment Plan OT Treatment Plan ADL Training,Functional Cognition Training,Functional Mobility,IADL Training, Therapeutic Exercises, Discharge Planning Discharge Recommendations OT Discharge Recommendations Acute Rehab Transportation Needs at Discharge Private Vehicle
[2023-11-11] MEDS: SODIUM CHLORIDE 1,000 MG TABLET 1000 MG PO ×2 (09:37→20:25)
[2023-11-11] MEDS: LIDOCAINE 5% PATCH 1 EACH TOP (09:37)
[2023-11-11] MEDS: HYDROXYUREA 500 MG CAPSULE PO (09:37)
[2023-11-11] MEDS: APIXABAN 5 MG TABLET 2.5 MG PO ×2 (09:37→20:24)
[2023-11-11] MEDS: METOPROLOL IR 25 MG TABLET 12.5 MG PO (09:37)
[2023-11-11] MEDS: SODIUM CHLORIDE 0.9% FLUSH 10 ML IV ×2 (09:38→20:26)
--- NOTE | 2023-11-11 09:58 | PT.IPTN ---
Current Diagnoses Cerebral infarction, unspecified (11/07/23) Physical Therapy Treatment Note M2 PT-IP Current Condition Start: 11/08/23 12:13 Freq: NEEDED Status: Active Protocol: Document 11/08/23 10:10 AB (Rec: 11/08/23 12:40 AB [id number]) Physical Therapy Current Condition Current Condition Evaluation Date 11/08/23 Treatment Diagnosis CVA; difficulty in walking Onset Date 11/07/23 M3 PT-IP Subjective Start: 11/08/23 12:13 Freq: NEEDED Status: Active Protocol: Document 11/11/23 10:47 TS (Rec: 11/11/23 10:59 TS [id number]) Subjective Physical Therapy Visit Type Type Treatment Note Visit Start Time 09:58 Visit Stop Time 10:46 Total Visit Minutes 48 Number of CABLE 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 Pt is motivated to work with PT. Therapy Pain Assessment Pain When Pain Assessed During Mobility Pain Present Pain Present Pain Reported M4 PT-IP Mobility and Gait Start: 11/08/23 12:13 Freq: NEEDED Status: Active Protocol: Document 11/11/23 10:47 TS (Rec: 11/11/23 10:59 TS [id number]) PT-Bed Mobility Assessment Supine to Sit Supine to Sit Standby Assistance,Bedrails Sit to Supine Sit to Supine Standby Assistance Scooting Scooting to Edge of Bed Standby Assistance PT-Transfer Assessment Sit to and From Stand Sit to and from Stand Minimal Assistance,1 Person Assistance,Use of Upper Extremities Equipment Transfer Assistive Device Gait Belt,Straight Cane Orthotic/Prosthetic Devices or Brace: No Comments Mobility Comments Supine to sit SBA with HOB elevated 50D, pt cued for handrail assist. Sit to stand with SPC Betsy, pt slightly unsteady coming into standing. She ambulated ~400'SBA/CGA with SPC, pt has some unsteadiness with gait and requires cues for proper use of cane, pt at times keeps it hovering above ground. She performed balance ex of NBOS eyes opened/closed ~30secs, tandem stance and SLS ~8secs on each side. She brushed her teeth SBA with counter support before returning to bed. Pt was left in bed all needs met, nursing notified. Gait Assessment Gait Gait Assistance Required: Standby Assistance,Contact Guard Assist Distance (Feet) 400 Able to Maintain Weight Bearing Status Yes During Gait Assistive Devices Assistive Device Gait Belt,Straight Cane Orthotic/Prosthetic Devices or Brace: No Gait Deviations General Gait Pattern Antalgic,Decreased Stride Length,Festinating,Narrow Based Gait,Step-to Gait Factors Limiting Gait Function Factors Limiting Gait Function Decreased Activity Tolerance, Decreased Strength,Limited Range of Motion,Pain,Poor Balance Comments Gait Comments See mobility comments. PT-Balance Assessment Sitting Balance and Reactions Static Sitting Balance Ability Normal Dynamic Sitting Balance Ability Good Standing Balance and Reactions Static Standing Balance Ability Fair Dynamic Standing Balance Ability Fair Device Used SPC Comments Other Balance Tests/Deviations/Treatment NBOS eyes opened/closed, SLS : and tendem stance, close CGA for all. 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 this am Gross Range of Motion Lower Extremity ROM Assessment Within Functional Limits Strength Lower Extremity Strength Hip 4-/5 Knee 4-/5 Ankle 4-/5 Sensation Assessment Sensation Gross Sensation WNL Muscle Tone Muscle Tone WNL Yes M6 PT-IP Treatment Start: 11/08/23 12:13 Freq: NEEDED Status: Active Protocol: Document 11/11/23 10:47 TS (Rec: 11/11/23 10:59 [id number]) Physical Therapy Treatment Education Education Provided Safety Other Treatments Other Treatment Performed Balance, NBOS, tandem and SLS M7 PT-IP Assessment and Plan Start: 11/08/23 12:13 Freq: NEEDED Status: Active Protocol: Document 11/11/23 10:47 TS (Rec: 11/11/23 10:59 TS [id number]) PT Summary Assessment and Plan Potential Rehabilitation Potential Good Summary Impairments Pain,ROM,Strength,Balance, Coordination,Sensation,Tone, Cognition,Bed Mobility, Transfers,Gait,Activity Tolerance Progress Towards Goals Progressing Toward Goals Assessment Summary Mehga is making good progress with her mobility. She is SBA for all bed mobility with HOB elevated. She performed sit to stand with SPC Betsy for balance coming into standing. She continues to ambulate ~400'SBA /CGA with SPC, is unsteady and requires cues for SPC management. PT continues to recommend acute rehab. She is motivated to work with therapies and to improve, she is a good canidate for acute rehab. Goals Bed Mobility Goal Independent Transfer Goal Independent,Front Wheeled Walker Gait Goal Independent,Front Wheel Walker Gait Distance 200 Other Goals improve transfers and ambulation using LRAD/without AD 300 ft mod I Days to Meet Goals 10 Frequency of Treatment Frequency Of Treatment Once a Day Treatment Plan Physical Therapy Treatment Plan Bed Mobility Training,Transfer Training,Gait Training, Therapeutic Exercise,Balance Retraining,Discharge Planning, Hot or Cold Pack,Neuromuscular Re-ed,Coordination Retraining ,Manual Therapy Precautions Lumbar Precautions Log Roll,No Twisting,Limit Bending,Lifting Restriction of 10 lbs Recommendations To Nursing Amount of Assist Needed 1 Person Assist Discharge Recommendations PT Discharge Recommendations Acute Rehab,SNF vs Acute Rehab Equipment Needed for Home Before FWW if pt goes home Discharge Transportation Needs at Discharge Private Vehicle,Wheelchair/ Cabulance
--- NOTE | 2023-11-11 10:26 | CM.DPNOTE ---
Addendum entered by GISELE King 11/11/23 17:07: PHARMACY GRADUATE INTERN and Drew (p [phone] email [email or web address]) from [facility] coordinated frequently throughout the day. PHARMACY GRADUATE INTERN emailed appropriate referral information required by their accepting provider. Drew reports they can accept pt and will hold bed until tomorrow morning. Asked for up to date labs, vitals, most recent prog note, COVID test, and 48hr MAR as soon as possible in day. Drew needs dc summary prior to pt leaving from the hospital. [place] before 1030 tomorrow. PHARMACY GRADUATE INTERN coordinated frequently with dtr Megha (p [phone]) and pt throughout day. Dtr agrees to transport pt to [facility] and plans to be here tomorrow before 10am to transport. pt in agreement and excited for acute rehab. PHARMACY GRADUATE INTERN updated RN and provider, both in agreement. PHARMACY GRADUATE INTERN lvm with [facility] to cancel referral. Plan: dc tomorrow morning around 10am via dtr to transport to [facility] for acute rehab. CM team will continue to follow closely to send appropriate dc information to Drew at [facility]. SL Original Note: DCP Note PHARMACY GRADUATE INTERN reviewed EMR. PHARMACY GRADUATE INTERN spoke with Drew at [facility]- no bed availability today as well. Earliest they could accept is tomorrow. PHARMACY GRADUATE INTERN faxed updated clinicals/PT/OT notes for review. PHARMACY GRADUATE INTERN lvm at [facility] to inquire about bed availability. No response. PHARMACY GRADUATE INTERN faxed referral information/updated clinicals in case bed availability. PHARMACY GRADUATE INTERN lvm with [facility] to cancel transport to [facility]/general update. PHARMACY GRADUATE INTERN spoke with pt in room, reported findings. Pt remains agreeable and eager to dc to [facility] pending bed availability. Provider, PHARMACY GRADUATE INTERN, and therapy team discussed if pt was safe to dc home in rounds. Therapy team continues to rec acute rehab. Provider in agreement. Plan: ideally dc tomorrow to [facility], dtr to transport. Pending acceptance and bed availability. CM team will continue to follow closely. GISELE King
[2023-11-11 12:00] VITALS: BP 135/53; PULSE 61; RESP 16; TEMP 35.5; O2SAT 99
--- NOTE | 2023-11-11 12:38 | PM.PN.1 ---
Subjective Subjective Interval history: Doing well today. She feels like her speech is improving. She continues to have to go slow and take a deep breath or she has more propensity for stuttering. No arm or leg weakness. No visual changes. Her back pain is much improved with a lidocaine patch which was started on November 10. Exam Vital Signs (past 8 hours): - 11/11/23 04:44 11/11/23 08:00 Temperature 96.7 F L 96.1 F L Pulse Rate 60 60 Respiratory Rate 16 16 Blood Pressure 151/69 H 142/65 H Pulse Oximetry 97 99 Oxygen Flow Rate 0 0 Oxygen Delivery Method Room Air Oxygen Flow Rate 0 Narrative Exam Narrative: NAD, speech fairly good. Some stuttering. EOMI Lungs clear CV regular Abdomen Soft and ND No leg edema No extremity weakness Objective Labs 11/11/23 04:35 11/11/23 04:35 Labs: Laboratory Results - last 24 hr 11/11/23 04:35 WBC 3.2 L RBC 2.95 L Hgb 9.7 L Hct 27.8 L MCV 94.3 MCH 32.8 MCHC 34.7 RDW 14.0 Plt Count 184 Neut % (Auto) 62.9 Lymph % (Auto) 24.1 L [place] % (Auto) 10.8 Eos % (Auto) 1.7 L Baso % (Auto) 0.5 Neut # (Auto) 2000 Lymph # (Auto) 800 L [place] # (Auto) 400 Eos # (Auto) 100 Baso # (Auto) 0 PT 17.9 H INR 1.6 H Sodium 128 L Potassium 4.2 Chloride 100 Carbon Dioxide 26 BUN 14 Creatinine 0.45 L Estimated GFR > 60 BUN/Creatinine Ratio 31.1 H Glucose 66 L Calcium 9.0 ON LICENSE OF [facility] Medical History External hemorrhoids Memory change Abnormal urine odor Rectal mass Raynauds syndrome Elevated blood pressure reading without diagnosis of hypertension Anxiety about health Blood pressure check Right leg paresthesias Atrial fibrillation Epilepsy (1959) TIA (transient ischemic attack) Seizures (2013) Peripheral neuropathy (2012) History of SCC (squamous cell carcinoma) of skin BCC (basal cell carcinoma of skin) Actinic keratosis Essential thrombocytosis Bilateral cataracts Fibroids (~1989) History of heavy periods (~1989) Ovarian cyst (~1987) Anemia Chicken pox (~1947) Measles (~1947) Mumps (1947) Rosacea (~1999) Hypothyroidism Skin cancer (~1989) Surgical History Anesthesia History of cataract removal with insertion of prosthetic lens (2009) Status post hernia repair (2014) Status post hysterectomy (1988) Family History Father Heart disease High cholesterol Brother Drug overdose Family/Other Gunshot wound Drug overdose Grandfather Asthma Emphysema of lung Grandmother No problems noted. Mother Lung cancer Bone cancer Grandfather No problems noted. Grandmother No problems noted. Social History marital status: household members: none occupational status: previously employed Smoking Status: Former smoker alcohol intake: current substance use type: does not use Assessment & Plan Assessment & Plan narrative: 1. Subacute stroke with speech abnormalities, POA and improving. -patient notes 5 days of new stuttered speech and difficulty with word finding, NIH 1 in ED -cannot get MRI brain due to pacemaker -restarted eliquis 2. Supratherapeutic INR, POA and resolved. -INR 11 in ED, recieved vit K and FFP -INR normalized. -restarted eliquis 3. Chronic hyponatremia, POA and improving -Na 126 on admission -continue home salt tabs 1g BID 4. Paroxysmal A-fib, POA and stable -continue metoprolol -holding warfarin due to elevated INR at admission, going to [facility]. -sent eliquis to patient's pharmacy and it is $47 copay for a month supply, patient should go back on eliquis and not warfarin -restarted eliquis 2.5mg BID 5. HTN, POA and stable. -continue amlodipine and losartan given out of permissive HTN window 6. Hypothyroidism, POA and stable. -TSH low at <0.02, T4 normal at 2.07 -continue synthroid 7. Essential thrombocytosis, POA and stable. -platelets normal on admission -continue hydroxyurea 8. Chronic celiac artery occlusion, POA and stable. -per CTA on 08/16/23 9. SSS s/p pacemaker, POA and stable. -placed in 2019, followed by Dr. Hodgson cardiology 10. Acute lumbar pain, POA and active. -continue lidocaine patch. DISPO: Inpatient rehab does not have a bed today, discharge is being delayed due to lack of bed. Quality VTE Deep Vein Thrombosis/Pulmonary Embolism Present on Admission: No
[2023-11-11 16:00] VITALS: BP 168/69; PULSE 60; RESP 16; TEMP 35.7; O2SAT 99
[2023-11-11 20:00] VITALS: BP 163/66; PULSE 60; RESP 16; TEMP 36.4; O2SAT 96
[2023-11-11] MEDS: GABAPENTIN 600 MG TABLET PO (20:25)
[2023-11-12] VITALS: BP 153/51; PULSE 60; RESP 16; TEMP 36; O2SAT 98
[2023-11-12] MEDS: ACETAMINOPHEN 325 MG TABLET 650 MG PO (02:01)
[2023-11-12 04:40] VITALS: BP 163/66; PULSE 60; RESP 16; TEMP 36.1; O2SAT 97
[2023-11-12 06:07] LABS: Add Manual Diff / Slide Review NO; Basophils Absolute Auto 0 /uL (0-100); Basophils Percent Auto 0.3 % (0-2); Eosinophils Absolute Auto 100 /uL (0-450); Eosinophils Percent Auto 1.7 % (2-4); Hematocrit 27.9 % (36-46); Hemoglobin 9.6 g/dL (12.0-16.0); Lymphocytes Absolute Auto 900 /uL (1100-4500); Lymphocytes Percent Auto 23.4 % (25-40); Mean Corpuscular HGB Conc 34.4 % (30-36); Mean Corpuscular Hemoglobin 32.6 PG (26-34); Mean Corpuscular Volume 94.6 fL (80-100); Monocytes Absolute Auto 400 /uL (0-900); Neutrophils Absolute Auto 2300 /uL (1500-7000); Neutrophils Percent Auto 62.6 % (50-75); Platelet Count 181 X10^3/uL (150-400); Red Blood Cell Count 2.95 X10^6/uL (4.0-5.2); Red Cell Distribution Width 14.1 % (11.6-14.8); White Blood Cell Count 3.6 X10^3/uL (4.5-11.0)
[2023-11-12 06:11] LABS: INR 1.4 (0.9-1.3)
[2023-11-12 06:35] LABS: BUN Creatinine Ratio 34.8 (6-22); Blood Urea Nitrogen 16 mg/dL (7-17); Carbon Dioxide 25 mmol/L (22-32); Chloride 101 mmol/L (98-107); Estimated Glomerular Filt Rate > 60 mL/min (>60); Potassium 4.4 mmol/L (3.4-5.1); Sodium 129 mmol/L (137-145)
[2023-11-12 06:36] LABS: Calcium 8.9 mg/dL (8.4-10.2); Glucose 66 mg/dL (80-110)
--- NOTE | 2023-11-12 07:08 | P.DS_ITS ---
History of Present Illness History of Present Illness Chief complaint: Stroke like Symptoms Narrative: Megha Parks is an 78yo F with PMH of recent TIA at [facility] in Aug 2023, paroxysmal A-fib on warfarin, SSS s/p pacemaker, HTN, chronic hyponatremia, chronic celiac artery occlusion, essential thrombocytosis, Raynaud's and hypothyroidism who presents with speech difficulty. Patient was in her normal state of health until 5 days ago she developed a new significant stutter. Her family wanted her evaluated but she declined. Her symptoms persisted and also involved intermittent weakness on her left side. She finally presented to the ED where her NIH was 1. She cannot get an MRI due to her pacemaker. Last echo was Jul 2023 and was unremarkable. Patient can understand what is being said to her, but has trouble getting the words out and stutters frequently. Her INR was found to be 11. She says she takes warfarin becasue eliquis was too expensive. She denies CP, SOB, visual changes, abd pain, diarrhea, or any bleeding. Discharge Providers Provider Date of admission: 11/07/23 15:42 Discharge Date: 11/12/23 Primary care physician: Rashid Brennan DO Consults: 11/07/23 15:51 Consult to Physical Therapy Evaluate & Treat Comment: Physician Instructions: Evaluate and Treat 11/07/23 15:52 Consult to Occupational Therapy Evaluate & Treat Comment: Physician Instructions: Evaluate and treat 11/07/23 15:54 Consult to Speech Therapy Evaluate & Treat Comment: failed bedside swallow eval Physician Instructions: Evaluate and treat Discharge provider: Jimmie Wahl MD Summary Hospital Course Discharge Diagnosis: 1. Subacute stroke with speech abnormalities, POA and improving. -patient notes 5 days of new stuttered speech and difficulty with word finding, NIH 1 in ED -cannot get MRI brain due to pacemaker -restarted eliquis 2. Supratherapeutic INR, POA and resolved. -INR 11 in ED, recieved vit K and FFP -INR normalized. -restarted eliquis 3. Chronic hyponatremia, POA and improving -Na 126 on admission -continue home salt tabs 1g BID 4. Paroxysmal A-fib, POA and stable -continue metoprolol -holding warfarin due to elevated INR at admission, going to [facility]. -sent eliquis to patient's pharmacy and it is $47 copay for a month supply, patient should go back on eliquis and not warfarin -restarted eliquis 2.5mg BID 5. HTN, POA and stable. -continue amlodipine and losartan given out of permissive HTN window 6. Hypothyroidism, POA and stable. -TSH low at <0.02, T4 normal at 2.07 -continue synthroid 7. Essential thrombocytosis, POA and stable. -platelets normal on admission -continue hydroxyurea 8. Chronic celiac artery occlusion, POA and stable. -per CTA on 08/16/23 9. SSS s/p pacemaker, POA and stable. -placed in 2019, followed by Dr. Hodgson cardiology 10. Acute lumbar pain, POA and active. -continue lidocaine patch. Her patch did improve her pain significantly. Hospital Course: The patient was admitted with evidence of an acute CVA. She had a negative CT and could not have a MRI due to pacemaker. She was treated medically and therapists assessed her and felt she would benefit from inpatient rehab. She was initially over anticoagulated and warfarin was held and she was ultimated started on Eliquis. She improved from a neurologic perspective during her stay. She was stable on the day of transfer to inpatient rehab. She does have acute on chronic lumbar pain and this was treated with a lidocaine patch which improved her pain significantly. Status at Discharge Cognitive/behavioral status at discharge: oriented Functional status at discharge: independent ambulation Overall status at discharge: patient is not back to baseline Time Spent with Patient Time spent: Greater than 30 minutes Exam Vital Signs (past 8 hours): - 11/12/23 00:00 11/12/23 04:40 Temperature 96.8 F L 97 F L Pulse Rate 60 60 Respiratory Rate 16 16 Blood Pressure 153/51 H 163/66 H Pulse Oximetry 98 97 Oxygen Flow Rate 0 0 Oxygen Delivery Method Room Air Oxygen Flow Rate 0 Narrative Exam Narrative: NAD Lungs clear CV regular Abdomen soft. No leg edema. Mild stuttering. Objective ECG Impression: NSR Imaging CT scan - head: Radiologist's impression: Normal. Labs 11/12/23 05:34 11/12/23 05:34 Labs: Laboratory Results - last 24 hr 11/12/23 05:34 WBC 3.6 L RBC 2.95 L Hgb 9.6 L Hct 27.9 L MCV 94.6 MCH 32.6 MCHC 34.4 RDW 14.1 Plt Count 181 Neut % (Auto) 62.6 Lymph % (Auto) 23.4 L [place] % (Auto) 12.0 Eos % (Auto) 1.7 L Baso % (Auto) 0.3 Neut # (Auto) 2300 Lymph # (Auto) 900 L [place] # (Auto) 400 Eos # (Auto) 100 Baso # (Auto) 0 PT 16.0 H INR 1.4 H Sodium 129 L Potassium 4.4 Chloride 101 Carbon Dioxide 25 BUN 16 Creatinine 0.46 L Estimated GFR > 60 BUN/Creatinine Ratio 34.8 H Glucose 66 L Calcium 8.9 PFSH Medical History External hemorrhoids Memory change Abnormal urine odor Rectal mass Raynauds syndrome Elevated blood pressure reading without diagnosis of hypertension Anxiety about health Blood pressure check Right leg paresthesias Atrial fibrillation Epilepsy (1959) TIA (transient ischemic attack) Seizures (2013) Peripheral neuropathy (2012) History of SCC (squamous cell carcinoma) of skin BCC (basal cell carcinoma of skin) Actinic keratosis Essential thrombocytosis Bilateral cataracts Fibroids (~1989) History of heavy periods (~1989) Ovarian cyst (~1987) Anemia Chicken pox (~1946) Measles (~1946) Mumps (1946) Rosacea (~1999) Hypothyroidism Skin cancer (~1989) Surgical History Anesthesia History of cataract removal with insertion of prosthetic lens (2009) Status post hernia repair (2014) Status post hysterectomy (1988) Family History Father Heart disease High cholesterol Brother Drug overdose Family/Other Gunshot wound Drug overdose Grandfather Asthma Emphysema of lung Grandmother No problems noted. Mother Lung cancer Bone cancer Grandfather No problems noted. Grandmother No problems noted. Social History marital status: household members: none occupational status: previously employed Smoking Status: Former smoker alcohol intake: current substance use type: does not use Discharge Assessment & Plan Assessment and Plan Assessment: 1. Subacute stroke with speech abnormalities, POA and improving. -patient notes 5 days of new stuttered speech and difficulty with word finding, NIH 1 in ED -cannot get MRI brain due to pacemaker -restarted eliquis 2. Supratherapeutic INR, POA and resolved. -INR 11 in ED, recieved vit K and FFP -INR normalized. -restarted eliquis 3. Chronic hyponatremia, POA and improving -Na 126 on admission -continue home salt tabs 1g BID 4. Paroxysmal A-fib, POA and stable -continue metoprolol -holding warfarin due to elevated INR at admission, going to [facility]. -started eliquis 2.5mg BID 5. HTN, POA and stable. -continue amlodipine and losartan given out of permissive HTN window 6. Hypothyroidism, POA and stable. -TSH low at <0.02, T4 normal at 2.07 -continue synthroid 7. Essential thrombocytosis, POA and stable. -platelets normal on admission -continue hydroxyurea 8. Chronic celiac artery occlusion, POA and stable. -per CTA on 08/16/23 9. SSS s/p pacemaker, POA and stable. -placed in 2019, followed by Dr. Hodgson cardiology 10. Acute lumbar pain, POA and active. -continue lidocaine patch. Plan of Treatment: Transfer to Inpatient rehab. Discharge Plan Discharge Plan Patient Disposition: Xfer Inpatient Rehab Other facility: [facility] Provider Discharge Comment: Stable and improving. Discharge orders & Medications Discharge Orders: Discharge (Order); Ordered 11/12/23 Ordered By: Jimmie Wahl Prescriptions: New Eliquis 5 mg Tablet 2.5 mg PO BID Qty: 30 2RF lidocaine 5 % Adhesive Patch,Medicated 1 patch topical DAILY Qty: 10 0RF Continued Probiotic Formula (inulin) 1 billion-250 cell-mg Capsule 1 cap PO DAILY Qty: 0 cholecalciferol (vitamin D3) [Vitamin D3] 1,000 UNIT tablet 1,000 iu PO DAILY Qty: 0 metoprolol tartrate 25 mg tablet 12.5 mg PO DAILY Qty: 90 0RF hydroxyurea [Hydrea] 500 mg capsule 500 mg PO 4XW Qty: 53 3RF Rx Instructions: on Friday, Friday, Friday and Friday losartan 50 mg tablet 50 mg PO BID Qty: 180 0RF Calcium Magnesium Citrate 2 tbsp PO DAILY levothyroxine 100 mcg tablet 100 mcg PO DAILY Qty: 90 0RF amlodipine 10 mg tablet 10 mg PO DAILY Qty: 90 3RF aspirin 81 mg Capsule 81 mg PO DAILY sodium chloride 1,000 mg Tablet,Soluble 1,000 mg PO BID vitamin E mixed [Natural Vitamin E] 400 unit Capsule 400 unit PO DAILY biotin 1,000 mcg Tablet,Chewable 1,000 mcg PO DAILY apixaban 2.5 mg tablet 2.5 mg PO BID Qty: 60 0RF Discontinued warfarin 6 mg tablet See Rx Instructions .ROUTE .COMPLEX Qty: 90 12RF Dose Instruction: TAKE 7MG DAILY, OR DIRECTED. Rx Instructions: Take one tab daily, see daily total dose below. Also has 2mg tabs takes total of 8mg on Friday and Friday, Takes 7mg on Friday, Friday, Friday, , Friday warfarin 2 mg tablet See Rx Instructions PO DAILY Qty: 60 2RF Rx Instructions: Take 1/2 tablet (1mg) with 6mg tablet on , , , Fri, Sun. Take 1 tablet (2mg) with 6mg tablet on , or as directed. Takes total of 8mg / Takes total of 7mg ///Fri/Sun gabapentin [Neurontin] 600 mg tablet See Rx Instructions PO .COMPLEX Qty: 135 3RF Patient Comments: PATIENT REPORTS TAKING 300MG IN THE A.M, 600MG IN THE PM Rx Instructions: 1/2 tablet in the morning and 1 tablet in the evening, PO, orally; Follow up/Referrals: Rashid Brennan DO [Primary Care Provider] - [facility] Reason for rehabilitation: Therapy following stroke Rehab type: Physical therapy, Occupational therapy and Speech therapy Discharge Data Primary Care Provider: Rashid Brennan Quality VTE Deep Vein Thrombosis/Pulmonary Embolism Present on Admission: No
[2023-11-12 07:27] VITALS: BP 160/67; PULSE 61; TEMP 35.7; O2SAT 98
[2023-11-12] MEDS: METOPROLOL IR 25 MG TABLET 12.5 MG PO (08:06)
[2023-11-12] MEDS: APIXABAN 5 MG TABLET 2.5 MG PO (08:06)
[2023-11-12] MEDS: LIDOCAINE 5% PATCH 1 EACH TOP (08:08)
[2023-11-12] MEDS: SODIUM CHLORIDE 1,000 MG TABLET 1000 MG PO (08:08)
[2023-11-12] MEDS: SODIUM CHLORIDE 0.9% FLUSH 10 ML IV (08:13)
[2023-11-12 08:15] LABS: HEMOLYSIS < 15 (0-50)
[2023-11-12 09:27] LABS: COVID19 -Nasal RAPID Negative (Negative)
--- NOTE | 2023-11-12 09:47 | OT.IP.TRT ---
Current Diagnoses Cerebral infarction, unspecified (11/07/23) Occupational Therapy Treatment Note M2 OT-IP Current Condition Start: 11/10/23 10:12 Freq: Status: Active Protocol: Document 11/10/23 10:12 JENNIFER (Rec: 11/10/23 10:58 [facility] [id number]) Occupational Therapy Current Condition Current Condition Evaluation Date 11/10/23 Treatment Diagnosis cerebral infarct, unspecified Diagnosis Onset Date 11/07/23 M3 OT- IP Subjective and Pain Start: 11/10/23 10:12 Freq: Status: Active Protocol: Document 11/12/23 09:12 [facility] (Rec: 11/12/23 10:29 [facility] [id number]) OT- Subjective Occupational Therapy Visit Type Visit Start Time 09:12 Visit Stop Time 09:47 Total Visit Minutes 35 Occupational Therapy Visit Comments Patient Comments Pt agreed to get dressed. Patient/Caregiver Goals TO get better. OT Pain Assessment Pain When Pain Assessed At Rest Pain Present Pain Present Pain Reported M4 OT- IP ADL's Start: 11/10/23 10:12 Freq: Status: Active Protocol: Document 11/12/23 09:12 [facility] (Rec: 11/12/23 10:29 [facility] [id number]) OT DNG-[id number]-Xhfrjbb General Evaluation Self-Feeding Ability Independent Comments OT Self-Feeding Comments Increased time for set-up. OT ADL-Grooming Comments OT Grooming Comments Increased time while standing at the sink for set-up of needs. Suggested pt use an electric toothbrush at home due to her arthritis. OT ADL-Oral Care General Eval Oral Care Ability Standby Assistance Comments Oral Care Comments Use of counter for support for her balance. OT ADL-Dressing General Eval Upper Body Dressing Ability Minimal Assistance Lower Body Dressing Ability Moderate Assistance Comments OT Dressing Comments Assist to help fasten her bra. Assist for compression stocking and to help get her leggings and underwear over her feet. OT ADL-Toileting Comments OT Toileting Comments Pt not having to go at this time. OT ADL-Bathing Comments OT Bathing Comments Pt able to stand with CGA for balance while doing pericare needs with a wash cloth. M5 OT- IP IADL's Start: 11/10/23 10:12 Freq: Status: Active Protocol: Document 11/10/23 10:12 JENNIFER (Rec: 11/10/23 10:58 [facility] [id number]) OT-Instrumental Activities of Daily Living Home Safety Awareness Awareness of Need for Assistance at Home Good Awareness Ability to Problem Solve Emergency Able to Problem Solve Situations Home Safety Comments Pt has life alert at home. Medication Management Medication Management No Deficits Identified Medication Management Comments Pt is able to state her normal routine for taking medications at home. Money Management Money Management Caregiver Provides Assistance Money Management Comments Pt reports that her dtr assists with this as needed. M6 OT- IP Functional Cognition Start: 11/10/23 10:12 Freq: Status: Active Protocol: Document 11/12/23 09:12 [facility] (Rec: 11/12/23 10:29 [facility] [id number]) Cognitive Factors Limiting Selfcare Function Cognitive Ability Level of Alertness Alert Patient Orientation Name,Age,Date,Place,Situation Attention Span Ability Capable of Focused Attention, Capable of Sustained Attention Safety Awareness Underestimates Need for Assistance Cognitive Comments Cognitive Assessment Comments VC for safety awareness to push up from the armrests of the recliner to stand. Back up all the way to the recliner before trying to take up her brief. M7 OT- IP Mobility and Balance Start: 11/10/23 10:12 Freq: Status: Active Protocol: Document 11/12/23 09:12 [facility] (Rec: 11/12/23 10:29 [facility] [id number]) OT-Transfer Assessment Sit to and From Stand Sit to and from Stand Minimal Assistance Technique Transfer Destination Chair Devices Transfer Assistive Devices Gait Belt,Front Wheeled Walker Comments Mobility Comments Pt initially trying to use the SPC and too unsteady and educated best to use the FWW for now. FLORIN to stand and CGA once on her feet to close SBA . OT- Balance Assessment Sitting Balance and Reactions Static Sitting Balance Ability Good Dynamic Sitting Balance Ability Fair Standing Balance and Reactions Static Standing Balance Ability Fair Dynamic Standing Balance Ability Poor M8 OT- IP Objective Assessments Start: 11/10/23 10:12 Freq: Status: Active Protocol: Document 11/10/23 10:12 JENNIFER (Rec: 11/10/23 10:58 [facility] [id number]) OT Gross Range of Motion Upper Extremity Range of Motion Assessment Within Functional Limits ROM Impairments Pt demonstrates functional ROM B UE all planes of mvmt OT Strength Upper Extremity Strength Shoulder 4-/5 Elbow 4-/5 Wrist 4-/5 Hand 4/5 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 M9 OT- IP Assessment and Plan Start: 11/10/23 10:12 Freq: Status: Active Protocol: Document 11/12/23 09:12 [facility] (Rec: 11/12/23 10:29 [facility] [id number]) OT Summary Assessment and Plan Potential Rehabilitation Potential Excellent Analytic Complexity at Evaluation Moderate Summary OT Impairments Pain,Strength,Functional Mobility,Dressing,Toileting, Bathing,Toilet Transfers, Shower Transfers,Activity Tolerance Progress Towards Goals Progressing Toward Goals Assessment Summary Pt needing assist for dynamic balance for dressing needs. Pt looking to go to acute rehab today. Pt will benefit from work on balance, vision, coordination, functional cognition, strengthening, and activity tolerance in hopes to get back to her baseline of taking care of herself. Goals Grooming Goal Independent Dressing Goal Independent Toileting Goal Independent Bathing Goal Independent Toilet Transfer Goal Independent Shower Transfer Goal Independent Days to Meet Goals 25 Frequency of Treatment Frequency Of Treatment Once a Day Treatment Plan OT Treatment Plan ADL Training,Functional Cognition Training,Functional Mobility,IADL Training, Therapeutic Exercises, Discharge Planning Discharge Recommendations OT Discharge Recommendations Acute Rehab Transportation Needs at Discharge Private Vehicle
--- NOTE | 2023-11-12 11:36 | PC.NURSE ---
Patient slightly confused this morning thinking she was at her mother's house. She is easily reoriented. She is A&ox3 this a.m. VSS, afebrile BP slightly elevated. Per MD she will resume her home antihypertensives after today. She is cleared for discharge today. Daughter arrived at 1000 a.m. to help transport patient to rehab facility in [place]. She is escorted via w/ch with all of her belongings at approximately 1015 a.m. for discharge today in private vehicle with her daughter Megha for transport. Report called to receiving TYLER Morris.
--- NOTE | 2023-11-12 12:26 | CM.DPC ---
DCP Cont: Patient has been accepted to [facility]. Plan is for daughter to chart picker patient between 10:00-10:30. Drew in intake at [facility], has been in contact via email. Went ahead per his request and placed a COVID swab order. Yenifer, has kindly been in email response with Drew as well and sent over labs and updated notes. Dr. Wahl has completed orders. Drew did ask if Dr. Wahl could do a doctor report with their provider. Received her phone number and asked Dr. Wahl to give her a call. P: Patient has discharge orders for today, patient's daughter here to pick patient up. Sophie Bragg RN/Manager Biostatistics
== END 2023-11-12 10:15 | DRG 65 ==
LOC: ED 15:19 → AC 15:43
PROVIDERS: Hospitalist; Admitting Provider Student in an Organized Health Care Education/Training Program; Emergency Provider Emergency Medicine; PCP Family Medicine; Referring Provider Emergency Medicine; Visit Provider Student in an Organized Health Care Education/Training Program
DX: I63.9 Cerebral infarction, unspecified (principal); E87.1 Hypo-osmolality and hyponatremia; I48.0 Paroxysmal atrial fibrillation; R79.1 Abnormal coagulation profile; I10 Essential (primary) hypertension; R29.702 NIHSS score 2; E03.9 Hypothyroidism, unspecified; D47.3 Essential (hemorrhagic) thrombocythemia; I70.8 Atherosclerosis of other arteries; R47.89 Other speech disturbances; M54.50 Low back pain, unspecified; R29.701 NIHSS score 1; Z87.891 Personal history of nicotine dependence; Z79.01 Long term (current) use of anticoagulants; Z95.0 Presence of cardiac pacemaker
CPT/HCPCS: 36415; 36430; 70450; 71045; 80048; 80053; 80061; 80076; 80305; 81003; 81015; 82550; 83036; 83735; 84439; 84443; 84484; 85025; 85610; 85730; 86850; 86900; 86901; 86927; 87086; 87635; 92507; 92521; 93005; 93307; 97112; 97116; 97162; 97166; 97530; 97535; 99285; C9803; P9016

== ENCOUNTER → 2023-11-25 15:54 | Outpatient (CLI) | payer MEDICARE, SELFPAY ==
[2023-11-07 16:46] VITALS: BMI 19.3
--- NOTE | 2023-11-25 15:57 | DI.RAD.S_ITS ---
PROCEDURE: XR LUMBAR SPINE 2-3V INDICATIONS: Pain after bending forward @ 2 weeks ago pain to right side TECHNIQUE: 3 views of the lumbar spine were acquired. COMPARISON: [facility], CR, XR CHEST 1V, 11/07/2023, 12:19. [facility], CT, CT ANGIO CHEST ABDOMEN PELVIS, 08/16/2023, 18:10. CT, CT KIDNEY URETER BLADDER (KUB), 02/09/2021, 14:10. FINDINGS: Bones: 5 [id number] vertebrae are present. There is prominent rightward scoliotic curvature. Greater than 95% T12 compression deformity. This is new compared to prior exam on 11/07/2023. Multilevel degenerative disc and foraminal narrowing is present. No suspicious bony lesions. Soft tissues: Overlying bowel gas pattern is normal. No suspicious soft tissue calcifications. Prominent stool. IMPRESSION: New T12 compression deformity appearing acute/subacute. Dictated by: Agnes Nixon M.D. on 11/25/2023 at 18:59 Approved by: Agnes Nixon M.D. on 11/25/2023 at 19:02
== END ==
PROVIDERS: PCP Family Medicine; Referring Provider Physician Assistant; Visit Provider Physician Assistant
DX: M43.8X4 Other specified deforming dorsopathies, thoracic region (principal); M51.36 Other intervertebral disc degeneration, lumbar region; M48.061 Spinal stenosis, lumbar region without neurogenic claudication; M54.50 Low back pain, unspecified
CPT/HCPCS: 72100

== ENCOUNTER → 2023-12-03 11:19 | Outpatient (CLI) | payer MEDICARE, SELFPAY ==
[2023-11-07 16:46] VITALS: BMI 19.3
[2023-12-03 14:10] LABS: Free T4, Direct Thyroxine 1.17 ng/dL (0.78-2.19)
[2023-12-03 14:23] LABS: Thyroid Stimulating Hormone 0.051 uIU/mL (0.47-4.68)
== END ==
LOC: LAB 11:21
PROVIDERS: Physician Assistant; PCP Family Medicine; Referring Provider Family Medicine; Visit Provider Family Medicine
DX: E03.9 Hypothyroidism, unspecified (principal)
CPT/HCPCS: 36415; 84439; 84443